=== PATIENT | male | born 1950 | race Caucasian/White ===

== ENCOUNTER → 2017-04-26 | Outpatient (CLI) | payer MEDICARE, BC ==
--- NOTE | 2017-04-26 22:40 | MR ---
EXAMINATION TYPE: MR foot RT wo/w con DATE OF EXAM: 04/26/2017 COMPARISON: NONE HISTORY: osteomyelitis, rt great toe. History of puncture wound injury August 2016. CONTRAST: Standard multiplanar, multisequence MRI departmental protocol utilizing 20 mL intravenous MultiHance gadolinium contrast. FINDINGS: There is hallux valgus deformity first metatarsophalangeal joint. There is joint space loss and spurring with round T2 hyperintense areas favoring subchondral cysts at this level. Along planta r surface there is small area of pulmonary first metatarsal head of T1 hypointensity and T2 hyperinte nsity with vague enhancement seen best sagittal image 6 in which acute osteomyelitis cannot be exclud ed. Coronal images are suboptimal as all T1 sequences are postcontrast in presentation with enhanceme nt at this level. Adjacent subcutaneous tissue is unremarkable. There is flexion in the toes present. There is slight varus positioning of distal fourth and fifth to es. Remainder of bone marrow signal intensity is preserved. No worrisome focal fluid collection or ab scess is seen. IMPRESSION: Degenerative change first metatarsophalangeal joint with area of abnormal signal and enhancement in w hich small focus of acute osteomyelitis cannot be excluded centered plantar surface first metatarsal head.
== END | disposition home or self-care (01) ==
LOC: RADMRIMAIN 11:05
PROVIDERS: ATTEND Surgery Vascular Surgery
DX: M86.8X8 Other osteomyelitis, other site (principal); E13.621 Other specified diabetes mellitus with foot ulcer
CPT/HCPCS: 73720; A9577

== ENCOUNTER → 2018-04-07 | Outpatient (CLI) | payer MEDICARE, BC ==
--- NOTE | 2018-04-07 09:16 | MR ---
EXAMINATION TYPE: MR foot LT wo/w con DATE OF EXAM: 04/07/2018 COMPARISON: NONE HISTORY: Osteomyelitis left great toe per order, history of partial amputation left foot CONTRAST: Standard multiplanar, multisequence MRI departmental protocol utilizing 11.5 mL intravenous Gadavist gadolinium contrast. FINDINGS: Amputation defect involving distal one half of first toe is present. Remnant first toe show s no suspicious diminished T1 signal or thus abnormal enhancement. There is enhancing low T1 and T2 s ignal in the distal plantar soft tissue consistent with scar tissue at this level. Slight hallex valgus positioning first metatarsophalangeal joint with mild joint space loss and spurr ing is present. Moderate soft tissue swelling around first proximal phalanx is seen with some enhanci ng soft tissue could reflect residual soft tissue infection and/or cellulitis most prominent along pl nydia surface. There is varus positioning and flexion in distal fourth and fifth toes. Bone marrow signal intensity is maintained. No worrisome focal fluid collection is seen. No suspicious enhancement is noted. IMPRESSION: Amputation defect distal first toe. No MRI evidence for residual active osteomyelitis in the remnant first toe or remainder visualized midfoot and forefoot.
== END ==
LOC: RADMRIMAIN 07:57
PROVIDERS: ATTEND Surgery Vascular Surgery
DX: M86.8X7 Other osteomyelitis, ankle and foot (principal)
CPT/HCPCS: 73720; A9581

== ENCOUNTER 2018-11-06 12:39 | Inpatient (IN) | payer MEDICARE, BC ==
[2018-11-06] MEDS ORDERED: SODIUM CHLORIDE 0.9% 500 ML 500 ML IV STA (13:31)
[2018-11-06] MEDS ORDERED: IPRATROPIUM 0.5 MG/2.5 ML NEBU INHALATION STA (13:31)
[2018-11-06] MEDS ORDERED: ALBUTEROL NEBULIZED 2.5 MG/3 ML INHALATION STA (13:31)
[2018-11-06] MEDS ORDERED: ACETAMINOPHEN TAB 500 MG TAB PO STA (13:32)
--- NOTE | 2018-11-06 13:39 | ED ---
General Adult HPI - General Chief complaint: Shortness of Breath Stated complaint: low O2, sent from [facility] Time Seen by Provider: 11/06/18 13:00 Source: patient, RN notes reviewed Mode of arrival: ambulatory Limitations: no limitations - History of Present Illness Initial comments: This is a 68-year-old male who presents emergency department after having gone to [facility]. Patient comes in stating that he started having some shortness of breath last evening. Patient states about 3 days ago he was in [place] and started to come down with a little bit of a cold however the shortness of breath did not start until he got back to [place] and states it was very noticeably yesterday. Patient states shortness of breath is worse with exertion. Patient denies any chest pain. Patient denies any palpitations. Patient does state he has a history of atrial fibrillation. Patient states he has no known fever or chills. Patient states she has been coughing but not coughing up any sputum. Patient denies any abdominal pain patient as nausea vomiting diarrhea. Patient denies headache patient denies numbness weakness. Patient denies lightheadedness dizziness or near syncopal episode. Patient denies any swelling to the legs. - Related Data Home Medications Medication Instructions Recorded Confirmed Folic Acid 1 mg PO DAILY 09/06/16 11/06/18 Furosemide [Lasix] 20 mg PO HS 09/06/16 11/06/18 Lisinopril [Zestril] 5 mg PO DAILY 09/06/16 11/06/18 Simvastatin [Zocor] 40 mg PO HS 09/06/16 11/06/18 Warfarin [Coumadin] 3 mg PO Q48H 09/06/16 11/06/18 Warfarin [Coumadin] 4 mg PO Q48H 09/06/16 11/06/18 levETIRAcetam [Keppra] 750 mg PO BID 09/06/16 11/06/18 metFORMIN HCL [Glucophage] 500 mg PO BID 09/06/16 11/06/18 Multivitamin [Multiple Vitamins] 1 tab PO DAILY 04/11/17 11/06/18 Thiamine [Vitamin B-1] 50 mg PO DAILY 04/11/17 11/06/18 Metoprolol Tartrate [Lopressor] 50 mg PO BID 02/09/18 11/06/18 Pregabalin [Lyrica] 200 mg PO TID 02/09/18 11/06/18 Esomeprazole Magnesium [NexIUM] 40 mg PO HS 11/06/18 11/06/18 Allergies Allergy/AdvReac Type Severity Reaction Status Date / Time No Known Allergies Allergy Verified 11/06/18 15:13 Review of Systems ROS Statement: Those systems with pertinent positive or pertinent negative responses have been documented in the HPI. ROS Other: All systems not noted in ROS Statement are negative. Past Medical History Past Medical History: Atrial Fibrillation, Diabetes Mellitus, GERD/Reflux, Hyperlipidemia, Hypertension, Seizure Disorder Additional Past Medical History / Comment(s): Epilepsy. cellulitis , wound left foot, neuropathy History of Any Multi-Drug Resistant Organisms: None Reported Past Surgical History: Cholecystectomy Additional Past Surgical History / Comment(s): Colonoscopy, left foot great toe Past Anesthesia/Blood Transfusion Reactions: No Reported Reaction Past Psychological History: No Psychological Hx Reported Smoking Status: Former smoker Past Alcohol Use History: Daily Past Drug Use History: None Reported - Past Family History Mother Family Medical History: Cancer Additional Family Medical History / Comment(s): fx hip, uterine Father Family Medical History: Dementia General Exam - General Exam Comments Initial Comments: GENERAL: Patient is well-developed and well-nourished. Patient is nontoxic and well- hydrated and is in mild distress. ENT: Neck is soft and supple. No significant lymphadenopathy is noted. Oropharynx is clear. Moist mucous membranes. Neck has full range of motion without eliciting any pain. EYES: The sclera were anicteric and conjunctiva were pink and moist. Extraocular movements were intact and pupils were equal round and reactive to light. Eyelids were unremarkable. PULMONARY: Patient has expiratory wheezing diffusely CARDIOVASCULAR: There is a regular rate and rhythm without any murmurs gallops or rubs. ABDOMEN: Soft and nontender with normal bowel sounds. No palpable organomegaly was noted. There is no palpable pulsatile mass. SKIN: Skin is clear with no lesions or rashes and otherwise unremarkable. NEUROLOGIC: Patient is alert and oriented x3. Cranial nerves II through XII are grossly intact. Motor and sensory are also intact. Normal speech, volume and content. Symmetrical smile. MUSCULOSKELETAL: Normal extremities with adequate strength and full range of motion. No lower extremity swelling or edema. No calf tenderness. LYMPHATICS: No significant lymphadenopathy is noted PSYCHIATRIC: Normal psychiatric evaluation. Limitations: no limitations Course Vital Signs 11/06/18 11/06/18 11/06/18 12:58 13:45 13:53 Temperature 98.5 F Pulse Rate 90 99 Respiratory 20 18 18 Rate Blood Pressure 123/77 129/78 O2 Sat by Pulse 97 96 Oximetry 11/06/18 11/06/18 11/06/18 14:04 14:16 14:52 Temperature Pulse Rate 112 H 91 112 H Respiratory 18 18 18 Rate Blood Pressure 139/78 O2 Sat by Pulse 97 Oximetry Medical Decision Making - Medical Decision Making EKG shows atrial fibrillation with rapid ventricular response at 107 bpm QRS is under QT interval 332 QTC is 443. Patient's EKG shows some ST segment depression in precordial leads V4 through V6 as well as leads 1 and 2. I went back to evaluate the patient and the patient's lung sounds were clear no expiratory wheezing. Patient's chest x-ray shows some interstitial densities and peribronchial cuffing. Patient received albuterol treatments and steroids in the emergency department. I spoke with Dr. Wang he agreed to admit the patient and follow the troponins. - Lab Data Result diagrams: 11/06/18 13:35 11/06/18 13:35 Lab Results 11/06/18 11/06/18 11/06/18 Range/Units 13:35 13:35 13:35 WBC 6.4 (3.8-10.6) k/uL RBC 4.50 (4.30-5.90) m/uL Hgb 13.3 (13.0-17.5) gm/dL Hct 41.7 (39.0-53.0) % MCV 92.7 (80.0-100.0) fL MCH 29.6 (25.0-35.0) pg MCHC 32.0 (31.0-37.0) g/dL RDW 13.8 (11.5-15.5) % Plt Count 155 (150-450) k/uL Neutrophils % 74 % Lymphocytes % 14 % Monocytes % 8 % Eosinophils % 0 % Basophils % 1 % Neutrophils # 4.7 (1.3-7.7) k/uL Lymphocytes # 0.9 L (1.0-4.8) k/uL Monocytes # 0.5 (0-1.0) k/uL Eosinophils # 0.0 (0-0.7) k/uL Basophils # 0.0 (0-0.2) k/uL PT (9.0-12.0) sec INR (<1.2) APTT (22.0-30.0) sec D-Dimer (<0.60) mg/L FEU Sodium 138 (137-145) mmol/L Potassium 4.7 (3.5-5.1) mmol/L Chloride 101 (98-107) mmol/L Carbon Dioxide 25 (22-30) mmol/L Anion Gap 12 mmol/L BUN 16 (9-20) mg/dL Creatinine 1.38 H (0.66-1.25) mg/dL Est GFR (CKD-EPI)AfAm 61 (>60 ml/min/1.73 sqM) Est GFR (CKD-EPI)NonAf 53 (>60 ml/min/1.73 sqM) Glucose 140 H (74-99) mg/dL Calcium 9.1 (8.4-10.2) mg/dL Magnesium 1.7 (1.6-2.3) mg/dL Total Bilirubin 2.1 H (0.2-1.3) mg/dL AST 34 (17-59) U/L ALT 25 (21-72) U/L Alkaline Phosphatase 38 (38-126) U/L Total Creatine Kinase 114 (55-170) U/L CK-MB (CK-2) 1.0 (0.0-2.4) ng/mL CK-MB (CK-2) Rel Index 0.9 Troponin I 0.055 H* (0.000-0.034) ng/mL Total Protein 7.6 (6.3-8.2) g/dL Albumin 4.2 (3.5-5.0) g/dL 11/06/18 Range/Units 13:35 WBC (3.8-10.6) k/uL RBC (4.30-5.90) m/uL Hgb (13.0-17.5) gm/dL Hct (39.0-53.0) % MCV (80.0-100.0) fL MCH (25.0-35.0) pg MCHC (31.0-37.0) g/dL RDW (11.5-15.5) % Plt Count (150-450) k/uL Neutrophils % % Lymphocytes % % Monocytes % % Eosinophils % % Basophils % % Neutrophils # (1.3-7.7) k/uL Lymphocytes # (1.0-4.8) k/uL Monocytes # (0-1.0) k/uL Eosinophils # (0-0.7) k/uL Basophils # (0-0.2) k/uL PT 15.5 H (9.0-12.0) sec INR 1.5 H (<1.2) APTT 28.9 (22.0-30.0) sec D-Dimer 0.34 (<0.60) mg/L FEU Sodium (137-145) mmol/L Potassium (3.5-5.1) mmol/L Chloride (98-107) mmol/L Carbon Dioxide (22-30) mmol/L Anion Gap mmol/L BUN (9-20) mg/dL Creatinine (0.66-1.25) mg/dL Est GFR (CKD-EPI)AfAm (>60 ml/min/1.73 sqM) Est GFR (CKD-EPI)NonAf (>60 ml/min/1.73 sqM) Glucose (74-99) mg/dL Calcium (8.4-10.2) mg/dL Magnesium (1.6-2.3) mg/dL Total Bilirubin (0.2-1.3) mg/dL AST (17-59) U/L ALT (21-72) U/L Alkaline Phosphatase (38-126) U/L Total Creatine Kinase (55-170) U/L CK-MB (CK-2) (0.0-2.4) ng/mL CK-MB (CK-2) Rel Index Troponin I (0.000-0.034) ng/mL Total Protein (6.3-8.2) g/dL Albumin (3.5-5.0) g/dL Disposition Clinical Impression: Bronchospasm, acute, Troponin level elevated Disposition: ADMITTED IP TO THIS HOSP Referrals: Javier Delaney MD [Primary Care Provider] - 1-2 days Time of Disposition: 16:34
[2018-11-06 14:00] LABS: Basophils % (A) 1 %; Eosinophils % (A) 0 %; HCT 41.7 % (39.0-53.0); HGB 13.3 gm/dL (13.0-17.5); Lymphocytes # (A) 0.9 k/uL (1.0-4.8); Lymphocytes % (A) 14 %; MCH 29.6 pg (25.0-35.0); MCV 92.7 fL (80.0-100.0); Mean Platelet Volume 8.2; Monocytes # (A) 0.5 k/uL (0-1.0); Monocytes % (A) 8 %; Neutrophils # (A) 4.7 k/uL (1.3-7.7); Neutrophils % (A) 74 %; Platelet Count 155 k/uL (150-450); RDW 13.8 % (11.5-15.5); WBC 6.4 k/uL (3.8-10.6)
[2018-11-06 14:08] LABS: Albumin 4.2 g/dL (3.5-5.0); Calcium 9.1 mg/dL (8.4-10.2); Magnesium 1.7 mg/dL (1.6-2.3); Total Bilirubin 2.1 mg/dL (0.2-1.3); Total Protein 7.6 g/dL (6.3-8.2)
--- NOTE | 2018-11-06 14:12 | XR ---
EXAMINATION TYPE: XR chest 2V DATE OF EXAM: 11/06/2018 COMPARISON: None HISTORY: 68-year-old male difficulty breathing TECHNIQUE: PA and lateral views FINDINGS: Heart normal size. Aorta within normal limits. Peribronchial cuffing is present throughout with mild increased interstitial densities. No consolidation or pleural effusion. IMPRESSION: Interstitial densities and peribronchial cuffing. Correlate for uncontrolled asthma, bronchitis, and atypical pneumonias.
[2018-11-06 14:16] LABS: D-Dimer 0.34 mg/L FEU (<0.60); INR 1.5 (<1.2); Partial Thromboplastin Time 28.9 sec (22.0-30.0); Prothrombin Time 15.5 sec (9.0-12.0)
[2018-11-06 14:18] LABS: Potassium 4.7 mmol/L (3.5-5.1)
[2018-11-06 14:37] LABS: Troponin I 0.055 ng/mL (0.000-0.034)
[2018-11-06] MEDS ORDERED: methylPREDNISolone SOD SUCCI 125 MG/2 ML VIAL IV STA (15:24)
[2018-11-06] MEDS ORDERED: SODIUM CHLORIDE 0.9% 1,000 ML IV ONE (16:35)
[2018-11-06] MEDS ORDERED: predniSONE 20 MG TAB PO STA (16:37)
[2018-11-06] MEDS: METOPROLOL TARTRATE 50 MG TAB PO SCH (22:31)
[2018-11-06] MEDS: PREGABALIN 100 MG CAP PO SCH (22:31)
[2018-11-06] MEDS: PANTOPRAZOLE 40 MG TABLET PO SCH (22:31)
[2018-11-07 02:35] LABS: Potassium 4.5 mmol/L (3.5-5.1)
[2018-11-07 02:40] LABS: INR 1.4 (<1.2); Prothrombin Time 14.3 sec (9.0-12.0)
[2018-11-07 02:42] LABS: Basophils % (A) 1 %; Eosinophils % (A) 1 %; HCT 42.7 % (39.0-53.0); HGB 13.7 gm/dL (13.0-17.5); Lymphocytes # (A) 0.6 k/uL (1.0-4.8); Lymphocytes % (A) 17 %; MCH 30.4 pg (25.0-35.0); MCV 95.1 fL (80.0-100.0); Mean Platelet Volume 8.5; Monocytes # (A) 0.1 k/uL (0-1.0); Monocytes % (A) 4 %; Neutrophils # (A) 2.4 k/uL (1.3-7.7); Neutrophils % (A) 74 %; Platelet Count 118 k/uL (150-450); RBC 4.49 m/uL (4.30-5.90); RDW 13.7 % (11.5-15.5); WBC 3.3 k/uL (3.8-10.6)
[2018-11-07 06:20] LABS: Glucose,Whole Blood 214 mg/dL (75-99)
[2018-11-07] MEDS: THIAMINE 100 MG TAB PO SCH (08:54)
[2018-11-07] MEDS: metFORMIN 500 MG TAB PO SCH ×2 (08:54→22:50)
[2018-11-07] MEDS: METOPROLOL TARTRATE 50 MG TAB PO SCH ×2 (08:54→22:50)
[2018-11-07] MEDS: PREGABALIN 100 MG CAP PO SCH ×3 (08:54→22:49)
[2018-11-07] MEDS: FOLIC ACID 1 MG TAB PO SCH (08:55)
[2018-11-07] MEDS: MULTIVITAMINS, THERA 1 EACH TAB PO SCH (08:55)
[2018-11-07] MEDS: LISINOPRIL 5 MG TAB PO SCH (08:55)
[2018-11-07] MEDS: IPRATROPIUM-ALBUTEROL 3 ML NEB INHALATION PRN ×3 (09:06→16:23)
--- NOTE | 2018-11-07 10:33 | P.HPIM ---
History of Present Illness H&P Date: 11/07/18 Chief Complaint: Lower respiratory congestion. This is history of physical 68-year-old white male who was seen in urgent care and started having some shortness of breath yesterday. He recently came back from [place] because of some rental property issues. He states he's been having a little bit of upper respiratory infection but now history shortness of breath he has history of atrial fibrillation. No significant nausea or vomiting. But the patient states cough but not productive. No headache or shortness of breath until recently. Review of Systems Constitutional: Reports fatigue, Reports weakness, Denies chills, Denies fever Eyes: denies blurred vision, denies pain Cardiovascular: Denies chest pain, Denies shortness of breath Respiratory: Reports cough, Reports pleurisy Gastrointestinal: Denies abdominal pain, Denies diarrhea, Denies nausea, Denies vomiting Musculoskeletal: Reports as per HPI Integumentary: Denies pruritus, Denies rash Psychiatric: Denies anxiety, Denies depression Past Medical History Past Medical History: Atrial Fibrillation, Diabetes Mellitus, GERD/Reflux, Hyperlipidemia, Hypertension, Seizure Disorder Additional Past Medical History / Comment(s): Epilepsy. cellulitis , wound left foot, neuropathy History of Any Multi-Drug Resistant Organisms: None Reported Past Surgical History: Cholecystectomy Additional Past Surgical History / Comment(s): Colonoscopy, left foot great toe Past Anesthesia/Blood Transfusion Reactions: No Reported Reaction Past Psychological History: No Psychological Hx Reported Smoking Status: Former smoker Past Alcohol Use History: Daily Additional Past Alcohol Use History / Comment(s): quit smoking 41 yrs ago Past Drug Use History: None Reported - Past Family History Mother Family Medical History: Cancer Additional Family Medical History / Comment(s): fx hip, uterine Father Family Medical History: Dementia Medications and Allergies Home Medications Medication Instructions Recorded Confirmed Type Folic Acid 1 mg PO DAILY 09/06/16 11/06/18 History Furosemide [Lasix] 20 mg PO HS 09/06/16 11/06/18 History Lisinopril [Zestril] 5 mg PO DAILY 09/06/16 11/06/18 History Simvastatin [Zocor] 40 mg PO HS 09/06/16 11/06/18 History Warfarin [Coumadin] 3 mg PO Q48H 09/06/16 11/06/18 History Warfarin [Coumadin] 4 mg PO Q48H 09/06/16 11/06/18 History levETIRAcetam [Keppra] 750 mg PO BID 09/06/16 11/06/18 History metFORMIN HCL [Glucophage] 500 mg PO BID 09/06/16 11/06/18 History Multivitamin [Multiple Vitamins] 1 tab PO DAILY 04/11/17 11/06/18 History Thiamine [Vitamin B-1] 50 mg PO DAILY 04/11/17 11/06/18 History Metoprolol Tartrate [Lopressor] 50 mg PO BID 02/09/18 11/06/18 History Pregabalin [Lyrica] 200 mg PO TID 02/09/18 11/06/18 History Esomeprazole Magnesium [NexIUM] 40 mg PO HS 11/06/18 11/06/18 History Allergies Allergy/AdvReac Type Severity Reaction Status Date / Time No Known Allergies Allergy Verified 11/06/18 15:13 Physical Exam Vitals: Vital Signs Temp Pulse Pulse Resp BP BP Pulse Ox 11/07/18 09:20 90 11/07/18 09:06 88 11/07/18 08:00 97.6 F 65 18 145/67 97 11/07/18 03:11 96.5 F L 104 H 16 126/72 95 11/06/18 23:25 96.5 F L 91 16 139/89 97 11/06/18 20:12 98.7 F 112 H 18 116/80 96 11/06/18 17:34 98.9 F 112 H 18 103/63 96 11/06/18 17:03 95.9 F L 99 16 116/85 98 11/06/18 14:52 112 H 18 139/78 97 11/06/18 14:16 91 18 11/06/18 14:04 112 H 18 11/06/18 13:53 99 18 129/78 96 11/06/18 13:45 18 11/06/18 12:58 98.5 F 90 20 123/77 97 Intake and Output 11/06/18 11/07/18 11/07/18 22:59 06:59 14:59 Intake Total 600 600 100 Balance 600 600 100 Intake: IV 600 600 Sodium Chloride 0.9% 1, 600 600 000 ml @ 75 mls/hr IV . [id number] ONE Rx#:[id number] Oral 100 Other: Weight 109.6 kg - Constitutional General appearance: no acute distress - EENT Eyes: EOMI - Neck Neck: no lymphadenopathy - Respiratory Respiratory: bilateral: rhonchi - Cardiovascular Rhythm: regular Heart sounds: normal: S1, S2 Abnormal Heart Sounds: no S3 Gallop - Gastrointestinal General gastrointestinal: soft, no tenderness - Neurologic Neurologic: CNII-XII intact - Psychiatric Psychiatric: A&O x's 3, appropriate affect Results CBC & Chem 7: 11/07/18 02:02 11/07/18 02:02 Labs: Abnormal Lab Results - Last 24 Hours (Table) 11/06/18 11/06/18 11/06/18 Range/Units 13:35 13:35 13:35 WBC (3.8-10.6) k/uL Plt Count (150-450) k/uL Lymphocytes # 0.9 L (1.0-4.8) k/uL PT (9.0-12.0) sec INR (<1.2) Carbon Dioxide (22-30) mmol/L Creatinine 1.38 H (0.66-1.25) mg/dL Glucose 140 H (74-99) mg/dL POC Glucose (mg/dL) (75-99) mg/dL Total Bilirubin 2.1 H (0.2-1.3) mg/dL Troponin I 0.055 H* (0.000-0.034) ng/mL 11/06/18 11/06/18 11/07/18 Range/Units 13:35 20:16 02:02 WBC 3.3 L (3.8-10.6) k/uL Plt Count 118 L (150-450) k/uL Lymphocytes # 0.6 L (1.0-4.8) k/uL PT 15.5 H (9.0-12.0) sec INR 1.5 H (<1.2) Carbon Dioxide (22-30) mmol/L Creatinine (0.66-1.25) mg/dL Glucose (74-99) mg/dL POC Glucose (mg/dL) (75-99) mg/dL Total Bilirubin (0.2-1.3) mg/dL Troponin I 0.036 H* (0.000-0.034) ng/mL 11/07/18 11/07/18 11/07/18 Range/Units 02:02 02:02 06:18 WBC (3.8-10.6) k/uL Plt Count (150-450) k/uL Lymphocytes # (1.0-4.8) k/uL PT 14.3 H (9.0-12.0) sec INR 1.4 H (<1.2) Carbon Dioxide 20 L (22-30) mmol/L Creatinine (0.66-1.25) mg/dL Glucose 286 H (74-99) mg/dL POC Glucose (mg/dL) 214 H (75-99) mg/dL Total Bilirubin (0.2-1.3) mg/dL Troponin I (0.000-0.034) ng/mL Thrombosis Risk Factor Assmnt - Choose All That Apply Any of the Below Risk Factors Present?: Yes Each Factor Represents 1 point: Obesity (BMI >25) Each Risk Factor Represents 2 Points: Age 61-74 years Thrombosis Risk Factor Assessment Total Risk Factor Score: 3 Thrombosis Risk Factor Assessment Level: Moderate Risk Assessment and Plan (1) Diabetes Current Visit: Yes Status: Acute Code(s): E11.9 - TYPE 2 DIABETES MELLITUS WITHOUT COMPLICATIONS SNOMED Code(s): 20758420 (2) Bronchospasm, acute Current Visit: Yes Status: Acute Code(s): J98.01 - ACUTE BRONCHOSPASM SNOMED Code(s): 72635762680530 (3) Troponin level elevated Current Visit: Yes Status: Acute Code(s): R74.8 - ABNORMAL LEVELS OF OTHER SERUM ENZYMES SNOMED Code(s): 763315746 Plan: Continue respiratory support. Check CBC and CMP in a.m. per Cardiology has been consulted secondary to elevated troponin. Question need for pulmonology assistance. Reconcile home medications. Place on appropriate sliding scale. DVT prophylaxis as per protocol. Time with Patient: Greater than 30
[2018-11-07 11:58] LABS: Glucose,Whole Blood 173 mg/dL (75-99)
[2018-11-07 12:55] LABS: INR 1.5 (<1.2); Prothrombin Time 15.5 sec (9.0-12.0)
--- NOTE | 2018-11-07 14:43 | P.CRDCN ---
History of Present Illness History of present illness: This is Dr. Hendrickson dictating a consult on this patient The patient was interviewed and examined by me IMPRESSION / ASSESSMENT: COPD exacerbation Borderline troponin , single troponin abnormality in the next troponin was normal Hypertension Atrial fibrillation PLAN: Continue anticoagulation as stroke prevention continue rate control medications continue statins patient is a type II diabetic HPI Increasing shortness of breath cough no expectoration ROS: No fever chills or rigors, no cough, phlegm or expectoration, no nausea, vomiting or diarrhea, no hematuria, dysuria, no musculoskeletal complaints, no strokes or seizures, no skin lesions. EXAMINATION: Reduced breath sounds bilaterally with bilateral rhonchi Precordial auscultation reveals irregular rhythm soft heart sounds rapid Abdomen soft Extremities are warm REVIEW OF LABS, ECG & MEDICAL DATA 1 borderline abnormal troponin in the next troponin is normal Sodium 138 potassium 4.5 BUN 18 creatinine 1.05 Twelve-lead ECG shows atrial fibrillation with RVR [address] depressions heart rate 11/12/2006 beats a minute Past Medical History Past Medical History: Atrial Fibrillation, Diabetes Mellitus, GERD/Reflux, Hyperlipidemia, Hypertension, Seizure Disorder Additional Past Medical History / Comment(s): Epilepsy. cellulitis , wound left foot, neuropathy History of Any Multi-Drug Resistant Organisms: None Reported Past Surgical History: Cholecystectomy Additional Past Surgical History / Comment(s): Colonoscopy, left foot great toe Past Anesthesia/Blood Transfusion Reactions: No Reported Reaction Past Psychological History: No Psychological Hx Reported Smoking Status: Former smoker Past Alcohol Use History: Daily Additional Past Alcohol Use History / Comment(s): quit smoking 41 yrs ago Past Drug Use History: None Reported - Past Family History Mother Family Medical History: Cancer Additional Family Medical History / Comment(s): fx hip, uterine Father Family Medical History: Dementia Medications and Allergies Home Medications Medication Instructions Recorded Confirmed Type Folic Acid 1 mg PO DAILY 09/06/16 11/06/18 History Furosemide [Lasix] 20 mg PO HS 09/06/16 11/06/18 History Lisinopril [Zestril] 5 mg PO DAILY 09/06/16 11/06/18 History Simvastatin [Zocor] 40 mg PO HS 09/06/16 11/06/18 History Warfarin [Coumadin] 3 mg PO Q48H 09/06/16 11/06/18 History Warfarin [Coumadin] 4 mg PO Q48H 09/06/16 11/06/18 History levETIRAcetam [Keppra] 750 mg PO BID 09/06/16 11/06/18 History metFORMIN HCL [Glucophage] 500 mg PO BID 09/06/16 11/06/18 History Multivitamin [Multiple Vitamins] 1 tab PO DAILY 04/11/17 11/06/18 History Thiamine [Vitamin B-1] 50 mg PO DAILY 04/11/17 11/06/18 History Metoprolol Tartrate [Lopressor] 50 mg PO BID 02/09/18 11/06/18 History Pregabalin [Lyrica] 200 mg PO TID 02/09/18 11/06/18 History Esomeprazole Magnesium [NexIUM] 40 mg PO HS 11/06/18 11/06/18 History Allergies Allergy/AdvReac Type Severity Reaction Status Date / Time No Known Allergies Allergy Verified 11/06/18 15:13 Physical Exam Vitals: Vital Signs Temp Pulse Pulse Resp BP BP Pulse Ox 11/07/18 12:38 94 11/07/18 12:23 92 11/07/18 12:00 98.1 F 55 L 16 124/74 98 11/07/18 09:20 90 11/07/18 09:06 88 11/07/18 08:00 97.6 F 65 18 145/67 97 11/07/18 03:11 96.5 F L 104 H 16 126/72 95 11/06/18 23:25 96.5 F L 91 16 139/89 97 11/06/18 20:12 98.7 F 112 H 18 116/80 96 11/06/18 17:34 98.9 F 112 H 18 103/63 96 11/06/18 17:03 95.9 F L 99 16 116/85 98 11/06/18 14:52 112 H 18 139/78 97 Intake and Output 11/06/18 11/07/18 11/07/18 22:59 06:59 14:59 Intake Total 600 600 100 Balance 600 600 100 Intake: IV 600 600 Sodium Chloride 0.9% 1, 600 600 000 ml @ 75 mls/hr IV . [id number] Rx#:[id number] Oral 100 Other: Weight 109.6 kg Results 11/07/18 02:02 11/07/18 02:02 Cardiac Enzymes 11/06/18 11/07/18 Range/Units 20:16 02:02 Troponin I 0.036 H* 0.016 (0.000-0.034) ng/mL Coagulation 11/07/18 11/07/18 Range/Units 02:02 12:27 PT 14.3 H 15.5 H (9.0-12.0) sec CBC 11/07/18 Range/Units 02:02 WBC 3.3 L (3.8-10.6) k/uL RBC 4.49 (4.30-5.90) m/uL Hgb 13.7 (13.0-17.5) gm/dL Hct 42.7 (39.0-53.0) % Plt Count 118 L (150-450) k/uL Comprehensive Metabolic Panel 11/07/18 Range/Units 02:02 Sodium 138 (137-145) mmol/L Potassium 4.5 (3.5-5.1) mmol/L Chloride 105 (98-107) mmol/L Carbon Dioxide 20 L (22-30) mmol/L BUN 18 (9-20) mg/dL Creatinine 1.05 (0.66-1.25) mg/dL Glucose 286 H (74-99) mg/dL Calcium 9.0 (8.4-10.2) mg/dL Current Medications Generic Name Dose Route Start Last Admin Trade Name Freq PRN Reason Stop Dose Admin Albuterol/Ipratropium 3 ml 11/06/18 16:37 11/07/18 12:22 Duoneb 0.5 Mg-3 Mg/3 Ml Soln INHALATION 3 ml RT-QID PRN Administration Shortness Of Breath Or Wheezing Atorvastatin Calcium 20 mg 11/07/18 21:00 Lipitor PO HS [facility] Folic Acid 1 mg 11/07/18 09:00 11/07/18 08:55 Folic Acid PO 1 mg DAILY [facility] Administration Furosemide 20 mg 11/07/18 21:00 Lasix PO HS [facility] Levetiracetam 750 mg 11/07/18 09:00 11/07/18 08:55 Keppra PO 750 mg BID [facility] Administration Lisinopril 5 mg 11/07/18 09:00 11/07/18 08:55 Zestril PO 5 mg DAILY [facility] Administration Metformin HCl 500 mg 11/07/18 09:00 11/07/18 08:54 Glucophage PO 500 mg BID [facility] Administration Metoprolol Tartrate 50 mg 11/06/18 22:15 11/07/18 08:54 Lopressor PO 50 mg BID [facility] Administration Multivitamins 1 each 11/07/18 09:00 11/07/18 08:55 Theragran PO 1 each DAILY [facility] Administration Pantoprazole Sodium 40 mg 11/06/18 22:23 11/06/18 22:31 Protonix PO 40 mg HS [facility] Administration Pregabalin 200 mg 11/06/18 22:00 11/07/18 08:54 Lyrica PO 200 mg TID [facility] Administration Thiamine HCl 50 mg 11/07/18 09:00 11/07/18 08:54 Vitamin B-1 PO 50 mg DAILY [facility] Administration Warfarin Sodium 3 mg 11/07/18 18:00 Coumadin PO Q48H [facility] Warfarin Sodium 4 mg 11/08/18 18:00 Coumadin PO Q48H [facility] Intake and Output 11/06/18 11/07/18 11/07/18 22:59 06:59 14:59 Intake Total 600 600 100 Balance 600 600 100 Intake: IV 600 600 Sodium Chloride 0.9% 1, 600 600 000 ml @ 75 mls/hr IV . [id number] ONE Rx#:[id number] Oral 100 Other: Weight 109.6 kg 11/07/18 02:02 11/07/18 02:02
[2018-11-07 17:54] LABS: Glucose,Whole Blood 181 mg/dL (75-99)
[2018-11-07] MEDS ORDERED: WARFARIN 3 MG TAB PO SCH (18:00)
[2018-11-07] MEDS ORDERED: PANTOPRAZOLE 40 MG TABLET PO SCH (21:00)
[2018-11-07 21:11] LABS: Glucose,Whole Blood 171 mg/dL (75-99)
[2018-11-07] MEDS: FUROSEMIDE 20 MG TAB PO SCH (22:49)
[2018-11-07] MEDS: ATORVASTATIN 20 MG TAB PO SCH (22:49)
[2018-11-07] MEDS: PANTOPRAZOLE 40 MG TABLET PO SCH (22:49)
[2018-11-08 06:16] LABS: Glucose,Whole Blood 140 mg/dL (75-99)
[2018-11-08 06:57] LABS: HGB 12.2 gm/dL (13.0-17.5); MCH 29.7 pg (25.0-35.0); MCHC 32.1 g/dL (31.0-37.0); MCV 92.4 fL (80.0-100.0); Mean Platelet Volume 8.7; Platelet Count 153 k/uL (150-450); RBC 4.11 m/uL (4.30-5.90); RDW 13.8 % (11.5-15.5); WBC 7.7 k/uL (3.8-10.6)
[2018-11-08 07:10] LABS: Albumin 3.5 g/dL (3.5-5.0); Potassium 4.6 mmol/L (3.5-5.1); Total Protein 6.4 g/dL (6.3-8.2)
[2018-11-08 07:48] LABS: INR 1.5 (<1.2); Prothrombin Time 15.4 sec (9.0-12.0)
[2018-11-08] MEDS: IPRATROPIUM-ALBUTEROL 3 ML NEB INHALATION PRN ×3 (08:19→16:09)
[2018-11-08] MEDS: FOLIC ACID 1 MG TAB PO SCH (08:37)
[2018-11-08] MEDS: MULTIVITAMINS, THERA 1 EACH TAB PO SCH (08:37)
[2018-11-08] MEDS: METOPROLOL TARTRATE 50 MG TAB PO SCH ×3 (08:37→22:27)
[2018-11-08] MEDS: LISINOPRIL 5 MG TAB PO SCH (08:37)
[2018-11-08] MEDS: metFORMIN 500 MG TAB PO SCH ×2 (08:37→22:27)
[2018-11-08] MEDS: PREGABALIN 100 MG CAP PO SCH ×3 (08:37→22:27)
--- NOTE | 2018-11-08 08:44 | P.PN ---
Subjective Progress Note Date: 11/08/18 Principal diagnosis: This continue present 68-year-old white male essentially admitted for acute arrest or congestion with bronchitis. The patient has an underlying history of atrial fibrillation which is fairly stable. I do appreciate cardiology input. No voiding difficulties. No sniffing nausea, vomiting or diarrhea stated. They 're still significant cough and congestion per Objective - Vital Signs Vital signs: Vital Signs Temp 97.6 F 11/08/18 08:00 Pulse 68 11/08/18 08:32 Resp 16 11/08/18 08:00 BP 127/76 11/08/18 08:00 Pulse Ox 96 11/08/18 08:00 Intake & Output 11/07/18 11/08/18 11/08/18 18:59 06:59 18:59 Intake Total 330 Balance 330 Weight 106.1 kg Intake: Oral 330 Other: # Voids 1 - Constitutional General appearance: Present: cooperative - EENT Eyes: Absent: abnormal pupil - Neck Neck: Absent: lymphadenopathy - Respiratory Respiratory: left: rhonchi - Cardiovascular Rhythm: regular Heart sounds: normal: S1, S2 Abnormal Heart Sounds: Absent: S3 Gallop - Gastrointestinal General gastrointestinal: Present: soft. Absent: tenderness - Neurologic Neurologic: Present: CNII-XII intact. Absent: focal deficits - Musculoskeletal Musculoskeletal: Present: gait normal - Psychiatric Psychiatric: Present: A&O x's 3 - Labs CBC & Chem 7: 11/08/18 06:42 11/08/18 06:42 Labs: Abnormal Lab Results - Last 24 Hours (Table) 11/07/18 11/07/18 11/07/18 Range/Units 11:54 12:27 17:03 RBC (4.30-5.90) m/uL Hgb (13.0-17.5) gm/dL Hct (39.0-53.0) % PT 15.5 H (9.0-12.0) sec INR 1.5 H (<1.2) BUN (9-20) mg/dL Creatinine (0.66-1.25) mg/dL Glucose (74-99) mg/dL POC Glucose (mg/dL) 173 H 181 H (75-99) mg/dL Alkaline Phosphatase (38-126) U/L 11/07/18 11/08/18 11/08/18 Range/Units 21:09 06:15 06:42 RBC 4.11 L (4.30-5.90) m/uL Hgb 12.2 L (13.0-17.5) gm/dL Hct 38.0 L (39.0-53.0) % PT (9.0-12.0) sec INR (<1.2) BUN (9-20) mg/dL Creatinine (0.66-1.25) mg/dL Glucose (74-99) mg/dL POC Glucose (mg/dL) 171 H 140 H (75-99) mg/dL Alkaline Phosphatase (38-126) U/L 11/08/18 11/08/18 Range/Units 06:42 06:42 RBC (4.30-5.90) m/uL Hgb (13.0-17.5) gm/dL Hct (39.0-53.0) % PT 15.4 H (9.0-12.0) sec INR 1.5 H (<1.2) BUN 24 H (9-20) mg/dL Creatinine 1.34 H (0.66-1.25) mg/dL Glucose 153 H (74-99) mg/dL POC Glucose (mg/dL) (75-99) mg/dL Alkaline Phosphatase 35 L (38-126) U/L Microbiology - Last 24 Hours (Table) 11/06/18 13:35 Blood Culture - Preliminary Blood No Growth after 24 hours Assessment and Plan (1) Diabetes Current Visit: Yes Status: Acute Code(s): E11.9 - TYPE 2 DIABETES MELLITUS WITHOUT COMPLICATIONS SNOMED Code(s): 48446460 (2) Bronchospasm, acute Current Visit: Yes Status: Acute Code(s): J98.01 - ACUTE BRONCHOSPASM SNOMED Code(s): 25083368736131 (3) Troponin level elevated Current Visit: Yes Status: Acute Code(s): R74.8 - ABNORMAL LEVELS OF OTHER SERUM ENZYMES SNOMED Code(s): 310961786 Plan: Continue current regimen or treatment. Anticipate discharge in a.m. if this trajectory of improvement continues. Again, appreciate cardiology input. See orders otherwise.
[2018-11-08 09:00] LABS: Hemoglobin A1C 7.3 % (4.0-6.0)
[2018-11-08] MEDS ORDERED: HEPARIN SODIUM,PORCINE 5,000 UNIT/ML 1 ML VIAL IV PRN (09:14)
[2018-11-08] MEDS ORDERED: HEPARIN SODIUM,PORCINE 5,000 UNIT/ML 1 ML VIAL IV ONE (09:14)
[2018-11-08] MEDS ORDERED: DEXTROSE 5% IN WATER 100 ML with AMIODARONE 150 MG IV ONE (09:15)
[2018-11-08] MEDS ORDERED: HEPARIN SOD,PORK IN 0.45% NACL 25,000 UNIT in 0.45% NACL 1 250ML.BAG IV SCH (09:15)
[2018-11-08] MEDS: AMIODARONE 450 MG in DEXTROSE 5% IN WATER 250 ML IV SCH ×4 (10:39→19:04)
[2018-11-08 11:52] LABS: Glucose,Whole Blood 200 mg/dL (75-99)
--- NOTE | 2018-11-08 13:07 | P.PN ---
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 He presented to the hospital with symptoms of shortness of breath, was found to be in atrial fibrillation but his heart rate was under adequate control. This morning he was scheduled to be discharged home by his primary, shortly thereafter he went into a rapid atrial fibrillation with a heart rate in the 200 range. We did initiate IV amiodarone. He is currently on metoprolol 50 mg by mouth twice a day which we will increase to 3 times a day. The patient also takes Coumadin for anticoagulation and it was noted that his INR was subtherapeutic as it is today. Today's INR is 1.5. Initially I started a heparin drip on him today to cover him until his INR is in the range of 2-2.5. After going into see and examine the patient I did have a discussion with him regarding the new her anticoagulants, if this had ever been presented to him in the past. He is quite willing to stop taking his Coumadin and try one of the newer anticoagulants if he has coverage for this. We will check regarding coverage. His TSH level was obtained today which came back to be 1.8. Echocardiogram with Doppler study was ordered which is yet pending. At the time of my examination, patient feels well, denies any palpitations, and breathing is overall stable. Objective - Vital Signs Vital signs: Vital Signs Temp 97.6 F 11/08/18 08:00 Pulse 72 11/08/18 12:02 Resp 16 11/08/18 08:00 BP 127/76 11/08/18 08:00 Pulse Ox 96 11/08/18 08:00 Intake & Output 11/07/18 11/08/18 11/08/18 18:59 06:59 18:59 Intake Total 330 240 Balance 330 240 Weight 106.1 kg Intake: Oral 330 240 Other: # Voids 1 - Exam PHYSICAL EXAMINATION: GENERAL: 68-year-old gentleman in no acute distress at the time of my examination HEENT: Head is atraumatic, normocephalic. Pupils equal, round. Sclera anicteric. Conjunctiva are clear. Mucous membranes of the mouth are moist. Neck is supple. There is no elevated jugular venous pressure. No carotid bruit is heard. HEART EXAMINATION: Heart S1 and S2 irregularly irregular CHEST EXAMINATION: Lungs reveal scattered coarse wheezing throughout ABDOMEN: Soft, nontender. Bowel sounds are heard. No organomegaly noted. EXTREMITIES: 2+ peripheral pulses with no evidence of peripheral edema and no calf tenderness noted. NEUROLOGIC patient is awake, alert and oriented 3 . . - Labs CBC & Chem 7: 11/08/18 06:42 11/08/18 06:42 Labs: Abnormal Lab Results - Last 24 Hours (Table) 11/07/18 11/07/18 11/07/18 Range/Units 02:02 17:03 21:09 RBC (4.30-5.90) m/uL Hgb (13.0-17.5) gm/dL Hct (39.0-53.0) % PT (9.0-12.0) sec INR (<1.2) BUN (9-20) mg/dL Creatinine (0.66-1.25) mg/dL Glucose (74-99) mg/dL POC Glucose (mg/dL) 181 H 171 H (75-99) mg/dL Hemoglobin A1c 7.3 H (4.0-6.0) % Alkaline Phosphatase (38-126) U/L 11/08/18 11/08/18 11/08/18 Range/Units 06:15 06:42 06:42 RBC 4.11 L (4.30-5.90) m/uL Hgb 12.2 L (13.0-17.5) gm/dL Hct 38.0 L (39.0-53.0) % PT (9.0-12.0) sec INR (<1.2) BUN 24 H (9-20) mg/dL Creatinine 1.34 H (0.66-1.25) mg/dL Glucose 153 H (74-99) mg/dL POC Glucose (mg/dL) 140 H (75-99) mg/dL Hemoglobin A1c (4.0-6.0) % Alkaline Phosphatase 35 L (38-126) U/L 11/08/18 11/08/18 Range/Units 06:42 11:42 RBC (4.30-5.90) m/uL Hgb (13.0-17.5) gm/dL Hct (39.0-53.0) % PT 15.4 H (9.0-12.0) sec INR 1.5 H (<1.2) BUN (9-20) mg/dL Creatinine (0.66-1.25) mg/dL Glucose (74-99) mg/dL POC Glucose (mg/dL) 200 H (75-99) mg/dL Hemoglobin A1c (4.0-6.0) % Alkaline Phosphatase (38-126) U/L Microbiology - Last 24 Hours (Table) 11/06/18 13:35 Blood Culture - Preliminary Blood No Growth after 24 hours Assessment and Plan Plan: Assessment and plan #1 atrial fibrillation with rapid ventricular response, paroxysmal. #2 hypertension #3 asthma exacerbation #4 diabetes #5 hyperlipidemia #6 seizure disorder Plan Patient has been started on IV amiodarone today. We will also increase his dose of beta flaquito to a 3 times a day dose. We will discontinue current anticoagulation and start the patient on Eliquis 5 mg one tablet by mouth twice a day, continue to monitor. DNP note has been reviewed, I agree with a documented findings and plan of care. Patient was seen and examined.
[2018-11-08] MEDS: APIXABAN 5 MG TAB PO SCH ×2 (15:26→22:26)
[2018-11-08 16:30] LABS: Glucose,Whole Blood 151 mg/dL (75-99)
[2018-11-08] MEDS ORDERED: WARFARIN 3 MG TAB PO SCH (18:00)
[2018-11-08] MEDS ORDERED: WARFARIN 7.5 MG TAB PO ONE (18:00)
[2018-11-08 20:49] LABS: Glucose,Whole Blood 181 mg/dL (75-99)
[2018-11-08] MEDS: FUROSEMIDE 20 MG TAB PO SCH (22:26)
[2018-11-08] MEDS: ATORVASTATIN 20 MG TAB PO SCH (22:26)
[2018-11-08] MEDS: PANTOPRAZOLE 40 MG TABLET PO SCH (22:27)
[2018-11-09 06:00] LABS: Glucose,Whole Blood 129 mg/dL (75-99)
[2018-11-09] MEDS: AMIODARONE 450 MG in DEXTROSE 5% IN WATER 250 ML IV SCH ×4 (06:22→15:48)
[2018-11-09] MEDS: IPRATROPIUM-ALBUTEROL 3 ML NEB INHALATION PRN ×3 (06:51→20:28)
[2018-11-09 07:43] LABS: HGB 12.8 gm/dL (13.0-17.5); MCH 29.5 pg (25.0-35.0); MCHC 31.2 g/dL (31.0-37.0); MCV 94.5 fL (80.0-100.0); Mean Platelet Volume 8.1; Platelet Count 169 k/uL (150-450); RBC 4.34 m/uL (4.30-5.90); RDW 13.8 % (11.5-15.5)
--- NOTE | 2018-11-09 08:23 | P.PN ---
Subjective Progress Note Date: 11/09/18 Principal diagnosis: This continue present 68-year-old white male essentially admitted for acute arrest or congestion with bronchitis. The patient has an underlying history of atrial fibrillation which is fairly stable. I do appreciate cardiology input. The patient is essentially admitted for appropriate bronchospasm. However, the patient also went into atrial fibrillation and is now started on amiodarone drip. Eliquis has also been started. No voiding symptoms. Some cough and congestion is stated. Objective - Vital Signs Vital signs: Vital Signs Temp 97.4 F L 11/09/18 04:00 Pulse 72 11/09/18 07:03 Resp 16 11/09/18 04:00 BP 114/83 11/09/18 04:00 Pulse Ox 97 11/09/18 04:00 Intake & Output 11/08/18 11/09/18 11/09/18 18:59 06:59 18:59 Intake Total 806.029 42.287 Balance 806.029 42.287 Weight 107 kg Intake: Intake, IV Titration 206.029 42.287 Amount Amiodarone 450 mg In 206.029 42.287 Dextrose 5% in Water 250 ml @ 1 MG/MIN 34.53 mls/ hr IV .Q7H31M [facility] Rx#: [id number] Oral 600 Other: # Voids 1 2 - Constitutional General appearance: Present: average body habitus - EENT Eyes: Absent: abnormal pupil - Neck Neck: Present: lymphadenopathy - Respiratory Respiratory: bilateral: wheezing - Cardiovascular Rhythm: irregularly irregular Heart sounds: normal: S1, S2 Abnormal Heart Sounds: Absent: S3 Gallop - Gastrointestinal General gastrointestinal: Present: soft. Absent: tenderness - Neurologic Neurologic: Present: CNII-XII intact - Labs CBC & Chem 7: 11/09/18 07:10 11/08/18 06:42 Labs: Abnormal Lab Results - Last 24 Hours (Table) 11/07/18 11/08/18 11/08/18 Range/Units 02:02 11:42 16:25 Hgb (13.0-17.5) gm/dL POC Glucose (mg/dL) 200 H 151 H (75-99) mg/dL Hemoglobin A1c 7.3 H (4.0-6.0) % 11/08/18 11/09/18 11/09/18 Range/Units 20:48 05:58 07:10 Hgb 12.8 L (13.0-17.5) gm/dL POC Glucose (mg/dL) 181 H 129 H (75-99) mg/dL Hemoglobin A1c (4.0-6.0) % Microbiology - Last 24 Hours (Table) 11/06/18 13:35 Blood Culture - Preliminary Blood No Growth after 48 hours Assessment and Plan (1) Diabetes Current Visit: Yes Status: Acute Code(s): E11.9 - TYPE 2 DIABETES MELLITUS WITHOUT COMPLICATIONS SNOMED Code(s): 97963590 (2) Bronchospasm, acute Current Visit: Yes Status: Acute Code(s): J98.01 - ACUTE BRONCHOSPASM SNOMED Code(s): 54463109068512 (3) Troponin level elevated Current Visit: Yes Status: Acute Code(s): R74.8 - ABNORMAL LEVELS OF OTHER SERUM ENZYMES SNOMED Code(s): 249419249 Plan: We will going and start Solu-Medrol and to see if that decreases his spasm. Continue albuterol Atrovent updrafts. Probable wean off amiodarone drip today. Check CBC and CMP in a.m. per Anticipate discharge in next 24-48 hours. Time with Patient: Greater than 30
[2018-11-09 08:37] LABS: Eosinophils # (M) 0.06 k/uL (0-0.7); Monocytes # (M) 0.36 k/uL (0-1.0); Neutrophils # (M) 3.48 k/uL (1.3-7.7); Neutrophils % (M) 58 %; Nucleated Red Blood Cells 0 /100 WBC (0-0); Total Cells Counted 100
[2018-11-09] MEDS: LISINOPRIL 5 MG TAB PO SCH (09:30)
[2018-11-09] MEDS: THIAMINE 100 MG TAB PO SCH (09:30)
[2018-11-09] MEDS: APIXABAN 5 MG TAB PO SCH ×2 (09:30→20:33)
[2018-11-09] MEDS: FOLIC ACID 1 MG TAB PO SCH (09:30)
[2018-11-09] MEDS: MULTIVITAMINS, THERA 1 EACH TAB PO SCH (09:30)
[2018-11-09] MEDS: METOPROLOL TARTRATE 50 MG TAB PO SCH ×3 (09:30→20:33)
[2018-11-09] MEDS: metFORMIN 500 MG TAB PO SCH ×2 (09:30→20:33)
[2018-11-09] MEDS: PREGABALIN 100 MG CAP PO SCH ×3 (09:31→20:33)
[2018-11-09] MEDS: methylPREDNISolone SOD SUCCI 125 MG/2 ML VIAL IV SCH ×4 (09:35→22:59)
[2018-11-09 12:13] LABS: Glucose,Whole Blood 159 mg/dL (75-99)
--- NOTE | 2018-11-09 15:46 | P.PN ---
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 He presented to the hospital with symptoms of shortness of breath, was found to be in atrial fibrillation but his heart rate was under adequate control. This morning he was scheduled to be discharged home by his primary, shortly thereafter he went into a rapid atrial fibrillation with a heart rate in the 200 range. We did initiate IV amiodarone. He is currently on metoprolol 50 mg by mouth twice a day which we will increase to 3 times a day. The patient also takes Coumadin for anticoagulation and it was noted that his INR was subtherapeutic as it is today. Today's INR is 1.5. Initially I started a heparin drip on him today to cover him until his INR is in the range of 2-2.5. After going into see and examine the patient I did have a discussion with him regarding the new her anticoagulants, if this had ever been presented to him in the past. He is quite willing to stop taking his Coumadin and try one of the newer anticoagulants if he has coverage for this. We will check regarding coverage. His TSH level was obtained today which came back to be 1.8. Echocardiogram with Doppler study was ordered which is yet pending. At the time of my examination, patient feels well, denies any palpitations, and breathing is overall stable. 11/09/2017 Patient seen and examined this morning, overall doing much better today. IV amiodarone will be discontinued today. We will continue metoprolol 50 mg by mouth 3 times a day. Patient was also initiated on Eliquis yesterday for anticoagulation. Objective - Vital Signs Vital signs: Vital Signs Temp 97.7 F 11/09/18 15:26 Pulse 83 11/09/18 15:26 Resp 20 11/09/18 15:26 BP 109/74 11/09/18 15:26 Pulse Ox 94 L 11/09/18 15:26 Intake & Output 11/08/18 11/09/18 11/09/18 18:59 06:59 18:59 Intake Total 806.029 42.287 549.6 Balance 806.029 42.287 549.6 Weight 107 kg Intake: IV 133.6 Amiodarone 450 mg In 133.6 Dextrose 5% in Water 250 ml @ 1 MG/MIN 34.53 mls/ hr IV .Q7H31M [facility] Rx#: [id number] Intake, IV Titration 206.029 42.287 Amount Amiodarone 450 mg In 206.029 42.287 Dextrose 5% in Water 250 ml @ 1 MG/MIN 34.53 mls/ hr IV .Q7H31M [facility] Rx#: [id number] Oral 600 416 Other: # Voids 1 2 2 - Exam PHYSICAL EXAMINATION: GENERAL: 68-year-old gentleman in no acute distress at the time of my examination HEENT: Head is atraumatic, normocephalic. Pupils equal, round. Sclera anicteric. Conjunctiva are clear. Mucous membranes of the mouth are moist. Neck is supple. There is no elevated jugular venous pressure. No carotid bruit is heard. HEART EXAMINATION: Heart S1 and S2 irregularly irregular CHEST EXAMINATION: Lungs reveal scattered coarse wheezing throughout ABDOMEN: Soft, nontender. Bowel sounds are heard. No organomegaly noted. EXTREMITIES: 2+ peripheral pulses with no evidence of peripheral edema and no calf tenderness noted. NEUROLOGIC patient is awake, alert and oriented 3 . . - Labs CBC & Chem 7: 11/09/18 07:10 11/08/18 06:42 Labs: Abnormal Lab Results - Last 24 Hours (Table) 11/08/18 11/08/18 11/09/18 Range/Units 16:25 20:48 05:58 Hgb (13.0-17.5) gm/dL POC Glucose (mg/dL) 151 H 181 H 129 H (75-99) mg/dL 11/09/18 11/09/18 Range/Units 07:10 12:06 Hgb 12.8 L (13.0-17.5) gm/dL POC Glucose (mg/dL) 159 H (75-99) mg/dL Microbiology - Last 24 Hours (Table) 11/06/18 13:35 Blood Culture - Preliminary Blood No Growth after 48 hours Assessment and Plan Plan: Assessment and plan #1 atrial fibrillation with rapid ventricular response, paroxysmal. #2 hypertension #3 asthma exacerbation #4 diabetes #5 hyperlipidemia #6 seizure disorder Plan Discontinue amiodarone today, continue current dose of beta flaquito. DNP note has been reviewed, I agree with a documented findings and plan of care. Patient was seen and examined.
[2018-11-09 16:52] LABS: Glucose,Whole Blood 340 mg/dL (75-99)
[2018-11-09] MEDS: INSULIN ASPART 100 UNIT/ML 1 ML 10 ML VIAL SQ SCH ×2 (18:15→21:52)
[2018-11-09] MEDS: PANTOPRAZOLE 40 MG TABLET PO SCH (20:33)
[2018-11-09] MEDS: FUROSEMIDE 20 MG TAB PO SCH (20:33)
[2018-11-09] MEDS: ATORVASTATIN 20 MG TAB PO SCH (20:33)
[2018-11-09 21:15] LABS: Glucose,Whole Blood 232 mg/dL (75-99)
[2018-11-10 05:23] LABS: Glucose,Whole Blood 165 mg/dL (75-99)
[2018-11-10] MEDS: methylPREDNISolone SOD SUCCI 125 MG/2 ML VIAL IV SCH ×2 (06:14→12:27)
[2018-11-10] MEDS: INSULIN ASPART 100 UNIT/ML 1 ML 10 ML VIAL SQ SCH ×2 (06:14→12:27)
[2018-11-10 06:22] LABS: Basophils % (A) 0 %; Eosinophils % (A) 0 %; HCT 37.9 % (39.0-53.0); HGB 11.9 gm/dL (13.0-17.5); Lymphocytes # (A) 0.8 k/uL (1.0-4.8); Lymphocytes % (A) 9 %; MCH 28.8 pg (25.0-35.0); MCHC 31.3 g/dL (31.0-37.0); Mean Platelet Volume 8.2; Monocytes # (A) 0.3 k/uL (0-1.0); Monocytes % (A) 4 %; Neutrophils # (A) 7.2 k/uL (1.3-7.7); Neutrophils % (A) 85 %; Platelet Count 192 k/uL (150-450); RBC 4.12 m/uL (4.30-5.90); RDW 13.6 % (11.5-15.5); WBC 8.5 k/uL (3.8-10.6)
[2018-11-10 06:26] LABS: INR 1.7 (<1.2); Prothrombin Time 16.7 sec (9.0-12.0)
[2018-11-10 06:32] LABS: Albumin 3.6 g/dL (3.5-5.0); Calcium 9.6 mg/dL (8.4-10.2); Total Bilirubin 0.9 mg/dL (0.2-1.3); Total Protein 6.5 g/dL (6.3-8.2)
[2018-11-10] MEDS: MULTIVITAMINS, THERA 1 EACH TAB PO SCH (08:20)
[2018-11-10] MEDS: THIAMINE 100 MG TAB PO SCH (08:20)
[2018-11-10] MEDS: METOPROLOL TARTRATE 50 MG TAB PO SCH (08:20)
[2018-11-10] MEDS: APIXABAN 5 MG TAB PO SCH (08:20)
[2018-11-10] MEDS: FOLIC ACID 1 MG TAB PO SCH (08:20)
[2018-11-10] MEDS: PREGABALIN 100 MG CAP PO SCH (08:20)
[2018-11-10] MEDS: LISINOPRIL 5 MG TAB PO SCH (08:20)
[2018-11-10] MEDS: metFORMIN 500 MG TAB PO SCH (08:20)
[2018-11-10 09:16] VITALS: RESP 20
--- NOTE | 2018-11-10 11:04 | CDI ---
Documentation Clarification Form Date: 11/10/2018 10:47:37 AM From: Elidia ChristiansonАЛЕКСАНДР, CCDS Admit Date: 11/09/2018 8:29:00 AM Patient Name: Tano Lennon Visit Number: [id number] Discharge Date: 11/10/2018 13:44 PM ATTENTION: The Clinical Documentation Specialists (CDI) and [facility] Coding Staff appreciate your assistance in clarifying documentation. Please respond to the clarification below the line at the bottom and electronically sign. The CDI & [facility] Coding staff will review the response and follow-up if needed. Please note: Queries are made part of the Legal Health Record. If you have any questions, please contact the author of this message via ITS. Dr. Javier Delaney: The following has been documented: COPD exacerbation (11/07 cardiology consult) Asthma exacerbation, nos (11/08 & 11/09 cardiology progress notes) Bronchitis, nos (11/08 & 11/09 attending progress notes) History/Risk Factors: Atrial fibrillation, DM II with neuropathy, GERD, Hyperlipidemia, Hypertension, Seizure disorder & former smoker. Clinical Indicators: Presented with SOB & nonproductive cough, recent URI, recent travel from [place]. CXR: Interstitial densities & peribronchial cuffing. Correlate for uncontrolled asthma, bronchitis atypical pneumonia. Admitted as observation with atrial fib , elevated troponins & bronchospasm. Vital Signs: P 90-112^, R 20, PO 97 RA Treatment: Albuterol & Atrovent neb txs, IV fl bolus x1, IV Solumedrol, IV fl 75 , po Prednisone & O2 2Lnc on 11/06, then on standby. On 11/08, started on IV Heparin & IV Amiodarone for Paroxysmal A fib with uncontrolled rate. In your professional opinion, can you please clarify if the above findings and treatment signify any of the following? COPD with or without Acute Exacerbation Acute, chronic or acute on chronic bronchitis Asthma with or without exacerbation or status asthmaticus o Please specify type if known: Mild, Moderate or Severe Intermittent or Persistent Other, please specify Unable to determine (Last Revision: August 2017) clarification is COPD with acute exacerbation. These at this to his diagnosis list MTDD
[2018-11-10 11:26] VITALS: BP 119/80; PULSE 70; TEMP 97.8
[2018-11-10 12:07] LABS: Glucose,Whole Blood 171 mg/dL (75-99)
--- NOTE | 2018-11-10 15:17 | P.PN ---
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 He presented to the hospital with symptoms of shortness of breath, was found to be in atrial fibrillation but his heart rate was under adequate control. This morning he was scheduled to be discharged home by his primary, shortly thereafter he went into a rapid atrial fibrillation with a heart rate in the 200 range. We did initiate IV amiodarone. He is currently on metoprolol 50 mg by mouth twice a day which we will increase to 3 times a day. The patient also takes Coumadin for anticoagulation and it was noted that his INR was subtherapeutic as it is today. Today's INR is 1.5. Initially I started a heparin drip on him today to cover him until his INR is in the range of 2-2.5. After going into see and examine the patient I did have a discussion with him regarding the new her anticoagulants, if this had ever been presented to him in the past. He is quite willing to stop taking his Coumadin and try one of the newer anticoagulants if he has coverage for this. We will check regarding coverage. His TSH level was obtained today which came back to be 1.8. Echocardiogram with Doppler study was ordered which is yet pending. At the time of my examination, patient feels well, denies any palpitations, and breathing is overall stable. 11/09/2018 Patient seen and examined this morning, overall doing much better today. IV amiodarone will be discontinued today. We will continue metoprolol 50 mg by mouth 3 times a day. Patient was also initiated on Eliquis yesterday for anticoagulation. 11/10/2018 Patient seen and examined this morning, feels well, continues to be in atrial fibrillation, heart rate in the 70s to 80s today. He has been approved for Eliquis. Objective - Vital Signs Vital signs: Vital Signs Temp 97.8 F 11/10/18 11:26 Pulse 70 11/10/18 11:26 Resp 20 11/10/18 08:00 BP 119/80 11/10/18 11:26 Pulse Ox 94 L 11/10/18 11:26 Intake & Output 11/09/18 11/10/18 11/10/18 18:59 06:59 18:59 Intake Total 549.6 Balance 549.6 Weight 106.7 kg Intake: IV 133.6 Amiodarone 450 mg In 133.6 Dextrose 5% in Water 250 ml @ 1 MG/MIN 34.53 mls/ hr IV .Q7H31M [facility] Rx#: [id number] Oral 416 Other: # Voids 2 1 - Exam PHYSICAL EXAMINATION: GENERAL: 68-year-old gentleman in no acute distress at the time of my examination HEENT: Head is atraumatic, normocephalic. Pupils equal, round. Sclera anicteric. Conjunctiva are clear. Mucous membranes of the mouth are moist. Neck is supple. There is no elevated jugular venous pressure. No carotid bruit is heard. HEART EXAMINATION: Heart S1 and S2 irregularly irregular CHEST EXAMINATION: Lungs reveal scattered coarse wheezing throughout ABDOMEN: Soft, nontender. Bowel sounds are heard. No organomegaly noted. EXTREMITIES: 2+ peripheral pulses with no evidence of peripheral edema and no calf tenderness noted. NEUROLOGIC patient is awake, alert and oriented 3 . . - Labs CBC & Chem 7: 11/10/18 05:57 11/10/18 05:57 Labs: Abnormal Lab Results - Last 24 Hours (Table) 11/09/18 11/09/18 11/10/18 Range/Units 16:35 21:13 05:21 RBC (4.30-5.90) m/uL Hgb (13.0-17.5) gm/dL Hct (39.0-53.0) % Lymphocytes # (1.0-4.8) k/uL PT (9.0-12.0) sec INR (<1.2) Glucose (74-99) mg/dL POC Glucose (mg/dL) 340 H 232 H 165 H (75-99) mg/dL 11/10/18 11/10/18 11/10/18 Range/Units 05:57 05:57 05:57 RBC 4.12 L (4.30-5.90) m/uL Hgb 11.9 L (13.0-17.5) gm/dL Hct 37.9 L (39.0-53.0) % Lymphocytes # 0.8 L (1.0-4.8) k/uL PT 16.7 H (9.0-12.0) sec INR 1.7 H (<1.2) Glucose 182 H (74-99) mg/dL POC Glucose (mg/dL) (75-99) mg/dL 11/10/18 Range/Units 11:31 RBC (4.30-5.90) m/uL Hgb (13.0-17.5) gm/dL Hct (39.0-53.0) % Lymphocytes # (1.0-4.8) k/uL PT (9.0-12.0) sec INR (<1.2) Glucose (74-99) mg/dL POC Glucose (mg/dL) 171 H (75-99) mg/dL Microbiology - Last 24 Hours (Table) 11/06/18 13:35 Blood Culture - Preliminary Blood No Growth after 72 hours Assessment and Plan Plan: Assessment and plan #1 atrial fibrillation with rapid ventricular response, paroxysmal. #2 hypertension #3 asthma exacerbation #4 diabetes #5 hyperlipidemia #6 seizure disorder Plan From cardiology's perspective, patient may be able to be discharged home today. He will see Dr. ALEXANDER Sanchez in the office once before his return back to [place]. 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 DNP note has been reviewed, I agree with a documented findings and plan of care. Patient was seen and examined.
--- NOTE | 2018-12-01 12:34 | P.DS ---
Providers Date of admission: 11/09/18 08:29 Attending physician: Javier Delaney Consults: 11/06/18 16:35 Consult Physician Urgent Consulting Provider: [facility] Consult Reason/Comments: Elevated troponin Do you want consulting provider notified?: Yes Primary care physician: Javier Dleaney - Discharge Diagnosis(es) (1) Diabetes Status: Acute (2) Bronchospasm, acute Status: Acute (3) Troponin level elevated Status: Acute Hospital Course: This is discharge from a 68-year-old white male essentially with history of atrial fibrillation who came in with clinical pneumonia. The patient was stabilized medically after cardiology attenuated medication and he was placed on appropriate antibody treatment. Patient tolerated the medication appropriately and will be discharged in stable condition to follow-up with me in about 1 week. Patient Condition at Discharge: Good Plan - Discharge Summary Discharge Rx Participant: Yes New Discharge Prescriptions: New Apixaban [Eliquis] 5 mg PO BID #180 tab Levofloxacin [Levaquin] 500 mg PO DAILY 3 Days #5 tab predniSONE 0 mg PO DIRECTED #18 tab Continue Simvastatin [Zocor] 40 mg PO HS metFORMIN HCL [Glucophage] 500 mg PO BID Lisinopril [Zestril] 5 mg PO DAILY Furosemide [Lasix] 20 mg PO HS levETIRAcetam [Keppra] 750 mg PO BID Folic Acid 1 mg PO DAILY Multivitamin [Multiple Vitamins] 1 tab PO DAILY Thiamine [Vitamin B-1] 50 mg PO DAILY Metoprolol Tartrate [Lopressor] 50 mg PO BID Pregabalin [Lyrica] 200 mg PO TID Esomeprazole Magnesium [NexIUM] 40 mg PO HS Discontinued Warfarin [Coumadin] 4 mg PO Q48H Warfarin [Coumadin] 3 mg PO Q48H Discharge Medication List Folic Acid 1 mg PO DAILY 09/06/16 [History] Furosemide [Lasix] 20 mg PO HS 09/06/16 [History] Lisinopril [Zestril] 5 mg PO DAILY 09/06/16 [History] Simvastatin [Zocor] 40 mg PO HS 09/06/16 [History] levETIRAcetam [Keppra] 750 mg PO BID 09/06/16 [History] metFORMIN HCL [Glucophage] 500 mg PO BID 09/06/16 [History] Multivitamin [Multiple Vitamins] 1 tab PO DAILY 04/11/17 [History] Thiamine [Vitamin B-1] 50 mg PO DAILY 04/11/17 [History] Metoprolol Tartrate [Lopressor] 50 mg PO BID 02/09/18 [History] Pregabalin [Lyrica] 200 mg PO TID 02/09/18 [History] Esomeprazole Magnesium [NexIUM] 40 mg PO HS 11/06/18 [History] Apixaban [Eliquis] 5 mg PO BID #180 tab 11/10/18 [Rx] Levofloxacin [Levaquin] 500 mg PO DAILY 3 Days #5 tab 11/10/18 [Rx] predniSONE 0 mg PO DIRECTED #18 tab 11/10/18 [Rx] Follow up Appointment(s)/Referral(s): , PCP [Other] - 1 Week (Please schedule follow up appointment with your PCP in [place]. ) , Cardiology [Other] - 1 Week (Please schedule appointment with a drill operator pneumatic in [place]. Your PCP can help you with this) Javier Delaney MD [Primary Care Provider] - 1 Week Patient Instructions/Handouts: A-fib (Atrial Fibrillation) (DC), Safe Use of Anticoagulants (DC) Activity/Diet/Wound Care/Special Instructions: pts copay for 30 days of eliquis is $30 Discharge Disposition: HOME SELF-CARE
== END 2018-11-10 13:44 | disposition home or self-care (01) | DRG 190 ==
LOC: EC 12:39 → 3SCARD 16:54 → OBSVTOIN 11-09 08:29
PROVIDERS: ADMIT Family Medicine; ATTEND Family Medicine
DX: J44.1 Chronic obstructive pulmonary disease with (acute) exacerbation (principal); J18.9 Pneumonia, unspecified organism; E11.40 Type 2 diabetes mellitus with diabetic neuropathy, unspecified; I48.0 Paroxysmal atrial fibrillation; J98.01 Acute bronchospasm; E78.5 Hyperlipidemia, unspecified; G40.909 Epilepsy, unspecified, not intractable, without status epilepticus; I10 Essential (primary) hypertension; K21.9 Gastro-esophageal reflux disease without esophagitis; R77.9 Abnormality of plasma protein, unspecified; Z79.01 Long term (current) use of anticoagulants; Z79.84 Long term (current) use of oral hypoglycemic drugs; Z79.899 Other long term (current) drug therapy; Z87.891 Personal history of nicotine dependence; Z90.49 Acquired absence of other specified parts of digestive tract; Z80.49 Family history of malignant neoplasm of other genital organs; Z82.0 Family history of epilepsy and other diseases of the nervous system
CPT/HCPCS: 36415; 71046; 80048; 80053; 82550; 82553; 83036; 83735; 84443; 84484; 85025; 85027; 85379; 85610; 85730; 87040; 93005; 94640; 96361; 96374; 99285

== ENCOUNTER 2019-03-28 08:25 | Day surgery (SDC) | payer MEDICARE, BC ==
[2019-03-22 16:13] VITALS: BMI 30.8
[~2019-03-28 08:25] MED LIST: ALPRAZolam 0.25 MG TAB PO PRN; ALPRAZolam 0.5 MG TAB PO PRN; ASPIRIN 325 MG TAB PO STA; ATORVASTATIN 80 MG TAB PO STA; NITROGLYCERIN SL TABS 0.4 MG TAB SUBLINGUAL PRN; SODIUM CHLORIDE 0.9% 1,000 ML in EMPTY BAG 1 BAG IV ONE
[2019-03-28 08:54] LABS: Glucose,Whole Blood 148 mg/dL (75-99)
[2019-03-28 09:06] VITALS: RESP 16; TEMP 97.5
[2019-03-28 09:07] LABS: Basophils # (A) 0.1 k/uL (0-0.2); Basophils % (A) 1 %; Eosinophils # (A) 0.3 k/uL (0-0.7); Eosinophils % (A) 4 %; HCT 42.4 % (39.0-53.0); Lymphocytes # (A) 1.5 k/uL (1.0-4.8); Lymphocytes % (A) 20 %; MCH 29.4 pg (25.0-35.0); MCV 89.3 fL (80.0-100.0); Mean Platelet Volume 8.6; Monocytes # (A) 0.4 k/uL (0-1.0); Monocytes % (A) 6 %; Neutrophils # (A) 5.2 k/uL (1.3-7.7); Neutrophils % (A) 68 %; Platelet Count 174 k/uL (150-450); RBC 4.75 m/uL (4.30-5.90); RDW 14.8 % (11.5-15.5); WBC 7.6 k/uL (3.8-10.6)
[2019-03-28 09:21] LABS: Calcium 9.5 mg/dL (8.4-10.2)
[2019-03-28] MEDS ORDERED: fentaNYL (PF) 50 MCG/ML 2 ML AMP ONE (10:00)
[2019-03-28] MEDS: BENZOCAINE SPRAY 1 CAN MUCOUS MEM ONE ×2 (10:15→10:35)
[2019-03-28] MEDS ORDERED: SODIUM CHLORIDE 0.9% 1,000 ML IV ONE (10:17)
[2019-03-28] MEDS ORDERED: fentaNYL (PF) 50 MCG/ML 2 ML AMP IVP ONE (10:23)
[2019-03-28] MEDS ORDERED: MIDAZOLAM (PF) 2 MG/2 ML VIAL IVP ONE (10:23)
[2019-03-28] MEDS ORDERED: LIDOCAINE 1% INJ 10MG/ML (20 ML MDV) SQ ONE (11:15)
[2019-03-28] MEDS ORDERED: IOPAMIDOL-370 125ML BTL INJ ONE (11:31)
[2019-03-28] MEDS ORDERED: SODIUM CHLORIDE 0.9% 1,000 ML IV SCH (11:45)
--- NOTE | 2019-03-28 11:56 | CC ---
CARDIAC CATHETERIZATION REPORT INDICATION: Aortic stenosis. PROCEDURE NOTE: After obtaining informed consent, left heart catheterization, coronary angiogram are performed via the right femoral artery using standard Ida catheters. Patient tolerated the procedure well without any obvious immediate complications. A femoral angiogram was performed and Angio-Seal will be deployed for hemostasis. Patient received moderate conscious sedation. Total sedation time was 16 minutes. FINDINGS: 1. HEMODYNAMICS: Central aortic pressure is 110/70. 2. LEFT VENTRICULOGRAM: Left ventriculogram is not performed. 3. ANGIOGRAPHIC DATA. LEFT MAIN CORONARY ARTERY: Left main coronary artery is a normal-sized vessel and is free of stenosis. Divides into left anterior descending coronary artery and circumflex coronary artery. Circumflex coronary artery shows mild non-atherosclerotic plaque. LAD shows a 30%-40% stenosis in the proximal portion. Right coronary artery shows mild nonobstructive disease. CONCLUSION: 1. Mild nonobstructive coronary artery disease. 2. Severe aortic stenosis by noninvasive studies. MMODL / IJN: [id number] /
--- NOTE | 2019-03-28 12:01 | ECHOT ---
TRANSESOPHAGEAL ECHOCARDIOGRAM TRANSESOPHAGEAL ECHO: INDICATION: Aortic stenosis. After obtaining informed consent, transesophageal echocardiogram was performed in left lateral position using an Omni plane probe. Local and IV sedation were obtained using Xylocaine spray, intravenous Versed. Patient tolerated the procedure well without any obvious immediate complications. Received moderate conscious sedation. Total sedation time was 10 minutes. FINDINGS: 1. AORTIC VALVE: Aortic valve appears heavily calcified. This is probably a bicuspid valve. There is severe restriction in leaflet mobility with a valve area of 0.7 cm2 by planimetry. There is moderate aortic regurgitation noted. 2. Mitral valve shows mitral calcification with [id number] mitral regurgitation. 3. Tricuspid valve shows mild tricuspid regurgitation. 4. Left ventricle has normal size and systolic function. Left atrium appears enlarged. Right atrium and right ventricle seen within normal limits. 5. INTERATRIAL SEPTUM: There is no evidence of left to right shunt by color-flow Doppler or [id number] shunt by agitated saline contrast study. CONCLUSION: 1. Severe aortic stenosis. 2. Normal left ventricular systolic function. 3. Moderate aortic regurgitation. PLAN: The patient will need aortic valve replacement. Dr. Hendrickson, his primary audio visual equipment rental clerk will refer him to a surgeon. The patient is on anticoagulant. He will resume this. MMODL / IJN: [id number] /
[2019-03-28] MEDS ORDERED: RX INFO: IV CONTRAST WAS GIVEN 1 EACH MISC MISCELLANE PRN (15:19)
[2019-03-28 16:27] LABS: Glucose,Whole Blood 93 mg/dL (75-99)
[2019-03-28 16:46] VITALS: BP 102/72; PULSE 88
== END 2019-03-28 16:45 | disposition home or self-care (01) ==
LOC: CATHCVL 08:25
PROVIDERS: ATTEND Internal Medicine Cardiovascular Disease
DX: I08.3 Combined rheumatic disorders of mitral, aortic and tricuspid valves (principal); I47.2 Ventricular tachycardia; I42.8 Other cardiomyopathies; I48.1 Persistent atrial fibrillation; Z79.01 Long term (current) use of anticoagulants; Z79.84 Long term (current) use of oral hypoglycemic drugs; Z79.899 Other long term (current) drug therapy; E11.9 Type 2 diabetes mellitus without complications
CPT/HCPCS: 93312; 93320; 93325; 93454; 80048; 85025; C1760; C1769 ×2; C1894; J2001; J3010; Q9967; J2250

== ENCOUNTER → 2019-04-26 | Outpatient (CLI) | payer MEDICARE, BC ==
[2019-04-26 10:01] LABS: HCT 41.9 % (39.0-53.0); HGB 13.8 gm/dL (13.0-17.5); MCH 29.5 pg (25.0-35.0); MCHC 32.9 g/dL (31.0-37.0); MCV 89.7 fL (80.0-100.0); Mean Platelet Volume 8.5; Platelet Count 181 k/uL (150-450); RBC 4.67 m/uL (4.30-5.90); RDW 13.8 % (11.5-15.5); WBC 6.5 k/uL (3.8-10.6)
[2019-04-26 10:04] LABS: Appearance,Urine Clear (Clear); Bilirubin,Urine Negative (Negative); Blood,Urine Negative (Negative); Color,Urine Light Yellow; Glucose,Urine (UA) Negative (Negative); Ketones,Urine Negative (Negative); Leukocyte Esterase,Urine Negative (Negative); Nitrite,Urine Negative (Negative); Protein,Urine Negative (Negative); Specific Gravity,Urine 1.007 (1.001-1.035); Urobilinogen,Urine <2.0 mg/dL (<2.0)
[2019-04-26 10:07] LABS: INR 1.2 (<1.2); Partial Thromboplastin Time 29.1 sec (22.0-30.0)
[2019-04-26 10:19] LABS: Albumin 4.1 g/dL (3.5-5.0); Calcium 9.3 mg/dL (8.4-10.2); Magnesium 1.9 mg/dL (1.6-2.3); Potassium 4.6 mmol/L (3.5-5.1)
--- NOTE | 2019-04-26 10:46 | P.PN ---
Progress Note - Text Progress Note Date: 04/26/19 5 meter walk test: #1 4.11 sec #2 3.85 sec #3 4.0 sec
--- NOTE | 2019-04-26 15:03 | XR ---
EXAMINATION TYPE: XR chest 2V DATE OF EXAM: 04/26/2019 COMPARISON: Prior chest x-ray 11/06/2018 HISTORY: Preop open heart surgery TECHNIQUE: Frontal and lateral views of the chest are obtained. FINDINGS: There is no focal air space opacity, pleural effusion, or pneumothorax seen. The cardiac silhouette size is within normal limits. Prominent lung volume could be indicative of underlying COPD . The osseous structures are intact. IMPRESSION: No acute cardiopulmonary process.
--- NOTE | 2019-04-26 15:06 | US ---
EXAMINATION TYPE: US carotid duplex BILAT DATE OF EXAM: 04/26/2019 COMPARISON: NONE CLINICAL HISTORY: OPEN HEART. PreCABG, No HTN, hx of stroke in 2018 EXAM MEASUREMENTS: RIGHT: Peak Systolic Velocity (PSV) cm/sec ----- Right CCA: 44.8 ----- Right ICA: 64.7 ----- Right ECA: 63.6 ICA/CCA ratio: 1.4 RIGHT: End Diastole cm/sec ----- Right CCA: 18.4 ----- Right ICA: 18.6 ----- Right ECA: 0.0 LEFT: Peak Systolic Velocity (PSV) cm/sec ----- Left CCA: 14.5 ----- Left ICA: 63.3 ----- Left ECA: 67.7 ICA/CCA ratio: 1.1 LEFT: End Diastole cm/sec ----- Left CCA: 14.5 ----- Left ICA: 21.5 ----- Left ECA: 10.1 VERTEBRALS (direction of flow): Right Vertebral: Antegrade Left Vertebral: Antegrade Rhythm: Arrhythmia Small amount of plaque seen in in right bulb extending into proximal ICA. Bilateral wall thickening. No elevated velocities or significant stenosis. Grayscale, color Doppler, spectral Doppler imaging performed of the carotid arteries. Waveform analys is does not show significant stenosis of the proximal internal carotid arteries. IMPRESSION: No hemodynamic significant stenosis of the proximal internal carotid arteries bilaterall y by Doppler criteria, an indirect measurement of carotid stenosis
[2019-04-26 16:45] LABS: Hepatitis A Antibody IgM Non-Reactive (Non-Reactive); Hepatitis B Core IgM Non-Reactive (Non-Reactive)
[2019-04-26 18:38] LABS: Hemoglobin A1C 7.4 % (4.0-6.0)
--- NOTE | 2019-05-02 14:03 | P.VSCSTY ---
Greater Saphenous Vein Mapping This is bilateral lower extremity greater saphenous vein mapping. Date of service 04/26/2019 Vein quality and ultrasound appearance no wall changes or intraluminal thrombus are seen. Vein size groin right 7.8 x 5.7 groin left 4.6 x 5.3 High thigh right 3.0 x 2.9 high thigh left 4.1 x 2.8 Mid thigh right 2.6 x 1.8 mid thigh left 2.4 x 1.9 Above-knee right 2.4 x 2.0 above-knee left 3.1 x 2.0 Below knee right 1.8 x 1.7 below-knee left 2.6 x 1.8 Mid calf right 1.2 x 0.8 mid calf left 2.0 x 1.6 Ankle right to small to identify ankle left 1.5 x 1.2 Impression usable greater saphenous vein left thigh to below the knee and upper right thigh. The rest is a bit small for use..
== END | disposition home or self-care (01) ==
LOC: LABPAT 08:47
PROVIDERS: ATTEND Surgery
DX: E11.9 Type 2 diabetes mellitus without complications (principal); I48.91 Unspecified atrial fibrillation; G40.909 Epilepsy, unspecified, not intractable, without status epilepticus; Z79.01 Long term (current) use of anticoagulants; Z79.899 Other long term (current) drug therapy
CPT/HCPCS: 36415; 71046; 80053; 80061; 80074; 81003; 83036; 83735; 84443; 85027; 85610; 85730; 87086; 93005; 93880; 93970

== ENCOUNTER → 2020-08-20 | Outpatient (CLI) | payer MEDICARE ==
--- NOTE | 2020-08-20 07:25 | CT ---
EXAMINATION TYPE: CT brain wo con DATE OF EXAM: 08/20/2020 COMPARISON: None HISTORY: Signs and symptoms cognitive function CT DLP: 1047.[address] of the brain was performed. The ventricles, basal cisterns and sulci overlying the cerebral convexities demonstrate mild enlargem ent. There is no evidence for intracranial hemorrhage or sulcal effacement. There is decreased attenuation about the periventricular white matter and deep white matter of both c erebral hemispheres, compatible with chronic small vessel ischemia. Differential diagnosis does inclu de demyelination. No mass effects are seen.No midline shift. Osseous calvarium is intact. If symptoms persist consider MRI. IMPRESSION: 1. Age related atrophic and chronic small vessel ischemic change without acute intracranial process s een at this time.
--- NOTE | 2020-08-20 10:49 | ECHOF ---
Referral Reason:R41.89 sign and symptoms cognitive function MEASUREMENTS -------- HEIGHT: 182.9 cm WEIGHT: 108.9 kg BP: RVIDd: 3.2 cm (< 3.3) IVSd: 1.3 cm (0.6 - 1.1) LVIDd: 5.9 cm (3.9 - 5.3) LVPWd: 0.7 cm (0.6 - 1.1) IVSs: 1.7 cm LVIDs: 4.4 cm LVPWs: 1.1 cm LA Diam: 5.5 cm (2.7 - 3.8) LAESV Index (A-L): 54.88 ml/m Ao Diam: 3.4 cm (2.0 - 3.7) AV Cusp: 2.1 cm (1.5 - 2.6) MV EXCURSION: 26.941 mm (> 18.000) MV EF SLOPE: 160 mm/s (70 - 150) EPSS: 0.4 cm AV maxP.96 mmHg AV meanP.44 mmHg RAP: 5.00 mmHg RVSP: 45.05 mmHg FINDINGS -------- Atrial fibrillation. This was a technically adequate study. The left ventricular size is normal. There is moderate concentric left ventricular hypertrophy. O verall left ventricular systolic function is low-normal with, an EF between 50 - 55 %. Left ventric ular fillimg pressure cannot be estimated due to Atrial fibrillation. The right ventricle is normal in size. LA is severely dilated >40 ml/m2 The right atrial size is normal. Peak/mean gradient across the Aortic Valve is 14.96mmHg / 7.44mmHg. Normally functioning bioprosthe tic valve. Mild mitral annular calcification present. Mild mitral regurgitation is present. The tricuspid valve appears structurally normal. Mild tricuspid regurgitation present. There is m ild pulmonary hypertension. The right ventricular systolic pressure, as measured by Doppler, is 45. 05mmHg. Trace/mild (physiologic) pulmonic regurgitation. The aortic root size is normal. There is no pericardial effusion. CONCLUSIONS -------- 1. There is moderate concentric left ventricular hypertrophy. 2. Overall left ventricular systolic function is low-normal with, an EF between 50 - 55 %. 3. Left ventricular fillimg pressure cannot be estimated due to Atrial fibrillation. 4. LA is severely dilated >40 ml/m2 5. Peak/mean gradient across the Aortic Valve is 14.96mmHg / 7.44mmHg. 6. Normally functioning bioprosthetic valve. 7. Mild mitral regurgitation is present. 8. Mild tricuspid regurgitation present. 9. There is mild pulmonary hypertension. 10. There is no pericardial effusion. ORAL HYGIENIST: Urszula Dempsey RDCS
== END | disposition home or self-care (01) ==
LOC: RADCTMAIN 06:50
PROVIDERS: ATTEND Family Medicine
DX: I67.82 Cerebral ischemia (principal); G31.1 Senile degeneration of brain, not elsewhere classified; I48.91 Unspecified atrial fibrillation; I08.1 Rheumatic disorders of both mitral and tricuspid valves; I27.20 Pulmonary hypertension, unspecified; R46.89 Other symptoms and signs involving appearance and behavior; R41.89 Other symptoms and signs involving cognitive functions and awareness
CPT/HCPCS: 70450; 93306

== ENCOUNTER → 2020-08-28 | Outpatient (CLI) | payer MEDICARE ==
--- NOTE | 2020-08-28 18:55 | US ---
EXAMINATION TYPE: US carotid duplex BILAT DATE OF EXAM: 08/28/2020 COMPARISON: CT, US CLINICAL HISTORY: Signs and symptoms involving cognitive functions and awareness per order. Hx stroke , hypertension. EXAM MEASUREMENTS: RIGHT: Peak Systolic Velocity (PSV) cm/sec ----- Right CCA: 90.5 ----- Right ICA: 100.4 ----- Right ECA: 108.7 ICA/CCA ratio: 1.1 RIGHT: End Diastole cm/sec ----- Right CCA: 28.9 ----- Right ICA: 39.9 ----- Right ECA: 32.8 LEFT: Peak Systolic Velocity (PSV) cm/sec ----- Left CCA: 89.4 ----- Left ICA: 90.8 ----- Left ECA: 141.6 ICA/CCA ratio: 1.0 LEFT: End Diastole cm/sec ----- Left CCA: 33.3 ----- Left ICA: 38.1 ----- Left ECA: 56.0 VERTEBRALS (direction of flow): Right Vertebral: Antegrade Left Vertebral: Antegrade Rhythm: Arrhythmia Decal Decorator notes: Intimal thickening seen bilaterally. Plaque seen bilateral carotid bifurcations. P laque seen right proximal ICA and left proximal ECA. Elevated velocity left ECA. A borderline size lymph node in the right side of the neck measuring 1.2 x 0.9 x 0.5 cm. IMPRESSION: No hemodynamically significant internal carotid artery stenosis on either side. Note that the sonogra pher indicates a nonspecific arrhythmia during the exam. Criteria for Assigning % of Stenosis / Diameter reduction (Estimation based on the indirect measurements of the internal carotid artery velocities (ICA PSV). 1. Normal (no stenosis)=ICA PSV < 125 cm/s: ratio < 2.0: ICA EDV<40 cm/s. 2. Less than 50% stenosis=ICA PSV < 125 cm/s: ratio < 2.0: ICA EDV<40 cm/s. 3. 50 to 69% stenosis=ICA PSV of 125 to 230 cm/s: ration 2.0 ? 4.0: ICA EDV 40-100 cm/s. 4. Greater than 70% stenosis to near occlusion= ICA PSV > 230 cm/s: ratio > 4.0: ICA EDV > 100 cm/s. 5. Near occlusion= ICA PSV velocities may be low or undetectable: variable ratio and ICA EDV. 6. Total occlusion=unable to detect flow.
== END | disposition home or self-care (01) ==
LOC: RADUSWWP 16:45
PROVIDERS: ATTEND Family Medicine
DX: R41.89 Other symptoms and signs involving cognitive functions and awareness (principal); R46.89 Other symptoms and signs involving appearance and behavior
CPT/HCPCS: 93880

== ENCOUNTER 2021-04-22 10:38 | Emergency (ER) | payer MEDICARE ==
[2021-04-22 10:49] VITALS: TEMP 98
[2021-04-22] MEDS ORDERED: LIDOCAINE 1% INJ 10MG/ML (20 ML MDV) SQ ONE (11:13)
[2021-04-22] MEDS ORDERED: MORPHINE SULFATE 4 MG/ML SYRINGE IM STA (11:13)
[2021-04-22] MEDS ORDERED: DIPH,PERTUS(ACELL)TETVAC-LF 0.5 ML VIAL IM ONE (11:13)
[2021-04-22] MEDS ORDERED: ceFAZolin 1,000 MG VIAL (IM USE) IM STA (11:38)
--- NOTE | 2021-04-22 11:40 | XR ---
EXAMINATION TYPE: XR finger LT DATE OF EXAM: 04/22/2021 COMPARISON: NONE HISTORY: Thumb trauma TECHNIQUE: 3 views left thumb FINDINGS: There is a comminuted fracture of the distal phalanx of the thumb with intra-articular extension into the interphalangeal joint. No significant displacement. There is overlying soft tissue laceration wi th a few bony fragments. Degenerative changes are seen at the first carpometacarpal and first metacarpophalangeal joints. IMPRESSION: There is a comminuted fracture of the distal phalanx of the thumb with intra-articular extension into the interphalangeal joint. No significant displacement. There is overlying soft tissue laceration wi th a few bony fragments.
--- NOTE | 2021-04-22 11:54 | ED ---
Upper Extremity HPI <Ji Xiao - Last Filed: 04/22/21 12:49> - General Source: patient Mode of arrival: ambulatory <Helen Acosta - Last Filed: 04/22/21 12:58> - General Chief Complaint: Extremity Injury, Upper Stated Complaint: thumb lac Time Seen by Provider: 04/22/21 10:51 - History of Present Illness Initial Comments: Patient is a 71-year-old male presenting to the emergency Department with complaints of a laceration to his left thumb. Patient states he was using a table saw when a piece of wood kicked back and his thumb accidentally touched the blade. He is on a Eliquis secondary to A. fib and heart valve replacement. Bleeding is controlled with pressure and a bandage at this time. His tetanus vaccine is not up-to-date. Patient's pain is about an 8/10. He has no further complaints at this time. (Helen Acosta) - Related Data Home Medications Medication Instructions Recorded Confirmed Folic Acid 1 mg PO HS 04/30/19 04/22/21 Aspirin 81 mg PO HS 04/22/21 04/22/21 DULoxetine HCL [Cymbalta] 30 mg PO DAILY 04/22/21 04/22/21 Donepezil [Aricept] 5 mg PO HS 04/22/21 04/22/21 Furosemide [Lasix] 20 mg PO HS 04/22/21 04/22/21 Metoprolol Tartrate [Lopressor] 50 mg PO BID 04/22/21 04/22/21 Pregabalin [Lyrica] 200 mg PO BID 04/22/21 04/22/21 Simvastatin [Zocor] 40 mg PO HS 04/22/21 04/22/21 lisinopriL [Zestril] 5 mg PO DAILY 04/22/21 04/22/21 Previous Rx's Medication Instructions Recorded Apixaban [Eliquis] 5 mg PO BID #60 tab 05/07/19 Losartan [Cozaar] 25 mg PO DAILY@1200 #30 tab 05/07/19 Pantoprazole [Protonix] 40 mg PO AC-BRKFST #30 tablet. 05/07/19 levETIRAcetam [Keppra] 1,000 mg PO BID #60 tablet 05/07/19 metFORMIN HCL [Glucophage] 500 mg PO BID #60 tab 05/07/19 Cephalexin [Keflex] 500 mg PO Q6HR 1 Days #20 cap 04/22/21 HYDROcodone/APAP 5-325MG [[place] 1 tab PO Q6HR PRN 3 Days #12 tab 04/22/21 5-325] Allergies Allergy/AdvReac Type Severity Reaction Status Date / Time No Known Allergies Allergy Verified 04/22/21 11:55 Review of Systems ROS Other: All systems not noted in ROS Statement are negative. <Ji Xiao - Last Filed: 04/22/21 12:49> ROS Other: All systems not noted in ROS Statement are negative. <Helen Acosta - Last Filed: 04/22/21 12:58> ROS Statement: Those systems with pertinent positive or pertinent negative responses have been documented in the HPI. Past Medical History Past Medical History: Atrial Fibrillation, Diabetes Mellitus, GERD/Reflux, Hyperlipidemia, Hypertension, Seizure Disorder, Vascular Disorder Additional Past Medical History / Comment(s): Epilepsy. cellulitis , current wound right foot, neuropathy History of Any Multi-Drug Resistant Organisms: None Reported Past Surgical History: Cholecystectomy, Orthopedic Surgery Additional Past Surgical History / Comment(s): Colonoscopy, partial amputated left foot great toe, wound center procedures, Past Anesthesia/Blood Transfusion Reactions: Previous Problems w/ Anesthesia Additional Past Anesthesia/Blood Transfusion Reaction / Comment(s): states "coded on table" with cholecystectomy Past Psychological History: No Psychological Hx Reported Smoking Status: Never smoker Past Alcohol Use History: Occasional Past Drug Use History: Marijuana - Past Family History Mother Family Medical History: Cancer Additional Family Medical History / Comment(s): fx hip, uterine Father Family Medical History: Dementia <Helen Acosta - Last Filed: 04/22/21 12:58> General Exam <Helen Acosta - Last Filed: 04/22/21 12:58> - General Exam Comments Initial Comments: GENERAL: Patient is well-developed and well-nourished. Patient is nontoxic and in mild distress. HEAD: Atraumatic, normocephalic. EYES: Pupils equal round and reactive to light, extraocular movements intact, sclera anicteric, conjunctiva are normal. Eyelids were unremarkable. ENT: Nares patent, oropharynx clear without exudates. Moist mucous membranes. NECK: Normal range of motion, supple without lymphadenopathy or JVD. LUNGS: Unlabored respirations. Breath sounds clear to auscultation bilaterally and equal. No wheezes rales or rhonchi. HEART: Regular rate and rhythm without murmurs, rubs or gallops. ABDOMEN: Soft, nontender, normoactive bowel sounds. No guarding, no rebound. No masses appreciated. : Deferred MUSCULOSKELETAL: Patient has an avulsion injury to the distal aspect of the left thumb. Normal extremities with adequate strength and normal range of motion, no pitting or edema. No clubbing or cyanosis. NEUROLOGICAL: Patient is alert and oriented x 3. Normal speech, normal gait. PSYCH: Normal mood, normal affect. SKIN: Warm, Dry, normal turgor, no rashes. Patient has an avulsion injury to the medial aspect of the distal end of the left thumb, ~1cm, including nail involvement. Bleeding is controlled with a bandage. (Helen Acosta) Course <Ji Xiao - Last Filed: 04/22/21 12:49> Vital Signs 04/22/21 10:43 Temperature 98.0 F Pulse Rate 69 Respiratory 20 Rate Blood Pressure 174/96 O2 Sat by Pulse 99 Oximetry - Reevaluation(s) Reevaluation #1: 04/22/21 12:50 PA supervision: I personally do a [id number] evaluation the patient did injure his left thumb on a table saw that he was using. He does have a laceration consistent with a table saw blade injury to his left thumb. X-ray did show evidence of extension of the IP joint. He has no other injuries report. I did review the imaging the patient will follow-up with orthopedics. I do agree with the assessment and plan. (Ji Xiao) Medical Decision Making <Helen Acosta - Last Filed: 04/22/21 12:58> - Medical Decision Making Patient is a 71-year-old male presenting with an injury to his left thumb after it touched a saw blade. X-rays reveal a comminuted fracture of the distal phalanx of the thumb with intra-articular extension into the IP joint. His is an open fracture, as he has an avulsion injury including half the nail missing on the distal end of the thumb. Bleeding is controlled at this time. Patient was given pain control, antibiotics and a digital block. I discussed case with Dr. Salinas who is okay with patient going home with a bandage and splint, they will see him in office tomorrow for possible surgical intervention. Patient is in agreement with this plan of care. (Helen Acosta) Disposition <DameonJi - Last Filed: 04/22/21 12:49> Is patient prescribed a controlled substance at d/c from ED?: Yes When asked, does pt state using other controlled substances?: No If prescribed controlled substance>3 days was MAPS reviewed?: Prescribed <3 Days If opioid is for acute pain is fill amount 7 days or less?: Yes If Rx opioid, was Start Talking consent form obtained?: Yes Time of Disposition: 12:58 <Helen Acosta - Last Filed: 04/22/21 12:58> Clinical Impression: Open fracture of distal phalanx of left thumb Disposition: HOME SELF-CARE Condition: Stable Instructions (If sedation given, give patient instructions): Finger Fracture (ED) Additional Instructions: Please return to the Emergency Department if symptoms worsen or any other concerns. Take antibiotics as prescribed. Keep hand elevated, take pain medicine as needed. Follow-up with Dr. Watkins as discussed. Prescriptions: Cephalexin [Keflex] 500 mg PO Q6HR 1 Days #20 cap HYDROcodone/APAP 5-325MG [[place] 5-325] 1 tab PO Q6HR PRN 3 Days #12 tab PRN Reason: Pain Referrals: Javier Delaney MD [Primary Care Provider] - 1-2 days
[2021-04-22] MEDS ORDERED: GELATIN SPONGE,ABSORB (SMALL) 1 EACH SPONGE TOPICAL STA (12:27)
[2021-04-22 13:16] VITALS: BP 151/95; PULSE 95; RESP 18
== END 2021-04-22 13:15 | disposition home or self-care (01) ==
LOC: EC 10:38
DX: S62.522B Displaced fracture of distal phalanx of left thumb, initial encounter for open fracture (principal); E11.9 Type 2 diabetes mellitus without complications; E78.5 Hyperlipidemia, unspecified; G40.909 Epilepsy, unspecified, not intractable, without status epilepticus; I10 Essential (primary) hypertension; I48.91 Unspecified atrial fibrillation; Z23 Encounter for immunization; Z79.01 Long term (current) use of anticoagulants; Z79.899 Other long term (current) drug therapy; W27.0XXA Contact with workbench tool, initial encounter; Y93.89 Activity, other specified
CPT/HCPCS: 99283 ×2; 96372 ×2; 90471 ×2; 73140; 90715; J2270; J0690; J2001

== ENCOUNTER → 2021-06-01 | Day surgery (SDC) | payer MEDICARE ==
[2021-05-28 15:02] VITALS: BMI 26.9
[~2021-06-01] MED LIST changes: -ALPRAZolam 0.25 MG TAB PO PRN; -ALPRAZolam 0.5 MG TAB PO PRN; -ASPIRIN 325 MG TAB PO STA; -ATORVASTATIN 80 MG TAB PO STA; -NITROGLYCERIN SL TABS 0.4 MG TAB SUBLINGUAL PRN; +SODIUM CHLORIDE 0.9% 1,000 ML IV SCH; -SODIUM CHLORIDE 0.9% 1,000 ML in EMPTY BAG 1 BAG IV ONE
[2021-06-01 13:45] LABS: Glucose,Whole Blood 239 mg/dL (75-99)
--- NOTE | 2021-06-01 19:15 | P.EPPROC ---
- EP Procedure Note Electrophysiology Procedure Note: Diagnosis recurrent dizzy spells and presyncope Twelve-lead EKG shows atrial fibrillation with a controlled ventricular response at rest, [address] depression in V4-V6 lead 1 and 2 Tilt table test for protocol Baseline blood pressure 134/84 mmHg, Baseline heart rate 70 beats a minute Patient was tilted upright at an angle of 70 per protocol his blood pressure dropped 213/82 mmHg but thereafter it came back to baseline and remained in the normal range No change in heart rate line he was laid supine at the end of procedure Impression Atrial fibrillation with a controlled ventricular response Mild orthostatic hypotension, brief any symptomatic line no evidence for dysaut onomia or neurocardiogenic syncope
== END ==
LOC: CATHEP 12:20
PROVIDERS: ATTEND Internal Medicine Clinical Cardiac Electrophysiology
DX: R55 Syncope and collapse (principal); R42 Dizziness and giddiness; Z87.74 Personal history of (corrected) congenital malformations of heart and circulatory system; Z95.2 Presence of prosthetic heart valve; I25.10 Atherosclerotic heart disease of native coronary artery without angina pectoris; I48.19 Other persistent atrial fibrillation; E11.9 Type 2 diabetes mellitus without complications; E78.5 Hyperlipidemia, unspecified; I10 Essential (primary) hypertension; I47.1 Supraventricular tachycardia; I44.7 Left bundle-branch block, unspecified; I08.1 Rheumatic disorders of both mitral and tricuspid valves; I37.1 Nonrheumatic pulmonary valve insufficiency
CPT/HCPCS: 93660

== ENCOUNTER → 2021-06-15 | Outpatient (CLI) | payer MEDICARE ==
[2021-06-16 00:11] LABS: INR 1.07 (0.90-1.11); Prothrombin Time 11.6 sec (9.9-11.9)
[2021-06-16 05:07] LABS: African American GFR (CKD) 58.6 (60.0-200.0); Anion Gap 11.6 mmol/L (4.00-12.00); BUN/Creat Ratio 11.43 Ratio (12.00-20.00); Calcium 9.2 mg/dL (8.7-10.3); Carbon Dioxide 24.4 mmol/L (21.6-31.8); Non-African American GFR(CKD) 50.5 (60.0-200.0); Potassium 5.1 mmol/L (3.5-5.5)
== END | disposition home or self-care (01) ==
LOC: LABWHC1 14:54
PROVIDERS: ATTEND Internal Medicine Clinical Cardiac Electrophysiology
DX: N18.9 Chronic kidney disease, unspecified (principal); I48.91 Unspecified atrial fibrillation
CPT/HCPCS: 36415; 80048; 84443; 85610

== ENCOUNTER → 2021-08-17 | Outpatient (CLI) | payer MEDICARE ==
[2021-08-17 13:49] LABS: Potassium 4.4 mmol/L (3.5-5.1)
[2021-08-17 14:59] LABS: HGB 13.9 gm/dL (13.0-17.5); MCH 30.5 pg (25.0-35.0); MCHC 33.9 g/dL (31.0-37.0); Mean Platelet Volume 8.4; Platelet Count 219 k/uL (150-450); RBC 4.56 m/uL (4.30-5.90); RDW 14.1 % (11.5-15.5); WBC 7.8 k/uL (3.8-10.6)
== END | disposition home or self-care (01) ==
LOC: LABPAT 11:21
PROVIDERS: ATTEND Internal Medicine Clinical Cardiac Electrophysiology
DX: Z01.812 Encounter for preprocedural laboratory examination (principal); I48.19 Other persistent atrial fibrillation; E86.0 Dehydration; E87.8 Other disorders of electrolyte and fluid balance, not elsewhere classified
CPT/HCPCS: 36415; 80051; 82565; 84520; 85027

== ENCOUNTER 2021-08-24 09:54 | Day surgery (SDC) | payer MEDICARE ==
[2021-08-21 11:05] VITALS: BMI 26.9
[2021-08-24] MEDS ORDERED: SODIUM CHLORIDE 0.9% 1,000 ML IV ONE (10:09)
[2021-08-24 10:44] LABS: Glucose,Whole Blood 137 mg/dL (75-99)
[2021-08-24] MEDS ORDERED: SODIUM CHLORIDE 0.9% 100 ML BAG ONE (12:30)
[2021-08-24] MEDS ORDERED: PROPOFOL 10 MG/ML 20 ML VIAL IV ONE (12:30)
[2021-08-24] MEDS ORDERED: ceFAZolin 1,000 MG VIAL ONE (12:30)
[2021-08-24] MEDS ORDERED: MIDAZOLAM 2 MG/2 ML VIAL ONE (12:30)
[2021-08-24] MEDS ORDERED: PROTAMINE SULFATE 10 MG/ML 5 ML VIAL IV ONE (12:30)
[2021-08-24] MEDS ORDERED: DEXAMETHASONE SOD PHOSPHATE 4 MG/ML 1 ML VIAL ONE (12:30)
[2021-08-24] MEDS ORDERED: SUCCINYLCHOLINE CHLORIDE 100 MG/5 ML SYR IV ONE (12:30)
[2021-08-24] MEDS ORDERED: ONDANSETRON 4 MG/2 ML VIAL ONE (12:30)
[2021-08-24] MEDS ORDERED: HEPARIN SODIUM,PORCINE 10,000 UNIT/ML 1 ML VIAL ONE (12:30)
[2021-08-24] MEDS ORDERED: fentaNYL (PF) 50 MCG/ML 2 ML AMP ONE (12:30)
[2021-08-24] MEDS ORDERED: LIDOCAINE 1% INJ 10MG/ML (20 ML MDV) ONE (12:30)
[2021-08-24] MEDS ORDERED: HEPARIN SOD,PORK IN 0.45% NACL 25,000 UNIT in 0.45% NACL 1 250ML.BAG IV ONE (12:57)
--- NOTE | 2021-08-24 13:01 | P.HPCAR ---
History of Present Illness This is Dr. Hendrickson dictating an H/P on this patient The patient was interviewed and examined IMPRESSION / ASSESSMENT: Persistent atrial fibrillation with elevated daytime heart rates Mild nighttime bradycardia Symptoms of tiredness and fatigue Type 2 diabetes History of thromboembolism to the to now on anticoagulation Mild CAD Aortic valve replacement bioprosthetic Normal TSH History of orthostatic hypotension PLAN: Proceed with A. fib ablation HPI Patient complains of tiredness and fatigue No chest discomfort dizziness no loss of consciousness lately Taking all his medications including ELIQUIS ROS: No fever chills or rigors, no cough, phlegm or expectoration, no nausea, vomiting or diarrhea, no hematuria, dysuria, no musculoskeletal complaints, no strokes or seizures, no skin lesions. EXAMINATION: 145 and 94, pulse rate 96, afebrile 98.1F No JVD Irregular heart rhythm no murmurs aortic valve crisp Abdomen soft No lower symmetry edema Clear lungs no rhonchi no crackles REVIEW OF LABS, ECG & MEDICAL DATA 2-D echo and Doppler studies shows preserved LV systolic function and severe concentric LVH Bioprosthetic aortic valve in stable position, P gradient 15, mean gradient 6 Medications include ELIQUIS 5 g twice daily, Lasix, losartan, metformin, minute metoprolol, amlodipine Physical Exam Vitals: Vital Signs Temp Pulse Resp BP Pulse Ox 08/24/21 10:16 98.1 F 96 16 145/94 93 L Intake and Output 08/23/21 08/24/21 08/24/21 22:59 06:59 14:59 Other: Weight 96.3 kg Past Medical History Past Medical History: Atrial Fibrillation, Diabetes Mellitus, GERD/Reflux, Hearing Disorder / Deafness, Hyperlipidemia, Hypertension, Memory Impairment, Seizure Disorder, Syncope, Vascular Disorder Additional Past Medical History / Comment(s): Epilepsy; last seizure 2010. Hx cellulitis. Current wounds bilat feet; neuropathy. c/o sycope x2 in past 6 months History of Any Multi-Drug Resistant Organisms: None Reported Past Surgical History: Cardiac Valve Replacement, Cholecystectomy, Orthopedic Surgery Additional Past Surgical History / Comment(s): Colonoscopy, partial amputated left foot great toe, wound center procedures. Aortic valve replacement, Past Anesthesia/Blood Transfusion Reactions: Previous Problems w/ Anesthesia Additional Past Anesthesia/Blood Transfusion Reaction / Comment(s): states "coded on table" with cholecystectomy, was septic Smoking Status: Former smoker - Past Family History Mother Family Medical History: Cancer Additional Family Medical History / Comment(s): fx hip, uterine Father Family Medical History: Dementia Physical Examination Vital Signs Temp Pulse Resp BP Pulse Ox 08/24/21 10:16 98.1 F 96 16 145/94 93 L Intake and Output 08/23/21 08/24/21 08/24/21 22:59 06:59 14:59 Other: Weight 96.3 kg Results Current Medications Generic Name Dose Route Start Last Admin Trade Name Freq PRN Reason Stop Dose Admin Sodium Chloride 1,000 mls @ 50 mls/hr 08/24/21 05:44 Saline 0.9% IV 09/23/21 05:45 .Q20H CURT Intake and Output 08/23/21 08/24/21 08/24/21 22:59 06:59 14:59 Other: Weight 96.3 kg Patient Weight 08/25/21 06:59 Weight 96.3 kg
[2021-08-24] MEDS ORDERED: LIDOCAINE 1% INJ 10MG/ML (20 ML MDV) SQ ONE (13:28)
[2021-08-24] MEDS ORDERED: IOPAMIDOL-370 100ML BTL INJ ONE (15:05)
--- NOTE | 2021-08-24 16:22 | P.EPPROC ---
- EP Procedure Note Electrophysiology Procedure Note: PROCEDURE A. fib ablation DIAGNOSIS Atrial fibrillation, symptomatic, refractory to therapy Persistent and symptom at RESULT No left atrial appendage mass seen on intracardiac echo Successful A. fib ablation/pulmonary vein isolation of all veins using cryo- ablation Complete entrance block in all 4 veins confirmed No evidence for phrenic nerve injury Esophageal deflection YES Electrical cardioversion with a synchronized shock across the chest YES PROCEDURE DETAILS Patient was brought to the EP lab in a fasting state. Written informed consent was obtained prior to the procedure. Procedure performed under general anesthesia After initial muscle relaxant use, muscle relaxants were not given thereafter in order to assess phrenic nerve during procedure. Patient prepped and draped as per protocol Full cryo-set up with standard preparation of the cryoablation tools done. Fem oral Venous access obtained on the right and left groins Venous and arterial Sheaths placed. Diagnostic catheters for the high right atrium, phrenic nerve stimulation and pacing, His bundle, RV and coronary sinus placed Intracardiac echo catheter placed. Long sheath placed in the right atrium Left and right transseptal catheterization performed under intracardiac echo guidance. Intravenous heparin with aCT above 300 Later, catheter positioning and balloon positioning in the left atrium, under intracardiac echo guidance Diagnostic EP study Baseline measurements QRS 95 ms, QT interval 361 ms AH 97 and HV 41 ms Transseptal catheterization performed RA pressure 10/3/6 LA pressure 28/1/13 Transseptal catheterization performed with standard sheath. The cryoablation sheath was then placed with an over the wire exchange without any acute complications. All 4 pulmonary veins were isolated in the following sequence: Left superior followed by left inferior followed by right superior followed by right inferior The cryo-ablation balloon was placed at the os of each vein 1.5 mL of IV dye was injected to confirm an occluded vein Goal during cryoablation was to achieve complete occlusion of the pulmonary vein, achieve -30 degrees C at 30 seconds and achieve -40 degrees C at 60 seconds and a time to effect of less than 60-90 seconds, . If not the balloon was repositioned to obtain this result After completion of Cryoblation with durations from 180-240 seconds, entrance block was confirmed with the Attain circular catheter in a roving fashion around the antrum of the pulmonary veins Phrenic nerve pacing was performed from the SVC, right innominate vein area and diaphragm voltage was monitored. Diaphragmatic contractions were also monitored manually for strength of contraction. Parameter goals for each cryo freeze Complete occlusion of the appropriate vein -30 degrees C by 30 seconds -40 degrees C by 60 seconds Minimum between minus 40-55 degrees C Thaw time greater than 10 seconds Balloon visualized by intracardiac echo The esophagus was intubated. Esophageal Temperature monitoring with a CIRCA catheter formed. Esophageal deflection for hypothermia of the esophagus below 30 degrees C Left superior pulmonary vein Complete isolation, entrance block Left inferior pulmonary vein Complete isolation, entrance block Right superior pulmonary vein, during phrenic nerve pacing Complete isolation, entrance block Right inferior pulmonary vein, during phrenic nerve pacing Complete isolation, entrance block At the end of the procedure the Achieve catheter was once again used to check for entrance block Phrenic nerve stimulation was performed to confirm diaphragmatic stimulation the end of the procedure Cine fluoroscopy was performed at the very end of the procedure to confirm movement of both diaphragms with inspiration and expiration At the end of the procedure the patient was extubated Heparin was reversed Venous sheaths were removed and hemostasis assured PROCEDURES PERFORMED Diagnostic EP study CS pacing and recording Left and right transseptal catheterization Catheter the mapping of the tachycardia (NOT 3D mapping) Intracardiac echocardiography Pulmonary vein isolation with transseptal and comprehensive EPS, [id number] Electrical cardioversion with a synchronized shock across the chest [id number]
[2021-08-24] MEDS ORDERED: ACETAMINOPHEN TAB 325 MG TAB PO PRN (16:27)
[2021-08-24] MEDS ORDERED: ACETAMINOPHEN IV (For NPO) 1,000 MG in EMPTY BAG 1 BAG IVPB ONE (16:27)
[2021-08-24] MEDS: SODIUM CHLORIDE 0.9% 1,000 ML IV SCH (18:26)
[2021-08-24] MEDS ORDERED: FUROSEMIDE 40 MG TAB PO SCH (21:00)
[2021-08-24] MEDS ORDERED: ASPIRIN 81 MG PO SCH (21:00)
[2021-08-24] MEDS ORDERED: metFORMIN 500 MG TAB PO SCH (21:00)
[2021-08-24] MEDS ORDERED: ATORVASTATIN 20 MG TAB PO SCH (21:00)
[2021-08-24] MEDS: METOPROLOL TARTRATE 50 MG TAB PO SCH (21:16)
[2021-08-24] MEDS: APIXABAN 5 MG TAB PO SCH (21:16)
[2021-08-24] MEDS: levETIRAcetam 500 MG TAB PO SCH (21:17)
[2021-08-25] MEDS: SODIUM CHLORIDE 0.9% 1,000 ML IV SCH (01:42)
[2021-08-25 07:56] VITALS: BP 148/74; PULSE 49; RESP 16; TEMP 98
[2021-08-25] MEDS: METOPROLOL TARTRATE 50 MG TAB PO SCH (08:14)
[2021-08-25] MEDS: APIXABAN 5 MG TAB PO SCH (08:14)
[2021-08-25] MEDS ORDERED: lisinopriL 5 MG TAB PO SCH (09:00)
--- NOTE | 2021-08-25 11:54 | P.DS ---
Providers Date of admission: This is a 71-year-old male who underwent A. fib ablation/pulmonary vein isolation with Dr. Hendrickson 08/24/2021. Patient is doing well postprocedure with no immediate publications. He denies chest pain or pressure. He denies shortness of breath. Vital signs are stable. Patient's groins are soft with no hematoma noted. The patient was deemed stable for discharge home today. He is to follow up on an outpatient basis. Please see EMR for further hospital course details Discharge diagnosis #1 atrial fibrillation, symptomatic, refractory to therapy status post A. fib ablation and pulmonary vein isolation Nurse practitioner note has been reviewed by physician. Signing provider agrees with the documented findings, assessment, and plan of care. Attending physician: Jesus Hendrickson Primary care physician: Javier Delaney Plan - Discharge Summary Discharge Rx Participant: No New Discharge Prescriptions: Continue Folic Acid 1 mg PO HS Losartan [Cozaar] 25 mg PO DAILY@1200 #30 tab Apixaban [Eliquis] 5 mg PO BID #60 tab metFORMIN HCL [Glucophage] 500 mg PO BID #60 tab levETIRAcetam [Keppra] 1,000 mg PO BID #60 tablet lisinopriL [Zestril] 5 mg PO DAILY Furosemide [Lasix] 40 mg PO HS Metoprolol Tartrate [Lopressor] 50 mg PO BID Simvastatin [Zocor] 40 mg PO HS Aspirin 81 mg PO HS Discharge Medication List Folic Acid 1 mg PO HS 04/30/19 [History] Apixaban [Eliquis] 5 mg PO BID #60 tab 05/07/19 [Rx] Losartan [Cozaar] 25 mg PO DAILY@1200 #30 tab 05/07/19 [Rx] levETIRAcetam [Keppra] 1,000 mg PO BID #60 tablet 05/07/19 [Rx] metFORMIN HCL [Glucophage] 500 mg PO BID #60 tab 05/07/19 [Rx] Aspirin 81 mg PO HS 04/22/21 [History] Metoprolol Tartrate [Lopressor] 50 mg PO BID 04/22/21 [History] Simvastatin [Zocor] 40 mg PO HS 04/22/21 [History] lisinopriL [Zestril] 5 mg PO DAILY 04/22/21 [History] Furosemide [Lasix] 40 mg PO HS 08/21/21 [History] Follow up Appointment(s)/Referral(s): Jesus Hendrickson MD [STAFF PHYSICIAN] - 1 Week (office will call you) Patient Instructions/Handouts: Cardiac Ablation (DC) Activity/Diet/Wound Care/Special Instructions: Post EP study - Ablation instructions 1. Keep access sites dry for 2 days. 2. No heavy lifting or straining for 2 days. 3. Avoid bending the hips repeatedly for 2 days. 4. You may go up and down stairs slowly Call if the following is noted 1. Bleeding, increasing swelling or pain at the access sites. 2. Increasing chest discomfort, especially upon taking a deep breath. 3. Increasing shortness of breath, at rest or with exertion. 4. Undue cough / phlegm 5. Difficulty or pain while swallowing. 6. Pain or change in color in the extremities. 7. Fever, chills, rigors. 8. Increasing headache or neurologic symptoms. 9. Dizziness, fainting, palpitations Continue ELIQUIS Continue all other cardiac medications Discharge Disposition: HOME SELF-CARE
[2021-08-25] MEDS ORDERED: LOSARTAN 25 MG TAB PO SCH (12:00)
[2021-08-26] MEDS ORDERED: metFORMIN 500 MG TAB PO SCH (21:00)
== END 2021-08-25 12:10 | disposition home or self-care (01) ==
LOC: CATHEP 09:54 → 6NMEDSUR 15:12 → CATHEP 08-25 12:10
PROVIDERS: ATTEND Internal Medicine Clinical Cardiac Electrophysiology
DX: R55 Syncope and collapse (principal); E11.9 Type 2 diabetes mellitus without complications; E78.5 Hyperlipidemia, unspecified; I25.10 Atherosclerotic heart disease of native coronary artery without angina pectoris; G40.909 Epilepsy, unspecified, not intractable, without status epilepticus; K21.9 Gastro-esophageal reflux disease without esophagitis; Z20.822 Contact with and (suspected) exposure to COVID-19; I10 Essential (primary) hypertension; Z86.718 Personal history of other venous thrombosis and embolism; Z87.891 Personal history of nicotine dependence; Z95.2 Presence of prosthetic heart valve; Z90.49 Acquired absence of other specified parts of digestive tract
CPT/HCPCS: 93662; 93609; 93656; 87635; C1894 ×2; C1769 ×4; C1760; C1730 ×2; C1759; C1893; C1733; C1766; J2250; J2720; J1644 ×2; J1100; J2405; J0690; J2001; J3010; J0330; J2704; Q9967

== ENCOUNTER → 2022-04-02 | Outpatient (CLI) | payer MEDICARE ==
[2022-04-02 20:40] LABS: ALT 19 U/L (10-49); AST 16 U/L (14-35); African American GFR (CKD) 70.1 (60.0-200.0); Albumin 4.3 g/dL (3.8-4.9); Albumin/Globulin Ratio 1.59 (1.60-3.17); Alkaline Phosphatase 66 U/L (41-126); BUN/Creat Ratio 8.92 Ratio (12.00-20.00); Blood Urea Nitrogen 10.7 mg/dL (9.0-27.0); Calcium 9.4 mg/dL (8.7-10.3); Carbon Dioxide 24.5 mmol/L (20.0-27.5); Chloride 99 mmol/L (96-109); Chol/HDL Ratio 2.63 Ratio; Globulin 2.7 g/dL (1.6-3.3); Glucose 215 mg/dL (70-110); LDL Cholesterol,Calculated 64.3 mg/dL (0.0-131.0); Magnesium 1.8 mg/dL (1.5-2.4); Non-African American GFR(CKD) 60.5 (60.0-200.0); Sodium 135 mmol/L (135-145); VLDL Calculation 13.72 mg/dL (5.00-40.00)
== END | disposition home or self-care (01) ==
LOC: LABWHC1 10:44
PROVIDERS: ATTEND Nurse Practitioner Adult Health
DX: I10 Essential (primary) hypertension (principal); I48.19 Other persistent atrial fibrillation; E78.5 Hyperlipidemia, unspecified
CPT/HCPCS: 36415; 80053; 80061; 83735; 84443

== ENCOUNTER 2022-04-18 12:24 | Inpatient (IN) | payer MEDICARE ==
[2022-04-18] MEDS ORDERED: SODIUM CHLORIDE 0.9% 500 ML 500 ML IV STA (12:32)
[2022-04-18 12:36] LABS: Glucose,Whole Blood 232 mg/dL (75-99)
--- NOTE | 2022-04-18 12:36 | ED ---
General Adult HPI - General Stated complaint: AMS Time Seen by Provider: 04/18/22 12:27 - History of Present Illness Initial comments: Dictation was produced using [employer] dictation software. please excuse any grammatical, word or spelling errors. Chief Complaint: Patient is 72-year-old male presents with acute onset confusion History of Present Illness: 72-year-old male brought in by EMS. EMS suspects that patient has sepsis. EMS reports that they were called today for altered mental status. According to EMS patient was confused this morning however not as confused as after running the time he was waking up from a nap which is approximately one hour ago. Some clear with patient's last normal was. Patient however is usually and oriented 4 and has been full conversations and is able to care for himself with no difficulties in performing his activities of daily living. EMS reports the patient had a low-grade temperature of 99. He had elevated blood pressure. Rest of his vital signs were stable. He had a blood glucose around 230. Patient is unreliable historian. The ROS documented in this emergency department record has been reviewed and confirmed by me. Those systems with pertinent positive or negative responses have been documented in the HPI. All other systems are other negative and/or noncontributory. PHYSICAL EXAM: General Impression: Alert and oriented x1/4, not in acute distress HEENT: Normocephalic atraumatic, extra-ocular movements intact, pupils equal and reactive to light bilaterally, mucous membranes moist. Cardiovascular: Heart regular rate and rhythm Chest: Able to complete full sentences, no retractions, no tachypnea Abdomen: abdomen soft, non-tender, non-distended, no organomegaly Musculoskeletal: Pulses present and equal in all extremities, no peripheral edema Motor: no focal deficits noted Neurological: CN II-XII grossly intact, no focal motor or sensory deficits noted , NIH score of 5 Skin: Intact with no visualized rashes Psych: Normal affect and mood ED course: Patient is a 72-year-old male presents to the emergency department with acute onset confusion. It's unclear when patient's last known normal was. Patient given an NIH score of 5. Code stroke paged. Upon arrival are within acceptable limits. Patient is not a candidate for alteplase due to unclear last known normal. More history was obtained from patient's and daughter. They report that he has past medical history of seizures. They state that sometimes he has seizures and usually is pre-fatigued for a whole day after stays in bed. His last seen normal on Tuesday afternoon. They he was confused when noted that he was making a lot of noise upstairs and seemed to be restless. She went to check on him earlier today and he was significantly confused. Hence why EMS was called. Patient reevaluated bedside at 2:30 PM. Negative Kernig's, negative Lhermitte's, negative Brudzinski sign. Laboratory evaluation obtained. CBC, coag panel within acceptable limits. Metabolic panel shows mild acidosis with a bicarb of 16. Rest of labs are within acceptable limits. Computed tomography scan of the brain and CT angios shows no large vessel occlusion or acute intracranial process. Case discussed with Dr. Le who states that patient not a candidate for out place or thrombectomy. He recommends patient be admitted for neurology consultation. Patient given rectal aspirin 1 g of Keppra.. No clear source of patient's symptoms. Patient be admitted to a [facility] hospitalist group with consultation to neurology. EKG interpretation: Ventricular rate 90, A. fib, QS 113, QTc 43. No GA prolongation, no QTC prolongation, no ST or T-wave changes noted. Patient has ST depressions in V3 to V6. Do not appear to be as date from EKG from 08/25/2021. - Related Data Home Medications Medication Instructions Recorded Confirmed Metoprolol Tartrate [Lopressor] 50 mg PO BID 04/22/21 04/18/22 Simvastatin [Zocor] 40 mg PO HS 04/22/21 04/18/22 DULoxetine HCL [Cymbalta] 60 mg PO DAILY 04/18/22 04/18/22 Donepezil [Aricept] 10 mg PO DAILY 04/18/22 04/18/22 Dronedarone [Multaq] 400 mg PO BID 04/18/22 04/18/22 Furosemide [Lasix] 20 mg PO DAILY 04/18/22 04/18/22 Pantoprazole Sodium [Protonix] 40 mg PO DAILY 04/18/22 04/18/22 levETIRAcetam [Keppra] 1,500 mg PO BID 04/18/22 04/18/22 Previous Rx's Medication Instructions Recorded metFORMIN HCL [Glucophage] 500 mg PO BID #60 tab 05/07/19 Allergies Allergy/AdvReac Type Severity Reaction Status Date / Time No Known Allergies Allergy Verified 04/18/22 13:24 Review of Systems ROS Statement: Those systems with pertinent positive or pertinent negative responses have been documented in the HPI. ROS Other: All systems not noted in ROS Statement are negative. Past Medical History Past Medical History: Atrial Fibrillation, Diabetes Mellitus, GERD/Reflux, Hearing Disorder / Deafness, Hyperlipidemia, Hypertension, Memory Impairment, Seizure Disorder, Syncope, Vascular Disorder Additional Past Medical History / Comment(s): Epilepsy; last seizure 2010. Hx cellulitis. Current wounds bilat feet; Lt thumb wound healing from injury; neuropathy. c/o sycope x2 in past 6 months History of Any Multi-Drug Resistant Organisms: None Reported Past Surgical History: Cardiac Valve Replacement, Cholecystectomy, Orthopedic Surgery Additional Past Surgical History / Comment(s): Colonoscopy, partial amputated left foot great toe, wound center procedures. Aortic valve replacement Past Anesthesia/Blood Transfusion Reactions: Previous Problems w/ Anesthesia Additional Past Anesthesia/Blood Transfusion Reaction / Comment(s): states "coded on table" with cholecystectomy, was septic Past Psychological History: Depression Additional Psychological History / Comment(s): feels he's depressed now - Past Family History Mother Family Medical History: Cancer Additional Family Medical History / Comment(s): fx hip, uterine Father Family Medical History: Dementia Course Vital Signs 04/18/22 04/18/22 04/18/22 13:25 13:46 13:50 Temperature 99.5 F Pulse Rate 101 H 97 95 Respiratory 18 19 7 L Rate Blood Pressure 127/89 132/79 131/117 O2 Sat by Pulse 100 Oximetry 04/18/22 14:00 Temperature Pulse Rate 79 Respiratory 51 H Rate Blood Pressure 131/117 O2 Sat by Pulse 98 Oximetry Medical Decision Making - Lab Data Result diagrams: 04/18/22 12:43 04/18/22 12:43 Lab Results 04/18/22 04/18/22 04/18/22 Range/Units 12:35 12:43 12:43 WBC 9.6 (3.8-10.6) k/uL RBC 3.95 L (4.30-5.90) m/uL Hgb 12.2 L (13.0-17.5) gm/dL Hct 37.4 L (39.0-53.0) % MCV 94.7 (80.0-100.0) fL MCH 30.8 (25.0-35.0) pg MCHC 32.5 (31.0-37.0) g/dL RDW 13.1 (11.5-15.5) % Plt Count 136 L (150-450) k/uL MPV 8.6 Neutrophils % 94 % Lymphocytes % 2 % Monocytes % 3 % Eosinophils % 0 % Basophils % 0 % Neutrophils # 8.9 H (1.3-7.7) k/uL Lymphocytes # 0.2 L (1.0-4.8) k/uL Monocytes # 0.3 (0-1.0) k/uL Eosinophils # 0.0 (0-0.7) k/uL Basophils # 0.0 (0-0.2) k/uL PT 12.1 H (9.0-12.0) sec INR 1.1 (<1.2) APTT 21.9 L (22.0-30.0) sec Sodium (137-145) mmol/L Potassium (3.5-5.1) mmol/L Chloride (98-107) mmol/L Carbon Dioxide (22-30) mmol/L Anion Gap mmol/L BUN (9-20) mg/dL Creatinine (0.66-1.25) mg/dL Est GFR (CKD-EPI)AfAm (>60 ml/min/1.73 sqM) Est GFR (CKD-EPI)NonAf (>60 ml/min/1.73 sqM) Glucose (74-99) mg/dL POC Glucose (mg/dL) 232 H (75-99) mg/dL POC Glu Dermatology Physician ID Catalina Cool Calcium (8.4-10.2) mg/dL Total Bilirubin (0.2-1.3) mg/dL AST (17-59) U/L ALT (4-49) U/L Alkaline Phosphatase (38-126) U/L Troponin I (0.000-0.034) ng/mL Total Protein (6.3-8.2) g/dL Albumin (3.5-5.0) g/dL 04/18/22 04/18/22 Range/Units 12:43 12:43 WBC (3.8-10.6) k/uL RBC (4.30-5.90) m/uL Hgb (13.0-17.5) gm/dL Hct (39.0-53.0) % MCV (80.0-100.0) fL MCH (25.0-35.0) pg MCHC (31.0-37.0) g/dL RDW (11.5-15.5) % Plt Count (150-450) k/uL MPV Neutrophils % % Lymphocytes % % Monocytes % % Eosinophils % % Basophils % % Neutrophils # (1.3-7.7) k/uL Lymphocytes # (1.0-4.8) k/uL Monocytes # (0-1.0) k/uL Eosinophils # (0-0.7) k/uL Basophils # (0-0.2) k/uL PT (9.0-12.0) sec INR (<1.2) APTT (22.0-30.0) sec Sodium 132 L (137-145) mmol/L Potassium 4.1 (3.5-5.1) mmol/L Chloride 101 (98-107) mmol/L Carbon Dioxide 16 L (22-30) mmol/L Anion Gap 15 mmol/L BUN 17 (9-20) mg/dL Creatinine 1.25 (0.66-1.25) mg/dL Est GFR (CKD-EPI)AfAm 67 (>60 ml/min/1.73 sqM) Est GFR (CKD-EPI)NonAf 58 (>60 ml/min/1.73 sqM) Glucose 234 H (74-99) mg/dL POC Glucose (mg/dL) (75-99) mg/dL POC Glu Dermatology Physician ID Calcium 9.0 (8.4-10.2) mg/dL Total Bilirubin 1.9 H (0.2-1.3) mg/dL AST 33 (17-59) U/L ALT 23 (4-49) U/L Alkaline Phosphatase 72 (38-126) U/L Troponin I 0.024 (0.000-0.034) ng/mL Total Protein 7.1 (6.3-8.2) g/dL Albumin 4.2 (3.5-5.0) g/dL Critical Care Time Critical Care Time: Yes Total Critical Care Time: 33 Disposition Clinical Impression: Acute delirium Disposition: ADMITTED IP TO THIS [facility] Condition: Fair Referrals: None,Stated [REFERRING] - 1-2 days Decision Time: 14:31
[2022-04-18] MEDS ORDERED: LORazepam 2 MG/ML INJ IV STA ×2 (12:39→12:51)
[2022-04-18 12:49] LABS: Basophils % (A) 0 %; Eosinophils % (A) 0 %; HCT 37.4 % (39.0-53.0); HGB 12.2 gm/dL (13.0-17.5); Lymphocytes # (A) 0.2 k/uL (1.0-4.8); Lymphocytes % (A) 2 %; MCH 30.8 pg (25.0-35.0); MCHC 32.5 g/dL (31.0-37.0); MCV 94.7 fL (80.0-100.0); Mean Platelet Volume 8.6; Monocytes # (A) 0.3 k/uL (0-1.0); Monocytes % (A) 3 %; Neutrophils # (A) 8.9 k/uL (1.3-7.7); Neutrophils % (A) 94 %; Platelet Count 136 k/uL (150-450); RBC 3.95 m/uL (4.30-5.90); RDW 13.1 % (11.5-15.5); WBC 9.6 k/uL (3.8-10.6)
[2022-04-18 13:07] LABS: Albumin 4.2 g/dL (3.5-5.0); INR 1.1 (<1.2); Potassium 4.1 mmol/L (3.5-5.1); Prothrombin Time 12.1 sec (9.0-12.0); Total Bilirubin 1.9 mg/dL (0.2-1.3); Total Protein 7.1 g/dL (6.3-8.2)
[2022-04-18 13:15] LABS: Partial Thromboplastin Time 21.9 sec (22.0-30.0)
--- NOTE | 2022-04-18 13:15 | CT ---
EXAMINATION TYPE: CT brain wo con for TPA DATE OF EXAM: 04/18/2022 COMPARISON: 08/20/2020 HISTORY: CODE STROKE CT DLP: 1261.2 mGycm Automated exposure control for dose reduction was used. FINDINGS: The ventricles, basal cisterns and sulci over the convexities are within normal limits for the patien t's age and there is no mass effect or shift of midline structures. There is no acute intra or extra-axial hemorrhage. The posterior fossa including the brainstem, fourth ventricle and cerebellar pontine angles appear gr ossly normal. The intraorbital contents appear normal and symmetric. Visualized paranasal sinuses and mastoid air c ells are well aerated. IMPRESSION: 1. NO ACUTE BLEED OR MASS EFFECT. 2. NO INTERVAL CHANGE SINCE THE PRIOR STUDY DATED 08/20/2020
[2022-04-18] MEDS ORDERED: levETIRAcetam IV 1,000 MG in SALINE 1 100ML.BAG IVPB STA (13:42)
[2022-04-18] MEDS ORDERED: MIDAZOLAM 1 MG/ML 5 ML VIAL IV STA (13:47)
--- NOTE | 2022-04-18 13:55 | CT ---
EXAMINATION TYPE: CT angio head neck DATE OF EXAM: 04/18/2022 HISTORY: Neuro deficit, acute, stroke suspected COMPARISON: None CT DLP: 716.3 mGycm. Automated Exposure Control for Dose Reduction was Utilized. TECHNIQUE: CTA scan of the head and neck is performed without and with IV Contrast, patient injected with 65 ml mL of Isovue 370, axial images are obtained, coronal and sagittal reformatted images are reviewed. 3D reconstructed images are created on an independent workstation and reviewed. FINDINGS: CTA neck: The brachiocephalic origins are widely patent. There is scattered calcified plaque. There is moderate eccentric plaque in the carotid bifurcations bilaterally but only mild proximal in ternal carotid stenosis . CTA head: There is no stenosis or segmental occlusion of the intracerebral arterial vasculature. There is no si zable aneurysm sac vascular malformation. IMPRESSION: 1. Mild bilateral proximal internal carotid artery stenosis within the neck secondary to eccentric pl aque formation. 2. No significant occlusive disease intracranially. NASCET criteria was used in interpretation of this exam?
[2022-04-18] MEDS ORDERED: NALOXONE 0.4 MG/ML 1 ML VIAL IV PRN (14:25)
[2022-04-18] MEDS ORDERED: ASPIRIN 300 MG SUPP RECTAL STA ×2 (14:28)
--- NOTE | 2022-04-18 14:57 | XR ---
EXAMINATION TYPE: XR chest 1V portable DATE OF EXAM: 04/18/2022 COMPARISON: 05/07/2019 HISTORY: Altered mental status TECHNIQUE: Single view FINDINGS: There is some pulmonary interstitial edema. There are sternal wires. There are chest leads. Bony thorax is intact. IMPRESSION: There is some pulmonary interstitial edema that could be heart failure and is worse than last exam. There is improvement in the pleural effusions compared to old exam.
[2022-04-18] MEDS ORDERED: VANCOMYCIN IV PER PHARMACY 1 EACH MISC MISCELLANE PRN (15:07)
[2022-04-18] MEDS ORDERED: ACETAMINOPHEN SUPPOSITORY 650 MG SUPP RECTAL STA (15:09)
[2022-04-18] MEDS: SODIUM CHLORIDE 0.9% 1,000 ML IV SCH (15:20)
[2022-04-18] MEDS: VANCOMYCIN 1,500 MG in SODIUM CHLORIDE 0.9% 250 ML IVPB SCH (16:33)
[2022-04-18] MEDS ORDERED: haloperidoL 5 MG TAB PO ONE (17:45)
--- NOTE | 2022-04-18 19:53 | P.HPIM ---
History of Present Illness H&P Date: 04/18/22 Chief Complaint: Agitation Patient is a 72-year-old male with a known history of seizure disorder, atrial fibrillation not on any anticoagulation, hypertension, hyperlipidemia, hearing disorder/deafness, peripheral vascular disease and bilateral feet wound, peripheral neuropathy and history of aortic valve replacement, depression was brought to ER by EMS due to altered mental status and agitation at home. Patient cannot provide any history at this time. Most of history was taken from his at bedside and also from medical records. Patient's noticed him that he has been confused and wandering in the house and talking incoherently around 11:30 AM today. Patient's symptoms started after waking up from a nap. Patient has not had any fever at home. No nausea vomiting or diarrhea. Patient did have seizure episode on Tuesday and was sleeping most of the day. When the EMS arrived patient was having low-grade temperature of 99 F. No recent illnesses. No cough or sputum production as per his . On admission chest x-ray showed there is some pulmonary interstitial edema that could be heart failure and is worse than last exam. There is improvement in the pleural effusions compared to old exam. CT head showed no acute bleed or mass-effect. No interval change since prior study CT angiogram of the head and neck showed mild bilateral proximal internal carotid artery stenosis within the neck secondary to a eccentric plaque formation. No significant occlusive disease intracranially. EKG showed atrial fibrillation with ventricular rate around 90. Patient does have history of ablation August 2021. Patient was previously on anticoagulation with Eliquis 5 mg twice daily. Laboratory pressure WBC 9.6 hemoglobin 12.2 and platelets 136 INR 1.1 sodium 132 potassium 4.1 chloride 101 bicarb is 16 BUN 5010 and creatinine 1.25 blood sugar is 234 Lactic acid 3.5 total bilirubin level 1.9 AST 33 ALT 23 alk phos 72 and troponin 0.024. Review of Systems Complete review of systems could not be obtained from the patient. Past Medical History Past Medical History: Atrial Fibrillation, Diabetes Mellitus, GERD/Reflux, Hearing Disorder / Deafness, Hyperlipidemia, Hypertension, Memory Impairment, Seizure Disorder, Syncope, Vascular Disorder Additional Past Medical History / Comment(s): Epilepsy; last seizure 2010. Hx cellulitis. Current wounds bilat feet; Lt thumb wound healing from injury; neuropathy. c/o sycope x2 in past 6 months History of Any Multi-Drug Resistant Organisms: None Reported Past Surgical History: Cardiac Valve Replacement, Cholecystectomy, Orthopedic Surgery Additional Past Surgical History / Comment(s): Colonoscopy, partial amputated left foot great toe, wound center procedures. Aortic valve replacement Past Anesthesia/Blood Transfusion Reactions: Previous Problems w/ Anesthesia Additional Past Anesthesia/Blood Transfusion Reaction / Comment(s): states "coded on table" with cholecystectomy, was septic Past Psychological History: Depression Additional Psychological History / Comment(s): feels he's depressed now - Past Family History Mother Family Medical History: Cancer Additional Family Medical History / Comment(s): fx hip, uterine Father Family Medical History: Dementia Medications and Allergies Home Medications Medication Instructions Recorded Confirmed Type metFORMIN HCL [Glucophage] 500 mg PO BID #60 tab 05/07/19 04/18/22 Rx Metoprolol Tartrate [Lopressor] 50 mg PO BID 04/22/21 04/18/22 History Simvastatin [Zocor] 40 mg PO HS 04/22/21 04/18/22 History DULoxetine HCL [Cymbalta] 60 mg PO DAILY 04/18/22 04/18/22 History Donepezil [Aricept] 10 mg PO DAILY 04/18/22 04/18/22 History Dronedarone [Multaq] 400 mg PO BID 04/18/22 04/18/22 History Furosemide [Lasix] 20 mg PO DAILY 04/18/22 04/18/22 History Pantoprazole Sodium [Protonix] 40 mg PO DAILY 04/18/22 04/18/22 History levETIRAcetam [Keppra] 1,500 mg PO BID 04/18/22 04/18/22 History Allergies Allergy/AdvReac Type Severity Reaction Status Date / Time No Known Allergies Allergy Verified 04/18/22 13:24 Physical Exam Vitals: Vital Signs Temp Pulse Resp BP Pulse Ox 04/18/22 16:27 103.4 F H 04/18/22 15:00 104.2 F H 04/18/22 14:00 79 131/117 98 04/18/22 13:50 95 131/117 04/18/22 13:46 97 19 132/79 04/18/22 13:25 99.5 F 101 H 18 127/89 100 Intake and Output 04/18/22 04/18/22 04/18/22 06:59 14:59 22:59 Other: Weight 90.718 kg PHYSICAL EXAMINATION: Patient is lying in the bed awake opens his eyes with verbal commands. Unable to speak. Agitated and getting out of bed. HEENT: Normocephalic. Neck is supple. Pupils reactive. Nostrils clear. Oral cavity is moist. Neck reveals no JVD, carotid bruits, or thyromegaly. CHEST EXAMINATION: Trachea is central. Symmetrical expansion. Lung johnson clear to auscultation and percussion. CARDIAC: Normal S1, S2 with no gallops. No murmurs ABDOMEN: Soft. Bowel sounds present. Nontender. No organomegaly. No abdominal bruits. Extremities: Trace bilateral pedal edema. Bilateral feet warm. Left great toe distal amputation. No clubbing or cyanosis Neurologically patient is agitated and disoriented. No gross focal deficits noted Skin: No rash or skin lesions. Psychiatric: Could not be assessed at this time.. Musculoskeletal: No joint swelling or deformity. Results CBC & Chem 7: 04/18/22 12:43 04/18/22 12:43 Labs: Abnormal Lab Results - Last 24 Hours (Table) 04/18/22 04/18/22 04/18/22 Range/Units 12:35 12:43 12:43 RBC 3.95 L (4.30-5.90) m/uL Hgb 12.2 L (13.0-17.5) gm/dL Hct 37.4 L (39.0-53.0) % Plt Count 136 L (150-450) k/uL Neutrophils # 8.9 H (1.3-7.7) k/uL Lymphocytes # 0.2 L (1.0-4.8) k/uL PT 12.1 H (9.0-12.0) sec APTT 21.9 L (22.0-30.0) sec Sodium (137-145) mmol/L Carbon Dioxide (22-30) mmol/L Glucose (74-99) mg/dL POC Glucose (mg/dL) 232 H (75-99) mg/dL Plasma Lactic Acid William (0.7-2.0) mmol/L Total Bilirubin (0.2-1.3) mg/dL 04/18/22 04/18/22 04/18/22 Range/Units 12:43 15:32 18:42 RBC (4.30-5.90) m/uL Hgb (13.0-17.5) gm/dL Hct (39.0-53.0) % Plt Count (150-450) k/uL Neutrophils # (1.3-7.7) k/uL Lymphocytes # (1.0-4.8) k/uL PT (9.0-12.0) sec APTT (22.0-30.0) sec Sodium 132 L (137-145) mmol/L Carbon Dioxide 16 L (22-30) mmol/L Glucose 234 H (74-99) mg/dL POC Glucose (mg/dL) (75-99) mg/dL Plasma Lactic Acid William 3.5 H* 2.7 H* (0.7-2.0) mmol/L Total Bilirubin 1.9 H (0.2-1.3) mg/dL Thrombosis Risk Factor Assmnt - DVT/VTE Prophylaxis DVT/VTE Prophylaxis: Pharmacologic Prophylaxis ordered Assessment and Plan Assessment: Altered mental status with agitation and unable to follow safety measures due to acute delirium. Lactic acidosis Acute febrile illness. Rule out bacterial, viral infection and possible [employer] infection in the differential. Seizure disorder Chronic atrial fibrillation status post ablation August 2021. Currently not on anticoagulation. Was on apixaban before. Diabetes type 2 uncontrolled with hyperglycemia [id number] Hearing disorder/deafness GERD Hyperlipidemia Hypertension Peripheral vascular disease and bilateral wounds on the feet. History of aortic valve replacement Depression DVT prophylaxis Heparin subcu Plan: Patient is a 72-year-old male was brought to the hospital by EMS due to altered mental status and agitation at home. Patient was given IV fluids and Keppra loading dose was given. Patient became febrile while in the ER. T-max was 104.2. Chest x-ray showed pulm vascular congestion and improvement in pleural effusion. Urinalysis was ordered and blood cultures were sent. Rule out viral illness. Patient was started on antibiotics in the form of vancomycin and ceftriaxone empirically. Neurology was consulted. CT head and CT angiogram of the head and neck was done in the ER. Evaluated by stroke network and not a candidate for tPA. Continue to monitor closely and follow-up infectious work-up. Prognosis is guarded at this time. Discussed with the family at bedside in detail. Time with Patient: Greater than 30
[2022-04-18 20:17] LABS: Appearance,Urine Clear (Clear); Bilirubin,Urine Negative (Negative); Blood,Urine Trace (Negative); Color,Urine Yellow; Glucose,Urine (UA) 4+ (Negative); Ketones,Urine Trace (Negative); Leukocyte Esterase,Urine Negative (Negative); Mucus,Urine Rare /hpf; Nitrite,Urine Negative (Negative); PH, Urine 5.5 (5.0-8.0); Protein,Urine 1+ (Negative); RBC,Urine 9 /hpf (0-5); Specific Gravity,Urine 1.043 (1.001-1.035); Squamous Epithelial Cell,Urine 8 /hpf (0-4); WBC,Urine 1 /hpf (0-5)
[2022-04-18 22:02] LABS: Glucose,Whole Blood 247 mg/dL (75-99)
[2022-04-18] MEDS: INSULIN ASPART (NovoLOG) 100 UNIT/ML VIAL SQ SCH (22:09)
[2022-04-18] MEDS: METOPROLOL TARTRATE 50 MG TAB PO SCH (22:09)
[2022-04-18] MEDS: ACETAMINOPHEN TAB 325 MG TAB PO PRN (23:18)
[2022-04-18] MEDS: HEPARIN SODIUM,PORCINE/PF 5,000 UNIT/0.5 ML SYRINGE SQ SCH (23:23)
[2022-04-19] MEDS ORDERED: HALOPERIDOL LACTATE 5 MG/ML 1 ML VIAL IVP ONE (01:20)
[2022-04-19] MEDS ORDERED: HYDROmorphone 0.5 MG/0.5 ML SYRINGE IVP PRN (01:21)
[2022-04-19 02:23] LABS: ABG Base Excess -13.1 mmol/L; ABG HCO3 14 mmol/L (21-25); ABG PCO2 28 mmHg (35-45); ABG PH 7.29 (7.35-7.45); ABG PO2 188 mmHg (83-108); ABG TCO2 14 mmol/L (19-24); Allen Test Performed? Yes
[2022-04-19 02:23] LABS: Glucose,Whole Blood 186 mg/dL (75-99)
[2022-04-19] MEDS ORDERED: propofoL 100 ML IV ONE (02:31)
[2022-04-19 02:36] LABS: ABG Oxygen Saturation 99.7 % (94-97)
[2022-04-19 02:38] LABS: Glucose,Whole Blood 148 mg/dL (75-99)
--- NOTE | 2022-04-19 02:51 | XR ---
EXAMINATION TYPE: XR chest 1V DATE OF EXAM: 04/19/2022 COMPARISON: 04/18/2022 HISTORY: Short of breath TECHNIQUE: FINDINGS: There is no heart failure nor confluent pneumonic infiltrate. Costophrenic angles are clear . There are no hilar masses. Bony thorax is intact. There are sternal wires. There are chest leads. IMPRESSION: No active cardiopulmonary disease. No adverse change. There is improved aeration of the l ungs compared to yesterday.
[2022-04-19] MEDS: SODIUM CHLORIDE 0.9% 1,000 ML IV SCH ×4 (03:00→22:56)
[2022-04-19] MEDS ORDERED: SODIUM CHLORIDE 0.9% 1,000 ML IV ONE ×3 (03:00→05:00)
[2022-04-19 03:54] LABS: Basophils % (A) 0 %; Eosinophils % (A) 0 %; HCT 34.6 % (39.0-53.0); HGB 11.4 gm/dL (13.0-17.5); Lymphocytes # (A) 0.2 k/uL (1.0-4.8); Lymphocytes % (A) 3 %; MCH 32.1 pg (25.0-35.0); MCHC 33.1 g/dL (31.0-37.0); MCV 97.1 fL (80.0-100.0); Mean Platelet Volume 8.3; Monocytes # (A) 0.2 k/uL (0-1.0); Monocytes % (A) 3 %; Neutrophils # (A) 5.5 k/uL (1.3-7.7); Neutrophils % (A) 92 %; Platelet Count 104 k/uL (150-450); RBC 3.57 m/uL (4.30-5.90); RDW 13.9 % (11.5-15.5); WBC 5.9 k/uL (3.8-10.6)
[2022-04-19] MEDS ORDERED: PIPERACILLIN-TAZOBACTAM 3.375 GM in SODIUM CHLORIDE 0.9% 100 ML IVPB SCH (04:00)
[2022-04-19 04:51] LABS: Albumin 3.3 g/dL (3.5-5.0); Calcium 7.9 mg/dL (8.4-10.2); Total Bilirubin 1.7 mg/dL (0.2-1.3); Total Protein 6.1 g/dL (6.3-8.2)
[2022-04-19 05:20] LABS: Magnesium 1.3 mg/dL (1.6-2.3)
[2022-04-19 06:15] LABS: Glucose,Whole Blood 181 mg/dL (75-99)
[2022-04-19] MEDS: INSULIN ASPART (NovoLOG) 100 UNIT/ML VIAL SQ SCH ×4 (06:56→20:32)
--- NOTE | 2022-04-19 08:06 | P.PN ---
Subjective Progress Note Date: 04/19/22 Principal diagnosis: Altered mental status The patient was admitted for altered mental status. Gram-positive cocci in chains is now noted. He still spiking temperature. Continue empiric antibiotic treatment. Multiple consultants are noted. Appreciate input. Objective - Vital Signs Vital signs: Vital Signs Temp 100.0 F H 04/19/22 07:00 Pulse 87 04/19/22 07:00 Resp 28 H 04/19/22 07:00 BP 101/69 04/19/22 07:00 Pulse Ox 98 04/19/22 07:00 FiO2 Intake & Output 04/18/22 04/19/22 04/19/22 18:59 06:59 18:59 Intake Total 3150 25 Output Total 465 75 Balance 2685 -50 Weight 90.718 kg 90.718 kg Intake: IV 3150 25 0.9 NaCl- 100 0.9 NaCl- Fluid Bolus 3000 Zosyn 50 25 Output: Urine 465 75 Uretheral ([place]) 300 Other: Voiding Method Diaper # Voids 1 # Bowel Movements 1 - Constitutional General appearance: Present: no acute distress - EENT Eyes: Absent: abnormal pupil - Neck Neck: Absent: lymphadenopathy - Respiratory Respiratory: bilateral: CTA - Cardiovascular Rhythm: irregularly irregular Heart sounds: normal: S1, S2 Abnormal Heart Sounds: Absent: S3 Gallop - Gastrointestinal General gastrointestinal: Present: soft. Absent: tenderness - Integumentary Integumentary Comment(s): Diaphoresis is noted. - Psychiatric Psychiatric: Absent: A&O x's 3 - Labs CBC & Chem 7: 04/19/22 03:33 04/19/22 03:33 Labs: Abnormal Lab Results - Last 24 Hours (Table) 04/18/22 04/18/22 04/18/22 Range/Units 12:35 12:43 12:43 RBC 3.95 L (4.30-5.90) m/uL Hgb 12.2 L (13.0-17.5) gm/dL Hct 37.4 L (39.0-53.0) % Plt Count 136 L (150-450) k/uL Neutrophils # 8.9 H (1.3-7.7) k/uL Lymphocytes # 0.2 L (1.0-4.8) k/uL ESR (0-15) mm/hr PT 12.1 H (9.0-12.0) sec APTT 21.9 L (22.0-30.0) sec D-Dimer (<0.60) mg/L FEU ABG pH (7.35-7.45) ABG pCO2 (35-45) mmHg ABG pO2 (83-108) mmHg ABG HCO3 (21-25) mmol/L ABG Total CO2 (19-24) mmol/L ABG O2 Saturation (94-97) % Sodium (137-145) mmol/L Chloride (98-107) mmol/L Carbon Dioxide (22-30) mmol/L Creatinine (0.66-1.25) mg/dL Glucose (74-99) mg/dL POC Glucose (mg/dL) 232 H (75-99) mg/dL Plasma Lactic Acid William (0.7-2.0) mmol/L Calcium (8.4-10.2) mg/dL Magnesium (1.6-2.3) mg/dL Total Bilirubin (0.2-1.3) mg/dL AST (17-59) U/L C-Reactive Protein (<1.0) mg/dL Total Protein (6.3-8.2) g/dL Albumin (3.5-5.0) g/dL Ur Specific [place] (1.001-1.035) Urine Protein (Negative) Urine Glucose (UA) (Negative) Urine Ketones (Negative) Urine Blood (Negative) Urine RBC (0-5) /hpf Ur Squamous Epith Cells (0-4) /hpf Urine Mucus (None) /hpf 04/18/22 04/18/22 04/18/22 Range/Units 12:43 15:32 18:42 RBC (4.30-5.90) m/uL Hgb (13.0-17.5) gm/dL Hct (39.0-53.0) % Plt Count (150-450) k/uL Neutrophils # (1.3-7.7) k/uL Lymphocytes # (1.0-4.8) k/uL ESR (0-15) mm/hr PT (9.0-12.0) sec APTT (22.0-30.0) sec D-Dimer (<0.60) mg/L FEU ABG pH (7.35-7.45) ABG pCO2 (35-45) mmHg ABG pO2 (83-108) mmHg ABG HCO3 (21-25) mmol/L ABG Total CO2 (19-24) mmol/L ABG O2 Saturation (94-97) % Sodium 132 L (137-145) mmol/L Chloride (98-107) mmol/L Carbon Dioxide 16 L (22-30) mmol/L Creatinine (0.66-1.25) mg/dL Glucose 234 H (74-99) mg/dL POC Glucose (mg/dL) (75-99) mg/dL Plasma Lactic Acid William 3.5 H* 2.7 H* (0.7-2.0) mmol/L Calcium (8.4-10.2) mg/dL Magnesium (1.6-2.3) mg/dL Total Bilirubin 1.9 H (0.2-1.3) mg/dL AST (17-59) U/L C-Reactive Protein (<1.0) mg/dL Total Protein (6.3-8.2) g/dL Albumin (3.5-5.0) g/dL Ur Specific [place] (1.001-1.035) Urine Protein (Negative) Urine Glucose (UA) (Negative) Urine Ketones (Negative) Urine Blood (Negative) Urine RBC (0-5) /hpf Ur Squamous Epith Cells (0-4) /hpf Urine Mucus (None) /hpf 04/18/22 04/18/22 04/18/22 Range/Units 19:57 19:57 20:03 RBC (4.30-5.90) m/uL Hgb (13.0-17.5) gm/dL Hct (39.0-53.0) % Plt Count (150-450) k/uL Neutrophils # (1.3-7.7) k/uL Lymphocytes # (1.0-4.8) k/uL ESR 25 H (0-15) mm/hr PT (9.0-12.0) sec APTT (22.0-30.0) sec D-Dimer (<0.60) mg/L FEU ABG pH (7.35-7.45) ABG pCO2 (35-45) mmHg ABG pO2 (83-108) mmHg ABG HCO3 (21-25) mmol/L ABG Total CO2 (19-24) mmol/L ABG O2 Saturation (94-97) % Sodium (137-145) mmol/L Chloride (98-107) mmol/L Carbon Dioxide (22-30) mmol/L Creatinine (0.66-1.25) mg/dL Glucose (74-99) mg/dL POC Glucose (mg/dL) (75-99) mg/dL Plasma Lactic Acid William (0.7-2.0) mmol/L Calcium (8.4-10.2) mg/dL Magnesium (1.6-2.3) mg/dL Total Bilirubin (0.2-1.3) mg/dL AST (17-59) U/L C-Reactive Protein 13.2 H (<1.0) mg/dL Total Protein (6.3-8.2) g/dL Albumin (3.5-5.0) g/dL Ur Specific [place] 1.043 H (1.001-1.035) Urine Protein 1+ H (Negative) Urine Glucose (UA) 4+ H (Negative) Urine Ketones Trace H (Negative) Urine Blood Trace H (Negative) Urine RBC 9 H (0-5) /hpf Ur Squamous Epith Cells 8 H (0-4) /hpf Urine Mucus Rare H (None) /hpf 04/18/22 04/18/22 04/19/22 Range/Units 21:22 21:50 01:20 RBC (4.30-5.90) m/uL Hgb (13.0-17.5) gm/dL Hct (39.0-53.0) % Plt Count (150-450) k/uL Neutrophils # (1.3-7.7) k/uL Lymphocytes # (1.0-4.8) k/uL ESR (0-15) mm/hr PT (9.0-12.0) sec APTT (22.0-30.0) sec D-Dimer (<0.60) mg/L FEU ABG pH (7.35-7.45) ABG pCO2 (35-45) mmHg ABG pO2 (83-108) mmHg ABG HCO3 (21-25) mmol/L ABG Total CO2 (19-24) mmol/L ABG O2 Saturation (94-97) % Sodium (137-145) mmol/L Chloride (98-107) mmol/L Carbon Dioxide (22-30) mmol/L Creatinine (0.66-1.25) mg/dL Glucose (74-99) mg/dL POC Glucose (mg/dL) 247 H (75-99) mg/dL Plasma Lactic Acid William 3.3 H* 5.8 H* (0.7-2.0) mmol/L Calcium (8.4-10.2) mg/dL Magnesium (1.6-2.3) mg/dL Total Bilirubin (0.2-1.3) mg/dL AST (17-59) U/L C-Reactive Protein (<1.0) mg/dL Total Protein (6.3-8.2) g/dL Albumin (3.5-5.0) g/dL Ur Specific [place] (1.001-1.035) Urine Protein (Negative) Urine Glucose (UA) (Negative) Urine Ketones (Negative) Urine Blood (Negative) Urine RBC (0-5) /hpf Ur Squamous Epith Cells (0-4) /hpf Urine Mucus (None) /hpf 04/19/22 04/19/22 04/19/22 Range/Units 02:12 02:21 02:36 RBC (4.30-5.90) m/uL Hgb (13.0-17.5) gm/dL Hct (39.0-53.0) % Plt Count (150-450) k/uL Neutrophils # (1.3-7.7) k/uL Lymphocytes # (1.0-4.8) k/uL ESR (0-15) mm/hr PT (9.0-12.0) sec APTT (22.0-30.0) sec D-Dimer (<0.60) mg/L FEU ABG pH 7.29 L (7.35-7.45) ABG pCO2 28 L (35-45) mmHg ABG pO2 188 H (83-108) mmHg ABG HCO3 14 L (21-25) mmol/L ABG Total CO2 14 L (19-24) mmol/L ABG O2 Saturation 99.7 H (94-97) % Sodium (137-145) mmol/L Chloride (98-107) mmol/L Carbon Dioxide (22-30) mmol/L Creatinine (0.66-1.25) mg/dL Glucose (74-99) mg/dL POC Glucose (mg/dL) 186 H 148 H (75-99) mg/dL Plasma Lactic Acid William (0.7-2.0) mmol/L Calcium (8.4-10.2) mg/dL Magnesium (1.6-2.3) mg/dL Total Bilirubin (0.2-1.3) mg/dL AST (17-59) U/L C-Reactive Protein (<1.0) mg/dL Total Protein (6.3-8.2) g/dL Albumin (3.5-5.0) g/dL Ur Specific [place] (1.001-1.035) Urine Protein (Negative) Urine Glucose (UA) (Negative) Urine Ketones (Negative) Urine Blood (Negative) Urine RBC (0-5) /hpf Ur Squamous Epith Cells (0-4) /hpf Urine Mucus (None) /hpf 04/19/22 04/19/22 04/19/22 Range/Units 03:33 03:33 03:33 RBC 3.57 L (4.30-5.90) m/uL Hgb 11.4 L (13.0-17.5) gm/dL Hct 34.6 L (39.0-53.0) % Plt Count 104 L (150-450) k/uL Neutrophils # (1.3-7.7) k/uL Lymphocytes # 0.2 L (1.0-4.8) k/uL ESR (0-15) mm/hr PT (9.0-12.0) sec APTT (22.0-30.0) sec D-Dimer 8.56 H (<0.60) mg/L FEU ABG pH (7.35-7.45) ABG pCO2 (35-45) mmHg ABG pO2 (83-108) mmHg ABG HCO3 (21-25) mmol/L ABG Total CO2 (19-24) mmol/L ABG O2 Saturation (94-97) % Sodium (137-145) mmol/L Chloride (98-107) mmol/L Carbon Dioxide (22-30) mmol/L Creatinine (0.66-1.25) mg/dL Glucose (74-99) mg/dL POC Glucose (mg/dL) (75-99) mg/dL Plasma Lactic Acid William 4.7 H* (0.7-2.0) mmol/L Calcium (8.4-10.2) mg/dL Magnesium (1.6-2.3) mg/dL Total Bilirubin (0.2-1.3) mg/dL AST (17-59) U/L C-Reactive Protein (<1.0) mg/dL Total Protein (6.3-8.2) g/dL Albumin (3.5-5.0) g/dL Ur Specific [place] (1.001-1.035) Urine Protein (Negative) Urine Glucose (UA) (Negative) Urine Ketones (Negative) Urine Blood (Negative) Urine RBC (0-5) /hpf Ur Squamous Epith Cells (0-4) /hpf Urine Mucus (None) /hpf 04/19/22 04/19/22 Range/Units 03:33 06:13 RBC (4.30-5.90) m/uL Hgb (13.0-17.5) gm/dL Hct (39.0-53.0) % Plt Count (150-450) k/uL Neutrophils # (1.3-7.7) k/uL Lymphocytes # (1.0-4.8) k/uL ESR (0-15) mm/hr PT (9.0-12.0) sec APTT (22.0-30.0) sec D-Dimer (<0.60) mg/L FEU ABG pH (7.35-7.45) ABG pCO2 (35-45) mmHg ABG pO2 (83-108) mmHg ABG HCO3 (21-25) mmol/L ABG Total CO2 (19-24) mmol/L ABG O2 Saturation (94-97) % Sodium (137-145) mmol/L Chloride 109 H (98-107) mmol/L Carbon Dioxide 17 L (22-30) mmol/L Creatinine 1.36 H (0.66-1.25) mg/dL Glucose 168 H (74-99) mg/dL POC Glucose (mg/dL) 181 H (75-99) mg/dL Plasma Lactic Acid William (0.7-2.0) mmol/L Calcium 7.9 L (8.4-10.2) mg/dL Magnesium 1.3 L (1.6-2.3) mg/dL Total Bilirubin 1.7 H (0.2-1.3) mg/dL AST 68 H (17-59) U/L C-Reactive Protein (<1.0) mg/dL Total Protein 6.1 L (6.3-8.2) g/dL Albumin 3.3 L (3.5-5.0) g/dL Ur Specific [place] (1.001-1.035) Urine Protein (Negative) Urine Glucose (UA) (Negative) Urine Ketones (Negative) Urine Blood (Negative) Urine RBC (0-5) /hpf Ur Squamous Epith Cells (0-4) /hpf Urine Mucus (None) /hpf Microbiology - Last 24 Hours (Table) 04/18/22 15:27 Blood Culture Gram Stain - Preliminary Blood 04/18/22 15:27 Blood Culture - Final Blood 04/18/22 15:32 Blood Culture Gram Stain - Preliminary Blood 04/18/22 15:32 Blood Culture - Final Blood Assessment and Plan (1) Gram positive septicemia Current Visit: Yes Status: Acute Code(s): A41.89 - OTHER SPECIFIED SEPSIS SNOMED Code(s): 303488617251 (2) Acute delirium Current Visit: Yes Status: Acute Code(s): R41.0 - DISORIENTATION, UNSPECIFIED SNOMED Code(s): 1822258 (3) Atrial fibrillation Current Visit: No Status: Acute Code(s): I48.91 - UNSPECIFIED ATRIAL FIBRIL LATION SNOMED Code(s): 81511662 (4) Diabetes Current Visit: No Status: Acute Code(s): E11.9 - TYPE 2 DIABETES MELLITUS WITHOUT COMPLICATIONS SNOMED Code(s): 48443107 Plan: Continue current regimen of treatment. Check CBC and CMP in a.m. Sensitivity is pending. Appreciate multiple consultants input.
[2022-04-19] MEDS: HEPARIN SODIUM,PORCINE/PF 5,000 UNIT/0.5 ML SYRINGE SQ SCH ×2 (08:31→15:38)
[2022-04-19] MEDS: MAGNESIUM SULFATE-D5W PMX 1 GM in DEXTROSE/WATER 1 100ML.BAG IVPB SCH ×3 (08:31→12:48)
[2022-04-19] MEDS: PANTOPRAZOLE 40 MG TABLET PO SCH (08:32)
[2022-04-19] MEDS: VANCOMYCIN 1,500 MG in SODIUM CHLORIDE 0.9% 250 ML IVPB SCH (08:32)
[2022-04-19] MEDS: METOPROLOL TARTRATE 50 MG TAB PO SCH (09:51)
--- NOTE | 2022-04-19 10:09 | P.CRDCN ---
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 He is admitted to hospital with these symptoms and this patient was found to be in atrial fibrillation with controlled ventricular rate for which cardiology had been consulted. I will obtain information from the chart and talking to the nurse patient is not able to give any meaningful information and there is no family member at this time. Patient's blood cultures have come back positive for gram-positive cocci. Patient has had computed tomography scan of the head that was negative for bleed or mass effect CT angiogram of head and neck showed mild bilateral carotid stenosis. He is in atrial fibrillation with controlled ventricular rate. Patient has known history of atrial fibrillation underwent ablation for the same in August 2021. Currently not on any anticoagulation. His EKG does not reveal acute ischemic changes. Patient has history of peripheral neuropathy. Patient's altered mental status is probably related to sepsis. We certainly have to rule out infective endocarditis in a patient with known prosthetic aortic valve and bacteremia. Is currently in IV antibiotics. I will control the heart rate with beta blockers. Once patient is more alert and cooperative I will consider doing a transesophageal echo. In the meantime he will undergo an echocardiogram. Past medical history is significant for Paroxysmal atrial fibrillation status post ablation iritic stenosis and regurgitation status post aortic valve replacement cholecystectomy and partial amputation of the left great toe. History of chronic nonhealing wound. Hypertension dyslipidemia Patient prior to admission was on Glucophage Lopressor Zocor Cymbalta Aricept mild tach Lasix protonic sent Her Review of systems: I'm unable to obtain review of systems in this patient who is confused and somewhat combative General: Patient appears confused without any meaningful response Skin: Skin is warm and dry and no rashes or lesions are noted. Eye: Pupils are equal, round and reactive to light, extra-ocular movements are intact; there is normal conjunctiva bilaterally. Ears, nose, mouth and throat: There are moist mucous membranes and no oral lesions. Neck: The neck is supple, there is no tenderness or JVD. Cardiovascular: There is a irregular No murmur, rub or gallop is appreciated. Respiratory: Lungs are clear to auscultation, respirations are non-labored, breath sounds are equal. Gastrointestinal: Soft, non-distended, non-tender abdomen without masses or organomegaly noted. There is no rebound or guarding present. Bowel sounds are unremarkable. Back: There is no tenderness to palpation in the midline. There is no obvious deformity. Musculoskeletal: Normal ROM, no tenderness, There is no pedal edema. There is no calf tenderness or swelling. Extremities: No edema. Vascular: Femoral pulse is normal. Posterior tibial pulses are normal .Dorsalis pedis is palpable. Neurological: Confused Psychiatric: Altered mental status Labs show that the white cell count is 5.9 hemoglobin is 11.4 platelet count is 104 potassium is 4 creatinine is 1.3 blood cultures are positive for gram- positive cocci Assessment and plan Persistent atrial fibrillation with controlled ventricular rate Altered mental status was positive blood cultures Rule out infective endocarditis in a patient with known prosthetic aortic valve Status post aortic valve replacement Continue IV antibiotics continue beta blockers to control the heart rate Check a 2-D echo Consider transesophageal echo when patient is more stable Patient had a modified Maze procedure with occlusion of the left atrium and age using 45 mm atri clip Past Medical History Past Medical History: Atrial Fibrillation, Diabetes Mellitus, GERD/Reflux, Hearing Disorder / Deafness, Hyperlipidemia, Hypertension, Memory Impairment, Seizure Disorder, Syncope, Vascular Disorder Additional Past Medical History / Comment(s): Epilepsy; last seizure 2010. Hx cellulitis. Current wounds bilat feet; Lt thumb wound healing from injury; neuropathy. c/o sycope x2 in past 6 months History of Any Multi-Drug Resistant Organisms: None Reported Past Surgical History: Cardiac Valve Replacement, Cholecystectomy, Orthopedic Surgery Additional Past Surgical History / Comment(s): Colonoscopy, partial amputated left foot great toe, wound center procedures. Aortic valve replacement Past Anesthesia/Blood Transfusion Reactions: Previous Problems w/ Anesthesia Additional Past Anesthesia/Blood Transfusion Reaction / Comment(s): states "coded on table" with cholecystectomy, was septic Past Psychological History: Depression Additional Psychological History / Comment(s): feels he's depressed now Smoking Status: Former smoker Past Alcohol Use History: Occasional Additional Past Alcohol Use History / Comment(s): quit smoking 1976 Past Drug Use History: Marijuana Additional Drug Use History / Comment(s): use daily for neuropathy, instructed to hold 24 hrs prior - Past Family History Mother Family Medical History: Cancer Additional Family Medical History / Comment(s): fx hip, uterine Father Family Medical History: Dementia Medications and Allergies Home Medications Medication Instructions Recorded Confirmed Type metFORMIN HCL [Glucophage] 500 mg PO BID #60 tab 05/07/19 04/18/22 Rx Metoprolol Tartrate [Lopressor] 50 mg PO BID 04/22/21 04/18/22 History Simvastatin [Zocor] 40 mg PO HS 04/22/21 04/18/22 History DULoxetine HCL [Cymbalta] 60 mg PO DAILY 04/18/22 04/18/22 History Donepezil [Aricept] 10 mg PO DAILY 04/18/22 04/18/22 History Dronedarone [Multaq] 400 mg PO BID 04/18/22 04/18/22 History Furosemide [Lasix] 20 mg PO DAILY 04/18/22 04/18/22 History Pantoprazole Sodium [Protonix] 40 mg PO DAILY 04/18/22 04/18/22 History levETIRAcetam [Keppra] 1,500 mg PO BID 04/18/22 04/18/22 History Allergies Allergy/AdvReac Type Severity Reaction Status Date / Time No Known Allergies Allergy Verified 04/18/22 13:24 Physical Exam Vitals: Vital Signs Temp Pulse Pulse Resp BP BP Pulse Ox 04/19/22 08:45 97 20 105/70 96 04/19/22 08:30 84 23 105/65 97 04/19/22 08:15 86 25 H 108/74 97 04/19/22 08:00 98.2 F 96 23 103/66 97 04/19/22 07:45 86 25 H 111/62 97 04/19/22 07:30 89 24 110/63 97 04/19/22 07:15 98 26 H 111/74 97 04/19/22 07:00 100.0 F H 87 28 H 101/69 98 04/19/22 06:45 89 26 H 107/75 97 04/19/22 06:30 92 27 H 104/64 97 04/19/22 06:15 86 29 H 112/69 97 04/19/22 06:00 92 21 111/63 97 04/19/22 05:45 92 29 H 113/63 97 04/19/22 05:30 91 32 H 116/64 97 04/19/22 05:15 95 31 H 121/66 97 04/19/22 05:00 100.7 F H 92 32 H 123/61 97 04/19/22 04:45 83 33 H 121/66 98 04/19/22 04:30 82 34 H 127/63 99 04/19/22 04:15 82 32 H 130/69 100 04/19/22 04:00 80 36 H 143/74 100 04/19/22 03:45 81 36 H 134/67 100 04/19/22 03:30 91 35 H 129/69 99 04/19/22 03:15 110 H 28 H 128/96 97 04/19/22 03:00 112 H 27 H 120/90 99 04/19/22 02:45 102.4 F H 121 H 37 H 154/107 96 04/18/22 23:05 97.6 F 97 18 112/72 96 04/18/22 21:50 98.1 F 78 19 112/72 100 04/18/22 21:00 101.5 F H 89 04/18/22 20:00 77 131/62 04/18/22 19:25 101.7 F H 04/18/22 19:00 83 109/70 04/18/22 18:00 88 114/76 04/18/22 17:00 84 123/71 04/18/22 16:27 103.4 F H 04/18/22 16:00 87 126/87 04/18/22 15:00 104.2 F H 04/18/22 14:00 79 131/117 98 04/18/22 13:50 95 131/117 04/18/22 13:46 97 19 132/79 04/18/22 13:25 99.5 F 101 H 18 127/89 100 Intake and Output 04/18/22 04/19/22 04/19/22 22:59 06:59 14:59 Intake Total 3150 500 Output Total 300 165 135 Balance -300 2985 365 Intake: IV 3150 150 0.9 NaCl- 100 100 0.9 NaCl- Fluid Bolus 3000 Zosyn 50 50 Intake, IV Titration 350 Amount Magnesium Sulfate-D5w Pmx 100 1 gm In Dextrose/Water 1 100ml.bag @ 100 mls/hr IVPB Q1H [facility] Rx#: [id number] Vancomycin 1,500 mg In 250 Sodium Chloride 0.9% 250 ml @ 125 mls/hr IVPB Q16H [facility] Rx#:[id number] Output: Urine 300 165 135 Uretheral ([place]) 300 Other: Voiding Method Diaper Diaper # Voids 1 # Bowel Movements 1 Weight 90.718 kg Results 04/19/22 03:33 04/19/22 03:33 Cardiac Enzymes 04/18/22 04/18/22 04/19/22 Range/Units 12:43 12:43 03:33 AST 33 68 H (17-59) U/L Troponin I 0.024 (0.000-0.034) ng/mL Coagulation 04/18/22 Range/Units 12:43 PT 12.1 H (9.0-12.0) sec APTT 21.9 L (22.0-30.0) sec CBC 04/18/22 04/19/22 Range/Units 12:43 03:33 WBC 9.6 5.9 (3.8-10.6) k/uL RBC 3.95 L 3.57 L (4.30-5.90) m/uL Hgb 12.2 L 11.4 L (13.0-17.5) gm/dL Hct 37.4 L 34.6 L (39.0-53.0) % Plt Count 136 L 104 L (150-450) k/uL Comprehensive Metabolic Panel 04/18/22 04/19/22 Range/Units 12:43 03:33 Sodium 132 L 137 (137-145) mmol/L Potassium 4.1 4.0 (3.5-5.1) mmol/L Chloride 101 109 H (98-107) mmol/L Carbon Dioxide 16 L 17 L (22-30) mmol/L BUN 17 18 (9-20) mg/dL Creatinine 1.25 1.36 H (0.66-1.25) mg/dL Glucose 234 H 168 H (74-99) mg/dL Calcium 9.0 7.9 L (8.4-10.2) mg/dL AST 33 68 H (17-59) U/L ALT 23 35 (4-49) U/L Alkaline Phosphatase 72 56 (38-126) U/L Total Protein 7.1 6.1 L (6.3-8.2) g/dL Albumin 4.2 3.3 L (3.5-5.0) g/dL Current Medications Generic Name Dose Route Start Last Admin Trade Name Freq PRN Reason Stop Dose Admin Acetaminophen 650 mg 04/18/22 14:25 04/18/22 23:18 Acetaminophen Tab 325 Mg Tab PO 650 mg Q6HR PRN Administration Mild Pain or Fever > 100.5 Haloperidol 2 mg 04/18/22 20:44 04/18/22 23:18 Haloperidol 2 Mg Tab PO 2 mg QID PRN Administration Agitation Heparin Sodium (Porcine) 5,000 unit 04/19/22 00:00 04/19/22 08:31 Heparin Sodium,Porcine/Pf 5,000 Unit/0.5 Ml Syringe SQ 5,000 unit Q8HR [facility] Administration Hydromorphone HCl 0.5 mg 04/19/22 01:21 04/19/22 03:00 Hydromorphone 0.5 Mg/0.5 Ml Syringe IVP 0.5 mg Q4HR PRN Administration Pain Sodium Chloride 1,000 mls @ 20 mls/hr 04/18/22 14:30 04/18/22 15:20 Saline 0.9% IV 20 mls/hr .Q24H [facility] Administration Vancomycin HCl 1,500 mg/ 250 mls @ 125 mls/hr 04/18/22 16:00 04/19/22 08:32 Sodium Chloride IVPB 125 mls/hr Q16H [facility] Administration Piperacillin Sod/Tazobactam 100 mls @ 25 mls/hr 04/19/22 04:00 04/19/22 04:03 Sod 3.375 gm/ Sodium Chloride IVPB 25 mls/hr Q8H [facility] Administration Protocol Sodium Chloride 1,000 mls @ 100 mls/hr 04/19/22 03:00 04/19/22 03:00 Saline 0.9% IV 100 mls/hr .Q10H [facility] Administration Magnesium Sulfate/Dextrose 1 100 mls @ 100 mls/hr 04/19/22 07:15 04/19/22 09:54 gm/ IV Solution IVPB 04/19/22 10:14 100 mls/hr Q1H [facility] Administration Insulin Aspart 0 unit 04/18/22 21:00 04/19/22 06:56 Insulin Aspart (Novolog) 100 Unit/Ml Vial SQ 2 unit ACHS [facility] Administration Protocol Levetiracetam 1,500 mg 04/18/22 21:00 04/18/22 22:09 Levetiracetam 750 Mg Tab PO 1,500 mg BID [facility] Administration Metoprolol Tartrate 12.5 mg 04/19/22 16:00 Metoprolol Tartrate 12.5 Mg Tab PO TID [facility] Naloxone HCl 0.2 mg 04/18/22 14:25 Naloxone 0.4 Mg/Ml 1 Ml Vial IV Q2M PRN Opioid Reversal Pantoprazole Sodium 40 mg 04/19/22 07:30 04/19/22 08:32 Pantoprazole 40 Mg Tablet PO 40 mg DAILY@0730 [facility] Administration Intake and Output 04/18/22 04/19/22 04/19/22 22:59 06:59 14:59 Intake Total 3150 500 Output Total 300 165 135 Balance -300 2985 365 Intake: IV 3150 150 0.9 NaCl- 100 100 0.9 NaCl- Fluid Bolus 3000 Zosyn 50 50 Intake, IV Titration 350 Amount Magnesium Sulfate-D5w Pmx 100 1 gm In Dextrose/Water 1 100ml.bag @ 100 mls/hr IVPB Q1H [facility] Rx#: [id number] Vancomycin 1,500 mg In 250 Sodium Chloride 0.9% 250 ml @ 125 mls/hr IVPB Q16H [facility] Rx#:[id number] Output: Urine 300 165 135 Uretheral ([place]) 300 Other: Voiding Method Diaper Diaper # Voids 1 # Bowel Movements 1 Weight 90.718 kg 04/19/22 03:33 04/19/22 03:33
--- NOTE | 2022-04-19 12:15 | P.CNPUL ---
History of Present Illness Consult date: 04/19/22 Requesting physician: Javier Delaney Reason for consult: other (Sepsis and gram-positive bacteremia) Chief complaint: Altered mental status History of present illness: This is a 72-year-old white male with history of multiple medical problems including paroxysmal atrial fibrillation, history of aortic valve replacement, patient had a bioprosthetic valve, history of hypertension, seizure disorder, depression, patient presented to the ER with mostly altered mental status and extreme agitation at home. Upon his initial evaluation in the ER, patient was found to be in atrial fibrillation, but controlled ventricular rate. Patient was also noted to have fever, his temp initially was as high as 104.2. Patient was started empirically on antibiotics and the patient received so far Rocephin, Zosyn, and vancomycin. His blood cultures were positive for gram-positive infection, patient was admitted to the ICU and this consult was initiated. His initial workup included blood cultures as noted above, CT of the head, and EKG showed no evidence of acute ischemic changes. At any rate patient is now being followed by cardiology, there is potential concern of possible infective endocarditis, patient does have a history of a prosthetic aortic valve. Patient is still on antibiotics empirically, infectious disease consultation is also pending. Hemodynamically the patient is not requiring any pressors. He is hemodynamically stable in spite of his gram-positive bacteremia and sepsis. CBC is relatively normal. His d-dimer is 8.56, electrodes are normal, renal profile showed a BUN of 18 and creatinine of 1.36. His initial chest x-ray on admission showed possible interstitial edema, however follow-up chest x-ray this morning showed no significant active pulmonary disease. No evidence of heart failure, no evidence of infiltrates Review of Systems ROS unobtainable: due to mental status (Patient is a poor historian, he has no idea how he ended up in the hospital. Patient does have underlying dementia.) Past Medical History Past Medical History: Atrial Fibrillation, Diabetes Mellitus, GERD/Reflux, He aring Disorder / Deafness, Hyperlipidemia, Hypertension, Memory Impairment, Seizure Disorder, Syncope, Vascular Disorder Additional Past Medical History / Comment(s): Epilepsy; last seizure 2010. Hx cellulitis. Current wounds bilat feet; Lt thumb wound healing from injury; neuropathy. c/o sycope x2 in past 6 months History of Any Multi-Drug Resistant Organisms: None Reported Past Surgical History: Cardiac Valve Replacement, Cholecystectomy, Orthopedic Surgery Additional Past Surgical History / Comment(s): Colonoscopy, partial amputated left foot great toe, wound center procedures. Aortic valve replacement Past Anesthesia/Blood Transfusion Reactions: Previous Problems w/ Anesthesia Additional Past Anesthesia/Blood Transfusion Reaction / Comment(s): states "coded on table" with cholecystectomy, was septic Past Psychological History: Depression Additional Psychological History / Comment(s): feels he's depressed now Smoking Status: Former smoker Past Alcohol Use History: Occasional Additional Past Alcohol Use History / Comment(s): quit smoking 1976 Past Drug Use History: Marijuana Additional Drug Use History / Comment(s): use daily for neuropathy, instructed to hold 24 hrs prior - Past Family History Mother Family Medical History: Cancer Additional Family Medical History / Comment(s): fx hip, uterine Father Family Medical History: Dementia Medications and Allergies Home Medications Medication Instructions Recorded Confirmed Type metFORMIN HCL [Glucophage] 500 mg PO BID #60 tab 05/07/19 04/18/22 Rx Metoprolol Tartrate [Lopressor] 50 mg PO BID 04/22/21 04/18/22 History Simvastatin [Zocor] 40 mg PO HS 04/22/21 04/18/22 History DULoxetine HCL [Cymbalta] 60 mg PO DAILY 04/18/22 04/18/22 History Donepezil [Aricept] 10 mg PO DAILY 04/18/22 04/18/22 History Dronedarone [Multaq] 400 mg PO BID 04/18/22 04/18/22 History Furosemide [Lasix] 20 mg PO DAILY 04/18/22 04/18/22 History Pantoprazole Sodium [Protonix] 40 mg PO DAILY 04/18/22 04/18/22 History levETIRAcetam [Keppra] 1,500 mg PO BID 04/18/22 04/18/22 History Allergies Allergy/AdvReac Type Severity Reaction Status Date / Time No Known Allergies Allergy Verified 04/18/22 13:24 Physical Exam Vitals: Vital Signs Temp Pulse Pulse Resp BP BP Pulse Ox 04/19/22 11:26 100 04/19/22 10:00 84 21 112/75 98 04/19/22 09:00 87 22 107/71 96 04/19/22 08:45 97 20 105/70 96 04/19/22 08:30 84 23 105/65 97 04/19/22 08:15 86 25 H 108/74 97 04/19/22 08:00 98.2 F 96 23 103/66 97 04/19/22 07:45 86 25 H 111/62 97 04/19/22 07:30 89 24 110/63 97 04/19/22 07:15 98 26 H 111/74 97 04/19/22 07:00 100.0 F H 87 28 H 101/69 98 04/19/22 06:45 89 26 H 107/75 97 04/19/22 06:30 92 27 H 104/64 97 04/19/22 06:15 86 29 H 112/69 97 04/19/22 06:00 92 21 111/63 97 04/19/22 05:45 92 29 H 113/63 97 04/19/22 05:30 91 32 H 116/64 97 04/19/22 05:15 95 31 H 121/66 97 04/19/22 05:00 100.7 F H 92 32 H 123/61 97 04/19/22 04:45 83 33 H 121/66 98 04/19/22 04:30 82 34 H 127/63 99 04/19/22 04:15 82 32 H 130/69 100 04/19/22 04:00 80 36 H 143/74 100 04/19/22 03:45 81 36 H 134/67 100 04/19/22 03:30 91 35 H 129/69 99 04/19/22 03:15 110 H 28 H 128/96 97 04/19/22 03:00 112 H 27 H 120/90 99 04/19/22 02:45 102.4 F H 121 H 37 H 154/107 96 04/18/22 23:05 97.6 F 97 18 112/72 96 04/18/22 21:50 98.1 F 78 19 112/72 100 04/18/22 21:00 101.5 F H 89 04/18/22 20:00 77 131/62 04/18/22 19:25 101.7 F H 04/18/22 19:00 83 109/70 04/18/22 18:00 88 114/76 04/18/22 17:00 84 123/71 04/18/22 16:27 103.4 F H 06/12/22 16:00 87 126/87 06/12/22 15:00 104.2 F H 04/18/22 14:00 79 131/117 98 04/18/22 13:50 95 131/117 04/18/22 13:46 97 19 132/79 04/18/22 13:25 99.5 F 101 H 18 127/89 100 Intake and Output 04/18/22 04/19/22 04/19/22 22:59 06:59 14:59 Intake Total 3150 800 Output Total 300 165 260 Balance -300 2985 540 Intake: IV 3150 450 0.9 NaCl- 100 400 0.9 NaCl- Fluid Bolus 3000 Zosyn 50 50 Intake, IV Titration 350 Amount Magnesium Sulfate-D5w Pmx 100 1 gm In Dextrose/Water 1 100ml.bag @ 100 mls/hr IVPB Q1H [facility] Rx#: [id number] Vancomycin 1,500 mg In 250 Sodium Chloride 0.9% 250 ml @ 125 mls/hr IVPB Q16H [facility] Rx#:[id number] Output: Urine 300 165 260 Uretheral ([place]) 300 Other: Voiding Method Diaper Diaper # Voids 1 # Bowel Movements 1 Weight 90.718 kg Physical Exam: Revealed 72-year-old white male in no distress. Patient is on room air. Head: Atraumatic, normocephalic. HEENT:[Neck is supple.] [No neck masses.] [No thyromegaly.] [No JVD.] Chest: [Clear throughout, no crackles, no rhonchi, no wheezes.] Cardiac Exam: Irregular irregular rhythm, 2/6 systolic murmur thought the precordium. Abdomen: [Soft, nontender, no megaly, no rebound, no guarding, normal bowel sounds.] Extremities: [No clubbing, no edema, no cyanosis.] Good pulses bilaterally. Neurological Exam: Patient is slightly confused, has no clue how he ended up in the hospital. But seems to be very calm, and follows simple instructions. Psychiatric: Normal mood, normal affect, confused mental status. Results - Laboratory Findings CBC and BMP: 04/19/22 03:33 04/19/22 03:33 ABG ABG pH 7.29 (7.35-7.45) L 04/19/22 02:21 ABG pCO2 28 mmHg (35-45) L 04/19/22 02:21 ABG pO2 188 mmHg (83-108) H 04/19/22 02:21 ABG O2 Saturation 99.7 % (94-97) H 04/19/22 02:21 PT/INR, D-dimer PT 12.1 sec (9.0-12.0) H 04/18/22 12:43 INR 1.1 (<1.2) 04/18/22 12:43 D-Dimer 8.56 mg/L FEU (<0.60) H 04/19/22 03:33 Abnormal lab findings: Abnormal Labs 04/18/22 04/18/22 04/18/22 12:35 12:43 12:43 RBC 3.95 L Hgb 12.2 L Hct 37.4 L Plt Count 136 L Neutrophils # 8.9 H Lymphocytes # 0.2 L ESR PT 12.1 H APTT 21.9 L D-Dimer ABG pH ABG pCO2 ABG pO2 ABG HCO3 ABG Total CO2 ABG O2 Saturation Sodium Chloride Carbon Dioxide Creatinine Glucose POC Glucose (mg/dL) 232 H Plasma Lactic Acid William Calcium Magnesium Total Bilirubin AST C-Reactive Protein Total Protein Albumin Procalcitonin Ur Specific [place] Urine Protein Urine Glucose (UA) Urine Ketones Urine Blood Urine RBC Ur Squamous Epith Cells Urine Mucus 04/18/22 04/18/22 04/18/22 12:43 15:32 18:42 RBC Hgb Hct Plt Count Neutrophils # Lymphocytes # ESR PT APTT D-Dimer ABG pH ABG pCO2 ABG pO2 ABG HCO3 ABG Total CO2 ABG O2 Saturation Sodium 132 L Chloride Carbon Dioxide 16 L Creatinine Glucose 234 H POC Glucose (mg/dL) Plasma Lactic Acid William 3.5 H* 2.7 H* Calcium Magnesium Total Bilirubin 1.9 H AST C-Reactive Protein Total Protein Albumin Procalcitonin Ur Specific [place] Urine Protein Urine Glucose (UA) Urine Ketones Urine Blood Urine RBC Ur Squamous Epith Cells Urine Mucus 04/18/22 04/18/22 04/18/22 19:57 19:57 19:57 RBC Hgb Hct Plt Count Neutrophils # Lymphocytes # ESR 25 H PT APTT D-Dimer ABG pH ABG pCO2 ABG pO2 ABG HCO3 ABG Total CO2 ABG O2 Saturation Sodium Chloride Carbon Dioxide Creatinine Glucose POC Glucose (mg/dL) Plasma Lactic Acid William Calcium Magnesium Total Bilirubin AST C-Reactive Protein 13.2 H Total Protein Albumin Procalcitonin 27.40 H Ur Specific [place] Urine Protein Urine Glucose (UA) Urine Ketones Urine Blood Urine RBC Ur Squamous Epith Cells Urine Mucus 04/18/22 04/18/22 04/18/22 20:03 21:22 21:50 RBC Hgb Hct Plt Count Neutrophils # Lymphocytes # ESR PT APTT D-Dimer ABG pH ABG pCO2 ABG pO2 ABG HCO3 ABG Total CO2 ABG O2 Saturation Sodium Chloride Carbon Dioxide Creatinine Glucose POC Glucose (mg/dL) 247 H Plasma Lactic Acid William 3.3 H* Calcium Magnesium Total Bilirubin AST C-Reactive Protein Total Protein Albumin Procalcitonin Ur Specific [place] 1.043 H Urine Protein 1+ H Urine Glucose (UA) 4+ H Urine Ketones Trace H Urine Blood Trace H Urine RBC 9 H Ur Squamous Epith Cells 8 H Urine Mucus Rare H 04/19/22 04/19/22 04/19/22 01:20 02:12 02:21 RBC Hgb Hct Plt Count Neutrophils # Lymphocytes # ESR PT APTT D-Dimer ABG pH 7.29 L ABG pCO2 28 L ABG pO2 188 H ABG HCO3 14 L ABG Total CO2 14 L ABG O2 Saturation 99.7 H Sodium Chloride Carbon Dioxide Creatinine Glucose POC Glucose (mg/dL) 186 H Plasma Lactic Acid William 5.8 H* Calcium Magnesium Total Bilirubin AST C-Reactive Protein Total Protein Albumin Procalcitonin Ur Specific [place] Urine Protein Urine Glucose (UA) Urine Ketones Urine Blood Urine RBC Ur Squamous Epith Cells Urine Mucus 04/19/22 04/19/22 04/19/22 02:36 03:33 03:33 RBC 3.57 L Hgb 11.4 L Hct 34.6 L Plt Count 104 L Neutrophils # Lymphocytes # 0.2 L ESR PT APTT D-Dimer 8.56 H ABG pH ABG pCO2 ABG pO2 ABG HCO3 ABG Total CO2 ABG O2 Saturation Sodium Chloride Carbon Dioxide Creatinine Glucose POC Glucose (mg/dL) 148 H Plasma Lactic Acid William Calcium Magnesium Total Bilirubin AST C-Reactive Protein Total Protein Albumin Procalcitonin Ur Specific [place] Urine Protein Urine Glucose (UA) Urine Ketones Urine Blood Urine RBC Ur Squamous Epith Cells Urine Mucus 04/19/22 04/19/22 04/19/22 03:33 03:33 06:13 RBC Hgb Hct Plt Count Neutrophils # Lymphocytes # ESR PT APTT D-Dimer ABG pH ABG pCO2 ABG pO2 ABG HCO3 ABG Total CO2 ABG O2 Saturation Sodium Chloride 109 H Carbon Dioxide 17 L Creatinine 1.36 H Glucose 168 H POC Glucose (mg/dL) 181 H Plasma Lactic Acid William 4.7 H* Calcium 7.9 L Magnesium 1.3 L Total Bilirubin 1.7 H AST 68 H C-Reactive Protein Total Protein 6.1 L Albumin 3.3 L Procalcitonin Ur Specific [place] Urine Protein Urine Glucose (UA) Urine Ketones Urine Blood Urine RBC Ur Squamous Epith Cells Urine Mucus - Diagnostic Findings Chest x-ray: image reviewed (As noted in HPI.) Assessment and Plan Assessment: Impression: Altered mental status secondary to sepsis and bacteremia/gram-positive bacteremia. Possible endocarditis, patient has known bioprosthetic aortic valve. History of aortic valve replacement. Paroxysmal atrial fibrillation. Type 2 diabetes. Benign essential hypertension. Seizure disorder. Underlying dementia. Acute kidney injury, cardiorenal unless for otherwise. Recommendation: Continue antibiotics/vancomycin. And Zosyn. Patient may require SHANE. His 2-D echo is pending. Resume home meds. Including his seizures medications. Infectious disease consultation. Closely monitor blood cultures. GI and DVT prophylaxis. Will continue to follow. Time with Patient: Greater than 30
[2022-04-19 12:55] LABS: Glucose,Whole Blood 165 mg/dL (75-99)
--- NOTE | 2022-04-19 15:12 | P.CNNES ---
History of Present Illness Consult date: 04/19/22 Requesting physician: Isaac Batista Reason for Consult: Acute delirium History of Present Illness: Patient is a 72-year-old male with history of hypertension, diabetes, mild/early stage of dementia, came to the hospital by ambulance yesterday at 12:24 PM. As per EMS flow sheet, when they arrived, found patient with altered mental status. mentioned that he was unsteady on his feet in the morning. Then after he took a nap, he woke up with altered mental status. denied any recent trauma. Patient denied any pain. Patient does have a 5 year old wound on his right greater toe and he kept pulling at his penis. Patient's mentation did not change during transport. Patient's vitals at the scene was blood pressure 155/125 pulse rate 127 respirations 18 saturation 99% EKG showed atrial fibrillation blood sugar was 233 temperature 99.7. Patient's family members including his and daughter were present today. They mentioned that patient has history of epilepsy diagnosed at age 61 when he presented with grand mal seizure. He had total of 3 seizures before he was diagnosed with epilepsy by Dr.Marianna Rudd at [facility]. Patient was started on Keppra. His seizures were well controlled with Keppra. He has not had any seizures for years, however this year he had 2 seizures in the last 6 months. His seizures always occurs when he is asleep. He does not get loss of control of urine or tongue bite with the seizure. No His neurologist Dr. Lema increased the dose of Keppra to 1500 mg twice a day about a month ago. Patient's family believes that he probably had another seizure which was unwitnessed on Tuesday night, as he was behaving like he does typically after a seizure the next day on Tuesday. He slept most of the day on Tuesday, couldn't converse well, was "out of it", unable to put words in sentences, like he behaves after a seizure. The next day on Tuesday, which is yesterday, he woke up and was doing well, but then he took a nap and when he woke up from the nap, he was agitated, disoriented, couldn't find the bathroom. He was shaking, agitated, did not know where he was at. Family has never seen him agitated like that. Therefore they brought him to the hospital. Vital signs on arrival blood pressure 127/89 pulse rate 101, temperature 104.2. Blood test shows normal WBC hemoglobin 11.4, platelet 104. D-dimer elevated at 8.56. Electrolytes with sodium 132 potassium 4.1 normal renal functions. Hepatic panel normal. Troponin negative. Influenza screen negative, coronal virus PCR negative. UA negative. C-reactive protein 13.2 with ESR 25. Plasma lactate was 3.3, which went up to 5.8 early this morning. Patient's ABG with pH 7.29, pCO2 28, pO2 188 and saturation 99%. Blood cultures so far are negative. CT head showed no acute bleed or mass effect. No interval change since the prior study from 08/20/2020. I personally reviewed CT head agree with the findings. Chest x-ray showed no active cardiopulmonary disease. EKG shows atrial fibrillation. Patient currently started on vancomycin, Zosyn, Keppra 1000 mg once and then 1500 mg twice a day, heparin subcu every 8 hours ceftriaxone 2 g given once. Patient has not received aspirin, although it has been ordered at a dose of 600 mg and a 300 mg rectally once Patient at home takes simvastatin 40 mg, donepezil 10 mg, Keppra 1500 mg twice a day Cymbalta 60 mg, Protonix, metoprolol and metformin. Patient drinks 4 beers per day since he was retired aged 61. He usually drinks 5 days per week. No tobacco use. He smokes pot every day. He has diabetes for last 8 years for which he takes metformin. Review of Systems Patient denies any headache, any problem with the vision, any hoarseness, sore throat, dysphagia. Denies any bowel pain nausea vomiting diarrhea. Patient has fever. Denies any numbness tingling. He does have history of partial amputated left foot great toe. Patient has peripheral neuropathy, decreased sensations in the feet from diabetes. Past Medical History Past Medical History: Atrial Fibrillation, Diabetes Mellitus, GERD/Reflux, Hearing Disorder / Deafness, Hyperlipidemia, Hypertension, Memory Impairment, Seizure Disorder, Syncope, Vascular Disorder Additional Past Medical History / Comment(s): Epilepsy; last seizure 2010. Hx cellulitis. Current wounds bilat feet; Lt thumb wound healing from injury; neuropathy. c/o sycope x2 in past 6 months History of Any Multi-Drug Resistant Organisms: None Reported Past Surgical History: Cardiac Valve Replacement, Cholecystectomy, Orthopedic Surgery Additional Past Surgical History / Comment(s): Colonoscopy, partial amputated left foot great toe, wound center procedures. Aortic valve replacement Past Anesthesia/Blood Transfusion Reactions: Previous Problems w/ Anesthesia Additional Past Anesthesia/Blood Transfusion Reaction / Comment(s): states "coded on table" with cholecystectomy, was septic Past Psychological History: Depression Additional Psychological History / Comment(s): feels he's depressed now Smoking Status: Former smoker Past Alcohol Use History: Occasional Additional Past Alcohol Use History / Comment(s): quit smoking 1975 Past Drug Use History: Marijuana Additional Drug Use History / Comment(s): use daily for neuropathy, instructed to hold 24 hrs prior - Past Family History Mother Family Medical History: Cancer Additional Family Medical History / Comment(s): fx hip, uterine Father Family Medical History: Dementia Medications and Allergies Home Medications Medication Instructions Recorded Confirmed Type metFORMIN HCL [Glucophage] 500 mg PO BID #60 tab 05/07/19 04/18/22 Rx Metoprolol Tartrate [Lopressor] 50 mg PO BID 04/22/21 04/18/22 History Simvastatin [Zocor] 40 mg PO HS 04/22/21 04/18/22 History DULoxetine HCL [Cymbalta] 60 mg PO DAILY 04/18/22 04/18/22 History Donepezil [Aricept] 10 mg PO DAILY 04/18/22 04/18/22 History Dronedarone [Multaq] 400 mg PO BID 04/18/22 04/18/22 History Furosemide [Lasix] 20 mg PO DAILY 04/18/22 04/18/22 History Pantoprazole Sodium [Protonix] 40 mg PO DAILY 04/18/22 04/18/22 History levETIRAcetam [Keppra] 1,500 mg PO BID 04/18/22 04/18/22 History Allergies Allergy/AdvReac Type Severity Reaction Status Date / Time No Known Allergies Allergy Verified 04/18/22 13:24 Physical Examination - Vital Signs Vital Signs: Vital Signs Temp Pulse Pulse Resp BP BP Pulse Ox 04/19/22 08:45 97 20 105/70 96 04/19/22 08:30 84 23 105/65 97 04/19/22 08:15 86 25 H 108/74 97 06/13/22 08:00 98.2 F 96 23 103/66 97 04/19/22 07:45 86 25 H 111/62 97 04/19/22 07:30 89 24 110/63 97 04/19/22 07:15 98 26 H 111/74 97 04/19/22 07:00 100.0 F H 87 28 H 101/69 98 04/19/22 06:45 89 26 H 107/75 97 04/19/22 06:30 92 27 H 104/64 97 04/19/22 06:15 86 29 H 112/69 97 04/19/22 06:00 92 21 111/63 97 04/19/22 05:45 92 29 H 113/63 97 04/19/22 05:30 91 32 H 116/64 97 04/19/22 05:15 95 31 H 121/66 97 04/19/22 05:00 100.7 F H 92 32 H 123/61 97 04/19/22 04:45 83 33 H 121/66 98 04/19/22 04:30 82 34 H 127/63 99 04/19/22 04:15 82 32 H 130/69 100 04/19/22 04:00 80 36 H 143/74 100 04/19/22 03:45 81 36 H 134/67 100 04/19/22 03:30 91 35 H 129/69 99 04/19/22 03:15 110 H 28 H 128/96 97 04/19/22 03:00 112 H 27 H 120/90 99 04/19/22 02:45 102.4 F H 121 H 37 H 154/107 96 04/18/22 23:05 97.6 F 97 18 112/72 96 04/18/22 21:50 98.1 F 78 19 112/72 100 04/18/22 21:00 101.5 F H 89 04/18/22 20:00 77 131/62 04/18/22 19:25 101.7 F H 04/18/22 19:00 83 109/70 04/18/22 18:00 88 114/76 04/18/22 17:00 84 123/71 04/18/22 16:27 103.4 F H 04/18/22 16:00 87 126/87 04/18/22 15:00 104.2 F H 04/18/22 14:00 79 131/117 98 04/18/22 13:50 95 131/117 04/18/22 13:46 97 19 132/79 04/18/22 13:25 99.5 F 101 H 18 127/89 100 Intake and Output 04/18/22 04/19/22 04/19/22 22:59 06:59 14:59 Intake Total 3150 500 Output Total 300 165 135 Balance -300 2985 365 Intake: IV 3150 150 0.9 NaCl- 100 100 0.9 NaCl- Fluid Bolus 3000 Zosyn 50 50 Intake, IV Titration 350 Amount Magnesium Sulfate-D5w Pmx 100 1 gm In Dextrose/Water 1 100ml.bag @ 100 mls/hr IVPB Q1H [facility] Rx#: [id number] Vancomycin 1,500 mg In 250 Sodium Chloride 0.9% 250 ml @ 125 mls/hr IVPB Q16H [facility] Rx#:[id number] Output: Urine 300 165 135 Uretheral (Burgos) 300 Other: Voiding Method Diaper Diaper # Voids 1 # Bowel Movements 1 Weight 90.718 kg Patient is an elderly male, who appears slightly encephalopathic, mild slow mentation. Patient is mildly encephalopathic, knows his date of and states it is January and the year is . He states that he is in [place], but then later states that he is in [place] in [place]. He could not tell name of the current president although she knows name of the previous Pres. Mr. Phillips. Speech and language functions are normal. Patient can name and repeat. Attention, concentration and fund of knowledge is slightly limited. On cranial examination, pupils are equal, round and reacting to light, visual johnson are full on confrontation, with no neglect on double simultaneous stimulation. His extraocular muscles are intact with no nystagmus. Face is symmetric, tongue protrudes to the midline. Palatal elevation and sensation normal, hearing and shoulder shrug normal, facial sensation normal. Shoulder shrug normal. On muscle strength testing, there is no pronator drift and the strength is normal in arms and legs distally and proximally. Deep tendon reflexes are diminished and plantars are flat. Sensory to touch is equal with no neglect on double simultaneous stimulation. Cerebellar function showed no ataxia for [id number] testing. No dysdiadochokinesia. Tone and bulk of muscles normal. Gait not checked. On general examination, there is no carotid bruit or murmur, S1-S2 audible. Abdomen is soft nontender. No organomegaly, bowel sounds present. Chest is clear. No edema. Patient has partial amputated left foot great toe Results - Laboratory Findings CBC and BMP: 04/19/22 03:33 04/19/22 03:33 Abnormal Lab Findings: Abnormal Labs 04/18/22 04/18/22 04/18/22 12:35 12:43 12:43 RBC 3.95 L Hgb 12.2 L Hct 37.4 L Plt Count 136 L Neutrophils # 8.9 H Lymphocytes # 0.2 L ESR PT 12.1 H APTT 21.9 L D-Dimer ABG pH ABG pCO2 ABG pO2 ABG HCO3 ABG Total CO2 ABG O2 Saturation Sodium Chloride Carbon Dioxide Creatinine Glucose POC Glucose (mg/dL) 232 H Plasma Lactic Acid William Calcium Magnesium Total Bilirubin AST C-Reactive Protein Total Protein Albumin Procalcitonin Ur Specific [place] Urine Protein Urine Glucose (UA) Urine Ketones Urine Blood Urine RBC Ur Squamous Epith Cells Urine Mucus 04/18/22 04/18/22 04/18/22 12:43 15:32 18:42 RBC Hgb Hct Plt Count Neutrophils # Lymphocytes # ESR PT APTT D-Dimer ABG pH ABG pCO2 ABG pO2 ABG HCO3 ABG Total CO2 ABG O2 Saturation Sodium 132 L Chloride Carbon Dioxide 16 L Creatinine Glucose 234 H POC Glucose (mg/dL) Plasma Lactic Acid William 3.5 H* 2.7 H* Calcium Magnesium Total Bilirubin 1.9 H AST C-Reactive Protein Total Protein Albumin Procalcitonin Ur Specific [place] Urine Protein Urine Glucose (UA) Urine Ketones Urine Blood Urine RBC Ur Squamous Epith Cells Urine Mucus 04/18/22 04/18/22 04/18/22 19:57 19:57 19:57 RBC Hgb Hct Plt Count Neutrophils # Lymphocytes # ESR 25 H PT APTT D-Dimer ABG pH ABG pCO2 ABG pO2 ABG HCO3 ABG Total CO2 ABG O2 Saturation Sodium Chloride Carbon Dioxide Creatinine Glucose POC Glucose (mg/dL) Plasma Lactic Acid William Calcium Magnesium Total Bilirubin AST C-Reactive Protein 13.2 H Total Protein Albumin Procalcitonin 27.40 H Ur Specific [place] Urine Protein Urine Glucose (UA) Urine Ketones Urine Blood Urine RBC Ur Squamous Epith Cells Urine Mucus 04/18/22 04/18/22 04/18/22 20:03 21:22 21:50 RBC Hgb Hct Plt Count Neutrophils # Lymphocytes # ESR PT APTT D-Dimer ABG pH ABG pCO2 ABG pO2 ABG HCO3 ABG Total CO2 ABG O2 Saturation Sodium Chloride Carbon Dioxide Creatinine Glucose POC Glucose (mg/dL) 247 H Plasma Lactic Acid William 3.3 H* Calcium Magnesium Total Bilirubin AST C-Reactive Protein Total Protein Albumin Procalcitonin Ur Specific [place] 1.043 H Urine Protein 1+ H Urine Glucose (UA) 4+ H Urine Ketones Trace H Urine Blood Trace H Urine RBC 9 H Ur Squamous Epith Cells 8 H Urine Mucus Rare H 04/19/22 04/19/22 04/19/22 01:20 02:12 02:21 RBC Hgb Hct Plt Count Neutrophils # Lymphocytes # ESR PT APTT D-Dimer ABG pH 7.29 L ABG pCO2 28 L ABG pO2 188 H ABG HCO3 14 L ABG Total CO2 14 L ABG O2 Saturation 99.7 H Sodium Chloride Carbon Dioxide Creatinine Glucose POC Glucose (mg/dL) 186 H Plasma Lactic Acid William 5.8 H* Calcium Magnesium Total Bilirubin AST C-Reactive Protein Total Protein Albumin Procalcitonin Ur Specific [place] Urine Protein Urine Glucose (UA) Urine Ketones Urine Blood Urine RBC Ur Squamous Epith Cells Urine Mucus 04/19/22 04/19/22 04/19/22 02:36 03:33 03:33 RBC 3.57 L Hgb 11.4 L Hct 34.6 L Plt Count 104 L Neutrophils # Lymphocytes # 0.2 L ESR PT APTT D-Dimer 8.56 H ABG pH ABG pCO2 ABG pO2 ABG HCO3 ABG Total CO2 ABG O2 Saturation Sodium Chloride Carbon Dioxide Creatinine Glucose POC Glucose (mg/dL) 148 H Plasma Lactic Acid William Calcium Magnesium Total Bilirubin AST C-Reactive Protein Total Protein Albumin Procalcitonin Ur Specific [place] Urine Protein Urine Glucose (UA) Urine Ketones Urine Blood Urine RBC Ur Squamous Epith Cells Urine Mucus 04/19/22 04/19/22 04/19/22 03:33 03:33 06:13 RBC Hgb Hct Plt Count Neutrophils # Lymphocytes # ESR PT APTT D-Dimer ABG pH ABG pCO2 ABG pO2 ABG HCO3 ABG Total CO2 ABG O2 Saturation Sodium Chloride 109 H Carbon Dioxide 17 L Creatinine 1.36 H Glucose 168 H POC Glucose (mg/dL) 181 H Plasma Lactic Acid William 4.7 H* Calcium 7.9 L Magnesium 1.3 L Total Bilirubin 1.7 H AST 68 H C-Reactive Protein Total Protein 6.1 L Albumin 3.3 L Procalcitonin Ur Specific [place] Urine Protein Urine Glucose (UA) Urine Ketones Urine Blood Urine RBC Ur Squamous Epith Cells Urine Mucus Assessment and Plan Assessment: * Altered mental status, likely due to toxic metabolic encephalopathy. * Paroxysmal Atrial fibrillation * Seizure disorder/epilepsy * History of aortic valve replacement. * Hypertension * Diabetes * Peripheral neuropathy * Peripheral arterial disease * Mild to moderate chronic alcoholism * Marijuana use. * Mild cognitive impairment/early dementia Plan: * Patient has presented with possible toxic metabolic encephalopathy. Patient has sepsis, with high fever. Patient is on multiple antibiotics. ID on board. * Patient probably had a breakthrough seizure (2 days prior to arrival in the ER), likely due to sepsis. Patient denies any headache, his neck is supple, no signs of intracranial infection. Patient's dose of Keppra was recently increased to 1500 mg twice a day by his neurologist Dr. Lema about a month ago. His breakthrough seizure 1 day prior to arrival was likely because of sepsis. If he has any breakthrough seizure, would recommend adding a second antiepileptic agent. At this time, we will keep him on Keppra 1500 mg twice a day. * Patient has atrial fibrillation, currently not on anticoagulation. Cardiology has seen the patient, recommending 2-D echo/SHANE rule out infective endocarditis. Patient has history of aortic valve replacement. Neurologically clear for starting anticoagulant, if recommended by cardiology. Discussed with patient's nurse in detail. * CTA of head and neck showed mild bilateral proximal internal carotid artery stenosis within the neck secondary to eccentric plaque formation. No significant occlusive disease intracranially. * Patient and his family were informed of [place] state law of no driving unless seizure free for 6 months, climbing ladders, operate dangerous machinery or unsupervised swimming. * Patient has history of mild alcoholism, therefore watch for alcohol withdrawal. * Check B12, folate, hemoglobin A1c. * Lipid panel with cholesterol 126, LDL 64, HDL 48 and triglycerides 68. Patient on simvastatin 40 mg daily. Continue simvastatin/atorvastatin. * DVT prophylaxis, patient on heparin subcu. * Neurology will follow. Thank you for the consult. Time with Patient: Greater than 30
[2022-04-19] MEDS: ACETAMINOPHEN TAB 325 MG TAB PO PRN (15:38)
[2022-04-19] MEDS: METOPROLOL TARTRATE 12.5 MG TAB PO SCH ×2 (15:38→21:08)
[2022-04-19] MEDS ORDERED: HEPARIN SODIUM 1,000 UN/ML (10ML VL) IV ONE (16:22)
[2022-04-19] MEDS: HEPARIN SOD,PORK IN 0.45% NACL 25,000 UNIT in 0.45% NACL 1 250ML.BAG IV SCH (16:45)
[2022-04-19 18:25] LABS: Glucose,Whole Blood 105 mg/dL (75-99)
[2022-04-19 20:32] LABS: Glucose,Whole Blood 118 mg/dL (75-99)
--- NOTE | 2022-04-19 22:13 | P.CONS ---
History of Present Illness - Reason for Consult Consult date: 04/19/22 Fever Requesting physician: Leila Wang - Chief Complaint Mental status changes x one day - History of Present Illness Patient is a 72-year-old male with a past medical history significant for epilepsy diabetes mellitus hypertension who was brought into the ER for evaluation of mental status changes, patient symptoms started on Tuesday with the patient slept all day and the thought he may have a slight seizure the night before and that he usually do her the next day he sleeps all day long however yesterday morning on the day of presentation to hospital with the patient wake up he was confused and weak and disoriented no clear history of any fever headache respiratory symptoms or any diarrhea the patient was brought into the ER on arrival to the ER the patient did have a fever of 104.2 F he did have mild tachycardia no significant hypoxemia, patient did have a normal white count with a left shift lactic acid was elevated creatinine was normal liver enzymes are normal procalcitonin is elevated, the patient UA was negative, influenza RSV and SARS-CoV-2 was negative patient did have a CT of the brain no acute bleed or mass-effect chest x-ray pulmonary stational edema repeat x-ray this morning no active cardiopulmonary disease patient has been treated with vancomycin and Zosyn with blood cultures coming back positive with gram-positive cocci infectious disease was consulted for further management, most information has been obtained from review the chart and talking to the patient was sleepy but arousable and when asked specifically denies any headache no URI symptoms no nausea no vomiting no abdominal pain or diarrhea patient did have a dentures and had no dental work-up and did not have any procedure recently Review of Systems Positive point has been mentioned in the HPI rest of the systems are negative Past Medical History Past Medical History: Atrial Fibrillation, Diabetes Mellitus, GERD/Reflux, Hearing Disorder / Deafness, Hyperlipidemia, Hypertension, Memory Impairment, Seizure Disorder, Syncope, Vascular Disorder Additional Past Medical History / Comment(s): Epilepsy; last seizure 2010. Hx cellulitis. Current wounds bilat feet; Lt thumb wound healing from injury; neuropathy. c/o sycope x2 in past 6 months History of Any Multi-Drug Resistant Organisms: None Reported Past Surgical History: Cardiac Valve Replacement, Cholecystectomy, Orthopedic Surgery Additional Past Surgical History / Comment(s): Colonoscopy, partial amputated left foot great toe, wound center procedures. Aortic valve replacement Past Anesthesia/Blood Transfusion Reactions: Previous Problems w/ Anesthesia Additional Past Anesthesia/Blood Transfusion Reaction / Comm: states "coded on table" with cholecystectomy, was septic Past Psychological History: Depression Additional Psychological History / Comment(s): feels he's depressed now Smoking Status: Former smoker Past Alcohol Use History: Occasional Additional Past Alcohol Use History / Comment(s): quit smoking 1976 Past Drug Use History: Marijuana Additional Drug Use History / Comment(s): use daily for neuropathy, instructed to hold 24 hrs prior - Past Family History Mother Family Medical History: Cancer Additional Family Medical History / Comment(s): fx hip, uterine Father Family Medical History: Dementia Medications and Allergies Home Medications Medication Instructions Recorded Confirmed Type metFORMIN HCL [Glucophage] 500 mg PO BID #60 tab 05/07/19 04/18/22 Rx Metoprolol Tartrate [Lopressor] 50 mg PO BID 04/22/21 04/18/22 History Simvastatin [Zocor] 40 mg PO HS 04/22/21 04/18/22 History DULoxetine HCL [Cymbalta] 60 mg PO DAILY 04/18/22 04/18/22 History Donepezil [Aricept] 10 mg PO DAILY 04/18/22 04/18/22 History Dronedarone [Multaq] 400 mg PO BID 04/18/22 04/18/22 History Furosemide [Lasix] 20 mg PO DAILY 04/18/22 04/18/22 History Pantoprazole Sodium [Protonix] 40 mg PO DAILY 04/18/22 04/18/22 History levETIRAcetam [Keppra] 1,500 mg PO BID 04/18/22 04/18/22 History Apixaban [Eliquis] 5 mg PO BID 30 Days #60 tab 04/23/22 Rx Allergies Allergy/AdvReac Type Severity Reaction Status Date / Time No Known Allergies Allergy Verified 04/18/22 13:24 Physical Exam Vitals: Vital Signs Temp Pulse Pulse Resp BP BP Pulse Ox 04/19/22 10:00 84 21 112/75 98 04/19/22 09:00 87 22 107/71 96 04/19/22 08:45 97 20 105/70 96 04/19/22 08:30 84 23 105/65 97 04/19/22 08:15 86 25 H 108/74 97 04/19/22 08:00 98.2 F 96 23 103/66 97 04/19/22 07:45 86 25 H 111/62 97 04/19/22 07:30 89 24 110/63 97 04/19/22 07:15 98 26 H 111/74 97 04/19/22 07:00 100.0 F H 87 28 H 101/69 98 04/19/22 06:45 89 26 H 107/75 97 04/19/22 06:30 92 27 H 104/64 97 04/19/22 06:15 86 29 H 112/69 97 04/19/22 06:00 92 21 111/63 97 04/19/22 05:45 92 29 H 113/63 97 04/19/22 05:30 91 32 H 116/64 97 04/19/22 05:15 95 31 H 121/66 97 04/19/22 05:00 100.7 F H 92 32 H 123/61 97 04/19/22 04:45 83 33 H 121/66 98 04/19/22 04:30 82 34 H 127/63 99 04/19/22 04:15 82 32 H 130/69 100 04/19/22 04:00 80 36 H 143/74 100 04/19/22 03:45 81 36 H 134/67 100 04/19/22 03:30 91 35 H 129/69 99 04/19/22 03:15 110 H 28 H 128/96 97 04/19/22 03:00 112 H 27 H 120/90 99 04/19/22 02:45 102.4 F H 121 H 37 H 154/107 96 04/18/22 23:05 97.6 F 97 18 112/72 96 04/18/22 21:50 98.1 F 78 19 112/72 100 04/18/22 21:00 101.5 F H 89 04/18/22 20:00 77 131/62 04/18/22 19:25 101.7 F H 04/18/22 19:00 83 109/70 04/18/22 18:00 88 114/76 04/18/22 17:00 84 123/71 04/18/22 16:27 103.4 F H 04/18/22 16:00 87 126/87 04/18/22 15:00 104.2 F H 04/18/22 14:00 79 131/117 98 04/18/22 13:50 95 131/117 04/18/22 13:46 97 19 132/79 04/18/22 13:25 99.5 F 101 H 18 127/89 100 Intake and Output 04/18/22 04/19/22 04/19/22 22:59 06:59 14:59 Intake Total 3150 800 Output Total 300 165 260 Balance -300 2985 540 Intake: IV 3150 450 0.9 NaCl- 100 400 0.9 NaCl- Fluid Bolus 3000 Zosyn 50 50 Intake, IV Titration 350 Amount Magnesium Sulfate-D5w Pmx 100 1 gm In Dextrose/Water 1 100ml.bag @ 100 mls/hr IVPB Q1H [facility] Rx#: [id number] Vancomycin 1,500 mg In 250 Sodium Chloride 0.9% 250 ml @ 125 mls/hr IVPB Q16H [facility] Rx#:[id number] Output: Urine 300 165 260 Uretheral ([place]) 300 Other: Voiding Method Diaper Diaper # Voids 1 # Bowel Movements 1 Weight 90.718 kg GENERAL DESCRIPTION: An elderly male lying in bed, no distress. No tachypnea or accessory muscle of respiration use. HEENT: Shows Pallor , no scleral icterus. Oral mucous membrane is dry. No pharyngeal erythema or thrush NECK: Trachea central, no thyromegaly. LUNGS: Unlabored breathing. Clear to auscultation anteriorly. No wheeze or crackle. HEART: S1, S2, regular rate and rhythm. No loud murmur ABDOMEN: Soft, no tenderness , guarding or rigidity, no organomegaly EXTREMITIES: No edema of feet. SKIN: No rash, no masses palpable. NEUROLOGICAL: The patient is lethargic but arousable mood and affect normal, no neck rigidity Results CBC & Chem 7: 04/23/22 09:06 04/23/22 09:06 Labs: Abnormal Lab Results - Last 24 Hours (Table) 04/18/22 04/18/22 04/18/22 Range/Units 12:35 12:43 12:43 RBC 3.95 L (4.30-5.90) m/uL Hgb 12.2 L (13.0-17.5) gm/dL Hct 37.4 L (39.0-53.0) % Plt Count 136 L (150-450) k/uL Neutrophils # 8.9 H (1.3-7.7) k/uL Lymphocytes # 0.2 L (1.0-4.8) k/uL ESR (0-15) mm/hr PT 12.1 H (9.0-12.0) sec APTT 21.9 L (22.0-30.0) sec D-Dimer (<0.60) mg/L FEU ABG pH (7.35-7.45) ABG pCO2 (35-45) mmHg ABG pO2 (83-108) mmHg ABG HCO3 (21-25) mmol/L ABG Total CO2 (19-24) mmol/L ABG O2 Saturation (94-97) % Sodium (137-145) mmol/L Chloride (98-107) mmol/L Carbon Dioxide (22-30) mmol/L Creatinine (0.66-1.25) mg/dL Glucose (74-99) mg/dL POC Glucose (mg/dL) 232 H (75-99) mg/dL Plasma Lactic Acid William (0.7-2.0) mmol/L Calcium (8.4-10.2) mg/dL Magnesium (1.6-2.3) mg/dL Total Bilirubin (0.2-1.3) mg/dL AST (17-59) U/L C-Reactive Protein (<1.0) mg/dL Total Protein (6.3-8.2) g/dL Albumin (3.5-5.0) g/dL Procalcitonin (0.02-0.09) ng/mL Ur Specific Pella (1.001-1.035) Urine Protein (Negative) Urine Glucose (UA) (Negative) Urine Ketones (Negative) Urine Blood (Negative) Urine RBC (0-5) /hpf Ur Squamous Epith Cells (0-4) /hpf Urine Mucus (None) /hpf 04/18/22 04/18/22 04/18/22 Range/Units 12:43 15:32 18:42 RBC (4.30-5.90) m/uL Hgb (13.0-17.5) gm/dL Hct (39.0-53.0) % Plt Count (150-450) k/uL Neutrophils # (1.3-7.7) k/uL Lymphocytes # (1.0-4.8) k/uL ESR (0-15) mm/hr PT (9.0-12.0) sec APTT (22.0-30.0) sec D-Dimer (<0.60) mg/L FEU ABG pH (7.35-7.45) ABG pCO2 (35-45) mmHg ABG pO2 (83-108) mmHg ABG HCO3 (21-25) mmol/L ABG Total CO2 (19-24) mmol/L ABG O2 Saturation (94-97) % Sodium 132 L (137-145) mmol/L Chloride (98-107) mmol/L Carbon Dioxide 16 L (22-30) mmol/L Creatinine (0.66-1.25) mg/dL Glucose 234 H (74-99) mg/dL POC Glucose (mg/dL) (75-99) mg/dL Plasma Lactic Acid William 3.5 H* 2.7 H* (0.7-2.0) mmol/L Calcium (8.4-10.2) mg/dL Magnesium (1.6-2.3) mg/dL Total Bilirubin 1.9 H (0.2-1.3) mg/dL AST (17-59) U/L C-Reactive Protein (<1.0) mg/dL Total Protein (6.3-8.2) g/dL Albumin (3.5-5.0) g/dL Procalcitonin (0.02-0.09) ng/mL Ur Specific Pella (1.001-1.035) Urine Protein (Negative) Urine Glucose (UA) (Negative) Urine Ketones (Negative) Urine Blood (Negative) Urine RBC (0-5) /hpf Ur Squamous Epith Cells (0-4) /hpf Urine Mucus (None) /hpf 04/18/22 04/18/22 04/18/22 Range/Units 19:57 19:57 19:57 RBC (4.30-5.90) m/uL Hgb (13.0-17.5) gm/dL Hct (39.0-53.0) % Plt Count (150-450) k/uL Neutrophils # (1.3-7.7) k/uL Lymphocytes # (1.0-4.8) k/uL ESR 25 H (0-15) mm/hr PT (9.0-12.0) sec APTT (22.0-30.0) sec D-Dimer (<0.60) mg/L FEU ABG pH (7.35-7.45) ABG pCO2 (35-45) mmHg ABG pO2 (83-108) mmHg ABG HCO3 (21-25) mmol/L ABG Total CO2 (19-24) mmol/L ABG O2 Saturation (94-97) % Sodium (137-145) mmol/L Chloride (98-107) mmol/L Carbon Dioxide (22-30) mmol/L Creatinine (0.66-1.25) mg/dL Glucose (74-99) mg/dL POC Glucose (mg/dL) (75-99) mg/dL Plasma Lactic Acid William (0.7-2.0) mmol/L Calcium (8.4-10.2) mg/dL Magnesium (1.6-2.3) mg/dL Total Bilirubin (0.2-1.3) mg/dL AST (17-59) U/L C-Reactive Protein 13.2 H (<1.0) mg/dL Total Protein (6.3-8.2) g/dL Albumin (3.5-5.0) g/dL Procalcitonin 27.40 H (0.02-0.09) ng/mL Ur Specific Pella (1.001-1.035) Urine Protein (Negative) Urine Glucose (UA) (Negative) Urine Ketones (Negative) Urine Blood (Negative) Urine RBC (0-5) /hpf Ur Squamous Epith Cells (0-4) /hpf Urine Mucus (None) /hpf 04/18/22 04/18/22 04/18/22 Range/Units 20:03 21:22 21:50 RBC (4.30-5.90) m/uL Hgb (13.0-17.5) gm/dL Hct (39.0-53.0) % Plt Count (150-450) k/uL Neutrophils # (1.3-7.7) k/uL Lymphocytes # (1.0-4.8) k/uL ESR (0-15) mm/hr PT (9.0-12.0) sec APTT (22.0-30.0) sec D-Dimer (<0.60) mg/L FEU ABG pH (7.35-7.45) ABG pCO2 (35-45) mmHg ABG pO2 (83-108) mmHg ABG HCO3 (21-25) mmol/L ABG Total CO2 (19-24) mmol/L ABG O2 Saturation (94-97) % Sodium (137-145) mmol/L Chloride (98-107) mmol/L Carbon Dioxide (22-30) mmol/L Creatinine (0.66-1.25) mg/dL Glucose (74-99) mg/dL POC Glucose (mg/dL) 247 H (75-99) mg/dL Plasma Lactic Acid William 3.3 H* (0.7-2.0) mmol/L Calcium (8.4-10.2) mg/dL Magnesium (1.6-2.3) mg/dL Total Bilirubin (0.2-1.3) mg/dL AST (17-59) U/L C-Reactive Protein (<1.0) mg/dL Total Protein (6.3-8.2) g/dL Albumin (3.5-5.0) g/dL Procalcitonin (0.02-0.09) ng/mL Ur Specific Pella 1.043 H (1.001-1.035) Urine Protein 1+ H (Negative) Urine Glucose (UA) 4+ H (Negative) Urine Ketones Trace H (Negative) Urine Blood Trace H (Negative) Urine RBC 9 H (0-5) /hpf Ur Squamous Epith Cells 8 H (0-4) /hpf Urine Mucus Rare H (None) /hpf 04/19/22 04/19/22 04/19/22 Range/Units 01:20 02:12 02:21 RBC (4.30-5.90) m/uL Hgb (13.0-17.5) gm/dL Hct (39.0-53.0) % Plt Count (150-450) k/uL Neutrophils # (1.3-7.7) k/uL Lymphocytes # (1.0-4.8) k/uL ESR (0-15) mm/hr PT (9.0-12.0) sec APTT (22.0-30.0) sec D-Dimer (<0.60) mg/L FEU ABG pH 7.29 L (7.35-7.45) ABG pCO2 28 L (35-45) mmHg ABG pO2 188 H (83-108) mmHg ABG HCO3 14 L (21-25) mmol/L ABG Total CO2 14 L (19-24) mmol/L ABG O2 Saturation 99.7 H (94-97) % Sodium (137-145) mmol/L Chloride (98-107) mmol/L Carbon Dioxide (22-30) mmol/L Creatinine (0.66-1.25) mg/dL Glucose (74-99) mg/dL POC Glucose (mg/dL) 186 H (75-99) mg/dL Plasma Lactic Acid William 5.8 H* (0.7-2.0) mmol/L Calcium (8.4-10.2) mg/dL Magnesium (1.6-2.3) mg/dL Total Bilirubin (0.2-1.3) mg/dL AST (17-59) U/L C-Reactive Protein (<1.0) mg/dL Total Protein (6.3-8.2) g/dL Albumin (3.5-5.0) g/dL Procalcitonin (0.02-0.09) ng/mL Ur Specific Pella (1.001-1.035) Urine Protein (Negative) Urine Glucose (UA) (Negative) Urine Ketones (Negative) Urine Blood (Negative) Urine RBC (0-5) /hpf Ur Squamous Epith Cells (0-4) /hpf Urine Mucus (None) /hpf 04/19/22 04/19/22 04/19/22 Range/Units 02:36 03:33 03:33 RBC 3.57 L (4.30-5.90) m/uL Hgb 11.4 L (13.0-17.5) gm/dL Hct 34.6 L (39.0-53.0) % Plt Count 104 L (150-450) k/uL Neutrophils # (1.3-7.7) k/uL Lymphocytes # 0.2 L (1.0-4.8) k/uL ESR (0-15) mm/hr PT (9.0-12.0) sec APTT (22.0-30.0) sec D-Dimer 8.56 H (<0.60) mg/L FEU ABG pH (7.35-7.45) ABG pCO2 (35-45) mmHg ABG pO2 (83-108) mmHg ABG HCO3 (21-25) mmol/L ABG Total CO2 (19-24) mmol/L ABG O2 Saturation (94-97) % Sodium (137-145) mmol/L Chloride (98-107) mmol/L Carbon Dioxide (22-30) mmol/L Creatinine (0.66-1.25) mg/dL Glucose (74-99) mg/dL POC Glucose (mg/dL) 148 H (75-99) mg/dL Plasma Lactic Acid William (0.7-2.0) mmol/L Calcium (8.4-10.2) mg/dL Magnesium (1.6-2.3) mg/dL Total Bilirubin (0.2-1.3) mg/dL AST (17-59) U/L C-Reactive Protein (<1.0) mg/dL Total Protein (6.3-8.2) g/dL Albumin (3.5-5.0) g/dL Procalcitonin (0.02-0.09) ng/mL Ur Specific Pella (1.001-1.035) Urine Protein (Negative) Urine Glucose (UA) (Negative) Urine Ketones (Negative) Urine Blood (Negative) Urine RBC (0-5) /hpf Ur Squamous Epith Cells (0-4) /hpf Urine Mucus (None) /hpf 04/19/22 04/19/22 04/19/22 Range/Units 03:33 03:33 06:13 RBC (4.30-5.90) m/uL Hgb (13.0-17.5) gm/dL Hct (39.0-53.0) % Plt Count (150-450) k/uL Neutrophils # (1.3-7.7) k/uL Lymphocytes # (1.0-4.8) k/uL ESR (0-15) mm/hr PT (9.0-12.0) sec APTT (22.0-30.0) sec D-Dimer (<0.60) mg/L FEU ABG pH (7.35-7.45) ABG pCO2 (35-45) mmHg ABG pO2 (83-108) mmHg ABG HCO3 (21-25) mmol/L ABG Total CO2 (19-24) mmol/L ABG O2 Saturation (94-97) % Sodium (137-145) mmol/L Chloride 109 H (98-107) mmol/L Carbon Dioxide 17 L (22-30) mmol/L Creatinine 1.36 H (0.66-1.25) mg/dL Glucose 168 H (74-99) mg/dL POC Glucose (mg/dL) 181 H (75-99) mg/dL Plasma Lactic Acid William 4.7 H* (0.7-2.0) mmol/L Calcium 7.9 L (8.4-10.2) mg/dL Magnesium 1.3 L (1.6-2.3) mg/dL Total Bilirubin 1.7 H (0.2-1.3) mg/dL AST 68 H (17-59) U/L C-Reactive Protein (<1.0) mg/dL Total Protein 6.1 L (6.3-8.2) g/dL Albumin 3.3 L (3.5-5.0) g/dL Procalcitonin (0.02-0.09) ng/mL Ur Specific Pella (1.001-1.035) Urine Protein (Negative) Urine Glucose (UA) (Negative) Urine Ketones (Negative) Urine Blood (Negative) Urine RBC (0-5) /hpf Ur Squamous Epith Cells (0-4) /hpf Urine Mucus (None) /hpf Microbiology - Last 24 Hours (Table) 04/18/22 15:32 Blood Culture Gram Stain - Preliminary Blood 04/18/22 15:27 Blood Culture Gram Stain - Preliminary Blood 04/18/22 15:27 Blood Culture - Final Blood 04/18/22 15:32 Blood Culture - Final Blood Assessment and Plan (1) Gram positive septicemia Status: Acute Code(s): A41.89 - OTHER SPECIFIED SEPSIS SNOMED Code(s): 658608182298 Plan: 1patient presented to hospital with sepsis and respiratory have fever elevated white count elevated lactic acid and now with evidence of gram-positive bacteremia source questioningly pneumonia as the patient did have significant elevated procalcitonin and currently do not have any other obvious focus of infection, urine has been negative her abdomen was soft and examination and no evidence of any cellulitis or joint swelling. 2blood cultures will be repeated document clearance of bacteremia. 3discontinue Zosyn. 4continue with the vancomycin while waiting for the ID sensitivity of this pathogen while watching his kidney function closely. Family the bedside questions concerns answered We will follow on clinical condition and cultures to further adjust medication if needed Thank you for this consultation will follow this patient along with you Time with Patient: Greater than 30
[2022-04-20 04:30] LABS: Basophils % (A) 0 %; Eosinophils % (A) 0 %; HCT 35.1 % (39.0-53.0); HGB 11.4 gm/dL (13.0-17.5); Lymphocytes # (A) 0.5 k/uL (1.0-4.8); Lymphocytes % (A) 8 %; MCH 31.9 pg (25.0-35.0); MCHC 32.5 g/dL (31.0-37.0); MCV 98.1 fL (80.0-100.0); Mean Platelet Volume 9.1; Monocytes # (A) 0.3 k/uL (0-1.0); Monocytes % (A) 5 %; Neutrophils # (A) 5.1 k/uL (1.3-7.7); Neutrophils % (A) 85 %; Platelet Count 105 k/uL (150-450); RBC 3.58 m/uL (4.30-5.90); WBC 5.9 k/uL (3.8-10.6)
[2022-04-20 04:39] LABS: INR 1.1 (<1.2); Partial Thromboplastin Time 38.8 sec (22.0-30.0); Prothrombin Time 11.8 sec (9.0-12.0)
[2022-04-20] MEDS: HEPARIN SODIUM 1,000 UN/ML (10ML VL) IV PRN ×2 (04:47→12:10)
[2022-04-20 05:05] LABS: Calcium 7.8 mg/dL (8.4-10.2); Magnesium 2.2 mg/dL (1.6-2.3); Potassium 3.9 mmol/L (3.5-5.1); Total Bilirubin 1.7 mg/dL (0.2-1.3); Total Protein 5.7 g/dL (6.3-8.2)
[2022-04-20 05:36] LABS: C Reactive Protein 20.4 mg/dL (<1.0)
[2022-04-20 06:55] LABS: Glucose,Whole Blood 128 mg/dL (75-99)
[2022-04-20] MEDS: PANTOPRAZOLE 40 MG TABLET PO SCH (06:55)
[2022-04-20] MEDS: INSULIN ASPART (NovoLOG) 100 UNIT/ML VIAL SQ SCH ×4 (06:58→20:01)
[2022-04-20] MEDS: ACETAMINOPHEN TAB 325 MG TAB PO PRN (08:25)
[2022-04-20] MEDS: DRONEDARONE 400 MG TAB PO SCH ×2 (08:25→16:53)
[2022-04-20] MEDS: SODIUM CHLORIDE 0.9% 1,000 ML IV SCH ×4 (08:25→22:39)
[2022-04-20] MEDS: METOPROLOL TARTRATE 50 MG TAB PO SCH ×2 (08:25→20:01)
--- NOTE | 2022-04-20 08:34 | P.PN ---
Subjective Patient is less confused today. Denies chest pain difficulty in breathing or sustained palpitations. Remains in atrial fibrillation with somewhat of a poorly controlled ventricular rate. His blood pressure has improved. I will increase the dose of metoprolol to 50 twice a day as he was on prior to coming in. I don't have the echo report. I will order an echocardiogram on him. Once he is more stable I will consider transesophageal echo. I will repeat blood cultures on him. On exam comfortable at rest heart rate is 105 bpm irregular blood pressure is 140/80 O2 sat is 100% on room a there is a jugular venous distention chest exam reveals good air entry bilaterally heart exam was first and second heart sounds and ejection systolic murmur in aortic area abdomen is soft exam extremities did not will any edema per for pulses are felt Labs show a hemoglobin of 11.4 platelet count is 105 potassium is 3.9 creatinine is 1 Assessment and plan: Streptococcal septicemia Status post aortic valve replacement Persistent atrial fibrillation with poorly controlled ventricular rate I will increase the dose of metoprolol start the patient back on [id number] Check an echo Repeat blood cultures Consider SHANE Objective - Vital Signs Vital signs: Vital Signs Temp 97.4 F L 04/20/22 04:00 Pulse 105 H 04/20/22 07:00 Resp 32 H 04/20/22 07:00 BP 144/84 04/20/22 07:00 Pulse Ox 94 L 04/20/22 08:11 FiO2 40 04/19/22 12:00 Intake & Output 04/19/22 04/20/22 04/20/22 18:59 06:59 18:59 Intake Total 1500 1458.735 Output Total 655 595 Balance 845 863.735 Weight 97.8 kg Intake: IV 1150 1350 0.9 NaCl- 1100 1300 Zosyn 50 cefTRIAXone 2 gm In 50 Sodium Chloride 0.9% 50 ml @ 100 mls/hr IVPB Q24H [facility] Rx#:[id number] Intake, IV Titration 350 108.735 Amount Heparin Sod,Pork in 0.45% 108.735 NaCl 25,000 unit In 0.45 % NaCl 1 250ml.bag @ 11. 0231 UNITS/KG/HR 10 mls/ hr IV .Q24H [facility] Rx#: [id number] Magnesium Sulfate-D5w Pmx 100 1 gm In Dextrose/Water 1 100ml.bag @ 100 mls/hr IVPB Q1H [facility] Rx#: [id number] Vancomycin 1,500 mg In 250 Sodium Chloride 0.9% 250 ml @ 125 mls/hr IVPB Q16H [facility] Rx#:[id number] Output: Urine 655 595 Other: Voiding Method Diaper Indwelling Catheter Indwelling Catheter # Bowel Movements 1 - Labs CBC & Chem 7: 04/20/22 04:12 04/20/22 04:12 Labs: Abnormal Lab Results - Last 24 Hours (Table) 04/18/22 04/19/22 04/19/22 Range/Units 19:57 03:33 12:52 RBC (4.30-5.90) m/uL Hgb (13.0-17.5) gm/dL Hct (39.0-53.0) % Plt Count (150-450) k/uL Lymphocytes # (1.0-4.8) k/uL APTT (22.0-30.0) sec Sodium (137-145) mmol/L Chloride (98-107) mmol/L Glucose (74-99) mg/dL POC Glucose (mg/dL) 165 H (75-99) mg/dL Hemoglobin A1c 7.6 H (0.0-6.0) % Calcium (8.4-10.2) mg/dL Total Bilirubin (0.2-1.3) mg/dL C-Reactive Protein (<1.0) mg/dL Total Protein (6.3-8.2) g/dL Albumin (3.5-5.0) g/dL Procalcitonin 27.40 H (0.02-0.09) ng/mL 04/19/22 04/19/22 04/19/22 Range/Units 18:23 20:31 22:05 RBC (4.30-5.90) m/uL Hgb (13.0-17.5) gm/dL Hct (39.0-53.0) % Plt Count (150-450) k/uL Lymphocytes # (1.0-4.8) k/uL APTT 76.1 H (22.0-30.0) sec Sodium (137-145) mmol/L Chloride (98-107) mmol/L Glucose (74-99) mg/dL POC Glucose (mg/dL) 105 H 118 H (75-99) mg/dL Hemoglobin A1c (0.0-6.0) % Calcium (8.4-10.2) mg/dL Total Bilirubin (0.2-1.3) mg/dL C-Reactive Protein (<1.0) mg/dL Total Protein (6.3-8.2) g/dL Albumin (3.5-5.0) g/dL Procalcitonin (0.02-0.09) ng/mL 04/20/22 04/20/22 04/20/22 Range/Units 04:12 04:12 04:12 RBC 3.58 L (4.30-5.90) m/uL Hgb 11.4 L (13.0-17.5) gm/dL Hct 35.1 L (39.0-53.0) % Plt Count 105 L (150-450) k/uL Lymphocytes # 0.5 L (1.0-4.8) k/uL APTT 38.8 H (22.0-30.0) sec Sodium 136 L (137-145) mmol/L Chloride 108 H (98-107) mmol/L Glucose 120 H (74-99) mg/dL POC Glucose (mg/dL) (75-99) mg/dL Hemoglobin A1c (0.0-6.0) % Calcium 7.8 L (8.4-10.2) mg/dL Total Bilirubin 1.7 H (0.2-1.3) mg/dL C-Reactive Protein 20.4 H (<1.0) mg/dL Total Protein 5.7 L (6.3-8.2) g/dL Albumin 3.0 L (3.5-5.0) g/dL Procalcitonin (0.02-0.09) ng/mL 04/20/22 Range/Units 06:54 RBC (4.30-5.90) m/uL Hgb (13.0-17.5) gm/dL Hct (39.0-53.0) % Plt Count (150-450) k/uL Lymphocytes # (1.0-4.8) k/uL APTT (22.0-30.0) sec Sodium (137-145) mmol/L Chloride (98-107) mmol/L Glucose (74-99) mg/dL POC Glucose (mg/dL) 128 H (75-99) mg/dL Hemoglobin A1c (0.0-6.0) % Calcium (8.4-10.2) mg/dL Total Bilirubin (0.2-1.3) mg/dL C-Reactive Protein (<1.0) mg/dL Total Protein (6.3-8.2) g/dL Albumin (3.5-5.0) g/dL Procalcitonin (0.02-0.09) ng/mL Microbiology - Last 24 Hours (Table) 04/18/22 15:27 Blood Culture Gram Stain - Preliminary Blood Blood Culture - Preliminary Streptococcus species 04/18/22 15:32 Blood Culture Gram Stain - Preliminary Blood 04/18/22 15:27 Blood Culture - Final Blood
--- NOTE | 2022-04-20 08:34 | P.PN ---
Subjective Principal diagnosis: Altered mental status The patient is admitted for altered mental status and has found to have bacteremia related to Streptococcus species. Infectious diseases transition to vancomycin. We are awaiting sensitivity. The patient feels much better. No fever spikes since yesterday. Some chills last night. No diarrhea Objective - Vital Signs Vital signs: Vital Signs Temp 97.4 F L 04/20/22 04:00 Pulse 105 H 04/20/22 07:00 Resp 32 H 04/20/22 07:00 BP 144/84 04/20/22 07:00 Pulse Ox 94 L 04/20/22 08:11 FiO2 40 04/19/22 12:00 Intake & Output 04/19/22 04/20/22 04/20/22 18:59 06:59 18:59 Intake Total 1500 1458.735 Output Total 655 595 Balance 845 863.735 Weight 97.8 kg Intake: IV 1150 1350 0.9 NaCl- 1100 1300 Zosyn 50 cefTRIAXone 2 gm In 50 Sodium Chloride 0.9% 50 ml @ 100 mls/hr IVPB Q24H [facility] Rx#:[id number] Intake, IV Titration 350 108.735 Amount Heparin Sod,Pork in 0.45% 108.735 NaCl 25,000 unit In 0.45 % NaCl 1 250ml.bag @ 11. 0231 UNITS/KG/HR 10 mls/ hr IV .Q24H [facility] Rx#: [id number] Magnesium Sulfate-D5w Pmx 100 1 gm In Dextrose/Water 1 100ml.bag @ 100 mls/hr IVPB Q1H [facility] Rx#: [id number] Vancomycin 1,500 mg In 250 Sodium Chloride 0.9% 250 ml @ 125 mls/hr IVPB Q16H [facility] Rx#:[id number] Output: Urine 655 595 Other: Voiding Method Diaper Indwelling Catheter Indwelling Catheter # Bowel Movements 1 - Constitutional General appearance: Present: average body habitus - EENT Eyes: Absent: abnormal pupil - Neck Neck: Absent: lymphadenopathy - Respiratory Respiratory: bilateral: CTA - Cardiovascular Rhythm: irregularly irregular Heart sounds: normal: S1, S2 Abnormal Heart Sounds: Absent: S3 Gallop - Gastrointestinal General gastrointestinal: Present: soft. Absent: tenderness - Integumentary Integumentary: Absent: cellulitis - Labs CBC & Chem 7: 04/20/22 04:12 04/20/22 04:12 Labs: Abnormal Lab Results - Last 24 Hours (Table) 04/18/22 04/19/22 04/19/22 Range/Units 19:57 03:33 12:52 RBC (4.30-5.90) m/uL Hgb (13.0-17.5) gm/dL Hct (39.0-53.0) % Plt Count (150-450) k/uL Lymphocytes # (1.0-4.8) k/uL APTT (22.0-30.0) sec Sodium (137-145) mmol/L Chloride (98-107) mmol/L Glucose (74-99) mg/dL POC Glucose (mg/dL) 165 H (75-99) mg/dL Hemoglobin A1c 7.6 H (0.0-6.0) % Calcium (8.4-10.2) mg/dL Total Bilirubin (0.2-1.3) mg/dL C-Reactive Protein (<1.0) mg/dL Total Protein (6.3-8.2) g/dL Albumin (3.5-5.0) g/dL Procalcitonin 27.40 H (0.02-0.09) ng/mL 04/19/22 04/19/22 04/19/22 Range/Units 18:23 20:31 22:05 RBC (4.30-5.90) m/uL Hgb (13.0-17.5) gm/dL Hct (39.0-53.0) % Plt Count (150-450) k/uL Lymphocytes # (1.0-4.8) k/uL APTT 76.1 H (22.0-30.0) sec Sodium (137-145) mmol/L Chloride (98-107) mmol/L Glucose (74-99) mg/dL POC Glucose (mg/dL) 105 H 118 H (75-99) mg/dL Hemoglobin A1c (0.0-6.0) % Calcium (8.4-10.2) mg/dL Total Bilirubin (0.2-1.3) mg/dL C-Reactive Protein (<1.0) mg/dL Total Protein (6.3-8.2) g/dL Albumin (3.5-5.0) g/dL Procalcitonin (0.02-0.09) ng/mL 04/20/22 04/20/22 04/20/22 Range/Units 04:12 04:12 04:12 RBC 3.58 L (4.30-5.90) m/uL Hgb 11.4 L (13.0-17.5) gm/dL Hct 35.1 L (39.0-53.0) % Plt Count 105 L (150-450) k/uL Lymphocytes # 0.5 L (1.0-4.8) k/uL APTT 38.8 H (22.0-30.0) sec Sodium 136 L (137-145) mmol/L Chloride 108 H (98-107) mmol/L Glucose 120 H (74-99) mg/dL POC Glucose (mg/dL) (75-99) mg/dL Hemoglobin A1c (0.0-6.0) % Calcium 7.8 L (8.4-10.2) mg/dL Total Bilirubin 1.7 H (0.2-1.3) mg/dL C-Reactive Protein 20.4 H (<1.0) mg/dL Total Protein 5.7 L (6.3-8.2) g/dL Albumin 3.0 L (3.5-5.0) g/dL Procalcitonin (0.02-0.09) ng/mL 04/20/22 Range/Units 06:54 RBC (4.30-5.90) m/uL Hgb (13.0-17.5) gm/dL Hct (39.0-53.0) % Plt Count (150-450) k/uL Lymphocytes # (1.0-4.8) k/uL APTT (22.0-30.0) sec Sodium (137-145) mmol/L Chloride (98-107) mmol/L Glucose (74-99) mg/dL POC Glucose (mg/dL) 128 H (75-99) mg/dL Hemoglobin A1c (0.0-6.0) % Calcium (8.4-10.2) mg/dL Total Bilirubin (0.2-1.3) mg/dL C-Reactive Protein (<1.0) mg/dL Total Protein (6.3-8.2) g/dL Albumin (3.5-5.0) g/dL Procalcitonin (0.02-0.09) ng/mL Microbiology - Last 24 Hours (Table) 04/18/22 15:27 Blood Culture Gram Stain - Preliminary Blood Blood Culture - Preliminary Streptococcus species 04/18/22 15:32 Blood Culture Gram Stain - Preliminary Blood 04/18/22 15:27 Blood Culture - Final Blood Assessment and Plan (1) Gram positive septicemia Current Visit: Yes Status: Acute Code(s): A41.89 - OTHER SPECIFIED SEPSIS SNOMED Code(s): 708454337956 (2) Acute delirium Current Visit: Yes Status: Acute Code(s): R41.0 - DISORIENTATION, U NSPECIFIED SNOMED Code(s): 2522580 (3) Atrial fibrillation Current Visit: No Status: Acute Code(s): I48.91 - UNSPECIFIED ATRIAL FIBRILLATION SNOMED Code(s): 27484215 (4) Diabetes Current Visit: No Status: Acute Code(s): E11.9 - TYPE 2 DIABETES MELLITUS WITHOUT COMPLICATIONS SNOMED Code(s): 70833063 Plan: Continue current regimen of treatment. Check CBC and CMP in a.m. Sensitivity is pending. Appreciate multiple consultants input. Hopefully transition to general medical floor in the next 24 hours.
[2022-04-20 08:57] LABS: Erythrocyte Sedimentation Rate 31 mm/hr (0-15)
[2022-04-20 11:49] LABS: Glucose,Whole Blood 129 mg/dL (75-99)
--- NOTE | 2022-04-20 12:52 | P.PN ---
Subjective Progress Note Date: 04/20/22 Principal diagnosis: Gram-positive sepsis and bacteremia This is a 72-year-old white male with history of multiple medical problems including paroxysmal atrial fibrillation, history of aortic valve replacement, patient had a bioprosthetic valve, history of hypertension, seizure disorder, depression, patient presented to the ER with mostly altered mental status and extreme agitation at home. Upon his initial evaluation in the ER, patient was found to be in atrial fibrillation, but controlled ventricular rate. Patient was also noted to have fever, his temp initially was as high as 104.2. Patient was started empirically on antibiotics and the patient received so far Rocephin, Zosyn, and vancomycin. His blood cultures were positive for gram-positive infection, patient was admitted to the ICU and this consult was initiated. His initial workup included blood cultures as noted above, CT of the head, and EKG showed no evidence of acute ischemic changes. At any rate patient is now being followed by cardiology, there is potential concern of possible infective endocar ditis, patient does have a history of a prosthetic aortic valve. Patient is still on antibiotics empirically, infectious disease consultation is also pending. Hemodynamically the patient is not requiring any pressors. He is hemodynamically stable in spite of his gram-positive bacteremia and sepsis. CBC is relatively normal. His d-dimer is 8.56, electrodes are normal, renal profile showed a BUN of 18 and creatinine of 1.36. His initial chest x-ray on admission showed possible interstitial edema, however follow-up chest x-ray this morning showed no significant active pulmonary disease. No evidence of heart failure, no evidence of infiltrates Reevaluated today on 04/20/22, patient remains in the ICU, he is doing great. He is on room air, O2 saturations 94%, patient is on antibiotic for his bacteremia, it is a streptococcal bacteremia, exact primary source is not clear yet. Patient is being followed by cardiology, echocardiogram is pending, considering SHANE. Repeat blood cultures are pending. Patient is on vancomycin only, and clinically the patient made a significant improvement in mental status over the last 24 hours remains on heparin for his atrial fibrillation. Remains on antibiotics. And again mentation-alarcon the patient is demonstrating a significant improvement. WBC count is 5.9 hemoglobin is 11.4. PTT is therapeutic. Electrolytes are normal renal profile is normal Objective - Vital Signs Vital signs: Vital Signs Temp 97.6 F 04/20/22 12:00 Pulse 97 04/20/22 12:00 Resp 18 04/20/22 12:00 BP 121/88 04/20/22 12:00 Pulse Ox 96 04/20/22 12:00 FiO2 40 04/19/22 12:00 Intake & Output 04/19/22 04/20/22 04/20/22 18:59 06:59 18:59 Intake Total 1500 1458.735 573.978 Output Total 655 595 190 Balance 845 863.735 383.978 Weight 97.8 kg Intake: IV 1150 1350 500 0.9 NaCl- 1100 1300 500 Zosyn 50 cefTRIAXone 2 gm In 50 Sodium Chloride 0.9% 50 ml @ 100 mls/hr IVPB Q24H [facility] Rx#:[id number] Intake, IV Titration 350 108.735 73.978 Amount Heparin Sod,Pork in 0.45% 108.735 73.978 NaCl 25,000 unit In 0.45 % NaCl 1 250ml.bag @ 11. 0231 UNITS/KG/HR 10 mls/ hr IV .Q24H [facility] Rx#: [id number] Magnesium Sulfate-D5w Pmx 100 1 gm In Dextrose/Water 1 100ml.bag @ 100 mls/hr IVPB Q1H [facility] Rx#: [id number] Vancomycin 1,500 mg In 250 Sodium Chloride 0.9% 250 ml @ 125 mls/hr IVPB Q16H [facility] Rx#:[id number] Output: Urine 655 595 190 Other: Voiding Method Diaper Indwelling Catheter Indwelling Catheter # Bowel Movements 1 - Exam Physical Exam: Revealed 72-year-old white male in no distress. Patient is on room air. Head: Atraumatic, normocephalic. HEENT:[Neck is supple.] [No neck masses.] [No thyromegaly.] [No JVD.] Chest: [Clear throughout, no crackles, no rhonchi, no wheezes.] Cardiac Exam: Irregular irregular rhythm, 2/6 systolic murmur thought the precordium. Abdomen: [Soft, nontender, no megaly, no rebound, no guarding, normal bowel sounds.] Extremities: [No clubbing, no edema, no cyanosis.] Good pulses bilaterally. Neurological Exam: Alert and oriented 3, no gross focal deficit. Psychiatric: Normal mood, normal affect, normal mental status examination - Labs CBC & Chem 7: 04/20/22 04:12 04/20/22 04:12 Labs: Abnormal Lab Results - Last 24 Hours (Table) 04/19/22 04/19/22 04/19/22 Range/Units 03:33 12:52 18:23 RBC (4.30-5.90) m/uL Hgb (13.0-17.5) gm/dL Hct (39.0-53.0) % Plt Count (150-450) k/uL Lymphocytes # (1.0-4.8) k/uL ESR (0-15) mm/hr APTT (22.0-30.0) sec Sodium (137-145) mmol/L Chloride (98-107) mmol/L Glucose (74-99) mg/dL POC Glucose (mg/dL) 165 H 105 H (75-99) mg/dL Hemoglobin A1c 7.6 H (0.0-6.0) % Calcium (8.4-10.2) mg/dL Total Bilirubin (0.2-1.3) mg/dL C-Reactive Protein (<1.0) mg/dL Total Protein (6.3-8.2) g/dL Albumin (3.5-5.0) g/dL 04/19/22 04/19/22 04/20/22 Range/Units 20:31 22:05 04:12 RBC 3.58 L (4.30-5.90) m/uL Hgb 11.4 L (13.0-17.5) gm/dL Hct 35.1 L (39.0-53.0) % Plt Count 105 L (150-450) k/uL Lymphocytes # 0.5 L (1.0-4.8) k/uL ESR 31 H (0-15) mm/hr APTT 76.1 H (22.0-30.0) sec Sodium (137-145) mmol/L Chloride (98-107) mmol/L Glucose (74-99) mg/dL POC Glucose (mg/dL) 118 H (75-99) mg/dL Hemoglobin A1c (0.0-6.0) % Calcium (8.4-10.2) mg/dL Total Bilirubin (0.2-1.3) mg/dL C-Reactive Protein (<1.0) mg/dL Total Protein (6.3-8.2) g/dL Albumin (3.5-5.0) g/dL 04/20/22 04/20/22 04/20/22 Range/Units 04:12 04:12 06:54 RBC (4.30-5.90) m/uL Hgb (13.0-17.5) gm/dL Hct (39.0-53.0) % Plt Count (150-450) k/uL Lymphocytes # (1.0-4.8) k/uL ESR (0-15) mm/hr APTT 38.8 H (22.0-30.0) sec Sodium 136 L (137-145) mmol/L Chloride 108 H (98-107) mmol/L Glucose 120 H (74-99) mg/dL POC Glucose (mg/dL) 128 H (75-99) mg/dL Hemoglobin A1c (0.0-6.0) % Calcium 7.8 L (8.4-10.2) mg/dL Total Bilirubin 1.7 H (0.2-1.3) mg/dL C-Reactive Protein 20.4 H (<1.0) mg/dL Total Protein 5.7 L (6.3-8.2) g/dL Albumin 3.0 L (3.5-5.0) g/dL 04/20/22 04/20/22 Range/Units 10:54 11:46 RBC (4.30-5.90) m/uL Hgb (13.0-17.5) gm/dL Hct (39.0-53.0) % Plt Count (150-450) k/uL Lymphocytes # (1.0-4.8) k/uL ESR (0-15) mm/hr APTT 40.1 H (22.0-30.0) sec Sodium (137-145) mmol/L Chloride (98-107) mmol/L Glucose (74-99) mg/dL POC Glucose (mg/dL) 129 H (75-99) mg/dL Hemoglobin A1c (0.0-6.0) % Calcium (8.4-10.2) mg/dL Total Bilirubin (0.2-1.3) mg/dL C-Reactive Protein (<1.0) mg/dL Total Protein (6.3-8.2) g/dL Albumin (3.5-5.0) g/dL Microbiology - Last 24 Hours (Table) 04/18/22 15:27 Blood Culture Gram Stain - Preliminary Blood Blood Culture - Preliminary Streptococcus species 04/18/22 15:32 Blood Culture Gram Stain - Preliminary Blood Assessment and Plan Assessment: Impression: Altered mental status secondary to sepsis and bacteremia/gram-positive bacteremia. Possible endocarditis, patient has known bioprosthetic aortic valve. History of aortic valve replacement. Paroxysmal atrial fibrillation. Type 2 diabetes. Benign essential hypertension. Seizure disorder. Underlying dementia. Acute kidney injury, cardiorenal unless for otherwise. Improving. Recommendation: Continue antibiotics/vancomycin. Patient may require SHANE. His 2-D echo is pending. Transfer patient out of the ICU to a monitor bed on selective. Continue to monitor blood cultures. GI and DVT prophylaxis. Will continue to follow. Time with Patient: Less than 30
--- NOTE | 2022-04-20 12:54 | CA ---
Transthoracic Echo Report Name: Tano Lennon Age: 72 Gender: M : 1950 Exam Date: 04/20/2022 08:41 Exam Location: [facility] Ht (in): 72 Wt (lb): 215 Ordering Physician: Dimitrios Schofield MD ([id number]) Attending/Referring Phys: Chandu BRUCE [employer]venir As[employer]er Urszula Dempsey RDCS Procedure CPT: Indications: a fib Cardiac Hx: Aov Replacement, Cabg x3 Technical Quality: Good Contrast 1: N/A Total Dose (mL): Contrast 2: Total Dose (mL): MEASUREMENTS (Male / Female) Normal Values 2D ECHO LV Diastolic Diameter PLAX 4.1 cm 4.2 - 5.9 / 3.9 - 5.3 cm LV Systolic Diameter PLAX 3.6 cm IVS Diastolic Thickness 1.6 cm 0.6 - 1.0 / 0.6 - 0.9 cm LVPW Diastolic Thickness 1.3 cm 0.6 - 1.0 / 0.6 - 0.9 cm LV Relative Wall Thickness 0.7 RV Internal Dim ED PLAX 4.3 cm LVOT Diameter 1.8 cm LA Systolic Diameter LX 5.4 cm 3.0 - 4.0 / 2.7 - 3.8 cm M-MODE Aortic Root Diameter MM 4.2 cm LA Systolic Diameter MM 5.6 cm LA Ao Ratio MM 1.3 MV E Point Septal Separation 0.4 cm DOPPLER AV Peak Velocity 207.7 cm/s AV Peak Gradient 17.2 mmHg AV Mean Velocity 135.2 cm/s AV Mean Gradient 8.3 mmHg AV Velocity Time Integral 30.1 cm LVOT Peak Velocity 97.8 cm/s LVOT Peak Gradient 3.8 mmHg AV Area Cont Eq pk 1.2 cm??? MV E' Velocity 4.6 cm/s TR Peak Velocity 426.6 cm/s TR Peak Gradient 72.8 mmHg Right Ventricular Systolic Press 74.8 mmHg FINDINGS Left Ventricle Normal Left ventricular size, Mild wall thickness, systolic function with no obvious regional wall motion abnormalities. Left ventricular ejection fraction is estimated at 50-55 %. Right Ventricle Severe right ventricular dilatation. Moderate to severe pulmonary hypertension. Right Atrium Normal right atrial size. There is flow across the interatrial septum suggestive of a PFO or a small ASD Left Atrium Severely increased left atrial diameter. Mildly increased left atrial area. Mitral Valve Structurally normal mitral valve. Mild mitral regurgitation. Aortic Valve bioprosthetic aortic valve without stenosis with a peak gradient 17 mmHg, mean gradient 8mmHg. Tricuspid Valve [id number] tricuspid regurgitation. Pulmonic Valve Structurally normal pulmonic valve. Mild pulmonic regurgitation. Pericardium No pericardial or pleural effusion. Aorta Normal size aortic root and proximal ascending aorta. CONCLUSIONS LV size and systolic function is fairly well-preserved estimated ejection fraction of about 50%. There is significant right ventricular enlargement. There is a small PFO or ASD. Bioprosthetic aortic valve noted with mild gradient. There is significant pulmonary hypertension noted. With PA pressures of about 65 mmHg. No pericardial effusion Previewed by: Dr. Elba Sanchez MD (Electronically Signed) Final Date: 20 April 2022 12:53
[2022-04-20 16:33] LABS: Glucose,Whole Blood 155 mg/dL (75-99)
[2022-04-20] MEDS: HEPARIN SOD,PORK IN 0.45% NACL 25,000 UNIT in 0.45% NACL 1 250ML.BAG IV SCH (18:25)
[2022-04-20 19:59] LABS: Glucose,Whole Blood 181 mg/dL (75-99)
[2022-04-20] MEDS: IPRATROPIUM-ALBUTEROL 3 ML NEB INHALATION PRN (23:12)
[2022-04-21 06:39] LABS: Glucose,Whole Blood 166 mg/dL (75-99)
[2022-04-21] MEDS: DRONEDARONE 400 MG TAB PO SCH ×2 (06:41→07:42)
[2022-04-21] MEDS: PANTOPRAZOLE 40 MG TABLET PO SCH (06:41)
[2022-04-21] MEDS: INSULIN ASPART (NovoLOG) 100 UNIT/ML VIAL SQ SCH ×4 (06:41→21:04)
[2022-04-21 07:37] LABS: Basophils % (A) 1 %; Eosinophils % (A) 1 %; HCT 31.7 % (39.0-53.0); HGB 10.2 gm/dL (13.0-17.5); Lymphocytes # (A) 0.9 k/uL (1.0-4.8); Lymphocytes % (A) 15 %; MCH 31.4 pg (25.0-35.0); MCHC 32.1 g/dL (31.0-37.0); MCV 97.7 fL (80.0-100.0); Mean Platelet Volume 9.4; Monocytes # (A) 0.4 k/uL (0-1.0); Monocytes % (A) 7 %; Neutrophils # (A) 4.3 k/uL (1.3-7.7); Neutrophils % (A) 74 %; Platelet Count 107 k/uL (150-450); RBC 3.25 m/uL (4.30-5.90); RDW 13.4 % (11.5-15.5); WBC 5.8 k/uL (3.8-10.6)
[2022-04-21] MEDS: METOPROLOL TARTRATE 50 MG TAB PO SCH ×2 (07:42→21:06)
--- NOTE | 2022-04-21 07:45 | P.PN ---
Subjective Progress Note Date: 04/20/22 Patient was seen for a follow-up. Patient is much more alert and awake. Patient denies headache. He is reclined up in his bed. Patient's was also present today. Patient has history of atrial fibrillation since he had undergone heart surgery about 5 years ago. He had undergone cardiac ablation last year. Patient has an upcoming appointment with Dr. Hendrickson on 05/04/2022 for what sounds like cardioversion. Patient used to be on Eliquis for a long time, but apparently prior to admission he was not on this medication, as the medication list from home does not mention about any anticoagulants. Patient denies any numbness tingling focal weakness. Objective - Vital Signs Vital signs: Vital Signs Temp 97.7 F 04/21/22 04:00 Pulse 109 H 04/21/22 06:00 Resp 12 04/21/22 06:00 BP 135/81 04/21/22 06:00 Pulse Ox 97 04/21/22 06:00 FiO2 40 04/19/22 12:00 Intake & Output 04/20/22 04/21/22 04/21/22 18:59 06:59 18:59 Intake Total 8220.377 1262 Output Total 440 1260 Balance 601.265 -260 Intake: IV 900 1000 0.9 NaCl- 900 1000 Intake, IV Titration 141.265 Amount Heparin Sod,Pork in 0.45% 141.265 NaCl 25,000 unit In 0.45 % NaCl 1 250ml.bag @ 11. 0231 UNITS/KG/HR 10 mls/ hr IV .Q24H [facility] Rx#: [id number] Output: Urine 440 1260 Other: Voiding Method Indwelling Catheter Indwelling Catheter # Bowel Movements 2 - Exam Patient is alert and awake. He states it is March 28 and the year is . He knows he is in [facility]. Patient name and repeat very well. Speech and language functions are normal. Cranial nerves are all normal. Visual johnson are full, extraocular muscles are intact. Pupils are equal, round and reacting. Face is symmetric and tongue protrudes the midline. Hearing appears normal. On muscle strength testing there is no pronator drift and the strength is normal in arms and legs distally and proximally. Sensations are equal with no neglect on double simultaneous stimulation. No ataxia for merabx-wh-uupy testing. Tone and bulk of muscles normal. Gait not checked. Abdomen is soft nontender, chest is clear. - Labs CBC & Chem 7: 04/20/22 04:12 04/20/22 04:12 Labs: Abnormal Lab Results - Last 24 Hours (Table) 04/20/22 04/20/22 04/20/22 Range/Units 04:12 10:54 11:46 ESR 31 H (0-15) mm/hr APTT 40.1 H (22.0-30.0) sec POC Glucose (mg/dL) 129 H (75-99) mg/dL 04/20/22 04/20/22 04/20/22 Range/Units 16:32 16:59 19:57 ESR (0-15) mm/hr APTT 49.9 H (22.0-30.0) sec POC Glucose (mg/dL) 155 H 181 H (75-99) mg/dL 04/21/22 04/21/22 Range/Units 06:37 06:39 ESR (0-15) mm/hr APTT 44.8 H (22.0-30.0) sec POC Glucose (mg/dL) 166 H (75-99) mg/dL Microbiology - Last 24 Hours (Table) 04/20/22 11:00 Gram Stain - Preliminary Toe - Left First Wound Culture - Preliminary 04/20/22 11:00 Anaerobic Culture - Preliminary Toe - Left First 04/18/22 15:32 Blood Culture Gram Stain - Preliminary Blood Blood Culture - Preliminary Beta Hemolytic Strep Group G 04/18/22 15:27 Blood Culture Gram Stain - Preliminary Blood Blood Culture - Preliminary Beta Hemolytic Strep Group G Assessment and Plan Assessment: * Altered mental status, likely due to toxic metabolic encephalopathy. Patient's mentation remarkably improved today. Patient's examination is nonfocal. * Paroxysmal Atrial fibrillation * Seizure disorder/epilepsy * History of aortic valve replacement. * Hypertension * Diabetes * Peripheral neuropathy * Peripheral arterial disease * Mild to moderate chronic alcoholism * Marijuana use. * Mild cognitive impairment/early dementia Plan: * Patient's mentation and metabolic encephalopathy has remarkably improved t adelina. Denies any headache. No signs of intracranial infection. * Patient probably had a breakthrough seizure (2 days prior to arrival in the ER), likely due to sepsis. Patient denies any headache, his neck is supple, no signs of intracranial infection. Patient's dose of Keppra was recently increased to 1500 mg twice a day by his neurologist Dr. Lema about a month ago. His breakthrough seizure 1 day prior to arrival was likely because of sepsis. If he has any breakthrough seizure, would recommend adding a second antiepileptic agent. At this time, we will keep him on Keppra 1500 mg twice a day. * Patient started on heparin IV by cardiology. Neurologically clear for starting anticoagulation. * CTA of head and neck showed mild bilateral proximal internal carotid artery stenosis within the neck secondary to eccentric plaque formation. No significant occlusive disease intracranially. * B12 364, folate 12.10. We will start B12 1000 g orally daily. * Hemoglobin A1c 7.6. Target A1c <7.0. * Lipid panel with cholesterol 126, LDL 64, HDL 48 and triglycerides 68. Patient on simvastatin 40 mg daily. Continue simvastatin/atorvastatin. * DVT prophylaxis, patient on heparin subcu.
[2022-04-21 07:48] LABS: African American GFR (CKD) >90 (>60 ml/min/1.73 sqM); Anion Gap 8 mmol/L; Blood Urea Nitrogen 15 mg/dL (9-20); Calcium 7.6 mg/dL (8.4-10.2); Carbon Dioxide 20 mmol/L (22-30); Chloride 110 mmol/L (98-107); Glucose 137 mg/dL (74-99); Non-African American GFR(CKD) 81 (>60 ml/min/1.73 sqM); Potassium 3.6 mmol/L (3.5-5.1); Sodium 138 mmol/L (137-145)
--- NOTE | 2022-04-21 08:33 | P.PN ---
Subjective Principal diagnosis: Altered mental status The patient is admitted for altered mental status and has found to have bacteremia related to Streptococcus species. Infectious diseases transition to vancomycin. We are awaiting sensitivity. The patient feels much better. No fever spikes since yesterday. Resting comfortably Objective - Vital Signs Vital signs: Vital Signs Temp 98.1 F 04/21/22 07:00 Pulse 93 04/21/22 07:00 Resp 23 04/21/22 07:00 BP 133/74 04/21/22 07:00 Pulse Ox 95 04/21/22 07:00 FiO2 40 04/19/22 12:00 Intake & Output 04/20/22 04/21/22 04/21/22 18:59 06:59 18:59 Intake Total 6267.148 4606 200 Output Total 440 1260 235 Balance 601.265 -260 -35 Intake: IV 900 1000 200 0.9 NaCl- 900 1000 200 Intake, IV Titration 141.265 Amount Heparin Sod,Pork in 0.45% 141.265 NaCl 25,000 unit In 0.45 % NaCl 1 250ml.bag @ 11. 0231 UNITS/KG/HR 10 mls/ hr IV .Q24H [facility] Rx#: [id number] Output: Urine 440 1260 235 Other: Voiding Method Indwelling Catheter Indwelling Catheter Indwelling Catheter # Bowel Movements 2 - Constitutional General appearance: Present: average body habitus - EENT Eyes: Absent: abnormal pupil - Neck Neck: Absent: lymphadenopathy - Respiratory Respiratory: bilateral: CTA - Cardiovascular Rhythm: irregularly irregular Heart sounds: normal: S1, S2 Abnormal Heart Sounds: Absent: S3 Gallop, S4 Gallop - Gastrointestinal General gastrointestinal: Absent: tenderness - Integumentary Integumentary: Absent: cellulitis - Labs CBC & Chem 7: 04/21/22 06:39 04/21/22 06:39 Labs: Abnormal Lab Results - Last 24 Hours (Table) 04/20/22 04/20/22 04/20/22 Range/Units 04:12 10:54 11:46 RBC (4.30-5.90) m/uL Hgb (13.0-17.5) gm/dL Hct (39.0-53.0) % Plt Count (150-450) k/uL Lymphocytes # (1.0-4.8) k/uL ESR 31 H (0-15) mm/hr APTT 40.1 H (22.0-30.0) sec Chloride (98-107) mmol/L Carbon Dioxide (22-30) mmol/L Glucose (74-99) mg/dL POC Glucose (mg/dL) 129 H (75-99) mg/dL Calcium (8.4-10.2) mg/dL 04/20/22 04/20/22 04/20/22 Range/Units 16:32 16:59 19:57 RBC (4.30-5.90) m/uL Hgb (13.0-17.5) gm/dL Hct (39.0-53.0) % Plt Count (150-450) k/uL Lymphocytes # (1.0-4.8) k/uL ESR (0-15) mm/hr APTT 49.9 H (22.0-30.0) sec Chloride (98-107) mmol/L Carbon Dioxide (22-30) mmol/L Glucose (74-99) mg/dL POC Glucose (mg/dL) 155 H 181 H (75-99) mg/dL Calcium (8.4-10.2) mg/dL 04/21/22 04/21/22 04/21/22 Range/Units 06:37 06:39 06:39 RBC 3.25 L (4.30-5.90) m/uL Hgb 10.2 L (13.0-17.5) gm/dL Hct 31.7 L (39.0-53.0) % Plt Count 107 L (150-450) k/uL Lymphocytes # 0.9 L (1.0-4.8) k/uL ESR (0-15) mm/hr APTT 44.8 H (22.0-30.0) sec Chloride (98-107) mmol/L Carbon Dioxide (22-30) mmol/L Glucose (74-99) mg/dL POC Glucose (mg/dL) 166 H (75-99) mg/dL Calcium (8.4-10.2) mg/dL 04/21/22 Range/Units 06:39 RBC (4.30-5.90) m/uL Hgb (13.0-17.5) gm/dL Hct (39.0-53.0) % Plt Count (150-450) k/uL Lymphocytes # (1.0-4.8) k/uL ESR (0-15) mm/hr APTT (22.0-30.0) sec Chloride 110 H (98-107) mmol/L Carbon Dioxide 20 L (22-30) mmol/L Glucose 137 H (74-99) mg/dL POC Glucose (mg/dL) (75-99) mg/dL Calcium 7.6 L (8.4-10.2) mg/dL Microbiology - Last 24 Hours (Table) 04/20/22 11:00 Gram Stain - Preliminary Toe - Left First Wound Culture - Preliminary 04/20/22 11:00 Anaerobic Culture - Preliminary Toe - Left First 04/18/22 15:32 Blood Culture Gram Stain - Preliminary Blood Blood Culture - Preliminary Beta Hemolytic Strep Group G 04/18/22 15:27 Blood Culture Gram Stain - Preliminary Blood Blood Culture - Preliminary Beta Hemolytic Strep Group G Assessment and Plan (1) Gram positive septicemia Current Visit: Yes Status: Acute Code(s): A41.89 - OTHER SPECIFIED SEPSIS SNOMED Code(s): 769304386765 (2) Acute delirium Current Visit: Yes Status: Acute Code(s): R41.0 - DISORIENTATION, UNSPECIFIED SNOMED Code(s): 6470842 (3) Atrial fibrillation Current Visit: No Status: Acute Code(s): I48.91 - UNSPECIFIED ATRIAL FIBRILLATION SNOMED Code(s): 27051699 (4) Diabetes Current Visit: No Status: Acute Code(s): E11.9 - TYPE 2 DIABETES MELLITUS WITHOUT COMPLICATIONS SNOMED Code(s): 17549582 Plan: Continue current regimen of treatment. Check CBC and CMP in a.m. Sensitivity is pending. Appreciate multiple consultants input. Clinically improving..
[2022-04-21] MEDS ORDERED: POTASSIUM CHLORIDE ER 20 MEQ TAB.ER PO STA (08:55)
[2022-04-21] MEDS: CYANOCOBALAMIN 500 MCG TAB PO SCH (09:08)
--- NOTE | 2022-04-21 11:49 | P.PN ---
Subjective Progress Note Date: 04/21/22 Principal diagnosis: Gram-positive sepsis and bacteremia This is a 72-year-old white male with history of multiple medical problems including paroxysmal atrial fibrillation, history of aortic valve replacement, patient had a bioprosthetic valve, history of hypertension, seizure disorder, depression, patient presented to the ER with mostly altered mental status and extreme agitation at home. Upon his initial evaluation in the ER, patient was found to be in atrial fibrillation, but controlled ventricular rate. Patient was also noted to have fever, his temp initially was as high as 104.2. Patient was started empirically on antibiotics and the patient received so far Rocephin, Zosyn, and vancomycin. His blood cultures were positive for gram-positive infection, patient was admitted to the ICU and this consult was initiated. His initial workup included blood cultures as noted above, CT of the head, and EKG showed no evidence of acute ischemic changes. At any rate patient is now being followed by cardiology, there is potential concern of possible infective endocar ditis, patient does have a history of a prosthetic aortic valve. Patient is still on antibiotics empirically, infectious disease consultation is also pending. Hemodynamically the patient is not requiring any pressors. He is hemodynamically stable in spite of his gram-positive bacteremia and sepsis. CBC is relatively normal. His d-dimer is 8.56, electrodes are normal, renal profile showed a BUN of 18 and creatinine of 1.36. His initial chest x-ray on admission showed possible interstitial edema, however follow-up chest x-ray this morning showed no significant active pulmonary disease. No evidence of heart failure, no evidence of infiltrates Reevaluated today on 04/20/22, patient remains in the ICU, he is doing great. He is on room air, O2 saturations 94%, patient is on antibiotic for his bacteremia, it is a streptococcal bacteremia, exact primary source is not clear yet. Patient is being followed by cardiology, echocardiogram is pending, considering SHANE. Repeat blood cultures are pending. Patient is on vancomycin only, and clinically the patient made a significant improvement in mental status over the last 24 hours remains on heparin for his atrial fibrillation. Remains on antibiotics. And again mentation-alarcon the patient is demonstrating a significant improvement. WBC count is 5.9 hemoglobin is 11.4. PTT is therapeutic. Electrolytes are normal renal profile is normal Reevaluated today on 04/21/22, patient remains in the ICU as an overflow. Patient is doing well, he had intermittent episodes of confusion last night, but the patient may have underlying dementia. At any rate today the patient is doing great, asymptomatic, his transthoracic echo was noted. Blood cultures from 04/20 are still pending. His last positive blood culture was from 04/18. Patient may or may not require SHANE, and this is yet to be decided upon by cardiology. In the meantime the patient remains on antibiotics for his beta hemolytic strep group G bacteremia and sepsis Objective - Vital Signs Vital signs: Vital Signs Temp 98.1 F 04/21/22 07:00 Pulse 90 04/21/22 10:00 Resp 23 04/21/22 10:00 BP 126/86 04/21/22 10:00 Pulse Ox 98 04/21/22 10:00 FiO2 40 04/19/22 12:00 Intake & Output 04/20/22 04/21/22 04/21/22 18:59 06:59 18:59 Intake Total 0236.191 2995 400 Output Total 440 1260 435 Balance 601.265 -260 -35 Intake: IV 900 1000 400 0.9 NaCl- 900 1000 400 Intake, IV Titration 141.265 Amount Heparin Sod,Pork in 0.45% 141.265 NaCl 25,000 unit In 0.45 % NaCl 1 250ml.bag @ 11. 0231 UNITS/KG/HR 10 mls/ hr IV .Q24H [facility] Rx#: [id number] Output: Urine 440 1260 435 Other: Voiding Method Indwelling Catheter Indwelling Catheter Indwelling Catheter # Bowel Movements 2 - Exam Physical Exam: Revealed 72-year-old white male in no distress. Patient is on room air. Head: Atraumatic, normocephalic. HEENT:[Neck is supple.] [No neck masses.] [No thyromegaly.] [No JVD.] Chest: [Clear throughout, no crackles, no rhonchi, no wheezes.] Cardiac Exam: Irregular irregular rhythm, 2/6 systolic murmur thought the precordium. Abdomen: [Soft, nontender, no megaly, no rebound, no guarding, normal bowel sounds.] Extremities: [No clubbing, no edema, no cyanosis.] Good pulses bilaterally. Neurological Exam: Alert and oriented 3, no gross focal deficit. Psychiatric: Normal mood, normal affect, normal mental status examination - Labs CBC & Chem 7: 04/21/22 06:39 04/21/22 06:39 Labs: Abnormal Lab Results - Last 24 Hours (Table) 04/20/22 04/20/22 04/20/22 Range/Units 11:46 16:32 16:59 RBC (4.30-5.90) m/uL Hgb (13.0-17.5) gm/dL Hct (39.0-53.0) % Plt Count (150-450) k/uL Lymphocytes # (1.0-4.8) k/uL APTT 49.9 H (22.0-30.0) sec Chloride (98-107) mmol/L Carbon Dioxide (22-30) mmol/L Glucose (74-99) mg/dL POC Glucose (mg/dL) 129 H 155 H (75-99) mg/dL Calcium (8.4-10.2) mg/dL 04/20/22 04/21/22 04/21/22 Range/Units 19:57 06:37 06:39 RBC (4.30-5.90) m/uL Hgb (13.0-17.5) gm/dL Hct (39.0-53.0) % Plt Count (150-450) k/uL Lymphocytes # (1.0-4.8) k/uL APTT 44.8 H (22.0-30.0) sec Chloride (98-107) mmol/L Carbon Dioxide (22-30) mmol/L Glucose (74-99) mg/dL POC Glucose (mg/dL) 181 H 166 H (75-99) mg/dL Calcium (8.4-10.2) mg/dL 04/21/22 04/21/22 Range/Units 06:39 06:39 RBC 3.25 L (4.30-5.90) m/uL Hgb 10.2 L (13.0-17.5) gm/dL Hct 31.7 L (39.0-53.0) % Plt Count 107 L (150-450) k/uL Lymphocytes # 0.9 L (1.0-4.8) k/uL APTT (22.0-30.0) sec Chloride 110 H (98-107) mmol/L Carbon Dioxide 20 L (22-30) mmol/L Glucose 137 H (74-99) mg/dL POC Glucose (mg/dL) (75-99) mg/dL Calcium 7.6 L (8.4-10.2) mg/dL Microbiology - Last 24 Hours (Table) 04/20/22 11:00 Gram Stain - Preliminary Toe - Left First Wound Culture - Preliminary 04/20/22 11:00 Anaerobic Culture - Preliminary Toe - Left First 04/18/22 15:32 Blood Culture Gram Stain - Preliminary Blood Blood Culture - Preliminary Beta Hemolytic Strep Group G 04/18/22 15:27 Blood Culture Gram Stain - Preliminary Blood Blood Culture - Preliminary Beta Hemolytic Strep Group G Assessment and Plan Assessment: Impression: Altered mental status secondary to sepsis and bacteremia/gram-positive bacteremia. Beta hemolytic strep group G Possible endocarditis, patient has known bioprosthetic aortic valve. History of aortic valve replacement. Paroxysmal atrial fibrillation. Type 2 diabetes. Benign essential hypertension. Seizure disorder. Underlying dementia. Acute kidney injury, cardiorenal unless for otherwise. Improving. Recommendation: Continue antibiotics/vancomycin. Patient may require SHANE. His 2-D echo was reviewed. Transfer patient out of the ICU to a monitor bed on selective. Continue to monitor blood cultures. GI and DVT prophylaxis. Will continue to follow. Time with Patient: Less than 30
--- NOTE | 2022-04-21 12:15 | PN ---
PROGRESS NOTE 72-year-old gentleman with history of aortic valve replacement, who is admitted to hospital with confusion and was found to be in atrial fibrillation. His blood cultures have come back positive and he is currently on antibiotics. His blood cultures have been persistently positive. An echocardiogram did not reveal any vegetation. I am going to perform a transesophageal echo on him to rule out infective endocarditis. His blood cultures have been repeated today. The patient underwent wound cultures. EXAM: Heart rate is 90 beats per minute. Blood pressure is 126/86. Respirations 18. Chest exam reveals good air entry bilaterally. Heart exam reveals first and second heart sounds. No gallop. Abdomen: Soft. Examination of extremities revealed pulses are palpable. LABS: Labs show a hemoglobin of 10.2, platelet count is 107. Potassium is 3.6. Creatinine is 0.95. ASSESSMENT: 1. Gram-positive septicemia status post aortic valve replacement. 2. Persistent atrial fibrillation with controlled ventricular rate. PLAN: I will continue the IV heparin, switch him to Eliquis if he is covered for it at the time prior to discharge. I will perform a transesophageal echo on him to rule out infective endocarditis. MMODL / IJN: [id number] /
[2022-04-21 12:40] LABS: Glucose,Whole Blood 165 mg/dL (75-99)
[2022-04-21] MEDS: SODIUM CHLORIDE 0.9% 1,000 ML IV SCH ×2 (14:34)
[2022-04-21] MEDS: HEPARIN SOD,PORK IN 0.45% NACL 25,000 UNIT in 0.45% NACL 1 250ML.BAG IV SCH (15:30)
[2022-04-21 18:09] LABS: Glucose,Whole Blood 177 mg/dL (70-110)
[2022-04-21 20:34] LABS: Glucose,Whole Blood 105 mg/dL (70-110)
[2022-04-21] MEDS: ACETAMINOPHEN TAB 325 MG TAB PO PRN (21:05)
[2022-04-22] MEDS: SODIUM CHLORIDE 0.9% 1,000 ML IV SCH ×3 (02:36→20:33)
[2022-04-22 05:53] LABS: Glucose,Whole Blood 96 mg/dL (70-110)
[2022-04-22] MEDS: INSULIN ASPART (NovoLOG) 100 UNIT/ML VIAL SQ SCH ×4 (06:01→20:22)
[2022-04-22] MEDS: PANTOPRAZOLE 40 MG TABLET PO SCH (06:42)
[2022-04-22] MEDS: DRONEDARONE 400 MG TAB PO SCH ×2 (06:43→18:03)
[2022-04-22] MEDS: HEPARIN SOD,PORK IN 0.45% NACL 25,000 UNIT in 0.45% NACL 1 250ML.BAG IV SCH (08:11)
[2022-04-22 08:12] LABS: HCT 31.5 % (39.0-53.0); HGB 10.1 gm/dL (13.0-17.5); MCH 31.1 pg (25.0-35.0); MCHC 32.2 g/dL (31.0-37.0); MCV 96.5 fL (80.0-100.0); Platelet Count 125 k/uL (150-450); RBC 3.26 m/uL (4.30-5.90); RDW 13.6 % (11.5-15.5); WBC 5.2 k/uL (3.8-10.6)
[2022-04-22] MEDS: METOPROLOL TARTRATE 50 MG TAB PO SCH ×2 (08:19→20:24)
[2022-04-22] MEDS ORDERED: HEPARIN SODIUM 1,000 UN/ML (10ML VL) IVP ONE (08:27)
[2022-04-22 08:34] LABS: ALT 45 U/L (4-49); AST 58 U/L (17-59); African American GFR (CKD) >90 (>60 ml/min/1.73 sqM); Albumin 2.7 g/dL (3.5-5.0); Alkaline Phosphatase 118 U/L (38-126); Anion Gap 5 mmol/L; Blood Urea Nitrogen 12 mg/dL (9-20); Calcium 7.7 mg/dL (8.4-10.2); Carbon Dioxide 22 mmol/L (22-30); Chloride 113 mmol/L (98-107); Glucose 102 mg/dL (74-99); Non-African American GFR(CKD) 86 (>60 ml/min/1.73 sqM); Potassium 3.9 mmol/L (3.5-5.1); Sodium 140 mmol/L (137-145); Total Bilirubin 2.2 mg/dL (0.2-1.3); Total Protein 5.3 g/dL (6.3-8.2)
--- NOTE | 2022-04-22 08:39 | P.PN ---
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 On today's evaluation that is 04/20/2022, the patient is afebrile the patient is more awake and alert today she is breathing comfortably denies having any chest pain or shortness of breath or cough no abdominal pain or diarrhea and no pain his left big toe Objective - Vital Signs Vital signs: Vital Signs Temp 98.2 F 04/20/22 08:00 Pulse 107 H 04/20/22 09:00 Resp 29 H 04/20/22 09:00 BP 124/90 04/20/22 09:00 Pulse Ox 94 L 04/20/22 09:00 FiO2 40 04/19/22 12:00 Intake & Output 04/19/22 04/20/22 04/20/22 18:59 06:59 18:59 Intake Total 1500 1458.735 100 Output Total 655 595 50 Balance 845 863.735 50 Weight 97.8 kg Intake: IV 1150 1350 100 0.9 NaCl- 1100 1300 100 Zosyn 50 cefTRIAXone 2 gm In 50 Sodium Chloride 0.9% 50 ml @ 100 mls/hr IVPB Q24H [facility] Rx#:[id number] Intake, IV Titration 350 108.735 Amount Heparin Sod,Pork in 0.45% 108.735 NaCl 25,000 unit In 0.45 % NaCl 1 250ml.bag @ 11. 0231 UNITS/KG/HR 10 mls/ hr IV .Q24H [facility] Rx#: [id number] Magnesium Sulfate-D5w Pmx 100 1 gm In Dextrose/Water 1 100ml.bag @ 100 mls/hr IVPB Q1H [facility] Rx#: [id number] Vancomycin 1,500 mg In 250 Sodium Chloride 0.9% 250 ml @ 125 mls/hr IVPB Q16H [facility] Rx#:[id number] Output: Urine 655 595 50 Other: Voiding Method Diaper Indwelling Catheter Indwelling Catheter # Bowel Movements 1 - Exam GENERAL DESCRIPTION: An elderly male lying in bed in no distress RESPIRATORY SYSTEM: Unlabored breathing , decreased breath sounds at bases HEART: S1 S2 regular rate and rhythm , ABDOMEN: Soft , no tenderness EXTREMITIES: No edema feet, left big toe with small wound and purulent drainage which was cultured - Labs CBC & Chem 7: 04/22/22 07:41 04/22/22 07:41 Labs: Abnormal Lab Results - Last 24 Hours (Table) 04/19/22 04/19/22 04/19/22 Range/Units 03:33 12:52 18:23 RBC (4.30-5.90) m/uL Hgb (13.0-17.5) gm/dL Hct (39.0-53.0) % Plt Count (150-450) k/uL Lymphocytes # (1.0-4.8) k/uL ESR (0-15) mm/hr APTT (22.0-30.0) sec Sodium (137-145) mmol/L Chloride (98-107) mmol/L Glucose (74-99) mg/dL POC Glucose (mg/dL) 165 H 105 H (75-99) mg/dL Hemoglobin A1c 7.6 H (0.0-6.0) % Calcium (8.4-10.2) mg/dL Total Bilirubin (0.2-1.3) mg/dL C-Reactive Protein (<1.0) mg/dL Total Protein (6.3-8.2) g/dL Albumin (3.5-5.0) g/dL 04/19/22 04/19/22 04/20/22 Range/Units 20:31 22:05 04:12 RBC 3.58 L (4.30-5.90) m/uL Hgb 11.4 L (13.0-17.5) gm/dL Hct 35.1 L (39.0-53.0) % Plt Count 105 L (150-450) k/uL Lymphocytes # 0.5 L (1.0-4.8) k/uL ESR 31 H (0-15) mm/hr APTT 76.1 H (22.0-30.0) sec Sodium (137-145) mmol/L Chloride (98-107) mmol/L Glucose (74-99) mg/dL POC Glucose (mg/dL) 118 H (75-99) mg/dL Hemoglobin A1c (0.0-6.0) % Calcium (8.4-10.2) mg/dL Total Bilirubin (0.2-1.3) mg/dL C-Reactive Protein (<1.0) mg/dL Total Protein (6.3-8.2) g/dL Albumin (3.5-5.0) g/dL 04/20/22 04/20/22 04/20/22 Range/Units 04:12 04:12 06:54 RBC (4.30-5.90) m/uL Hgb (13.0-17.5) gm/dL Hct (39.0-53.0) % Plt Count (150-450) k/uL Lymphocytes # (1.0-4.8) k/uL ESR (0-15) mm/hr APTT 38.8 H (22.0-30.0) sec Sodium 136 L (137-145) mmol/L Chloride 108 H (98-107) mmol/L Glucose 120 H (74-99) mg/dL POC Glucose (mg/dL) 128 H (75-99) mg/dL Hemoglobin A1c (0.0-6.0) % Calcium 7.8 L (8.4-10.2) mg/dL Total Bilirubin 1.7 H (0.2-1.3) mg/dL C-Reactive Protein 20.4 H (<1.0) mg/dL Total Protein 5.7 L (6.3-8.2) g/dL Albumin 3.0 L (3.5-5.0) g/dL Microbiology - Last 24 Hours (Table) 04/18/22 15:27 Blood Culture Gram Stain - Preliminary Blood Blood Culture - Preliminary Streptococcus species 04/18/22 15:32 Blood Culture Gram Stain - Preliminary Blood 04/18/22 15:27 Blood Culture - Final Blood Assessment and Plan (1) Gram positive septicemia Current Visit: Yes Status: Acute Code(s): A41.89 - OTHER SPECIFIED SEPSIS SNOMED Code(s): 162123098235 Plan: 1patient presented to hospital with sepsis and respiratory have fever elevated white count elevated lactic acid and now with evidence of gram-positive bacteremia source questioningly pneumonia as the patient did have significant elevated procalcitonin and currently do not have any other obvious focus of infection, urine has been negative her abdomen was soft and examination and no evidence of any cellulitis or joint swelling. 2blood cultures will be repeated document clearance of bacteremia. 3 patient did have a small wound to the left big toe with purulent drainage which was cultured and covered with a source of bacteremia 4continue with the Rocephin while waiting for the cultures to finalize Time with Patient: Less than 30
--- NOTE | 2022-04-22 08:41 | P.PN ---
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 On today's evaluation that is 04/21/2022, the patient remains to be afebrile the patient is breathing comfortably denies having any chest pain or shortness of breath or cough no abdominal pain or diarrhea and no pain his left big toe Objective - Vital Signs Vital signs: Vital Signs Temp 98.1 F 04/21/22 07:00 Pulse 90 04/21/22 10:00 Resp 23 04/21/22 10:00 BP 126/86 04/21/22 10:00 Pulse Ox 98 04/21/22 10:00 FiO2 40 04/19/22 12:00 Intake & Output 04/20/22 04/21/22 04/21/22 18:59 06:59 18:59 Intake Total 3748.483 9269 400 Output Total 440 1260 435 Balance 601.265 -260 -35 Intake: IV 900 1000 400 0.9 NaCl- 900 1000 400 Intake, IV Titration 141.265 Amount Heparin Sod,Pork in 0.45% 141.265 NaCl 25,000 unit In 0.45 % NaCl 1 250ml.bag @ 11. 0231 UNITS/KG/HR 10 mls/ hr IV .Q24H [facility] Rx#: [id number] Output: Urine 440 1260 435 Other: Voiding Method Indwelling Catheter Indwelling Catheter Indwelling Catheter # Bowel Movements 2 - Exam GENERAL DESCRIPTION: An elderly male lying in bed in no distress RESPIRATORY SYSTEM: Unlabored breathing , decreased breath sounds at bases HEART: S1 S2 regular rate and rhythm , ABDOMEN: Soft , no tenderness EXTREMITIES: No edema feet, left big toe with small wound and minimal drainage - Labs CBC & Chem 7: 04/22/22 07:41 04/22/22 07:41 Labs: Abnormal Lab Results - Last 24 Hours (Table) 04/20/22 04/20/22 04/20/22 Range/Units 16:32 16:59 19:57 RBC (4.30-5.90) m/uL Hgb (13.0-17.5) gm/dL Hct (39.0-53.0) % Plt Count (150-450) k/uL Lymphocytes # (1.0-4.8) k/uL APTT 49.9 H (22.0-30.0) sec Chloride (98-107) mmol/L Carbon Dioxide (22-30) mmol/L Glucose (74-99) mg/dL POC Glucose (mg/dL) 155 H 181 H (75-99) mg/dL Calcium (8.4-10.2) mg/dL 04/21/22 04/21/22 04/21/22 Range/Units 06:37 06:39 06:39 RBC 3.25 L (4.30-5.90) m/uL Hgb 10.2 L (13.0-17.5) gm/dL Hct 31.7 L (39.0-53.0) % Plt Count 107 L (150-450) k/uL Lymphocytes # 0.9 L (1.0-4.8) k/uL APTT 44.8 H (22.0-30.0) sec Chloride (98-107) mmol/L Carbon Dioxide (22-30) mmol/L Glucose (74-99) mg/dL POC Glucose (mg/dL) 166 H (75-99) mg/dL Calcium (8.4-10.2) mg/dL 04/21/22 Range/Units 06:39 RBC (4.30-5.90) m/uL Hgb (13.0-17.5) gm/dL Hct (39.0-53.0) % Plt Count (150-450) k/uL Lymphocytes # (1.0-4.8) k/uL APTT (22.0-30.0) sec Chloride 110 H (98-107) mmol/L Carbon Dioxide 20 L (22-30) mmol/L Glucose 137 H (74-99) mg/dL POC Glucose (mg/dL) (75-99) mg/dL Calcium 7.6 L (8.4-10.2) mg/dL Microbiology - Last 24 Hours (Table) 04/20/22 11:00 Gram Stain - Preliminary Toe - Left First Wound Culture - Preliminary 04/20/22 11:00 Anaerobic Culture - Preliminary Toe - Left First 04/18/22 15:32 Blood Culture Gram Stain - Preliminary Blood Blood Culture - Preliminary Beta Hemolytic Strep Group G 04/18/22 15:27 Blood Culture Gram Stain - Preliminary Blood Blood Culture - Preliminary Beta Hemolytic Strep Group G Assessment and Plan (1) Gram positive septicemia Current Visit: Yes Status: Acute Code(s): A41.89 - OTHER SPECIFIED SEPSIS SNOMED Code(s): 039538039751 Plan: 1patient presented to hospital with sepsis and respiratory have fever elevated white count elevated lactic acid and now with evidence of gram-positive bacteremia source questioningly pneumonia as the patient did have significant elevated procalcitonin and currently do not have any other obvious focus of infection, urine has been negative her abdomen was soft and examination and no evidence of any cellulitis or joint swelling. 2blood cultures will be repeated document clearance of bacteremia. 3 patient did have a small wound to the left big toe with purulent drainage which was cultured and covered with a source of bacteremia 4patient culture has been finalized group G strep which is usually of the skin and soft tissue origin, x-rays of the left foot has been ordered 5we will discontinue Rocephin and start the patient cefazolin 2 g every 8 hours
[2022-04-22] MEDS ORDERED: fentaNYL (PF) 50 MCG/ML 2 ML AMP ONE (08:48)
[2022-04-22] MEDS ORDERED: IV FLUID CONTINUATION 800 ML IV ONE (08:58)
[2022-04-22] MEDS ORDERED: BENZOCAINE SPRAY 1 CAN TOPICAL ONE (09:00)
[2022-04-22] MEDS ORDERED: MIDAZOLAM 2 MG/2 ML VIAL IV ONE (09:05)
[2022-04-22] MEDS ORDERED: fentaNYL (PF) 50 MCG/ML 2 ML AMP IV ONE (09:05)
--- NOTE | 2022-04-22 09:46 | P.PN ---
Subjective Progress Note Date: 04/21/22 Patient was seen for a follow-up. Patient is fully alert and awake. Patient denies headache. He is sitting in the recliner. Patient's was also present today. Patient denies any focal symptoms. Denies any complaints. Wants to go home. Patient has history of atrial fibrillation since he had undergone heart surgery about 5 years ago. He had undergone cardiac ablation last year. Patient has an upcoming appointment with Dr. Hendrickson on 05/04/2022 for what sounds like cardioversion. Patient used to be on Eliquis for a long time, but apparently prior to admission he was not on this medication, as the medication list from home does not mention about any anticoagulants. Patient denies any numbness tingling focal weakness. Objective - Vital Signs Vital signs: Vital Signs Temp 98 F 04/22/22 03:40 Pulse 87 04/22/22 09:13 Resp 15 04/22/22 09:13 BP 156/90 04/22/22 09:13 Pulse Ox 96 04/22/22 09:13 FiO2 40 04/19/22 12:00 Intake & Output 04/21/22 04/22/22 04/22/22 18:59 06:59 18:59 Intake Total 1450 200 102.362 Output Total 1020 1400 Balance 430 -1200 102.362 Intake: IV 1200 200 100 0.9 NaCl- 1200 200 Intake, IV Titration 250 2.362 Amount Heparin Sod,Pork in 0.45% 250 2.362 NaCl 25,000 unit In 0.45 % NaCl 1 250ml.bag @ 11. 0231 UNITS/KG/HR 10 mls/ hr IV .Q24H [facility] Rx#: [id number] Output: Urine 1020 1400 Other: Voiding Method Indwelling Catheter Urinal # Bowel Movements 0 - Exam Patient is fully alert and awake. Patient is very pleasant. Patient name and repeat very well. Speech and language functions are normal. Cranial nerves are all normal. Visual johnson are full, extraocular muscles are intact. Pupils are equal, round and reacting. Face is symmetric and tongue protrudes the midline. Hearing appears normal. On muscle strength testing there is no pronator drift and the strength is normal in arms and legs distally and proximally. Sensations are equal with no neglect on double simultaneous stimulation. No ataxia for eohwaw-nq-mucp testing. Tone and bulk of muscles normal. Gait not checked. Abdomen is soft nontender, chest is clear. - Labs CBC & Chem 7: 04/22/22 07:41 04/22/22 07:41 Labs: Abnormal Lab Results - Last 24 Hours (Table) 04/21/22 04/21/22 04/22/22 Range/Units 12:38 18:07 07:41 RBC 3.26 L (4.30-5.90) m/uL Hgb 10.1 L (13.0-17.5) gm/dL Hct 31.5 L (39.0-53.0) % Plt Count 125 L (150-450) k/uL APTT (22.0-30.0) sec Chloride (98-107) mmol/L Glucose (74-99) mg/dL POC Glucose (mg/dL) 165 H 177 H (75-99) mg/dL Calcium (8.4-10.2) mg/dL Total Bilirubin (0.2-1.3) mg/dL Total Protein (6.3-8.2) g/dL Albumin (3.5-5.0) g/dL 04/22/22 04/22/22 Range/Units 07:41 07:41 RBC (4.30-5.90) m/uL Hgb (13.0-17.5) gm/dL Hct (39.0-53.0) % Plt Count (150-450) k/uL APTT 34.1 H (22.0-30.0) sec Chloride 113 H (98-107) mmol/L Glucose 102 H (74-99) mg/dL POC Glucose (mg/dL) (75-99) mg/dL Calcium 7.7 L (8.4-10.2) mg/dL Total Bilirubin 2.2 H (0.2-1.3) mg/dL Total Protein 5.3 L (6.3-8.2) g/dL Albumin 2.7 L (3.5-5.0) g/dL Microbiology - Last 24 Hours (Table) 04/18/22 15:32 Blood Culture Gram Stain - Final Blood Blood Culture - Final Beta Hemolytic Strep Group G 04/18/22 15:27 Blood Culture Gram Stain - Final Blood Blood Culture - Final Beta Hemolytic Strep Group G 04/21/22 06:39 Blood Culture - Preliminary Blood No Growth after 24 hours 04/20/22 11:01 Blood Culture - Preliminary Blood No Growth after 24 hours 04/20/22 10:54 Blood Culture - Preliminary Blood No Growth after 24 hours 04/20/22 11:00 Gram Stain - Preliminary Toe - Left First Wound Culture - Preliminary Assessment and Plan Assessment: * Altered mental status, likely due to metabolic encephalopathy. Completely resolved. Patient's examination is nonfocal. * Paroxysmal Atrial fibrillation * Seizure disorder/epilepsy * History of aortic valve replacement. * Hypertension * Diabetes * Peripheral neuropathy * Peripheral arterial disease * Mild to moderate chronic alcoholism * Marijuana use. * Mild cognitive impairment/early dementia Plan: * Patient's mentation and metabolic encephalopathy has resolved. Denies any headache. No signs of intracranial infection. * Patient probably had a breakthrough seizure (2 days prior to arrival in the ER), likely due to sepsis. Patient denies any headache, his neck is supple, no signs of intracranial infection. Patient's dose of Keppra was recently increased to 1500 mg twice a day by his neurologist Dr. Lema about a month ago. His breakthrough seizure 1 day prior to arrival was likely because of sepsis. If he has any breakthrough seizure, would recommend adding a second antiepileptic agent. At this time, we will keep him on Keppra 1500 mg twice a day. * Patient started on heparin IV by cardiology. Neurologically clear for starting anticoagulation. Patient to undergo SHANE in the morning. * CTA of head and neck showed mild bilateral proximal internal carotid artery stenosis within the neck secondary to eccentric plaque formation. No significant occlusive disease intracranially. * B12 364, folate 12.10. We will start B12 1000 g orally daily. * Hemoglobin A1c 7.6. Target A1c <7.0. * Lipid panel with cholesterol 126, LDL 64, HDL 48 and triglycerides 68. Yasmin ent on simvastatin 40 mg daily. Continue simvastatin/atorvastatin. * DVT prophylaxis, patient on heparin subcu.
--- NOTE | 2022-04-22 10:32 | ECHOT ---
TRANSESOPHAGEAL ECHOCARDIOGRAM INDICATION: Septicemia in a patient with history of prosthetic aortic valve to rule out infective endocarditis. PROCEDURE NOTE: After obtaining informed consent, transesophageal echocardiogram is performed in left lateral position using an Omni plane probe. Local and IV sedation were obtained using 2 mg of Versed and 50 mcg of fentanyl. Tolerated the procedure well without any obvious immediate complications. A 2D color Doppler and spectral analysis has been performed. FINDINGS: 1. There is a bioprosthetic valve in aortic position with normal leaflet mobility and without any evidence of aortic regurgitation. There is no periprosthetic leak and there is no abscess at the aortic root. There is a mobile echodense lesion attached to the right coronary cusp of the aortic valve on the ventricular surface. This is consistent with vegetation. 2. Mitral valve is anatomically normal. There is moderate to severe mitral regurgitation noted. Tricuspid valve shows moderate tricuspid regurgitation. There is no vegetation over the mitral or the tricuspid valve. 3. Left atrium appears enlarged. Right atrium and right ventricle appear prominent. 4. Interatrial septum: There is no evidence of [id number] shunt by color-flow Doppler or [id number]-[id number] shunt by agitated saline contrast study. Aorta shows mild atherosclerotic changes. CONCLUSIONS: 1. Vegetation noted over the right coronary cusp of the prosthetic aortic valve. 2. Moderate to severe mitral regurgitation. PLAN: Patient will continue IV antibiotics. MMODL / IJN: [id number] /
[2022-04-22] MEDS: CYANOCOBALAMIN 500 MCG TAB PO SCH (10:34)
[2022-04-22 12:26] LABS: Glucose,Whole Blood 105 mg/dL (70-110)
--- NOTE | 2022-04-22 12:42 | P.PN ---
Subjective Principal diagnosis: Altered mental status The patient is admitted for altered mental status and has found to have bacteremia related to Streptococcus species. Infectious diseases transition to vancomycin. We are awaiting sensitivity. The patient feels much better. No fever spikes since yesterday. Resting comfortably Echocardiogram shows valvular endocarditis Objective - Vital Signs Vital signs: Vital Signs Temp 98 F 04/22/22 03:40 Pulse 87 04/22/22 09:13 Resp 15 04/22/22 09:13 BP 156/90 04/22/22 09:13 Pulse Ox 96 04/22/22 09:13 FiO2 40 04/19/22 12:00 Intake & Output 04/21/22 04/22/22 04/22/22 18:59 06:59 18:59 Intake Total 1450 200 102.362 Output Total 1020 1400 Balance 430 -1200 102.362 Intake: IV 1200 200 100 0.9 NaCl- 1200 200 Intake, IV Titration 250 2.362 Amount Heparin Sod,Pork in 0.45% 250 2.362 NaCl 25,000 unit In 0.45 % NaCl 1 250ml.bag @ 11. 0231 UNITS/KG/HR 10 mls/ hr IV .Q24H [facility] Rx#: [id number] Output: Urine 1020 1400 Other: Voiding Method Indwelling Catheter Urinal Urinal # Voids 1 # Bowel Movements 0 # Emeses 1 - Constitutional General appearance: Present: average body habitus, no acute distress - EENT Eyes: Absent: abnormal pupil - Neck Neck: Absent: lymphadenopathy - Respiratory Respiratory: bilateral: CTA - Cardiovascular Rhythm: irregularly irregular Heart sounds: normal: S1, S2 Abnormal Heart Sounds: Absent: S3 Gallop - Gastrointestinal General gastrointestinal: Present: soft - Integumentary Integumentary: Absent: cellulitis - Labs CBC & Chem 7: 04/22/22 07:41 04/22/22 07:41 Labs: Abnormal Lab Results - Last 24 Hours (Table) 04/21/22 04/22/22 04/22/22 Range/Units 18:07 07:41 07:41 RBC 3.26 L (4.30-5.90) m/uL Hgb 10.1 L (13.0-17.5) gm/dL Hct 31.5 L (39.0-53.0) % Plt Count 125 L (150-450) k/uL APTT (22.0-30.0) sec Chloride 113 H (98-107) mmol/L Glucose 102 H (74-99) mg/dL POC Glucose (mg/dL) 177 H (70-110) mg/dL Calcium 7.7 L (8.4-10.2) mg/dL Total Bilirubin 2.2 H (0.2-1.3) mg/dL Total Protein 5.3 L (6.3-8.2) g/dL Albumin 2.7 L (3.5-5.0) g/dL 04/22/22 Range/Units 07:41 RBC (4.30-5.90) m/uL Hgb (13.0-17.5) gm/dL Hct (39.0-53.0) % Plt Count (150-450) k/uL APTT 34.1 H (22.0-30.0) sec Chloride (98-107) mmol/L Glucose (74-99) mg/dL POC Glucose (mg/dL) (70-110) mg/dL Calcium (8.4-10.2) mg/dL Total Bilirubin (0.2-1.3) mg/dL Total Protein (6.3-8.2) g/dL Albumin (3.5-5.0) g/dL Microbiology - Last 24 Hours (Table) 04/20/22 11:00 Gram Stain - Final Toe - Left First Wound Culture - Final Beta Hemolytic Strep Group G 04/18/22 15:32 Blood Culture Gram Stain - Final Blood Blood Culture - Final Beta Hemolytic Strep Group G 04/18/22 15:27 Blood Culture Gram Stain - Final Blood Blood Culture - Final Beta Hemolytic Strep Group G 04/21/22 06:39 Blood Culture - Preliminary Blood No Growth after 24 hours 04/20/22 11:01 Blood Culture - Preliminary Blood No Growth after 24 hours 04/20/22 10:54 Blood Culture - Preliminary Blood No Growth after 24 hours Assessment and Plan (1) Gram positive septicemia Current Visit: Yes Status: Acute Code(s): A41.89 - OTHER SPECIFIED SEPSIS SNOMED Code(s): 612323481591 (2) Acute delirium Current Visit: Yes Status: Acute Code(s): R41.0 - DISORIENTATION, UNSPECIFIED SNOMED Code(s): 0738053 (3) Atrial fibrillation Current Visit: No Status: Acute Code(s): I48.91 - UNSPECIFIED ATRIAL FIBRILLATION SNOMED Code(s): 76786265 (4) Diabetes Current Visit: No Status: Acute Code(s): E11.9 - TYPE 2 DIABETES MELLITUS WITHOUT COMPLICATIONS SNOMED Code(s): 33723428 Plan: Continue current regimen of treatment. Most likely will need PICC line related to long-term antibiotic IV coverage. Check CBC and CMP in a.m. Sensitivity is pending. Appreciate multiple consultants input. Clinically improving..
--- NOTE | 2022-04-22 14:05 | XR ---
Left foot HISTORY: Osteomyelitis first digit. 3 views of the left foot, no comparisons There is irregular appearance, possible bone destruction at the distal aspect of the distal phalanx o f the first digit of the left foot, there is associated soft tissue swelling. Correlate for any surgi naheed history. Arthropathy present at the metatarsophalangeal joint of the first digit. There is no per iostitis. Alignment is maintained. Plantar calcaneal spur is noted. Vascular calcifications are noted within the soft tissues. There is an enthesophyte at insertion of the Achilles tendon. Tibiotalar calvin int shows arthropathy, there is spurring at the intertarsal joints. IMPRESSION: Correlate for cellulitis, history of osteomyelitis
--- NOTE | 2022-04-22 14:48 | P.PN ---
Subjective Progress Note Date: 04/22/22 Principal diagnosis: Acute endocarditis This is a 72-year-old white male with history of multiple medical problems including paroxysmal atrial fibrillation, history of aortic valve replacement, patient had a bioprosthetic valve, history of hypertension, seizure disorder, depression, patient presented to the ER with mostly altered mental status and extreme agitation at home. Upon his initial evaluation in the ER, patient was found to be in atrial fibrillation, but controlled ventricular rate. Patient was also noted to have fever, his temp initially was as high as 104.2. Patient was started empirically on antibiotics and the patient received so far Rocephin, Zosyn, and vancomycin. His blood cultures were positive for gram-positive infection, patient was admitted to the ICU and this consult was initiated. His initial workup included blood cultures as noted above, CT of the head, and EKG showed no evidence of acute ischemic changes. At any rate patient is now being followed by cardiology, there is potential concern of possible infective endocarditis, patient does have a history of a prosthetic aortic valve. Patient is still on antibiotics empirically, infectious disease consultation is also pending. Hemodynamically the patient is not requiring any pressors. He is hemodynamically stable in spite of his gram-positive bacteremia and sepsis. CBC is relatively normal. His d-dimer is 8.56, electrodes are normal, renal profile showed a BUN of 18 and creatinine of 1.36. His initial chest x-ray on admission showed possible interstitial edema, however follow-up chest x-ray this morning showed no significant active pulmonary disease. No evidence of heart failure, no evidence of infiltrates Reevaluated today on 04/20/22, patient remains in the ICU, he is doing great. He is on room air, O2 saturations 94%, patient is on antibiotic for his bacteremia, it is a streptococcal bacteremia, exact primary source is not clear yet. Patient is being followed by cardiology, echocardiogram is pending, considering SHANE. Repeat blood cultures are pending. Patient is on vancomycin only, and clinically the patient made a significant improvement in mental status over the last 24 hours remains on heparin for his atrial fibrillation. Remains on antibiotics. And again mentation-alarcon the patient is demonstrating a significant improvement. WBC count is 5.9 hemoglobin is 11.4. PTT is therapeutic. Electrolytes are normal renal profile is normal Reevaluated today on 04/21/22, patient remains in the ICU as an overflow. Patient is doing well, he had intermittent episodes of confusion last night, but the patient may have underlying dementia. At any rate today the patient is doing great, asymptomatic, his transthoracic echo was noted. Blood cultures fr om 04/20 are still pending. His last positive blood culture was from 04/18. Patient may or may not require SHANE, and this is yet to be decided upon by cardiology. In the meantime the patient remains on antibiotics for his beta hemolytic strep group G bacteremia and sepsis Reevaluated today on 04/22/22, patient is basically about the same, remains on antibiotics for presumptive endocarditis. And streptococcal bacteremia. His transesophageal echocardiogram showed vegetations noted over the right coronary cusp of the bio BIOprosthetic aortic, patient was also noted to have moderate to severe mitral regurgitation. Surprisingly the patient is doing well clinically, doing well with antibiotics, last blood cultures from the last 2 days have been negative. Patient is being followed by infectious disease. Denies any cough no wheezing no shortness of breath, mentation has improved over the last few days since admission. Objective - Vital Signs Vital signs: Vital Signs Temp 98 F 04/22/22 03:40 Pulse 87 04/22/22 09:13 Resp 15 04/22/22 09:13 BP 156/90 04/22/22 09:13 Pulse Ox 96 04/22/22 09:13 FiO2 40 04/19/22 12:00 Intake & Output 04/21/22 04/22/22 04/22/22 18:59 06:59 18:59 Intake Total 1450 200 220.362 Output Total 1020 1400 Balance 430 -1200 220.362 Intake: IV 1200 200 100 0.9 NaCl- 1200 200 Intake, IV Titration 250 2.362 Amount Heparin Sod,Pork in 0.45% 250 2.362 NaCl 25,000 unit In 0.45 % NaCl 1 250ml.bag @ 11. 0231 UNITS/KG/HR 10 mls/ hr IV .Q24H [facility] Rx#: [id number] Oral 118 Output: Urine 1020 1400 Other: Voiding Method Indwelling Catheter Urinal Urinal # Voids 1 # Bowel Movements 0 # Emeses 1 - Exam Physical Exam: Revealed 72-year-old white male in no distress. Patient is on room air. Head: Atraumatic, normocephalic. HEENT:[Neck is supple.] [No neck masses.] [No thyromegaly.] [No JVD.] Chest: [Clear throughout, no crackles, no rhonchi, no wheezes.] Cardiac Exam: Irregular irregular rhythm, 2/6 systolic murmur thought the precordium. Abdomen: [Soft, nontender, no megaly, no rebound, no guarding, normal bowel sounds.] Extremities: [No clubbing, no edema, no cyanosis.] Good pulses bilaterally. Neurological Exam: Alert and oriented 3, no gross focal deficit. Psychiatric: Normal mood, normal affect, normal mental status examination - Labs CBC & Chem 7: 04/22/22 07:41 04/22/22 07:41 Labs: Abnormal Lab Results - Last 24 Hours (Table) 04/21/22 04/22/22 04/22/22 Range/Units 18:07 07:41 07:41 RBC 3.26 L (4.30-5.90) m/uL Hgb 10.1 L (13.0-17.5) gm/dL Hct 31.5 L (39.0-53.0) % Plt Count 125 L (150-450) k/uL APTT (22.0-30.0) sec Chloride 113 H (98-107) mmol/L Glucose 102 H (74-99) mg/dL POC Glucose (mg/dL) 177 H (70-110) mg/dL Calcium 7.7 L (8.4-10.2) mg/dL Total Bilirubin 2.2 H (0.2-1.3) mg/dL Total Protein 5.3 L (6.3-8.2) g/dL Albumin 2.7 L (3.5-5.0) g/dL 04/22/22 04/22/22 Range/Units 07:41 14:17 RBC (4.30-5.90) m/uL Hgb (13.0-17.5) gm/dL Hct (39.0-53.0) % Plt Count (150-450) k/uL APTT 34.1 H 44.7 H (22.0-30.0) sec Chloride (98-107) mmol/L Glucose (74-99) mg/dL POC Glucose (mg/dL) (70-110) mg/dL Calcium (8.4-10.2) mg/dL Total Bilirubin (0.2-1.3) mg/dL Total Protein (6.3-8.2) g/dL Albumin (3.5-5.0) g/dL Microbiology - Last 24 Hours (Table) 04/20/22 11:01 Blood Culture - Preliminary Blood No Growth after 48 hours 04/20/22 10:54 Blood Culture - Preliminary Blood No Growth after 48 hours 04/20/22 11:00 Anaerobic Culture - Preliminary Toe - Left First 04/20/22 11:00 Gram Stain - Final Toe - Left First Wound Culture - Final Beta Hemolytic Strep Group G 04/18/22 15:32 Blood Culture Gram Stain - Final Blood Blood Culture - Final Beta Hemolytic Strep Group G 04/18/22 15:27 Blood Culture Gram Stain - Final Blood Blood Culture - Final Beta Hemolytic Strep Group G 04/21/22 06:39 Blood Culture - Preliminary Blood No Growth after 24 hours Assessment and Plan Assessment: Impression: Altered mental status secondary to sepsis and bacteremia/gram-positive bacteremia. 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 History of aortic valve replacement. Paroxysmal atrial fibrillation. Type 2 diabetes. Benign essential hypertension. Seizure disorder. Underlying dementia. Acute kidney injury, cardiorenal unless for otherwise. Improving. Recommendation: Continue antibiotics as per infectious disease on the case. Continue to monitor blood cultures. GI and DVT prophylaxis.Will follow the patient on when necessary basis Time with Patient: Less than 30
[2022-04-22 16:57] LABS: Glucose,Whole Blood 218 mg/dL (70-110)
[2022-04-22 20:21] LABS: Glucose,Whole Blood 123 mg/dL (70-110)
[2022-04-22] MEDS: ACETAMINOPHEN TAB 325 MG TAB PO PRN (20:25)
[2022-04-23 00:25] VITALS: TEMP 98.1
[2022-04-23 04:17] VITALS: BP 149/88
[2022-04-23 05:57] LABS: Glucose,Whole Blood 156 mg/dL (70-110)
[2022-04-23] MEDS: PANTOPRAZOLE 40 MG TABLET PO SCH (06:14)
[2022-04-23] MEDS: INSULIN ASPART (NovoLOG) 100 UNIT/ML VIAL SQ SCH ×3 (06:14→17:37)
[2022-04-23] MEDS: ACETAMINOPHEN TAB 325 MG TAB PO PRN (06:15)
[2022-04-23] MEDS: DRONEDARONE 400 MG TAB PO SCH ×2 (06:15→17:37)
[2022-04-23] MEDS: IPRATROPIUM-ALBUTEROL 3 ML NEB INHALATION PRN ×2 (07:47→11:06)
[2022-04-23 09:45] LABS: HCT 29.9 % (39.0-53.0); HGB 9.8 gm/dL (13.0-17.5); MCH 31.6 pg (25.0-35.0); MCHC 32.8 g/dL (31.0-37.0); MCV 96.2 fL (80.0-100.0); RBC 3.11 m/uL (4.30-5.90); RDW 14.3 % (11.5-15.5); WBC 6.4 k/uL (3.8-10.6)
[2022-04-23 09:51] LABS: ALT 35 U/L (4-49); AST 44 U/L (17-59); African American GFR (CKD) >90 (>60 ml/min/1.73 sqM); Albumin 2.7 g/dL (3.5-5.0); Alkaline Phosphatase 140 U/L (38-126); Blood Urea Nitrogen 9 mg/dL (9-20); C Reactive Protein 5.3 mg/dL (<1.0); Carbon Dioxide 24 mmol/L (22-30); Glucose 159 mg/dL (74-99); Non-African American GFR(CKD) 87 (>60 ml/min/1.73 sqM); Total Bilirubin 1.7 mg/dL (0.2-1.3); Total Protein 5.5 g/dL (6.3-8.2)
[2022-04-23] MEDS: CYANOCOBALAMIN 500 MCG TAB PO SCH (09:54)
[2022-04-23 09:55] LABS: Platelet Count 190 k/uL (150-450)
[2022-04-23] MEDS: METOPROLOL TARTRATE 50 MG TAB PO SCH (09:55)
[2022-04-23 10:46] LABS: Anion Gap 4 mmol/L; Chloride 112 mmol/L (98-107); Potassium 3.3 mmol/L (3.5-5.1); Sodium 140 mmol/L (137-145)
[2022-04-23 11:17] VITALS: PULSE 78
[2022-04-23 11:35] VITALS: RESP 14
--- NOTE | 2022-04-23 11:50 | P.PN ---
Subjective Progress Note Date: 04/23/22 Patient has a history of aortic valve replacement 8 years ago who was brought to the hospital with confusion and found to be in atrial fibrillation. Patient underwent a SHANE which revealed vegetation over the right coronary cusp of the prosthetic aortic valve and moderate to severe mitral regurgitation. Patient remains on IV antibiotics. He remains on a heparin drip, will transition to Eliquis upon discharge. Blood culture remains negative after 48 hours. Objective - Vital Signs Vital signs: Vital Signs Temp 98.1 F 04/23/22 04:00 Pulse 78 04/23/22 11:17 Resp 14 04/23/22 09:55 BP 149/88 04/23/22 04:00 Pulse Ox 100 04/23/22 04:00 FiO2 40 04/19/22 12:00 Intake & Output 04/22/22 04/23/22 04/23/22 18:59 06:59 18:59 Intake Total 895.362 240 Output Total 1 1600 Balance 894.362 -1600 240 Intake: IV 100 Intake, IV Titration 2.362 Amount Heparin Sod,Pork in 0.45% 2.362 NaCl 25,000 unit In 0.45 % NaCl 1 250ml.bag @ 11. 0231 UNITS/KG/HR 10 mls/ hr IV .Q24H [facility] Rx#: [id number] Oral 793 240 Output: Urine 1 1600 Other: Voiding Method Urinal Urinal Urinal # Voids 1 0 # Bowel Movements 1 # Emeses 1 - Exam PHYSICAL EXAM: VITAL SIGNS: Reviewed. GENERAL: Well-developed in no acute distress. HEENT: Head is normocephalic. Pupils are equal, round. Sclerae anicteric. Mucous membranes of the mouth are moist. NECK: Supple. No JVD or thyromegaly RESPIRATORY: Respirations even and unlabored. Lungs diminished to auscultation bilaterally. CARDIO: Regular rate and rhythm. S1 and S2 heard. No murmur or gallops. EXTREMITIES: Normal range of motion. No clubbing or cyanosis. Peripheral pulses intact. Negative for bilateral lower extremity edema NEURO: Orientated to person, time, mood is appropriate - Labs CBC & Chem 7: 04/23/22 09:06 04/23/22 09:06 Labs: Abnormal Lab Results - Last 24 Hours (Table) 04/22/22 04/22/22 04/22/22 Range/Units 14:17 16:51 20:20 RBC (4.30-5.90) m/uL Hgb (13.0-17.5) gm/dL Hct (39.0-53.0) % APTT 44.7 H (22.0-30.0) sec Potassium (3.5-5.1) mmol/L Chloride (98-107) mmol/L Glucose (74-99) mg/dL POC Glucose (mg/dL) 218 H 123 H (70-110) mg/dL Calcium (8.4-10.2) mg/dL Total Bilirubin (0.2-1.3) mg/dL Alkaline Phosphatase (38-126) U/L C-Reactive Protein (<1.0) mg/dL Total Protein (6.3-8.2) g/dL Albumin (3.5-5.0) g/dL 04/23/22 04/23/22 04/23/22 Range/Units 05:55 09:06 09:06 RBC 3.11 L (4.30-5.90) m/uL Hgb 9.8 L (13.0-17.5) gm/dL Hct 29.9 L (39.0-53.0) % APTT (22.0-30.0) sec Potassium 3.3 L (3.5-5.1) mmol/L Chloride 112 H (98-107) mmol/L Glucose 159 H (74-99) mg/dL POC Glucose (mg/dL) 156 H (70-110) mg/dL Calcium 8.0 L (8.4-10.2) mg/dL Total Bilirubin 1.7 H (0.2-1.3) mg/dL Alkaline Phosphatase 140 H (38-126) U/L C-Reactive Protein 5.3 H (<1.0) mg/dL Total Protein 5.5 L (6.3-8.2) g/dL Albumin 2.7 L (3.5-5.0) g/dL 04/23/22 Range/Units 09:06 RBC (4.30-5.90) m/uL Hgb (13.0-17.5) gm/dL Hct (39.0-53.0) % APTT 54.3 H (22.0-30.0) sec Potassium (3.5-5.1) mmol/L Chloride (98-107) mmol/L Glucose (74-99) mg/dL POC Glucose (mg/dL) (70-110) mg/dL Calcium (8.4-10.2) mg/dL Total Bilirubin (0.2-1.3) mg/dL Alkaline Phosphatase (38-126) U/L C-Reactive Protein (<1.0) mg/dL Total Protein (6.3-8.2) g/dL Albumin (3.5-5.0) g/dL Microbiology - Last 24 Hours (Table) 04/21/22 06:39 Blood Culture - Preliminary Blood No Growth after 48 hours 04/20/22 11:01 Blood Culture - Preliminary Blood No Growth after 48 hours 04/20/22 10:54 Blood Culture - Preliminary Blood No Growth after 48 hours 04/20/22 11:00 Anaerobic Culture - Preliminary Toe - Left First 04/20/22 11:00 Gram Stain - Final Toe - Left First Wound Culture - Final Beta Hemolytic Strep Group G 04/18/22 15:32 Blood Culture Gram Stain - Final Blood Blood Culture - Final Beta Hemolytic Strep Group G 04/18/22 15:27 Blood Culture Gram Stain - Final Blood Blood Culture - Final Beta Hemolytic Strep Group G Assessment and Plan Assessment: Gram-positive septicemia status post aortic valve replacement Persistent atrial fibrillation with a controlled ventricle rate Plan: Patient is on heparin drip will transition to back to Eliquis upon discharge Continue with all other current cardiac medications Continue with IV antibiotics Continue with telemetry monitoring Further recommendations based on clinical course The above impression and plan of care have been discussed and directed by the signing physician. Pat Dey, nurse practitioner, acting as scribe for signing physician.
[2022-04-23 11:52] LABS: Glucose,Whole Blood 121 mg/dL (70-110)
[2022-04-23] MEDS ORDERED: APIXABAN 5 MG TAB PO SCH (13:00)
[2022-04-23] MEDS ORDERED: LIDOCAINE 1% INJ 10MG/ML (5 ML VIAL-PF) SQ ONE (14:20)
--- NOTE | 2022-04-23 15:13 | IR ---
EXAMINATION TYPE: IR cvc insert >=5 years DATE OF EXAM: 04/23/2022 COMPARISON: NONE CLINICAL HISTORY: Infection Needs long-term intravenous access for antibiotics. PROCEDURE: Hand hygiene obtained with soap and water and alcohol-based hand rub. After informed consent, the skin overlying the left brachial vein was localized with ultrasound and n oted to be compressible and patent. An ultrasound image was obtained and submitted on the patient's chart. The overlying skin was prepped and draped and Lidocaine was used for local anesthesia. A ski n lena was made with a scalpel. Access was gained to the vein under ultrasound guidance with a 21 ga uge needle and a 0.018 inch wire was advanced. Access site was dilated with Peel-Away sheath and cat heter tailored to the appropriate length and advanced such that the distal tip is at the cavoatrial j unction. Spot image was obtained verifying placement. Catheter was fixed to the skin and a sterile dressing was placed following hemostasis. Catheter was aspirated and flushed with saline. Patient w as discharged in stable condition without complication.Maximal barrier technique is utilized. Ultras ound image is documented on the chart. Ultrasound used with sterile technique. Fluoro time and fluoroscopic images submitted to document procedure: 38 intraoperative C-arm images, 0.1 minutes fluoroscopy time IMPRESSION: STATUS POST ULTRASOUND AND FLUOROSCOPIC GUIDED PICC LINE PLACEMENT, READY FOR USE. THIS PROCEDURE WAS PERFORMED BY THE UNDERSIGNED.
--- NOTE | 2022-04-23 15:36 | P.DS ---
Providers Date of admission: 04/18/22 14:25 Attending physician: Javier Delaney Consults: 04/18/22 14:25 Consult Physician Routine Consulting Provider: Jim Quick Consult Reason/Comments: acute delerium Do you want consulting provider notified?: Yes 04/18/22 14:31 Consult Physician Routine Consulting Provider: Paul Del Real Consult Reason/Comments: afib, abnormal ekg Do you want consulting provider notified?: Yes 04/18/22 19:53 Consult Physician Routine Consulting Provider: Lillian Carbajal Consult Reason/Comments: fever Do you want consulting provider notified?: Yes 04/19/22 04:41 Consult Physician Stat Consulting Provider: Reji Dailey Consult Reason/Comments: ICU management Do you want consulting provider notified?: Yes Primary care physician: Javier Delaney - Discharge Diagnosis(es) (1) Gram positive septicemia Current Visit: Yes Status: Acute (2) Acute delirium Current Visit: Yes Status: Acute (3) Atrial fibrillation Current Visit: No Status: Acute (4) Diabetes Current Visit: No Status: Acute Hospital Course: This is discharge summary 72-year-old white male sentiment of her acute delir ium. Workup included positive blood cultures for sepsis. Gram-positive streptococcus was noted. After significant sepsis workup. Transesophageal echocardiogram did show vegetation. Acute endocarditis was diagnosed and the patient was stabilized with appropriate antibiotic treatment. He is not cleared by infectious disease who will clarify antibiotic treatment. The patient will follow up with me in about 5-7 days. The patient is stable to p.m. hemodynamically well. The patient will follow up as stated above. Patient Condition at Discharge: Fair Plan - Discharge Summary Discharge Rx Participant: No New Discharge Prescriptions: New Apixaban [Eliquis] 5 mg PO BID 30 Days #60 tab Continue metFORMIN HCL [Glucophage] 500 mg PO BID #60 tab Donepezil [Aricept] 10 mg PO DAILY Metoprolol Tartrate [Lopressor] 50 mg PO BID Simvastatin [Zocor] 40 mg PO HS levETIRAcetam [Keppra] 1,500 mg PO BID Furosemide [Lasix] 20 mg PO DAILY Dronedarone [Multaq] 400 mg PO BID DULoxetine HCL [Cymbalta] 60 mg PO DAILY Pantoprazole Sodium [Protonix] 40 mg PO DAILY Discharge Medication List metFORMIN HCL [Glucophage] 500 mg PO BID #60 tab 05/07/19 [Rx] Metoprolol Tartrate [Lopressor] 50 mg PO BID 04/22/21 [History] Simvastatin [Zocor] 40 mg PO HS 04/22/21 [History] DULoxetine HCL [Cymbalta] 60 mg PO DAILY 04/18/22 [History] Donepezil [Aricept] 10 mg PO DAILY 04/18/22 [History] Dronedarone [Multaq] 400 mg PO BID 04/18/22 [History] Furosemide [Lasix] 20 mg PO DAILY 04/18/22 [History] Pantoprazole Sodium [Protonix] 40 mg PO DAILY 04/18/22 [History] levETIRAcetam [Keppra] 1,500 mg PO BID 04/18/22 [History] Apixaban [Eliquis] 5 mg PO BID 30 Days #60 tab 04/23/22 [Rx] Follow up Appointment(s)/Referral(s): [facility], [NON-STAFF] - [facility],Infusion [NON-STAFF] - None,Stated [REFERRING] - 1-2 days Lillian Carbajal MD [STAFF PHYSICIAN] - 1 Week
[2022-04-23 16:23] VITALS: BMI 28.4
[2022-04-23 17:03] LABS: Glucose,Whole Blood 176 mg/dL (70-110)
--- NOTE | 2022-04-23 21:45 | P.PN ---
Subjective Progress Note Date: 04/22/22 Principal diagnosis: Gram-positive bacteremia Patient is a 72 year old male presenting to the ER for mental status changes in this patient who did have evidence of gram-positive bacteremia with previous history of left big toe distal phalanx amputation and a nonhealing wound. Patient did have a SHANE completed this morning concerning for prosthetic aortic valve vegetation On today's evaluation that is 04/22/2022, the patient is afebrile the patient is breathing comfortably denies having any chest pain or shortness of breath or cough no abdominal pain or diarrhea and no pain his left big toe Objective - Vital Signs Vital signs: Vital Signs Temp 98 F 04/22/22 03:40 Pulse 87 04/22/22 09:13 Resp 15 04/22/22 09:13 BP 156/90 04/22/22 09:13 Pulse Ox 96 04/22/22 09:13 FiO2 40 04/19/22 12:00 Intake & Output 04/21/22 04/22/22 04/22/22 18:59 06:59 18:59 Intake Total 1450 200 220.362 Output Total 1020 1400 Balance 430 -1200 220.362 Intake: IV 1200 200 100 0.9 NaCl- 1200 200 Intake, IV Titration 250 2.362 Amount Heparin Sod,Pork in 0.45% 250 2.362 NaCl 25,000 unit In 0.45 % NaCl 1 250ml.bag @ 11. 0231 UNITS/KG/HR 10 mls/ hr IV .Q24H [facility] Rx#: [id number] Oral 118 Output: Urine 1020 1400 Other: Voiding Method Indwelling Catheter Urinal Urinal # Voids 1 # Bowel Movements 0 # Emeses 1 - Exam GENERAL DESCRIPTION: An elderly male lying in bed in no distress RESPIRATORY SYSTEM: Unlabored breathing , decreased breath sounds at bases HEART: S1 S2 regular rate and rhythm , ABDOMEN: Soft , no tenderness EXTREMITIES: No edema feet, left big toe with small wound and minimal drainage - Labs CBC & Chem 7: 04/23/22 09:06 04/23/22 09:06 Labs: Abnormal Lab Results - Last 24 Hours (Table) 04/21/22 04/22/22 04/22/22 Range/Units 18:07 07:41 07:41 RBC 3.26 L (4.30-5.90) m/uL Hgb 10.1 L (13.0-17.5) gm/dL Hct 31.5 L (39.0-53.0) % Plt Count 125 L (150-450) k/uL APTT (22.0-30.0) sec Chloride 113 H (98-107) mmol/L Glucose 102 H (74-99) mg/dL POC Glucose (mg/dL) 177 H (70-110) mg/dL Calcium 7.7 L (8.4-10.2) mg/dL Total Bilirubin 2.2 H (0.2-1.3) mg/dL Total Protein 5.3 L (6.3-8.2) g/dL Albumin 2.7 L (3.5-5.0) g/dL 04/22/22 04/22/22 Range/Units 07:41 14:17 RBC (4.30-5.90) m/uL Hgb (13.0-17.5) gm/dL Hct (39.0-53.0) % Plt Count (150-450) k/uL APTT 34.1 H 44.7 H (22.0-30.0) sec Chloride (98-107) mmol/L Glucose (74-99) mg/dL POC Glucose (mg/dL) (70-110) mg/dL Calcium (8.4-10.2) mg/dL Total Bilirubin (0.2-1.3) mg/dL Total Protein (6.3-8.2) g/dL Albumin (3.5-5.0) g/dL Microbiology - Last 24 Hours (Table) 04/20/22 11:01 Blood Culture - Preliminary Blood No Growth after 48 hours 04/20/22 10:54 Blood Culture - Preliminary Blood No Growth after 48 hours 04/20/22 11:00 Anaerobic Culture - Preliminary Toe - Left First 04/20/22 11:00 Gram Stain - Final Toe - Left First Wound Culture - Final Beta Hemolytic Strep Group G 04/18/22 15:32 Blood Culture Gram Stain - Final Blood Blood Culture - Final Beta Hemolytic Strep Group G 04/18/22 15:27 Blood Culture Gram Stain - Final Blood Blood Culture - Final Beta Hemolytic Strep Group G 04/21/22 06:39 Blood Culture - Preliminary Blood No Growth after 24 hours Assessment and Plan (1) Gram positive septicemia Status: Acute Code(s): A41.89 - OTHER SPECIFIED SEPSIS SNOMED Code(s): 885520287751 Plan: 1patient presented to hospital with sepsis and respiratory have fever elevated white count elevated lactic acid and now with evidence of gram-positive bacteremia source questioningly pneumonia as the patient did have significant elevated procalcitonin and currently do not have any other obvious focus of infection, urine has been negative her abdomen was soft and examination and no evidence of any cellulitis or joint swelling. 2blood cultures will be repeated has been negative 3 patient did have a small wound to the left big toe with purulent drainage which was cultured and is growing group G strep 4patient culture has been finalized group G strep which is usually of the skin and soft tissue origin, and possible secondary seeding of the prosthetic aortic valve 5patient to continue with cefazolin 2 g every 8 hours Time with Patient: Less than 30
--- NOTE | 2022-04-23 21:47 | P.PN ---
Subjective Progress Note Date: 04/23/22 Principal diagnosis: Gram-positive bacteremia Patient is a 72 year old male presenting to the ER for mental status changes in this patient who did have evidence of gram-positive bacteremia with previous history of left big toe distal phalanx amputation and a nonhealing wound. Patient did have a SHANE completed this morning concerning for prosthetic aortic valve vegetation On today's evaluation that is 04/23/2022, the patient continues to be afebrile the patient is breathing comfortably on room air, the patient denies having any chest pain or shortness of breath or cough no abdominal pain or diarrhea and no pain his left big toe Objective - Vital Signs Vital signs: Vital Signs Temp 98.1 F 04/23/22 04:00 Pulse 78 04/23/22 11:17 Resp 12 04/23/22 04:00 BP 149/88 04/23/22 04:00 Pulse Ox 100 04/23/22 04:00 FiO2 40 04/19/22 12:00 Intake & Output 04/22/22 04/23/22 04/23/22 18:59 06:59 18:59 Intake Total 895.362 240 Output Total 1 1600 Balance 894.362 -1600 240 Intake: IV 100 Intake, IV Titration 2.362 Amount Heparin Sod,Pork in 0.45% 2.362 NaCl 25,000 unit In 0.45 % NaCl 1 250ml.bag @ 11. 0231 UNITS/KG/HR 10 mls/ hr IV .Q24H [facility] Rx#: [id number] Oral 793 240 Output: Urine 1 1600 Other: Voiding Method Urinal Urinal # Voids 1 0 # Bowel Movements 1 # Emeses 1 - Exam GENERAL DESCRIPTION: An elderly male lying in bed in no distress RESPIRATORY SYSTEM: Unlabored breathing , decreased breath sounds at bases HEART: S1 S2 regular rate and rhythm , ABDOMEN: Soft , no tenderness EXTREMITIES: No edema feet, left big toe with small wound and minimal drainage - Labs CBC & Chem 7: 04/23/22 09:06 04/23/22 09:06 Labs: Abnormal Lab Results - Last 24 Hours (Table) 04/22/22 04/22/22 04/22/22 Range/Units 14:17 16:51 20:20 RBC (4.30-5.90) m/uL Hgb (13.0-17.5) gm/dL Hct (39.0-53.0) % APTT 44.7 H (22.0-30.0) sec Potassium (3.5-5.1) mmol/L Chloride (98-107) mmol/L Glucose (74-99) mg/dL POC Glucose (mg/dL) 218 H 123 H (70-110) mg/dL Calcium (8.4-10.2) mg/dL Total Bilirubin (0.2-1.3) mg/dL Alkaline Phosphatase (38-126) U/L C-Reactive Protein (<1.0) mg/dL Total Protein (6.3-8.2) g/dL Albumin (3.5-5.0) g/dL 04/23/22 04/23/22 04/23/22 Range/Units 05:55 09:06 09:06 RBC 3.11 L (4.30-5.90) m/uL Hgb 9.8 L (13.0-17.5) gm/dL Hct 29.9 L (39.0-53.0) % APTT (22.0-30.0) sec Potassium 3.3 L (3.5-5.1) mmol/L Chloride 112 H (98-107) mmol/L Glucose 159 H (74-99) mg/dL POC Glucose (mg/dL) 156 H (70-110) mg/dL Calcium 8.0 L (8.4-10.2) mg/dL Total Bilirubin 1.7 H (0.2-1.3) mg/dL Alkaline Phosphatase 140 H (38-126) U/L C-Reactive Protein 5.3 H (<1.0) mg/dL Total Protein 5.5 L (6.3-8.2) g/dL Albumin 2.7 L (3.5-5.0) g/dL 04/23/22 Range/Units 09:06 RBC (4.30-5.90) m/uL Hgb (13.0-17.5) gm/dL Hct (39.0-53.0) % APTT 54.3 H (22.0-30.0) sec Potassium (3.5-5.1) mmol/L Chloride (98-107) mmol/L Glucose (74-99) mg/dL POC Glucose (mg/dL) (70-110) mg/dL Calcium (8.4-10.2) mg/dL Total Bilirubin (0.2-1.3) mg/dL Alkaline Phosphatase (38-126) U/L C-Reactive Protein (<1.0) mg/dL Total Protein (6.3-8.2) g/dL Albumin (3.5-5.0) g/dL Microbiology - Last 24 Hours (Table) 04/21/22 06:39 Blood Culture - Preliminary Blood No Growth after 48 hours 04/20/22 11:01 Blood Culture - Preliminary Blood No Growth after 48 hours 04/20/22 10:54 Blood Culture - Preliminary Blood No Growth after 48 hours 04/20/22 11:00 Anaerobic Culture - Preliminary Toe - Left First 04/20/22 11:00 Gram Stain - Final Toe - Left First Wound Culture - Final Beta Hemolytic Strep Group G 04/18/22 15:32 Blood Culture Gram Stain - Final Blood Blood Culture - Final Beta Hemolytic Strep Group G 04/18/22 15:27 Blood Culture Gram Stain - Final Blood Blood Culture - Final Beta Hemolytic Strep Group G Assessment and Plan (1) Gram positive septicemia Status: Acute Code(s): A41.89 - OTHER SPECIFIED SEPSIS SNOMED Code(s): 672304911459 Plan: 1patient with group G strep bacteremia initial source likely left big toe wound and secondary seeding of the prostatic aortic valve with evidence of vegetation on SHANE. 2blood cultures will be repeated has been negative 3 patient antibiotics will be switched over to Rocephin 2 g every 12 hours 6 weeks with weekly monitoring of blood work and close outpatient follow-up Time with Patient: Less than 30
== END 2022-04-23 18:44 | disposition home or self-care (01) | DRG 871 ==
LOC: EC 12:24 → 3SCARD 14:25 → 2SICU 04-19 02:32 → 3SCARD 04-22 00:43
PROVIDERS: ADMIT Internal Medicine; ATTEND Family Medicine
PROC: B246ZZ4 Ultrasonography of Right and Left Heart, Transesophageal (ICD-10-PCS; 2022-04-22)
PROC: 02HV33Z Insertion of Infusion Device into Superior Vena Cava, Percutaneous Approach (ICD-10-PCS; principal; 2022-04-23 15:40)
DX: A40.8 Other streptococcal sepsis (principal); G92.8 Other toxic encephalopathy; I33.9 Acute and subacute endocarditis, unspecified; E87.2 Acidosis; I48.19 Other persistent atrial fibrillation; J90 Pleural effusion, not elsewhere classified; N17.9 Acute kidney failure, unspecified; E11.51 Type 2 diabetes mellitus with diabetic peripheral angiopathy without gangrene; E11.65 Type 2 diabetes mellitus with hyperglycemia; E78.5 Hyperlipidemia, unspecified; F03.90 Unspecified dementia, unspecified severity, without behavioral disturbance, psychotic disturbance, mood disturbance, and anxiety; F10.20 Alcohol dependence, uncomplicated; I10 Essential (primary) hypertension; F32.A Depression, unspecified; R45.1 Restlessness and agitation; G40.409 Other generalized epilepsy and epileptic syndromes, not intractable, without status epilepticus; E11.42 Type 2 diabetes mellitus with diabetic polyneuropathy; Z79.84 Long term (current) use of oral hypoglycemic drugs; H91.90 Unspecified hearing loss, unspecified ear; K21.9 Gastro-esophageal reflux disease without esophagitis; R29.705 NIHSS score 5; R26.81 Unsteadiness on feet; Z89.412 Acquired absence of left great toe; Z90.49 Acquired absence of other specified parts of digestive tract; Z79.01 Long term (current) use of anticoagulants; Z79.899 Other long term (current) drug therapy; Z87.891 Personal history of nicotine dependence; Z95.3 Presence of xenogenic heart valve
CPT/HCPCS: 36415; 36573; 36600; 51702; 70450; 70496; 70498; 71045; 80048; 80053; 81001; 82607; 82746; 82805; 83036; 83605; 83735; 84145; 84484; 85025; 85027; 85379; 85610; 85652; 85730; 86140; 87040; 87070; 87075; 87077; 87186; 87205; 87636; 93005; 93306; 93312; 93320; 93325; 94640; 96361; 96365; 96367; 96375; 99291

== ENCOUNTER → 2022-06-15 | Outpatient (CLI) | payer MEDICARE | END | disposition home or self-care (01) | LOC: LABWHC1 11:56 | PROVIDERS: ATTEND Internal Medicine Infectious Disease | DX: I33.9 Acute and subacute endocarditis, unspecified (principal) | CPT/HCPCS: 36415; 87040 ==

== ENCOUNTER → 2022-09-10 | Outpatient (CLI) | payer MEDICARE ==
[2022-09-10 17:35] LABS: Basophils # (A) 0.07 X 10*3/uL (0.00-0.10); Eosinophils # (A) 0.37 X 10*3/uL (0.04-0.35); Eosinophils % (A) 5.2 %; HCT 40.7 % (39.6-50.0); Immature Grans, Automated 0.1 %; Lymphocytes # (A) 1.69 X 10*3/uL (0.90-5.00); Lymphocytes % (A) 23.9 %; MCHC 31.9 g/dL (32.0-37.0); MCV 90.8 fL (80.0-97.0); Mean Platelet Volume 10.6 fL (9.5-12.2); Monocytes # (A) 0.51 X 10*3/uL (0.20-1.00); Monocytes % (A) 7.2 %; NRBC Per 100 WBC 0 /100 WBCS (0.0-0.0); Neutrophils # (A) 4.43 X 10*3/uL (1.80-7.70); Neutrophils % (A) 62.6 %; Platelet Count 219 X 10*3/uL (140-440); RBC 4.48 X 10*6/uL (4.40-5.60); WBC 7.08 X 10*3/uL (4.50-10.00)
[2022-09-10 18:17] LABS: ALT 15 U/L (10-49); AST 16 U/L (14-35); African American GFR (CKD) 58.2 (60.0-200.0); Albumin 4.4 g/dL (3.8-4.9); Albumin/Globulin Ratio 1.57 (1.60-3.17); Alkaline Phosphatase 69 U/L (41-126); BUN/Creat Ratio 5.15 Ratio (12.00-20.00); Blood Urea Nitrogen 7.2 mg/dL (9.0-27.0); Calcium 9.2 mg/dL (8.7-10.3); Chloride 96 mmol/L (96-109); Globulin 2.8 g/dL (1.6-3.3); Glucose 349 mg/dL (70-110); Non-African American GFR(CKD) 50.2 (60.0-200.0); Potassium 4.6 mmol/L (3.5-5.5); Sodium 134 mmol/L (135-145); Total Protein 7.2 g/dL (6.2-8.2)
== END | disposition home or self-care (01) ==
LOC: LABWHC1 12:06
PROVIDERS: ATTEND Internal Medicine Clinical Cardiac Electrophysiology
DX: I10 Essential (primary) hypertension (principal); I48.19 Other persistent atrial fibrillation; I25.10 Atherosclerotic heart disease of native coronary artery without angina pectoris; E55.9 Vitamin D deficiency, unspecified
CPT/HCPCS: 36415; 80053; 82306; 84443; 85025

== ENCOUNTER → 2022-10-07 | Outpatient (CLI) | payer MEDICARE ==
[2022-10-07 22:37] LABS: HCT 40.2 % (39.6-50.0); HGB 12.9 g/dL (13.0-17.0); MCH 29.8 pg (27.0-32.0); MCHC 32.1 g/dL (32.0-37.0); MCV 92.8 fL (80.0-97.0); Mean Platelet Volume 10.9 fL (9.5-12.2); NRBC Per 100 WBC 0 /100 WBCS (0.0-0.0); Platelet Count 208 X 10*3/uL (140-440); RBC 4.33 X 10*6/uL (4.40-5.60); RDW 14.2 % (11.5-14.5); WBC 5.73 X 10*3/uL (4.50-10.00)
[2022-10-08 02:32] LABS: African American GFR (CKD) 61.9 (60.0-200.0); Anion Gap 11.5 mmol/L (10.00-18.00); Blood Urea Nitrogen 10.2 mg/dL (9.0-27.0); Carbon Dioxide 26.9 mmol/L (20.0-27.5); Non-African American GFR(CKD) 53.4 (60.0-200.0); Potassium 4.4 mmol/L (3.5-5.5)
== END | disposition home or self-care (01) ==
LOC: LABPAT 15:36
PROVIDERS: ATTEND Internal Medicine Clinical Cardiac Electrophysiology
DX: Z01.812 Encounter for preprocedural laboratory examination (principal); I25.10 Atherosclerotic heart disease of native coronary artery without angina pectoris; I48.19 Other persistent atrial fibrillation
CPT/HCPCS: 36415; 80051; 82565; 84520; 85027

== ENCOUNTER 2022-10-14 08:27 | Inpatient (IN) | payer MEDICARE ==
[~2022-10-14 08:27] MED LIST changes: +LACTATED RINGERS 1,000 ML IV SCH; -SODIUM CHLORIDE 0.9% 1,000 ML IV SCH
[2022-10-14] MEDS: SODIUM CHLORIDE 0.9% 1,000 ML IV SCH ×2 (08:47→16:30)
[2022-10-14 08:56] LABS: Glucose,Whole Blood 187 mg/dL (70-110)
[2022-10-14] MEDS ORDERED: GLUCAGON 1 MG/ML VIAL ONE (09:25)
[2022-10-14] MEDS ORDERED: ATROPINE SULFATE 0.1 MG/ML 10ML SYRINGE ONE (09:25)
[2022-10-14] MEDS ORDERED: PROPOFOL 10 MG/ML 20 ML VIAL IV ONE (09:25)
[2022-10-14] MEDS: ATROPINE SULFATE 0.1 MG/ML 10ML SYRINGE IV ONE ×2 (09:48→09:56)
[2022-10-14] MEDS ORDERED: GLUCAGON 1 MG/ML VIAL IVP STA (09:58)
[2022-10-14] MEDS ORDERED: DOPamine DRIP 800 MG in DEXTROSE/WATER 1 250ML.BAG IV ONE (10:08)
[2022-10-14] MEDS ORDERED: SODIUM CHLORIDE 0.9% 1,000 ML IV ONE (10:10)
--- NOTE | 2022-10-14 10:15 | P.EPPROC ---
- EP Procedure Note Electrophysiology Procedure Note: Diagnosis Persistent atrial fibrillation with RVR requiring high doses of beta blockers for rate control Despite adequate rate control patient is very tired sleepy fatigue and has absolutely no energy and cannot function Brought in for electrical cardioversion after initiating flecainide 100 mg twice daily Labs are reviewed Hemoglobin 12.9, platelet count 208,000 Sodium 139, potassium 4.4, BUN 10 and creatinine 1.3 Procedure Electrical cardioversion Details Under conscious sedation patient underwent electrical cardioversion successfully to severe sinus bradycardia He had a very long postconversion pause for greater than 10 seconds Following that he was severely bradycardic and required IV atropine IV glucagon Currently he is on low-dose IV dopamine to reverse beta flaquito effects Impression Tachybradycardia syndrome Very symptomatic atrial fibrillation despite adequate rate control Sick sinus syndrome Intolerance to flecainide However requires maintenance of sinus rhythm for improved quality of life Suggest Permanent pacemaker implantation with biventricular pacing to avoid RV pacing High RV pacing percentage expected with atrial pacing Hold metoprolol completely Hold flecainide Continue ELIQUIS Admitted to the hospital for monitoring of bradycardia and management of bradycardia Check TSH ESR and CRP
[2022-10-14] MEDS ORDERED: SODIUM CHLORIDE 0.9% 1,000 ML IV SCH (10:30)
--- NOTE | 2022-10-14 11:01 | HP ---
HISTORY AND PHYSICAL HISTORY OF PRESENT ILLNESS: Tano Lennon is a 72-year-old male patient of Dr. Javier Delaney and myself who has a longstanding history of aortic stenosis, which is bicuspid in nature, and he underwent bioprosthetic aortic valve replacement. At that time, he had mild CAD. He also has type 2 diabetes, dyslipidemia, and hypertension. Since he has gone into atrial fibrillation, he has been extremely tired and fatigued. This has not improved despite adequate rate control of atrial fibrillation. According to his , he hardly does anything else, but sleep. He is extremely tired and fatigued. He also has shortness of breath with exertion and even while sleeping at night, despite the fact that his last echo showed preserved LV systolic function. He has moderate mitral regurgitation, moderate tricuspid regurgitation, and a severe left atrial enlargement with the LVH. 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 On examination, his blood pressure is in the normal range. Rhythm was irregular. No JVD. Breath sounds are equal bilaterally. Soft, systolic murmur over the apex. No lower extremity edema. REVIEW OF SYSTEMS: No fever, chills, or rigors. No cough or expectoration. No nausea, vomiting, or diarrhea. No hematuria or dysuria. No recent strokes or seizures, but mostly tiredness, fatigue, and shortness of breath. IMPRESSION: 1. Persistent, symptomatic atrial fibrillation with tiredness, fatigue, and being sleepy through the day despite adequate rate control. His sleepiness has become worse after increasing the dose of beta blockers for adequate rate control. 2. Aortic valve disease and bicuspid valve with stenosis, status post bioprosthetic aortic valve. 3. Mild coronary artery disease. 4. Left ventricular hypertrophy with preserved systolic function. 5. Moderate mitral regurgitation and tricuspid regurgitation. 6. Significant left atrial enlargement, on atropine. SUGGEST: Electrical cardioversion for atrial fibrillation. The patient is on Eliquis. Further management thereafter. MMODL / IJN: [id number] /
[2022-10-14 14:49] LABS: Glucose,Whole Blood 303 mg/dL (70-110)
[2022-10-14] MEDS ORDERED: DOPamine DRIP 800 MG in DEXTROSE/WATER 1 250ML.BAG IV SCH (16:00)
[2022-10-14 16:02] LABS: C Reactive Protein <0.5 mg/dL (<1.0)
[2022-10-14] MEDS ORDERED: DEXTROSE 50% SYRINGE 50 ML IVP PRN (16:45)
[2022-10-14] MEDS: INSULIN ASPART (NovoLOG) 100 UNIT/ML VIAL SQ SCH ×2 (16:49→20:50)
[2022-10-14 20:50] LABS: Glucose,Whole Blood 131 mg/dL (70-110)
[2022-10-14] MEDS: APIXABAN 5 MG TAB PO SCH (20:53)
[2022-10-14] MEDS: metFORMIN 500 MG TAB PO SCH (20:53)
[2022-10-14] MEDS: ATORVASTATIN 20 MG TAB PO SCH (20:53)
[2022-10-14] MEDS: DONEPEZIL 10 MG TAB PO SCH (20:54)
[2022-10-14 21:31] LABS: Glucose,Whole Blood 119 mg/dL (70-110)
[2022-10-15] MEDS ORDERED: VANCOMYCIN 1,500 MG in SODIUM CHLORIDE 0.9% 500 ML 500 ML IVPB ONE (05:00)
[2022-10-15] MEDS ORDERED: ceFAZolin 1 GM in SODIUM CHLORIDE 0.9% IRRIG BTL 250 ML IRRIGATION PRN (07:00)
[2022-10-15] MEDS ORDERED: PROPOFOL 10 MG/ML 20 ML VIAL IV ONE (08:46)
[2022-10-15] MEDS ORDERED: KETAMINE 10 MG/ML 20 ML VIAL ONE (08:46)
[2022-10-15] MEDS ORDERED: fentaNYL (PF) 50 MCG/ML 2 ML AMP ONE (08:46)
[2022-10-15] MEDS ORDERED: IV FLUID CONTINUATION 1,000 ML IV ONE (08:46)
[2022-10-15] MEDS ORDERED: MIDAZOLAM 2 MG/2 ML VIAL ONE (08:46)
[2022-10-15] MEDS ORDERED: IOPAMIDOL-250 50ML BTL IV ONE (09:00)
[2022-10-15] MEDS ORDERED: LIDOCAINE 1% INJ 10MG/ML (30 ML VIAL-PF) SQ ONE (09:30)
[2022-10-15] MEDS: INSULIN ASPART (NovoLOG) 100 UNIT/ML VIAL SQ SCH ×4 (10:55→20:48)
--- NOTE | 2022-10-15 11:33 | P.EPPROC ---
- EP Procedure Note Electrophysiology Procedure Note: Diagnosis Symptomatic bradycardia, severe and unresponsive to discontinuation of antibiotic drugs Unresponsive to IV dobutamine and atropine Tachybradycardia syndrome Persistent atrial fibrillation Valvular heart disease, aortic valve replacement Procedure Dual-chamber pacemaker implantation Details Patient was brought to the EP lab in a fasting state. Written informed consent was obtained prior to the procedure. Conscious sedation provided. IV antibiotics administered. Local anesthesia administered. A 4 cm incision made in the pectoral area. Subfascial pocket made. Venous accesses obtained Venous sheaths placed. Leads placed in the right heart Atrial lead position the right atrial appendage. P waves 1.4 mV, pacing impedance 456 ohms and pacing threshold 0.5 V at 0.4 ms Lead stable with mechanical movement 10 V test negative RV lead position in the RV apex. 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[employer] TORSTEN XT DR MRI Dual-chamber pacemaker device connected to the leads and placed in the subfascial pocket Antibiotic pouch placed Patient has received vancomycin this morning Patient tolerated the procedure well without acute complications Pacemaker programming AAIR-DDDR 50-120 beats a minute AV node Wenckebach block greater than 120 bpm during atrial pacing Attempted left bundle lead placement Excellent starting position and the septum with a W-shaped pattern However the lead would not progress in the right direction towards the left bundle despite multiple attempts with several different rotations using the His bundle sheath Long procedure
--- NOTE | 2022-10-15 11:39 | P.PCN ---
Preoperative Diagnosis: Left upper extremity venogram 15 mL IV dye injected in the left arm Patent left axillary and subclavian vein. Plan proceed with pacemaker implantation for symptomatic sick sinus syndrome/ tachybradycardia syndrome
[2022-10-15 12:20] LABS: Glucose,Whole Blood 192 mg/dL (70-110)
[2022-10-15] MEDS: APIXABAN 5 MG TAB PO SCH ×2 (12:59→20:49)
[2022-10-15] MEDS: metFORMIN 500 MG TAB PO SCH ×2 (13:00→20:49)
[2022-10-15] MEDS: PANTOPRAZOLE 40 MG TABLET PO SCH (13:01)
[2022-10-15] MEDS: DULoxetine HCL 20 MG CAPSULE.DR PO SCH (13:01)
[2022-10-15] MEDS: FUROSEMIDE 20 MG TAB PO SCH (13:01)
[2022-10-15] MEDS: FLECAINIDE 50 MG TAB PO SCH ×2 (13:03→20:49)
[2022-10-15] MEDS: SODIUM CHLORIDE 0.9% 1,000 ML IV SCH ×2 (13:43)
[2022-10-15] MEDS: METOPROLOL SUCCINATE (ER) 25 MG TAB.ER.24H PO SCH (14:15)
--- NOTE | 2022-10-15 14:20 | XR ---
EXAMINATION TYPE: XR chest 1V portable DATE OF EXAM: 10/15/2022 COMPARISON: 04/19/2022 HISTORY: Line placement TECHNIQUE: Single frontal view of the chest is obtained. FINDINGS: A cardiac device is seen and there is postsurgical change. Heart size enlarged. Hyperinfla tion with coarsened interstitium suggestive of chronic interstitial lung disease. The proximal cardia c lead overlies the right atrium and the distal overlies the right ventricle. IMPRESSION: 1. Pacemaker placement with no evidence of pneumothorax. 2. Cardiomegaly, COPD correlate for chronic interstitial lung disease.
[2022-10-15 17:07] LABS: Glucose,Whole Blood 185 mg/dL (70-110)
[2022-10-15] MEDS: ACETAMINOPHEN TAB 325 MG TAB PO PRN (18:14)
[2022-10-15 20:02] LABS: Glucose,Whole Blood 199 mg/dL (70-110)
[2022-10-15] MEDS: ATORVASTATIN 20 MG TAB PO SCH (20:49)
[2022-10-15] MEDS: DONEPEZIL 10 MG TAB PO SCH (20:49)
[2022-10-16 02:58] VITALS: RESP 18
[2022-10-16 04:44] VITALS: PULSE 58; TEMP 97.8
[2022-10-16 05:51] LABS: Glucose,Whole Blood 124 mg/dL (70-110)
[2022-10-16] MEDS: INSULIN ASPART (NovoLOG) 100 UNIT/ML VIAL SQ SCH (06:06)
[2022-10-16] MEDS: METOPROLOL SUCCINATE (ER) 25 MG TAB.ER.24H PO SCH (09:03)
[2022-10-16] MEDS: metFORMIN 500 MG TAB PO SCH (09:03)
[2022-10-16] MEDS: APIXABAN 5 MG TAB PO SCH (09:03)
[2022-10-16] MEDS: PANTOPRAZOLE 40 MG TABLET PO SCH (09:03)
[2022-10-16] MEDS: FUROSEMIDE 20 MG TAB PO SCH (09:04)
[2022-10-16] MEDS: DULoxetine HCL 20 MG CAPSULE.DR PO SCH (09:04)
[2022-10-16] MEDS: FLECAINIDE 50 MG TAB PO SCH (09:04)
[2022-10-16] MEDS: ACETAMINOPHEN TAB 325 MG TAB PO PRN (09:11)
--- NOTE | 2022-10-16 11:07 | P.DS ---
Providers Date of admission: 10/14/22 11:16 Attending physician: Jesus Hendrickson Primary care physician: Javier Delaney Hospital Course: (Patient is resting comfortably in bed He's been ambulating around the room and outside He feels well no dizziness lightheadedness no chest discomfort On examination his blood pressure is normal heart sounds are normal, soft ejection systolic murmur breath sounds are clear Pacemaker site is healed well. Minimal soakage no hematoma Labs are reviewed TSH is normal at 0.8 C-reactive protein less than 0.5, patient has had history of bioprosthetic aortic valve vegetation which was treated with IV antibiotics However his hemoglobin A1c is 8.2 Hospital course He was brought in for electrical cardioversion of A. fib that is very symptomatic with tiredness and fatigue despite rate control. We had to use high doses of beta blockers which he found difficult to tolerate I started him on flecainide 100 mg twice daily 3 days prior to the cardioversion Following that cardio version he had very significant pauses bradycardia even 24 hours after IV atropine and continuous infusion of dopamine He underwent dual-chamber pacemaker implantation His pacemaker is functioning normally now it was interrogated today X-ray does not show any pneumothorax Impression Persistent atrial fibrillation with RVR, status post cryoablation the pulmonary veins, failed Multaq, intolerant of Multaq Sick Sinus Syndrome, significant Very long postconversion pause and severe persistent bradycardia with junctional rhythm that is unresponsive to IV dopamine for 24 hours Uncontrolled diabetes hemoglobin A1c is 8.2 Hypertension Aortic valve disease status post aortic valve replacement History of aortic valve regurgitation, CRP is normal at this time Mild CAD Status post Medtronic dual-chamber pacemaker which is functioning normally Patient is in sinus rhythm at this time at the time of discharge Suggest Patient will go home today I discussed his medication changes with his and the patient We will reduce the dose of metoprolol succinate to 37.5 mg by mouth daily once daily only specifically because he has 75 mg tablets and therefore to be easy for him to simply cut this in half Flecainide will continue 100 mg twice daily ELIQUIS will continue Simvastatin will continue at 40 mg daily and is last LDL a few months back was in the 60s which is excellent. He has mild CAD I watched him to increase the dose of metformin to 1000 mg twice daily I would also recommend one of the newer diabetes medications SGLT2 inhibitors I also asked him to taper off Cymbalta over the next 2-3 weeks There is an interaction with flecainide We will see him in the office within a week in the device clinic I want to see him again in about 4-6 weeks in the office Patient Condition at Discharge: Stable Plan - Discharge Summary Discharge Rx Participant: No New Discharge Prescriptions: New Metoprolol Succinate [Metoprolol Succinate ER] 37.5 mg PO DAILY #90 tab Discontinued Metoprolol Tartrate [Lopressor] 75 mg PO BID No Action metFORMIN HCL [Glucophage] 500 mg PO BID #60 tab Donepezil [Aricept] 10 mg PO DAILY Apixaban [Eliquis] 5 mg PO BID 30 Days #60 tab Simvastatin [Zocor] 40 mg PO HS levETIRAcetam [Keppra] 1,500 mg PO BID Furosemide [Lasix] 20 mg PO DAILY DULoxetine HCL [Cymbalta] 20 mg PO DAILY Pantoprazole Sodium [Protonix] 40 mg PO DAILY Flecainide [Tambocor] 100 mg PO Q12HR Discharge Medication List metFORMIN HCL [Glucophage] 500 mg PO BID #60 tab 05/07/19 [Rx] Simvastatin [Zocor] 40 mg PO HS 04/22/21 [History] DULoxetine HCL [Cymbalta] 20 mg PO DAILY 04/18/22 [History] Donepezil [Aricept] 10 mg PO DAILY 04/18/22 [History] Furosemide [Lasix] 20 mg PO DAILY 04/18/22 [History] Pantoprazole Sodium [Protonix] 40 mg PO DAILY 04/18/22 [History] levETIRAcetam [Keppra] 1,500 mg PO BID 04/18/22 [History] Apixaban [Eliquis] 5 mg PO BID 30 Days #60 tab 04/23/22 [Rx] Flecainide [Tambocor] 100 mg PO Q12HR 10/12/22 [History] Metoprolol Succinate [Metoprolol Succinate ER] 37.5 mg PO DAILY #90 tab 10/15/22 [Rx] Follow up Appointment(s)/Referral(s): Jesus Hendrickson MD [STAFF PHYSICIAN] - 1 Week Activity/Diet/Wound Care/Special Instructions: PATIENT EDUCATION MATERIAL Instructions following a heart rhythm device implant. 1. Keep dressing DRY for 5 DAYS. You may cover the area with Saran or Cling Wrap, prior to a shower. 2. The dressing will be removed in the Device Clinic at [facility]. Absorbable sutures were used to close the wound. 3. Avoid raising the left arm above the shoulder level. 4 week restriction 4. Avoid arm movements, like backscratching, rubbing the head, or pulling on a cord. 4 weeks restriction 5. Gentle range of motion movements of the shoulder, closest to the incision should be performed to avoid a frozen shoulder. (Pendulum exercises of the shoulder) 6. The opposite arm may be used freely. 7. Avoid driving for 7 days. 8. Avoid activities such as golfing, swimming, weed whacking, lifting more than 10 pounds weight, bowling, gymnastics and weight training/lifting. (6 weeks restriction) 9. Activities such as wood chopping with an axe, pull-ups in the gymnasium, power lifting, arc-welding, being close to home induction cooktops will always be a problem. 10. Arm sling is only a reminder not to raise the arm above the head. You do not need to keep the arm completely immobilized. Your free to move the arm and use it and for normal activities. In case of any problems, please call [facility], Dajuan Rdz, @ [phone], Attention: Device Clinic Device clinic follow-up in 5 days Follow-up with primary hardness inspector in 2-3 months Continue flecainide 100 mg twice daily Reduce metoprolol succinate to 37.5 mg by mouth daily Currently the patient has 75 mg tablets off metoprolol succinate He will take half a tablet in the morning once daily only Discharge Disposition: HOME SELF-CARE
[2022-10-16 11:46] VITALS: BP 110/65
== END 2022-10-16 12:36 | disposition home or self-care (01) | DRG 243 ==
LOC: CATHEP 08:27 → 2SICU 09:50 → CATHEP 11:16 → 3SCARD 10-15 16:10
PROVIDERS: ADMIT Internal Medicine Clinical Cardiac Electrophysiology; ATTEND Internal Medicine Clinical Cardiac Electrophysiology
PROC: 5A2204Z Restoration of Cardiac Rhythm, Single (ICD-10-PCS; 2022-10-14)
PROC: 02H63JZ Insertion of Pacemaker Lead into Right Atrium, Percutaneous Approach (ICD-10-PCS; principal; 2022-10-15 09:00)
PROC: 02HK3JZ Insertion of Pacemaker Lead into Right Ventricle, Percutaneous Approach (ICD-10-PCS; principal; 2022-10-15 09:00)
PROC: 02JA3ZZ Inspection of Heart, Percutaneous Approach (ICD-10-PCS; principal; 2022-10-15 09:00)
PROC: 0JH606Z Insertion of Pacemaker, Dual Chamber into Chest Subcutaneous Tissue and Fascia, Open Approach (ICD-10-PCS; principal; 2022-10-15 09:00)
PROC: 3E0102A Introduction of Anti-Infective Envelope into Subcutaneous Tissue, Open Approach (ICD-10-PCS; principal; 2022-10-15 09:00)
DX: I49.5 Sick sinus syndrome (principal); I48.19 Other persistent atrial fibrillation; I25.10 Atherosclerotic heart disease of native coronary artery without angina pectoris; E11.65 Type 2 diabetes mellitus with hyperglycemia; E78.5 Hyperlipidemia, unspecified; I11.9 Hypertensive heart disease without heart failure; I08.3 Combined rheumatic disorders of mitral, aortic and tricuspid valves; T46.2X5A Adverse effect of other antidysrhythmic drugs, initial encounter; Z79.01 Long term (current) use of anticoagulants; Z95.3 Presence of xenogenic heart valve; Z86.79 Personal history of other diseases of the circulatory system; Z79.84 Long term (current) use of oral hypoglycemic drugs; Z79.899 Other long term (current) drug therapy
CPT/HCPCS: 33208; 71045; 83036; 84443; 86140; 92960

== ENCOUNTER → 2022-11-15 | Outpatient (CLI) | payer MEDICARE ==
[2022-11-15 18:58] LABS: HCT 40.9 % (39.6-50.0); HGB 13.3 g/dL (13.0-17.0); MCH 29.8 pg (27.0-32.0); MCHC 32.5 g/dL (32.0-37.0); MCV 91.5 fL (80.0-97.0); Mean Platelet Volume 10.7 fL (9.5-12.2); NRBC Per 100 WBC 0 /100 WBCS (0.0-0.0); Platelet Count 207 X 10*3/uL (140-440); RBC 4.47 X 10*6/uL (4.40-5.60); RDW 13.7 % (11.5-14.5); WBC 7.47 X 10*3/uL (4.50-10.00)
[2022-11-15 19:02] LABS: African American GFR (CKD) 55.3 (60.0-200.0); Anion Gap 11.5 mmol/L (10.00-18.00); Blood Urea Nitrogen 7.3 mg/dL (9.0-27.0); Carbon Dioxide 25.4 mmol/L (20.0-27.5); Non-African American GFR(CKD) 47.7 (60.0-200.0); Potassium 4.9 mmol/L (3.5-5.5)
== END | disposition home or self-care (01) ==
LOC: LABPAT 12:38
PROVIDERS: ATTEND Internal Medicine Clinical Cardiac Electrophysiology
DX: Z01.812 Encounter for preprocedural laboratory examination (principal); I48.19 Other persistent atrial fibrillation
CPT/HCPCS: 80051; 82565; 84520; 85027

== ENCOUNTER 2022-11-22 08:13 | Day surgery (SDC) | payer MEDICARE ==
[~2022-11-22 08:13] MED LIST changes: +SODIUM CHLORIDE 0.9% 1,000 ML IV SCH
[2022-11-22] MEDS ORDERED: SODIUM CHLORIDE 0.9% 500 ML 500 ML IV ONE (08:22)
[2022-11-22 08:35] VITALS: RESP 16; TEMP 97.9
[2022-11-22 08:43] LABS: Glucose,Whole Blood 166 mg/dL (70-110)
[2022-11-22] MEDS ORDERED: PROPOFOL 10 MG/ML 20 ML VIAL IV ONE (09:31)
--- NOTE | 2022-11-22 09:35 | P.HPCAR ---
History of Present Illness This is Dr. Hendrickson dictating an H/P on this patient The patient was interviewed and examined IMPRESSION / ASSESSMENT: Persistent atrial fibrillation that has failed treatment of A. 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 He remains in atrial fibrillation He recently had flu at [facility] but has recovered from this ROS: No fever chills or rigors, no cough, phlegm or expectoration, no nausea, vomiting or diarrhea, no hematuria, dysuria, no musculoskeletal complaints, no strokes or seizures, no skin lesions. EXAMINATION: Afebrile blood pressure 150 700 mmHg and 158/92 mmHg Heart sounds S1 and S2 irregular Breath sounds equal air entry bilaterally no crackles Scattered rhonchi No JVD No lower extremity edema REVIEW OF LABS, ECG & MEDICAL DATA Medications include Zocor, metoprolol succinate 37.5 mg by mouth daily, ELIQUIS 5 g twice daily, metformin and Cordarone 200 mg twice daily Physical Exam Vitals: Vital Signs Temp Pulse Resp BP BP Pulse Ox 11/22/22 08:29 97.9 F 76 16 157/102 158/92 99 Intake and Output 11/21/22 11/22/22 11/22/22 22:59 06:59 14:59 Intake Total 0 Balance 0 Intake: IV 0 Past Medical History Past Medical History: Atrial Fibrillation, Diabetes Mellitus, GERD/Reflux, Hearing Disorder / Deafness, Hyperlipidemia, Hypertension, Memory Impairment, Osteoarthritis (OA), Seizure Disorder, Syncope, Vascular Disorder Additional Past Medical History / Comment(s): Epilepsy; last seizure 2010. hx wounds bilat feet healed; neuropathy. c/o sycope x2 in past > [address] Hendrickson's H&P. general arthritis History of Any Multi-Drug Resistant Organisms: None Reported Past Surgical History: Cardiac Valve Replacement, Cholecystectomy, Orthopedic Surgery, Pacemaker Additional Past Surgical History / Comment(s): Colonoscopy, partial amputated left foot great toe, wound center procedures. Aortic valve replacement. dual chamber pacemaker Past Anesthesia/Blood Transfusion Reactions: Previous Problems w/ Anesthesia Additional Past Anesthesia/Blood Transfusion Reaction / Comment(s): states "coded on table" with cholecystectomy, was septic Type of Cardiac Device: Permanent Pacemaker Device Placement Date:: 10/15/22 Smoking Status: Former smoker - Past Family History Mother Family Medical History: Cancer Additional Family Medical History / Comment(s): fx hip, uterine cancer, open heart surgery Father Family Medical History: No Reported History Physical Examination Vital Signs Temp Pulse Resp BP BP Pulse Ox 11/22/22 08:29 97.9 F 76 16 157/102 158/92 99 Intake and Output 11/21/22 11/22/22 11/22/22 22:59 06:59 14:59 Intake Total 0 Balance 0 Intake: IV 0 Results Current Medications Generic Name Dose Route Start Last Admin Trade Name Freq PRN Reason Stop Dose Admin Sodium Chloride 1,000 mls @ 20 mls/hr 11/22/22 06:04 Saline 0.9% IV 12/22/22 06:05 .Q24H CURT Lactated Ringer's 1,000 mls @ 20 mls/hr 11/22/22 06:04 Lactated Ringers IV 12/22/22 06:05 .Q24H CURT Intake and Output 11/21/22 11/22/22 11/22/22 22:59 06:59 14:59 Intake Total 0 Balance 0 Intake: IV 0
--- NOTE | 2022-11-22 09:45 | P.EPPROC ---
- EP Procedure Note Electrophysiology Procedure Note: Diagnosis Refractory atrial fibrillation, symptomatic, despite A. fib ablation flecainide and Multaq Currently on 400 mg a day of amiodarone, oral loading for the last 3 weeks Procedure Successful electrical cardioversion with a 200 J biphasic shock VT configuration to an atrial paced rhythm Pacemaker interrogated and reprogrammed AAIR-DDDR 60-130 bpm R waves 10.6 V Mary Ann, pacing impedance 475 ohms and pacing threshold 0.75 V at 0.4 ms Atrial pacing impedance 399 ohms, pacing threshold 0.75 V at 0.4 ms and P waves 1.5 mV Patient to the procedure well without any acute complications Plan Continue ELIQUIS Continue current medications Reduce amiodarone dose to 200 mg by mouth daily on December 2022 If over the next 3 months he maintains sinus rhythm and reduce it further down to 100 mg daily after 3 months
--- NOTE | 2022-11-22 09:46 | P.PRLE ---
RE: Tano Lennon A Date Javier Tano Kraus has refractory atrial fibrillation and has failed A. fib ablation, flecainide therapy and has been intolerant of Multaq I started him on oral amiodarone 400 mg daily in the month of October and today I successfully cardioverted into sinus rhythm I would recommend reducing the dose down to 200 mg by mouth daily by first december of this year He will continue ELIQUIS and other cardiac medications as before Thank you for entrusting me with the care of the patient Warm regards Sincerely Jesus Hendrickson
[2022-11-22 11:50] VITALS: BP 141/77; PULSE 58
== END 2022-11-22 11:03 | disposition home or self-care (01) ==
LOC: CATHCVL 08:13
PROVIDERS: ATTEND Internal Medicine Clinical Cardiac Electrophysiology
DX: I48.19 Other persistent atrial fibrillation (principal); Z95.0 Presence of cardiac pacemaker; I10 Essential (primary) hypertension; E78.5 Hyperlipidemia, unspecified; K21.9 Gastro-esophageal reflux disease without esophagitis; H91.90 Unspecified hearing loss, unspecified ear; M19.90 Unspecified osteoarthritis, unspecified site; Z79.810 Long term (current) use of selective estrogen receptor modulators (SERMs); E11.40 Type 2 diabetes mellitus with diabetic neuropathy, unspecified; Z79.02 Long term (current) use of antithrombotics/antiplatelets; Z79.899 Other long term (current) drug therapy; K75.9 Inflammatory liver disease, unspecified; G40.909 Epilepsy, unspecified, not intractable, without status epilepticus; R41.3 Other amnesia; I73.9 Peripheral vascular disease, unspecified; Z95.2 Presence of prosthetic heart valve; Z90.49 Acquired absence of other specified parts of digestive tract; Z98.890 Other specified postprocedural states; Z87.891 Personal history of nicotine dependence; Z80.8 Family history of malignant neoplasm of other organs or systems; I49.5 Sick sinus syndrome; Z79.84 Long term (current) use of oral hypoglycemic drugs; Z79.1 Long term (current) use of non-steroidal anti-inflammatories (NSAID); Z79.891 Long term (current) use of opiate analgesic; Z79.01 Long term (current) use of anticoagulants
CPT/HCPCS: 92960; 93280; J2704

== ENCOUNTER 2023-05-05 18:59 | Inpatient (IN) | payer MEDICARE ==
[2023-05-05] MEDS ORDERED: SODIUM CHLORIDE 0.9% 1,000 ML IV STA (19:01)
[2023-05-05] MEDS ORDERED: levETIRAcetam IV 1,500 MG in SODIUM CHLORIDE 0.9% 250 ML IVPB ONE (19:03)
[2023-05-05] MEDS ORDERED: LORazepam 2 MG/ML INJ IV STA (19:07)
[2023-05-05 19:14] LABS: Glucose,Whole Blood 183 mg/dL (70-110)
[2023-05-05] MEDS ORDERED: levETIRAcetam IV 500 MG/5 ML VIAL IVP ONE (19:15)
[2023-05-05 19:22] LABS: Basophils # (A) 0.1 k/uL (0-0.2); Basophils % (A) 1 %; Eosinophils # (A) 0.3 k/uL (0-0.7); Eosinophils % (A) 2 %; HCT 44.8 % (39.0-53.0); HGB 14.1 gm/dL (13.0-17.5); Hypochromasia Moderate; Lymphocytes # (A) 3.9 k/uL (1.0-4.8); Lymphocytes % (A) 36 %; MCH 31.5 pg (25.0-35.0); MCHC 31.4 g/dL (31.0-37.0); MCV 100.1 fL (80.0-100.0); Monocytes # (A) 0.8 k/uL (0-1.0); Monocytes % (A) 8 %; Neutrophils # (A) 5.6 k/uL (1.3-7.7); Neutrophils % (A) 51 %; Platelet Count 232 k/uL (150-450); RBC 4.48 m/uL (4.30-5.90); RDW 13.6 % (11.5-15.5)
--- NOTE | 2023-05-05 19:26 | CT ---
EXAMINATION TYPE: CT brain wo con DATE OF EXAM: 05/05/2023 COMPARISON: 04/18/2022 HISTORY: seizure activity CT DLP: 1261.[address] of the brain was performed. The ventricles, basal cisterns and sulci overlying the cerebral convexities demonstrate mild enlargem ent. There is no evidence for intracranial hemorrhage or sulcal effacement. There is decreased attenuation about the periventricular white matter and deep white matter of both c erebral hemispheres, compatible with chronic small vessel ischemia. Differential diagnosis does inclu de demyelination. No mass effects are seen.No midline shift. Osseous calvarium is intact. If symptoms persist consider MRI. IMPRESSION: 1. Age related atrophic and chronic small vessel ischemic change without acute intracranial process s een at this time.
[2023-05-05 19:33] LABS: AST 38 U/L (17-59); Acetaminophen <10.0 ug/mL; African American GFR (CKD) 44 (>60 ml/min/1.73 sqM); Albumin 4.7 g/dL (3.5-5.0); Alcohol <10 mg/dL; Alkaline Phosphatase 60 U/L (38-126); Anion Gap 26 mmol/L; Blood Urea Nitrogen 7 mg/dL (9-20); Calcium 8.6 mg/dL (8.4-10.2); Carbon Dioxide 11 mmol/L (22-30); Chloride 106 mmol/L (98-107); Glucose 183 mg/dL (74-99); Magnesium 1.8 mg/dL (1.6-2.3); Non-African American GFR(CKD) 38 (>60 ml/min/1.73 sqM); Potassium 3.6 mmol/L (3.5-5.1); Salicylate <1.0 mg/dL; Sodium 143 mmol/L (137-145); Total Bilirubin 0.7 mg/dL (0.2-1.3); Total Protein 7.9 g/dL (6.3-8.2)
[2023-05-05 19:38] LABS: ALT 44 U/L (4-49)
--- NOTE | 2023-05-05 19:54 | ED ---
General Adult HPI - General Chief complaint: Seizure Stated complaint: Altered Mental Status, Seizure Time Seen by Provider: 05/05/23 19:01 Source: family, EMS, RN notes reviewed, old records reviewed Mode of arrival: EMS Limitations: altered mental status - History of Present Illness Initial comments: 73-year-old male presenting for evaluation of seizure. Patient history is obtained initially from paramedics and then further history from the patient's and daughter. He had apparently became minimally responsive and nonverbal with tonic-clonic seizure activity at home which began at approximately 1820. Paramedics arrived and the patient had stopped seizing and was ambulatory. He is able to walk to the stretcher. Paramedics had noted a facial droop. During transport at the time of arrival to the emergency department the patient began to seize. He was seizing at the time my initial evaluation which was tonic- clonic seizure lasting approximate 5 minutes. Patient does have seizure disorder and takes Keppra. - Related Data Home Medications Medication Instructions Recorded Confirmed Simvastatin [Zocor] 40 mg PO HS 04/22/21 11/22/22 Donepezil [Aricept] 10 mg PO DAILY 04/18/22 11/22/22 Furosemide [Lasix] 20 mg PO DAILY 04/18/22 11/22/22 Pantoprazole Sodium [Protonix] 40 mg PO DAILY 04/18/22 11/22/22 levETIRAcetam [Keppra] 1,500 mg PO BID 04/18/22 11/22/22 Amiodarone [Cordarone] 200 mg PO BID 11/17/22 11/17/22 Previous Rx's Medication Instructions Recorded Apixaban [Eliquis] 5 mg PO BID 30 Days #60 tab 04/23/22 Metoprolol Succinate [Metoprolol 37.5 mg PO DAILY #90 tab 10/15/22 Succinate ER] metFORMIN HCL ER [Glucophage XR] 1,000 mg PO DAILY #180 tab 10/16/22 Allergies Allergy/AdvReac Type Severity Reaction Status Date / Time dronedarone [From Multaq] Allergy Swelling Verified 11/17/22 17:27 Review of Systems ROS Statement: Those systems with pertinent positive or pertinent negative responses have been documented in the HPI. ROS Other: All systems not noted in ROS Statement are negative. Past Medical History Past Medical History: Atrial Fibrillation, Diabetes Mellitus, GERD/Reflux, Hearing Disorder / Deafness, Hyperlipidemia, Hypertension, Memory Impairment, Seizure Disorder, Syncope, Vascular Disorder Additional Past Medical History / Comment(s): Epilepsy; last seizure 2010. Hx cellulitis. Current wounds bilat feet; Lt thumb wound healing from injury; neuropathy. c/o sycope x2 in past 6 months History of Any Multi-Drug Resistant Organisms: None Reported Past Surgical History: Cardiac Valve Replacement, Cholecystectomy, Orthopedic Surgery Additional Past Surgical History / Comment(s): Colonoscopy, partial amputated left foot great toe, wound center procedures. Aortic valve replacement Past Anesthesia/Blood Transfusion Reactions: Previous Problems w/ Anesthesia Additional Past Anesthesia/Blood Transfusion Reaction / Comment(s): states "coded on table" with cholecystectomy, was septic Smoking Status: Never smoker - Past Family History Mother Family Medical History: Cancer Additional Family Medical History / Comment(s): fx hip, uterine cancer, open heart surgery Father Family Medical History: No Reported History General Exam Limitations: altered mental status General appearance: other (Tonic-clonic seizure) Head exam: Present: atraumatic, normocephalic Eye exam: Present: PERRL, other (Inferior gaze) Respiratory exam: Present: respiratory distress (Abnormal respirations) Cardiovascular Exam: Present: tachycardia, irregular rhythm GI/Abdominal exam: Present: soft. Absent: distended, tenderness Neurological exam: Present: other (Full tonic-clonic seizure) Skin exam: Present: warm, dry Course Vital Signs 05/05/23 05/05/23 05/05/23 19:02 19:25 19:48 Pulse Rate 141 H 98 81 Respiratory 24 23 22 Rate Blood Pressure 209/135 145/98 152/83 O2 Sat by Pulse 98 100 99 Oximetry - Reevaluation(s) Reevaluation #1: 05/05/23 [address] the patient is more alert but has right-sided neglect and right hemiparesis. At this time: Stroke is activated and the patient is taken immediately for CT angiography. The patient is not a TPA candidate secondary to Eliquis which she takes for atrial fibrillation. 1730 case discussed with the stroke neurologist Dr. Heaton, he will review the angiogram Reevaluation #2: 05/05/23 20:13 Patient more alert, able to move the right lower extremity, has subtle movement of the right upper extremity but will not follow commands on the right. Medical Decision Making - Medical Decision Making Was pt. sent in by a medical professional or institution (, JESSIE, SENIOR ENGINEERING TECH, urgent care, hospital, or half-way...) When possible be specific @ -No Did you speak to anyone other than the patient for history (EMS, parent, family, police, friend...)? What history was obtained from this source @Paramedics, patient's and daughter Did you review nursing and triage notes (agree or disagree)? Why? @ -I reviewed and agree with nursing and triage notes Were old charts reviewed (outside hosp., previous admission, EMS record, old EKG, old radiological studies, urgent care reports/EKG's, half-way records)? Report findings @ -No old charts were reviewed Differential Diagnosis (chest pain, altered mental status, abdominal pain women, abdominal pain men, vaginal bleeding, weakness, fever, dyspnea, syncope, headache, dizziness, GI bleed, back pain, seizure, CVA, palpatations, mental health, musculoskeletal)? @ Differential CVA Ischemic stroke, hemorrhagic stroke, brain tumor, atypical migraine, Wernicke's encephalopathy, seizure, multiple sclerosis, meningitis, encephalitis, hypoglycemia, Guillain-Allison, electrolytes disturbance, myasthenia gravis.... This is not meant to be an all-inclusive list EKG interpreted by me (3pts min.). @ EKG: Atrial fibrillation with intraventricular conduction delay and ST segment depression in the lateral precordial leads similar compared to prior. Ventricular rate of 100, QRS duration 1:30, QTC 4:15 X-rays interpreted by me (1pt min.). @ -None done CT interpreted by me (1pt min.). @ -[CT brain without contrast, negative for intracranial hemorrhage or mass effect, CT angiography of the brain negative for occlusion or stenosis U/S interpreted by me (1pt. min.). @ -None done What testing was considered but not performed or refused? (CT, X-rays, U/S, labs)? Why? @ -None What meds were considered but not given or refused? Why? @ -None Did you discuss the management of the patient with other professionals (darrian nelson i.e. , JESSIE, SENIOR ENGINEERING TECH, lab, RT, psych nurse, social work nurse, patient transporter, teacher, interface control officer, case preparer and liner)? Give summary @ -[Dr. Delaney and Dr. Mata. Case discussed with Dr. Heaton, covering for stroke. Was smoking cessation discussed for >3mins.? @ -No Was critical care preformed (if so, how long)? @ -Yes, 35 minutes Were there social determinants of health that impacted care today? How? (Homelessness, low income, unemployed, alcoholism, drug addiction, transportation, low edu. Level, literacy, decrease access to med. care, intermediate, rehab)? @ -No Was there de-escalation of care discussed even if they declined (Discuss DNR or withdrawal of care, Hospice)? DNR status @ -No What co-morbidities impacted this encounter? (DM, HTN, Smoking, COPD, CAD, Cancer, CVA, ARF, Chemo, Hep., AIDS, mental health diagnosis, sleep apnea, morbid obesity)? @ -[Seizure disorder, atrial fibrillation on our requests Was patient admitted / discharged? Hospital course, mention meds given and route, prescriptions, significant lab abnormalities, going to OR and other pertinent info. @ -[73-year-old male presenting with 2 separate episodes of tonic-clonic seizu re lasting 5 minutes and 6 minutes. After second seizure in the emergency department the patient has right-sided hemiparesis and guillermo-neglect he has both expressive aphasia and dysarthria. NIH after second seizure has subsided is 22. This does improve while in the emergency department. CT CT angiography are unremarkable. Laboratory testing reveals an acidosis consistent with prolonged seizure. Patient has improvement while emergency department but has not returned to baseline. He will be admitted to Dr. Delaney with neurology on consult. Both have been contacted and are aware of the patient's presentation and current status. Undiagnosed new problem with uncertain prognosis? @ -No Drug Therapy requiring intensive monitoring for toxicity (Heparin, Nitro, Insulin, Cardizem)? @ -No Were any procedures done? @ -No Diagnosis/symptom? @ -Seizure with focal neurological findings, Mani's paralysis versus CVA Acute, or Chronic, or Acute on Chronic? @ -[Acute Uncomplicated (without systemic symptoms) or Complicated (systemic symptoms)? @ -default Side effects of treatment? @ -No Exacerbation, Progression, or Severe Exacerbation? @ -No Poses a threat to life or bodily function? How? (Chest pain, [place], [place], pneumonia, PE, COPD, DKA, ARF, appy, cholecystitis, CVA, Diverticulitis, Homicidal, Suicidal, threat to staff... and all critical care pts) @ -[Yes, recurrent seizure - Lab Data Result diagrams: 05/05/23 19:17 05/05/23 19:17 Lab Results 05/05/23 05/05/23 05/05/23 Range/Units 19:09 19:17 19:17 WBC 11.0 H (3.8-10.6) k/uL RBC 4.48 (4.30-5.90) m/uL Hgb 14.1 (13.0-17.5) gm/dL Hct 44.8 (39.0-53.0) % MCV 100.1 H (80.0-100.0) fL MCH 31.5 (25.0-35.0) pg MCHC 31.4 (31.0-37.0) g/dL RDW 13.6 (11.5-15.5) % Plt Count 232 (150-450) k/uL MPV 8.0 Neutrophils % 51 % Lymphocytes % 36 % Monocytes % 8 % Eosinophils % 2 % Basophils % 1 % Neutrophils # 5.6 (1.3-7.7) k/uL Lymphocytes # 3.9 (1.0-4.8) k/uL Monocytes # 0.8 (0-1.0) k/uL Eosinophils # 0.3 (0-0.7) k/uL Basophils # 0.1 (0-0.2) k/uL Hypochromasia Moderate Sodium 143 (137-145) mmol/L Potassium 3.6 (3.5-5.1) mmol/L Chloride 106 (98-107) mmol/L Carbon Dioxide 11 L (22-30) mmol/L Anion Gap 26 mmol/L BUN 7 L (9-20) mg/dL Creatinine 1.75 H (0.66-1.25) mg/dL Est GFR (CKD-EPI)AfAm 44 (>60 ml/min/1.73 sqM) Est GFR (CKD-EPI)NonAf 38 (>60 ml/min/1.73 sqM) Glucose 183 H (74-99) mg/dL POC Glucose (mg/dL) 183 H (70-110) mg/dL POC Glu Extruder Operator Helper ID Anel Cruz Calcium 8.6 (8.4-10.2) mg/dL Magnesium 1.8 (1.6-2.3) mg/dL Total Bilirubin 0.7 (0.2-1.3) mg/dL AST 38 (17-59) U/L ALT 44 (4-49) U/L Alkaline Phosphatase 60 (38-126) U/L Total Protein 7.9 (6.3-8.2) g/dL Albumin 4.7 (3.5-5.0) g/dL Salicylates <1.0 mg/dL Acetaminophen <10.0 ug/mL Serum Alcohol <10 mg/dL Critical Care Time Critical Care Time: Yes Total Critical Care Time: 35 Disposition Clinical Impression: Status epilepticus, Atrial fibrillation, Right sided weakness, Mani's paralysis (postepileptic) Disposition: ADMITTED IP TO THIS [facility] Condition: Serious Instructions (If sedation given, give patient instructions): Seizure/Epilepsy Discharge Instructions & Follow-Up Is patient prescribed a controlled substance at d/c from ED?: No Referrals: Javier Delaney MD [Primary Care Provider] - 1-2 days Time of Disposition: 20:27
--- NOTE | 2023-05-05 20:01 | CT ---
EXAMINATION TYPE: CT angio head neck DATE OF EXAM: 05/05/2023 COMPARISON: none HISTORY: seizure right-sided weakness. code stroke CT DLP: 624.3 mGycm CONTRAST: Performed with IV Contrast, patient injected with 65 mL of Isovue 370. Combination Contrast CTA cervical carotids and [place] CTA cervical carotids with 3-D recons truction Contrast CTA of the cervical carotids was performed 3-D reconstruction imaging obtained at a separate workstation. Right carotid system: Mild plaque is seen of the right common carotid artery. There is mild plaque a lso noted at the carotid bulb and proximal ICA. No significant diameter reduction. ECA is patent. Right vertebral artery appears unremarkable. Left carotid system: Mild plaque is seen of the left common carotid artery. There is mild plaque als o noted at the carotid bulb and proximal ICA. No significant diameter reduction. ECA is patent. Lef t vertebral artery appears unremarkable. IMPRESSION: 1. No significant diameter reduction to account for the patient's symptoms. CTA [place] with 3-D reconstruction Contrast CTA of the [place] was performed 3-D reconstruction imaging obtained at a separate workstation. Vertebrobasilar system as well as intracranial portions of the internal carotid arteries and their ma helene tributaries are patent. I do not see evidence for sizable aneurysm or vascular malformation. Pl ease note MRI provides greater sensitivity and specificity. Visualized brain appears grossly unremar kable. IMPRESSION: 1. No significant abnormality. NASCET criteria was used in interpretation of this exam?
[2023-05-05] MEDS ORDERED: LORazepam 2 MG/ML INJ IV PRN (20:18)
[2023-05-05] MEDS ORDERED: ACETAMINOPHEN TAB 325 MG TAB PO PRN (20:19)
[2023-05-05] MEDS ORDERED: NALOXONE 0.4 MG/ML 1 ML VIAL IV PRN (20:19)
[2023-05-05] MEDS: LORazepam 2 MG/ML INJ IV PRN ×2 (20:56→22:12)
[2023-05-05 23:18] LABS: Glucose,Whole Blood 137 mg/dL (70-110)
[2023-05-06] MEDS: SODIUM CHLORIDE 0.9% 1,000 ML IV SCH ×3 (00:18→20:42)
[2023-05-06 05:58] LABS: Glucose,Whole Blood 127 mg/dL (70-110)
[2023-05-06] MEDS ORDERED: DEXTROSE 50% SYRINGE 50 ML IVP PRN ×4 (08:27→09:47)
--- NOTE | 2023-05-06 08:27 | P.HPIM ---
History of Present Illness H&P Date: 05/06/23 Chief Complaint: Tonic-clonic activity. This is 71-year-old white male with known history of atrial fibrillation who came in after having tonic-clonic activity. The patient was stabilized en route but then came in with significant seizure-like activity. The patient was sta bilized and was starting to become more lucid but had hemiplegia. Question element of Mani's paralysis. Review of Systems ROS unobtainable: due to mental status Past Medical History Past Medical History: Atrial Fibrillation, Diabetes Mellitus, GERD/Reflux, Hearing Disorder / Deafness, Hyperlipidemia, Hypertension, Memory Impairment, Seizure Disorder, Syncope, Vascular Disorder Additional Past Medical History / Comment(s): Epilepsy; last seizure 2010. Hx cellulitis. Current wounds bilat feet; Lt thumb wound healing from injury; neuropathy. c/o sycope x2 in past 6 months History of Any Multi-Drug Resistant Organisms: None Reported Past Surgical History: Cardiac Valve Replacement, Cholecystectomy, Orthopedic Surgery, Pacemaker Additional Past Surgical History / Comment(s): Colonoscopy, partial amputated left foot great toe, wound center procedures. Aortic valve replacement, medtronic pacemaker Past Anesthesia/Blood Transfusion Reactions: Previous Problems w/ Anesthesia Additional Past Anesthesia/Blood Transfusion Reaction / Comment(s): states "coded on table" with cholecystectomy, was septic Type of Cardiac Device: Permanent Pacemaker Device Placement Date:: 10/15/2022 Past Psychological History: Depression Additional Psychological History / Comment(s): feels he's depressed now Smoking Status: Never smoker Past Alcohol Use History: Occasional Additional Past Alcohol Use History / Comment(s): quit smoking 1975 Past Drug Use History: Marijuana Additional Drug Use History / Comment(s): use daily for neuropathy, instructed to hold 24 hrs prior - Past Family History Mother Family Medical History: Cancer Additional Family Medical History / Comment(s): fx hip, uterine cancer, open heart surgery Father Family Medical History: No Reported History Medications and Allergies Home Medications Medication Instructions Recorded Confirmed Type Simvastatin [Zocor] 40 mg PO HS 04/22/21 05/05/23 History Donepezil [Aricept] 10 mg PO DIRECTED 04/18/22 05/05/23 History Furosemide [Lasix] 20 mg PO Q48H 04/18/22 05/05/23 History Pantoprazole Sodium [Protonix] 40 mg PO DIRECTED 04/18/22 05/05/23 History levETIRAcetam [Keppra] 1,500 mg PO BID 04/18/22 05/05/23 History Amiodarone [Cordarone] 100 mg PO DIRECTED 11/17/22 05/05/23 History Apixaban [Eliquis] 5 mg PO BID 05/05/23 05/05/23 History Metoprolol Tartrate [Lopressor] 37.5 mg PO DIRECTED 05/05/23 05/05/23 History metFORMIN HCL ER [Glucophage XR] 1,000 mg PO DIRECTED 05/05/23 05/05/23 History Allergies Allergy/AdvReac Type Severity Reaction Status Date / Time dronedarone [From Baiyaxuan] Allergy Swelling Verified 05/05/23 21:07 Physical Exam Vitals: Vital Signs Temp Pulse Pulse Resp BP BP Pulse Ox 05/06/23 04:00 97.8 F 64 16 130/65 99 05/06/23 02:00 67 16 05/06/23 00:18 97.8 F 67 16 146/81 99 05/05/23 21:07 64 16 127/67 100 05/05/23 19:48 81 22 152/83 99 05/05/23 19:25 98 23 145/98 100 05/05/23 19:02 141 H 24 209/135 98 Intake and Output 05/05/23 05/06/23 05/06/23 22:59 06:59 14:59 Output Total 450 Balance -450 Output: Urine 450 Straight 450 Other: # Voids 1 Weight 101 kg 101 kg - Constitutional General appearance: no acute distress - EENT Eyes: EOMI - Neck Neck: no lymphadenopathy - Respiratory Respiratory: bilateral: CTA - Cardiovascular Rhythm: irregularly irregular Heart sounds: normal: S1, S2 Abnormal Heart Sounds: no S3 Gallop - Gastrointestinal General gastrointestinal: soft, no tenderness - Psychiatric Unable to ascertain Results CBC & Chem 7: 05/05/23 19:17 05/05/23 19:17 Labs: Abnormal Lab Results - Last 24 Hours (Table) 05/05/23 05/05/23 05/05/23 Range/Units 19:09 19:17 19:17 WBC 11.0 H (3.8-10.6) k/uL MCV 100.1 H (80.0-100.0) fL Carbon Dioxide 11 L (22-30) mmol/L BUN 7 L (9-20) mg/dL Creatinine 1.75 H (0.66-1.25) mg/dL Glucose 183 H (74-99) mg/dL POC Glucose (mg/dL) 183 H (70-110) mg/dL 05/05/23 05/06/23 Range/Units 23:16 05:57 WBC (3.8-10.6) k/uL MCV (80.0-100.0) fL Carbon Dioxide (22-30) mmol/L BUN (9-20) mg/dL Creatinine (0.66-1.25) mg/dL Glucose (74-99) mg/dL POC Glucose (mg/dL) 137 H 127 H (70-110) mg/dL Thrombosis Risk Factor Assmnt - Choose All That Apply Any of the Below Risk Factors Present?: Yes Each Factor Represents 1 point: Medical pt on bed rest, Obesity (BMI >25) Other Risk Factors: Yes Each Risk Factor Represents 2 Points: Age 61-74 years, Patient confined to bed Other congenital or acquired thrombophilia - If yes, enter type in comment: No Thrombosis Risk Factor Assessment Total Risk Factor Score: 6 Thrombosis Risk Factor Assessment Level: High Risk Assessment and Plan (1) Atrial fibrillation Current Visit: Yes Status: Acute Code(s): I48.91 - UNSPECIFIED ATRIAL FIBRILLATION SNOMED Code(s): 91254167 (2) Right sided weakness Current Visit: Yes Status: Acute Code(s): R53.1 - WEAKNESS SNOMED Code(s): 606854782 (3) Status epilepticus Current Visit: Yes Status: Acute Code(s): G40.901 - EPILEPSY, UNSP, NOT INTRACTABLE, WITH STATUS EPILEPTICUS SNOMED Code(s): 069948687 (4) Mani's paralysis (postepileptic) Current Visit: Yes Status: Acute Code(s): G83.84 - MANI'S PARALYSIS (POSTEPILEPTIC) SNOMED Code(s): 75723538 (5) Diabetes Current Visit: No Status: Acute Code(s): E11.9 - TYPE 2 DIABETES MELLITUS WITHOUT COMPLICATIONS SNOMED Code(s): 09407757 Plan: Neurology consult. Check CBC and CMP in a.m. Neurochecks. Reconcile medications as necessary. Place on sliding scale. GI and DVT prophylaxis.
[2023-05-06] MEDS: METOPROLOL TARTRATE 12.5 MG TAB PO SCH (10:40)
[2023-05-06] MEDS: AMIODARONE 100 MG TAB PO SCH (10:40)
[2023-05-06] MEDS: DONEPEZIL 10 MG TAB PO SCH (10:41)
[2023-05-06] MEDS: APIXABAN 5 MG TAB PO SCH ×2 (10:41→20:41)
[2023-05-06] MEDS: INSULIN ASPART (NovoLOG) 100 UNIT/ML VIAL SQ SCH ×3 (11:38→20:41)
[2023-05-06 11:49] LABS: Glucose,Whole Blood 123 mg/dL (70-110)
--- NOTE | 2023-05-06 15:17 | P.CNNES ---
History of Present Illness Consult date: 05/06/23 Requesting physician: Ji Herr Reason for Consult: Seizure, right-sided weakness History of Present Illness: Patient is a 73-year-old male with history of seizure disorder as mentioned below in detail, came to the hospital by ambulance yesterday at 6:59 PM for probable breakthrough seizure versus TIA. Patient and his both were present, who provided the history. Patient states that yesterday earlier during the day, he went to grocery store where he felt dizzy but it just lasted for a minute and then past. He came back home, sat on the dock. He suddenly went into "[place]". He was not making sense, garbled speech and then had a convulsion, that lasted for about 4-1/2-5 minutes. Patient's called EMS and he was brought to the hospital. EMS flow sheet not available in the chart. As per ED record, it was reported that patient had recovered after the seizure before EMS arrived and he was ambulatory and walked to the ambulance. He was noted to have facial droop postictally. However when he arrived to the ER, patient started seizing again and had a tonic clonic seizure, that lasted for about 5 minutes. Postictally he was noted to have left hemiparesis, and his NIH stroke scale is reported was 22. Vital signs on arrival blood pressure 209/135, pulse rate 141, temperature 97.8. Blood pressure improved to 145/98. Blood test shows WBC 11.0 hemoglobin 14.1, with elevated MCV 100.1 and platelets 232. Electrolytes are normal, renal functions with normal BUN, creatinine slightly elevated 1.75. Hepatic panel is normal, blood alcohol level negative. CT head revealed age-related atrophic and chronic small vessel ischemic change without acute intracranial process seen at this time. EKG shows atrial fibrillation with rapid ventricular rate. Stroke code was activated, but patient was not a candidate for TPA because he was on Eliquis and also had a witnessed grand mal seizure. CTA of head and neck revealed no large vessel occlusion. Patient's current medications include simvastatin 40 mg, donepezil 10 AM, Keppra 1500 mg twice a day, Lasix 20 mg every 48 hours, Protonix, amiodarone, metoprolol, metformin and Eliquis 5 mg twice a day. Patient's family has mentioned that patient has history of epilepsy diagnosed at age 61 when he presented with grand mal seizure. He had total of 3 seizures before he was diagnosed with epilepsy by Dr. Dixie Rudd at [facility]. Patient was started on Keppra. His seizures were well controlled with Keppra. He has not had any seizures for years, however in 2021 he had 2 seizures in 6 months. His seizures always occurs when he is asleep. He does not get loss of control of urine or tongue bite with the seizure. So his neurologist Dr. Lema increased the dose of Keppra to 1500 mg twice a day in March 2022. Patient had probably unwitnessed seizure in April 2022 for which he was hospitalized, seen by myself. Patient had bacterial endocarditis at that time, treated with antibiotics. His seizure was felt to be related to sepsis at that time. Medication regimen was not changed. Patient's also mentioned that patient has not had any seizure since his previous admission on 04/19/2022. His SEIZURES have occurred while he was sleeping. This is the first time that it occurred during wakefulness. Patient's symptoms have all resolved, and his back to baseline. No focal deficits. Patient follows up with Dr. Lema, in the last time they were seen was in June 2022. Patient does not miss doses of his seizure medications, denies any nausea vomiting that would have led to subtherapeutic level. Patient does admit to couple days of headache. Patient has history of atrial fibrillation since he underwent heart surgery about 5 years ago. He had undergone cardiac ablation in 2020. Patient drinks 4 beers per day since he was retired aged 61. He usually drinks 5 days per week. No tobacco use. He smokes pot every day. He has diabetes for last 8 years for which he takes metformin. Review of Systems Constitutional: Reports weight loss, Denies chills, Denies fever Eyes: denies blurred vision, denies diplopia, denies pain Ears: bilateral: decreased hearing, deny: ear discharge Ears, nose, mouth and throat: Reports headache, Denies sore throat Cardiovascular: Reports shortness of breath, Denies chest pain Respiratory: Denies cough, Denies excessive sputum Gastrointestinal: Reports diarrhea, Denies abdominal pain, Denies nausea, Denies vomiting Genitourinary: Reports urinary retention, Denies incontinence, Denies urinary frequency Musculoskeletal: Denies low back pain, Denies myalgias, Denies neck pain Integumentary: Reports lesions, Reports sores, Denies pruritus, Denies rash Neurological: Reports numbness, Denies weakness Psychiatric: Reports depression, Reports irritability, Denies anxiety Endocrine: Reports fatigue, Reports weight change Hematologic/Lymphatic: Reports easy bleeding, Reports easy bruising Past Medical History Past Medical History: Atrial Fibrillation, Diabetes Mellitus, GERD/Reflux, Hearing Disorder / Deafness, Hyperlipidemia, Hypertension, Memory Impairment, Seizure Disorder, Syncope, Vascular Disorder Additional Past Medical History / Comment(s): Epilepsy; last seizure 2010. Hx cellulitis. Current wounds bilat feet; Lt thumb wound healing from injury; neuropathy. c/o sycope x2 in past 6 months History of Any Multi-Drug Resistant Organisms: None Reported Past Surgical History: Cardiac Valve Replacement, Cholecystectomy, Orthopedic Surgery, Pacemaker Additional Past Surgical History / Comment(s): Colonoscopy, partial amputated left foot great toe, wound center procedures. Aortic valve replacement, medtronic pacemaker Past Anesthesia/Blood Transfusion Reactions: Previous Problems w/ Anesthesia Additional Past Anesthesia/Blood Transfusion Reaction / Comment(s): states "coded on table" with cholecystectomy, was septic Type of Cardiac Device: Permanent Pacemaker Device Placement Date:: 10/15/2022 Past Psychological History: Depression Additional Psychological History / Comment(s): feels he's depressed now Smoking Status: Never smoker Past Alcohol Use History: Occasional Additional Past Alcohol Use History / Comment(s): quit smoking 1975 Past Drug Use History: Marijuana Additional Drug Use History / Comment(s): use daily for neuropathy, instructed to hold 24 hrs prior - Past Family History Mother Family Medical History: Cancer Additional Family Medical History / Comment(s): fx hip, uterine cancer, open heart surgery Father Family Medical History: No Reported History Medications and Allergies Home Medications Medication Instructions Recorded Confirmed Type Simvastatin [Zocor] 40 mg PO HS 04/22/21 05/05/23 History Donepezil [Aricept] 10 mg PO DAILY 04/18/22 05/06/23 History Furosemide [Lasix] 20 mg PO Q48H 04/18/22 05/06/23 History Pantoprazole Sodium [Protonix] 40 mg PO Q3D 04/18/22 05/06/23 History levETIRAcetam [Keppra] 1,500 mg PO BID 04/18/22 05/05/23 History Amiodarone [Cordarone] 100 mg PO DAILY 11/17/22 05/06/23 History Apixaban [Eliquis] 5 mg PO BID 05/05/23 05/05/23 History Metoprolol Tartrate [Lopressor] 37.5 mg PO DAILY 05/05/23 05/06/23 History metFORMIN HCL ER [Glucophage XR] 1,000 mg PO BID 05/05/23 05/06/23 History Allergies Allergy/AdvReac Type Severity Reaction Status Date / Time dronedarone [From Multaq] Allergy Swelling Verified 05/05/23 21:07 Physical Examination - Vital Signs Vital Signs: Vital Signs Temp Pulse Pulse Resp BP BP Pulse Ox 05/06/23 09:57 100 05/06/23 08:00 98.0 F 64 18 129/78 99 05/06/23 04:00 97.8 F 64 16 130/65 99 05/06/23 02:00 67 16 05/06/23 00:18 97.8 F 67 16 146/81 99 05/05/23 21:07 64 16 127/67 100 05/05/23 19:48 81 22 152/83 99 05/05/23 19:25 98 23 145/98 100 05/05/23 19:02 141 H 24 209/135 98 Intake and Output 05/05/23 05/06/23 05/06/23 22:59 06:59 14:59 Output Total 450 Balance -450 Output: Urine 450 Straight 450 Other: # Voids 1 Weight 101 kg 101 kg Patient is an elderly male, in no acute distress. Patient is alert awake oriented to time place and person. Patient knows it is 05/06/2023 and that he is in [facility]. Speech and language functions are normal. Patient can name and repeat very well. No aphasia or dysarthria. Attention, concentration and fund of knowledge is adequate. On cranial nerve examination, pupils are equal, round and reacting to light, visual johnson are full on confrontation, with no neglect on double simultaneous stimulation. Extraocular muscles are intact with no nystagmus. Face is symmetric, tongue protrudes to the midline. Palatal elevation and sensation normal, hearing and shoulder shrug normal, facial sensation normal. On muscle strength testing, there is no pronator drift and the strength is normal in arms and legs distally and proximally. Deep tendon reflexes are diminished, 1+ in the knees and plantars are flat bilaterally. Sensory to touch is equal with no neglect on double simultaneous stimulation. Cerebellar function showed no ataxia for rhldgx-cu-tytx testing. No dysdiadochokinesia. No ataxia for tlay-ed-[id number] testing on either side. Tone and bulk of muscles normal. Gait deferred.. On general examination, there is no carotid bruit or murmur, S1-S2 audible. Chest is clear on consultation. Abdomen is soft nontender. No organomegaly, bowel sounds present. Peripheral pulses are present. No edema. Results - Laboratory Findings CBC and BMP: 05/05/23 19:17 05/05/23 19:17 Abnormal Lab Findings: Abnormal Labs 05/05/23 05/05/23 05/05/23 19:09 19:17 19:17 WBC 11.0 H MCV 100.1 H Carbon Dioxide 11 L BUN 7 L Creatinine 1.75 H Glucose 183 H POC Glucose (mg/dL) 183 H 05/05/23 05/06/23 23:16 05:57 WBC MCV Carbon Dioxide BUN Creatinine Glucose POC Glucose (mg/dL) 137 H 127 H Assessment and Plan Assessment: * Breakthrough seizure, with postictal Mani's paralysis. Patient is fully compliant with medication, does not miss a dose, therefore unclear as to the cause of breakthrough seizure. * Post ictal Mani's paralysis, completely resolved. * Atrial fibrillation with rapid ventricular rate. 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 * Hypertension * Peripheral neuropathy * Peripheral arterial disease * Btac-te-klqdutyd chronic alcoholism * Marijuana use * Mild cognitive impairment/early dementia Plan: * Patient will be continued on Keppra 1500 mg twice a day. * We will check EEG to evaluate for interictal epileptiform activity. * We will consider adding Lamictal as an adjunctive treatment to control his seizures. * CTA of head and neck revealed no significant diameter reduction to account for the patient's symptoms. No significant abnormality of the CTA of head and neck. * Check 2-D echo rule out embolic source. Patient has previous history of endocarditis. * Check hemoglobin A1c. Last A1c was 8.2 on 10/14/2022. Recommend optimize control of diabetes. * Continue Eliquis 5 mg twice a day. * Patient his for informed of [place] state law of no driving unless seizure free for 6 months, climbing ladders, operate dangerous machinery or unsupervised swimming. * Neurology will follow. Thank you for the consult.
[2023-05-06 16:48] LABS: Glucose,Whole Blood 221 mg/dL (70-110)
[2023-05-06 20:04] LABS: Glucose,Whole Blood 187 mg/dL (70-110)
[2023-05-06] MEDS: lamoTRIgine 25 MG TAB PO SCH (21:29)
--- NOTE | 2023-05-06 23:00 | EEG ---
ELECTROENCEPHALOGRAM REPORT PREAMBLE: This is a 73-year-old male with history of seizure disorder, came to the hospital with breakthrough seizure. The patient currently takes Keppra. EEG FINDINGS: This is a 21-channel digital EEG recorded with video component, utilizing 10/20 international system with referential and bipolar montages. Background consists of well-developed, moderately well regulated, predominantly low amplitude 6 to 7 hertz theta activity seen in bihemispheric region. Background seems to be slightly reactive to eye opening and closing. There is superimposed focal dysrhythmic and delta slowing seen in the left frontotemporal region seen almost throughout the study. Left temporal sharp waves were seen frequently during the study. Different stages of sleep were not seen. No electrographic seizures were recorded. Photic stimulation and hyperventilation were not performed. IMPRESSION: This is an abnormal EEG due to, 1. Presence of near constant focal slowing in the left hemispheric region, suggestive of focal cortical neuronal dysfunction. 2. Focal sharp waves seen in the left temporal region, suggestive of focal cortical neuronal dysfunction, with underlying cortical irritability and tendency for seizures. 3. Mild background slowing, suggestive of encephalopathy. No electrographic seizure was recorded. MMODL / IJN: [id number] /
[2023-05-07 06:08] LABS: Glucose,Whole Blood 128 mg/dL (70-110)
[2023-05-07] MEDS: INSULIN ASPART (NovoLOG) 100 UNIT/ML VIAL SQ SCH ×4 (06:11→20:25)
[2023-05-07 06:55] LABS: HCT 39.5 % (39.0-53.0); HGB 13.2 gm/dL (13.0-17.5); MCH 32.2 pg (25.0-35.0); MCHC 33.5 g/dL (31.0-37.0); MCV 96.1 fL (80.0-100.0); Mean Platelet Volume 7.8; Platelet Count 174 k/uL (150-450); RBC 4.11 m/uL (4.30-5.90); RDW 13.6 % (11.5-15.5); WBC 5.5 k/uL (3.8-10.6)
[2023-05-07 07:08] LABS: ALT 23 U/L (4-49); AST 26 U/L (17-59); African American GFR (CKD) 60 (>60 ml/min/1.73 sqM); Albumin 3.5 g/dL (3.5-5.0); Alkaline Phosphatase 52 U/L (38-126); Anion Gap 6 mmol/L; Blood Urea Nitrogen 8 mg/dL (9-20); Calcium 8.5 mg/dL (8.4-10.2); Carbon Dioxide 25 mmol/L (22-30); Chloride 108 mmol/L (98-107); Glucose 129 mg/dL (74-99); Non-African American GFR(CKD) 52 (>60 ml/min/1.73 sqM); Potassium 4.3 mmol/L (3.5-5.1); Sodium 139 mmol/L (137-145); Total Bilirubin 0.7 mg/dL (0.2-1.3); Total Protein 6.3 g/dL (6.3-8.2)
[2023-05-07] MEDS: PANTOPRAZOLE 40 MG TABLET PO SCH (08:10)
[2023-05-07] MEDS: METOPROLOL TARTRATE 12.5 MG TAB PO SCH (08:10)
[2023-05-07] MEDS: DONEPEZIL 10 MG TAB PO SCH (08:10)
[2023-05-07] MEDS: AMIODARONE 100 MG TAB PO SCH (08:10)
[2023-05-07] MEDS: lamoTRIgine 25 MG TAB PO SCH ×2 (08:10→20:25)
[2023-05-07] MEDS: APIXABAN 5 MG TAB PO SCH ×2 (08:11→20:25)
[2023-05-07] MEDS: FUROSEMIDE 20 MG TAB PO SCH (08:11)
--- NOTE | 2023-05-07 10:20 | CA ---
Transthoracic Echo Report Name: Tano Lennon Age: 73 Gender: M : 1950 Exam Date: 05/06/2023 16:12 Exam Location: [facility] Ht (in): 72 Wt (lb): 222 Ordering Physician: Trice Mata MD Attending/Referring Phys: Jesus Hendrickson MD ([id number]) [employer] K[employer] Tender Antonia Stanley RDCS Procedure CPT: Indications: Stroke TIA versus seizure Cardiac Hx: AOV REPLACED, pacemaker Technical Quality: Good Contrast 1: Total Dose (mL): Contrast 2: Total Dose (mL): MEASUREMENTS (Male / Female) Normal Values 2D ECHO LV Diastolic Diameter PLAX 5.2 cm 4.2 - 5.9 / 3.9 - 5.3 cm LV Systolic Diameter PLAX 4.9 cm IVS Diastolic Thickness 1.2 cm 0.6 - 1.0 / 0.6 - 0.9 cm LVPW Diastolic Thickness 1.3 cm 0.6 - 1.0 / 0.6 - 0.9 cm LV Relative Wall Thickness 0.5 RV Internal Dim ED PLAX 3.9 cm LVOT Diameter 2.8 cm LA Systolic Diameter LX 4.9 cm 3.0 - 4.0 / 2.7 - 3.8 cm LV Diastolic Volume MOD BP 100.8 cm??? 67 - 155 / 56 - 104 cm??? LV Systolic Volume MOD BP 45.5 cm??? 22 - 58 / 19 - 49 cm??? LV Ejection Fraction MOD BP 54.8 % >= 55 % LV Cardiac Index MOD BP 1621.1 cm???/min???m??? LV Diastolic Volume MOD 4C 117.3 cm??? LV Systolic Volume MOD 4C 47.0 cm??? LV Ejection Fraction MOD 4C 59.9 % LV Cardiac Index MOD 4C 2060.4 cm???/min???m??? LV Diastolic Length 4C 8.1 cm LV Systolic Length 4C 7.2 cm LV Diastolic Volume MOD 2C 80.1 cm??? LV Systolic Volume MOD 2C 36.1 cm??? LV Ejection Fraction MOD 2C 55.0 % LV Cardiac Index MOD 2C 1290.6 cm???/min???m??? LV Diastolic Length 2C 7.4 cm LV Systolic Length 2C 5.7 cm LA Volume 112.8 cm??? 18 - 58 / 22 - 52 cm??? M-MODE Aortic Root Diameter MM 4.0 cm MV E Point Septal Separation 1.3 cm DOPPLER AV Peak Velocity 197.7 cm/s AV Peak Gradient 15.6 mmHg AV Mean Velocity 128.4 cm/s AV Mean Gradient 7.6 mmHg AV Velocity Time Integral 33.9 cm AI Peak Velocity 305.8 cm/s AI Peak Gradient 37.4 mmHg AI Pressure Half Time 522.8 ms LVOT Peak Velocity 96.3 cm/s LVOT Peak Gradient 3.7 mmHg AV Area Cont Eq pk 2.9 cm??? MV Peak Velocity 95.0 cm/s MV Peak Gradient 3.6 mmHg MV Mean Velocity 42.9 cm/s MV Mean Gradient 1.0 mmHg MV Velocity Time Integral 24.2 cm MV Area PHT 3.7 cm??? MV Deceleration Time 186.7 ms TR Peak Velocity 284.1 cm/s TR Peak Gradient 32.3 mmHg Right Ventricular Systolic Press 36.6 mmHg FINDINGS Left Ventricle Left ventricular ejection fraction is estimated at 55-60 %. Left ventricular cavity size normal. Mildly increased septal wall thickness. Mildly decreased left ventricular ejection fraction. Right Ventricle Moderate right ventricular dilatation. Mild pulmonary hypertension. Right Atrium Normal right atrial size. Left Atrium Moderately increased left atrial diameter. Severely increased left atrial volume. Moderately increased left atrial area. Mitral Valve Structurally normal mitral valve. Mild mitral regurgitation. Aortic Valve Bioprosthetic AOV with max gradient of 16 mmHg and mean gradient of 8 mmHg. Kfbg-uq-dtyayhde aortic regurgitation. Tricuspid Valve Structurally normal tricuspid valve. Mild tricuspid regurgitation. Pulmonic Valve Structurally normal pulmonic valve. Mild pulmonic regurgitation. Pericardium Normal pericardium. No pericardial effusion. Aorta Mild aortic dilatation at the level of the sinuses of valsalva 40 mm CONCLUSIONS Normal LV systolic function Mild pulmonary hypertension Bioprosthetic aortic valve with [id number]-[id number]-ittkzenj aortic regurgitation Dilated aortic root Previewed by: Dr. Dimitrios Schofield MD (Electronically Signed) Final Date: 07 May 2023 10:19
[2023-05-07] MEDS: SODIUM CHLORIDE 0.9% 1,000 ML IV SCH ×2 (11:19→23:30)
[2023-05-07 11:55] LABS: Glucose,Whole Blood 150 mg/dL (70-110)
--- NOTE | 2023-05-07 13:58 | P.PN ---
Subjective Progress Note Date: 05/07/23 Patient is a 73-year-old male with history of seizure disorder as mentioned below in detail, came to the hospital by ambulance yesterday at 6:59 PM for probable breakthrough seizure versus TIA. Patient and his both were present, who provided the history. Patient states that yesterday earlier during the day, he went to grocery store where he felt dizzy but it just lasted for a minute and then past. He came back home, sat on the dock. He suddenly went into "[place]". He was not making sense, garbled speech and then had a convulsion, that lasted for about 4-1/2-5 minutes. Patient's called EMS and he was brought to the hospital. EMS flow sheet not available in the chart. As per ED record, it was reported that patient had recovered after the seizure before EMS arrived and he was ambulatory and walked to the ambulance. He was noted to have facial droop postictally. However when he arrived to the ER, patient started seizing again and had a tonic clonic seizure, that lasted for about 5 minutes. Postictally he was noted to have left hemiparesis, and his NIH stroke scale is reported was 22. 7/1. Patient seen and examined. No further episodes of seizures. Denies any slurred speech. No Weakness of any extremity REVIEW OF SYSTEMS: CONSTITUTIONAL: No fever, no malaise,. CARDIOVASCULAR: No chest pain, no palpitations, no syncope. PULMONARY: No shortness of breath, no cough, GASTROINTESTINAL: No diarrhea, no nausea, no vomiting, no abdominal pain. NEUROLOGICAL: No headaches, no weakness, PHYSICAL EXAMINATION: GENERAL: The patient is alert and oriented x3, not in any acute distress. Well developed, well nourished. HEENT: Pupils are round and equally reacting to light. EOMI. No scleral icterus. No conjunctival pallor. Normocephalic, atraumatic. No pharyngeal erythema. No thyromegaly. CARDIOVASCULAR: S1 and S2 present. No murmurs, rubs, or gallops. PULMONARY: Chest is clear to auscultation, no wheezing or crackles. ABDOMEN: Soft, nontender, nondistended, normoactive bowel sounds. No palpable organomegaly. MUSCULOSKELETAL: No joint swelling or deformity. EXTREMITIES: No cyanosis, clubbing, or pedal edema. NEUROLOGICAL: Gross neurological examination did not reveal any focal deficits. SKIN: No rashes. Assessment and plan Breakthrough seizure, with postictal Mani's paralysis. Post ictal Mani's paralysis, completely resolved. Atrial fibrillation with rapid ventricular rate. Diabetes Seizure disorder/epilepsy History of aortic valve replacement Hypertension Peripheral neuropathy Peripheral arterial disease Ywyn-au-zxxhdaxy chronic alcoholism Marijuana use Mild cognitive impairment/early dementia Monitor vital signs Monitor CBC Monitor CMP Continue telemetry monitoring Fall precautions seizure precautions continue Keppra 1500 mg twice a day. EEG ordered. CTA of head and neck revealed no significant diameter reduction to account for the patient's symptoms. No significant abnormality of the CTA of head and neck. Check 2-D echo rule out embolic source. Patient has previous history of endocarditis. Check hemoglobin A1c. Last A1c was 8.2 on 10/14/2022. Recommend optimize control of diabetes. Continue Eliquis 5 mg twice a day. Follow-up on neurology recommendations Objective - Vital Signs Vital signs: Vital Signs Temp 98.1 F 05/07/23 08:00 Pulse 60 05/07/23 08:00 Resp 16 05/07/23 08:00 BP 136/79 05/07/23 08:00 Pulse Ox 100 05/07/23 08:00 FiO2 Intake & Output 05/06/23 05/07/23 05/07/23 18:59 06:59 18:59 Output Total 600 Balance -600 Output: Urine 600 Other: Voiding Method Indwelling Catheter Urinal Urinal # Voids 2 - Labs CBC & Chem 7: 05/07/23 06:34 05/07/23 06:34 Labs: Abnormal Lab Results - Last 24 Hours (Table) 05/06/23 05/06/23 05/06/23 Range/Units 11:29 16:35 20:03 RBC (4.30-5.90) m/uL Chloride (98-107) mmol/L BUN (9-20) mg/dL Creatinine (0.66-1.25) mg/dL Glucose (74-99) mg/dL POC Glucose (mg/dL) 123 H 221 H 187 H (70-110) mg/dL Hemoglobin A1c (<=6.0) % 05/07/23 05/07/23 05/07/23 Range/Units 06:07 06:34 06:34 RBC 4.11 L (4.30-5.90) m/uL Chloride (98-107) mmol/L BUN (9-20) mg/dL Creatinine (0.66-1.25) mg/dL Glucose (74-99) mg/dL POC Glucose (mg/dL) 128 H (70-110) mg/dL Hemoglobin A1c 7.1 H (<=6.0) % 05/07/23 Range/Units 06:34 RBC (4.30-5.90) m/uL Chloride 108 H (98-107) mmol/L BUN 8 L (9-20) mg/dL Creatinine 1.35 H (0.66-1.25) mg/dL Glucose 129 H (74-99) mg/dL POC Glucose (mg/dL) (70-110) mg/dL Hemoglobin A1c (<=6.0) %
[2023-05-07 16:22] LABS: Glucose,Whole Blood 161 mg/dL (70-110)
[2023-05-07 20:18] LABS: Glucose,Whole Blood 185 mg/dL (70-110)
[2023-05-08 06:16] LABS: Glucose,Whole Blood 129 mg/dL (70-110)
[2023-05-08] MEDS: INSULIN ASPART (NovoLOG) 100 UNIT/ML VIAL SQ SCH ×4 (06:19→20:28)
[2023-05-08 08:11] LABS: Basophils % (A) 0 %; Eosinophils # (A) 0.1 k/uL (0-0.7); Eosinophils % (A) 2 %; HCT 41.9 % (39.0-53.0); HGB 13.8 gm/dL (13.0-17.5); Lymphocytes # (A) 1.3 k/uL (1.0-4.8); Lymphocytes % (A) 22 %; MCH 31.5 pg (25.0-35.0); MCHC 32.9 g/dL (31.0-37.0); MCV 95.8 fL (80.0-100.0); Mean Platelet Volume 7.9; Monocytes # (A) 0.4 k/uL (0-1.0); Monocytes % (A) 7 %; Neutrophils % (A) 67 %; Platelet Count 186 k/uL (150-450); RBC 4.38 m/uL (4.30-5.90); RDW 13.6 % (11.5-15.5); WBC 5.9 k/uL (3.8-10.6)
[2023-05-08 08:32] LABS: ALT 25 U/L (4-49); AST 26 U/L (17-59); African American GFR (CKD) 59 (>60 ml/min/1.73 sqM); Albumin 3.8 g/dL (3.5-5.0); Alkaline Phosphatase 54 U/L (38-126); Anion Gap 9 mmol/L; Blood Urea Nitrogen 9 mg/dL (9-20); Calcium 8.8 mg/dL (8.4-10.2); Carbon Dioxide 23 mmol/L (22-30); Chloride 107 mmol/L (98-107); Glucose 143 mg/dL (74-99); Non-African American GFR(CKD) 51 (>60 ml/min/1.73 sqM); Sodium 139 mmol/L (137-145); Total Bilirubin 0.9 mg/dL (0.2-1.3); Total Protein 6.7 g/dL (6.3-8.2)
[2023-05-08] MEDS: DONEPEZIL 10 MG TAB PO SCH (08:32)
[2023-05-08] MEDS: AMIODARONE 100 MG TAB PO SCH (08:32)
[2023-05-08] MEDS: APIXABAN 5 MG TAB PO SCH ×2 (08:32→20:28)
[2023-05-08] MEDS: METOPROLOL TARTRATE 12.5 MG TAB PO SCH (08:32)
[2023-05-08] MEDS: MECLIZINE 25 MG TAB PO PRN (08:37)
[2023-05-08] MEDS: lamoTRIgine 25 MG TAB PO SCH (09:19)
--- NOTE | 2023-05-08 10:50 | P.PN ---
Subjective Progress Note Date: 05/07/23 Patient was seen for a follow-up. Patient states he is feeling better. However he states that in the last couple hours, he had 2 episodes of vertigo. He was just laying there, when everything started spinning. It lasted for about 2 or 3 minutes. He does admit to having pressure sensation in the right ear since last week. He denies any other focal symptoms. No diplopia. Patient states that this dizziness is a same that happened prior to arrival to the hospital. No further seizures reported. Objective - Vital Signs Vital signs: Vital Signs Temp 98.1 F 05/07/23 11:32 Pulse 60 05/07/23 11:32 Resp 16 05/07/23 11:32 BP 157/83 05/07/23 11:32 Pulse Ox 99 05/07/23 11:32 FiO2 Intake & Output 05/06/23 05/07/23 05/07/23 18:59 06:59 18:59 Output Total 600 Balance -600 Output: Urine 600 Other: Voiding Method Indwelling Catheter Urinal Urinal # Voids 2 - Exam Patient's mental status, speech and language functions are normal. Cranial nerves are normal. Patient was laying on the left side. I had patient lay flat in the bed, and he had a vertigo, that lasted for about 1-2 minutes. I had him turn to the right side, and the vertigo reappeared. He started having nauseous, then he vomited large amount of emesis. All that he ate lunch came out. The nurses help him get cleaned up, and then he was able to walk to the recliner. His examination was normal. No focal deficits. No slurring, no facial droop. No loss of vision or diplopia. Patient never has any history of vertigo in the past. - Labs CBC & Chem 7: 05/08/23 07:43 05/08/23 07:43 Labs: Abnormal Lab Results - Last 24 Hours (Table) 05/06/23 05/06/23 05/07/23 Range/Units 16:35 20:03 06:07 RBC (4.30-5.90) m/uL Chloride (98-107) mmol/L BUN (9-20) mg/dL Creatinine (0.66-1.25) mg/dL Glucose (74-99) mg/dL POC Glucose (mg/dL) 221 H 187 H 128 H (70-110) mg/dL Hemoglobin A1c (<=6.0) % 05/07/23 05/07/23 05/07/23 Range/Units 06:34 06:34 06:34 RBC 4.11 L (4.30-5.90) m/uL Chloride 108 H (98-107) mmol/L BUN 8 L (9-20) mg/dL Creatinine 1.35 H (0.66-1.25) mg/dL Glucose 129 H (74-99) mg/dL POC Glucose (mg/dL) (70-110) mg/dL Hemoglobin A1c 7.1 H (<=6.0) % 05/07/23 Range/Units 11:53 RBC (4.30-5.90) m/uL Chloride (98-107) mmol/L BUN (9-20) mg/dL Creatinine (0.66-1.25) mg/dL Glucose (74-99) mg/dL POC Glucose (mg/dL) 150 H (70-110) mg/dL Hemoglobin A1c (<=6.0) % Assessment and Plan Assessment: * Breakthrough seizure, with postictal Mani's paralysis. Patient is fully compliant with medication, does not miss a dose, therefore unclear as to the cause of breakthrough seizure. * Post ictal Mani's paralysis, completely resolved. * New onset vertigo, probably due to peripheral vestibular dysfunction. Patient had this vertigo prior to starting Lamictal. * Atrial fibrillation with rapid ventricular rate. 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 * History of pacemaker * Hypertension * Peripheral neuropathy * Peripheral arterial disease * Iwew-ir-ypgymspn chronic alcoholism * Marijuana use * Mild cognitive impairment/early dementia Plan: * Patient will be continued on Keppra 1500 mg twice a day. * EEG revealed presence of near constant focal slowing in the left hemispheric region, which suggests focal cortical neuronal dysfunction, can be seen with postictal state. Also evidence of focal sharp waves seen in the left temporal region, suggestive of focal cortical neuronal dysfunction with underlying cortical irritability and tendency for seizures. Mild background slowing, suggestive of encephalopathy. No electrographic seizure was recorded. * Patient started on Lamictal 25 mg twice a day since last night. He is tolerating it well. I spoke to patient and his as well, informed to stop Lamictal if he gets any rash. The dose of Lamictal can be further optimized by his neurologist. * Patient has developed vertigo, which likely is not related to Lamictal, as he had this vertigo prior to starting Lamictal. * Meclizine as needed for vertigo. Probably has labyrinthitis versus BPPV. CT head showed no evidence of sinus congestion, or wax impaction. * CTA of head and neck revealed no significant diameter reduction to account for the patient's symptoms. No significant abnormality of the CTA of head and neck. * 2-D echo revealed normal left-ventricular systolic function. Mild pulmonary hypertension. Bioprosthetic aortic valve with mild to moderate aortic regurgitation. Dilated aortic root. We will defer to IM to address echo fi ndings. * Hemoglobin A1c 7.1. This is improved, as the last A1c was 8.2 on 10/14/2022. Recommend optimize control of diabetes. * Continue Eliquis 5 mg twice a day. * Patient and his were informed of [place] state law of no driving unless seizure free for 6 months, climbing ladders, operate dangerous machinery or unsupervised swimming. * We will observe overnight for vertigo. It stays stable overnight, may discharge in the morning. * Recommend follow-up with neurologist outpatient.
[2023-05-08 11:37] LABS: Glucose,Whole Blood 137 mg/dL (70-110)
[2023-05-08] MEDS: SODIUM CHLORIDE 0.9% 1,000 ML IV SCH ×2 (11:50→15:26)
--- NOTE | 2023-05-08 12:40 | P.PN ---
Subjective Progress Note Date: 05/08/23 Patient is a 73-year-old male with history of seizure disorder as mentioned below in detail, came to the hospital by ambulance yesterday at 6:59 PM for probable breakthrough seizure versus TIA. Patient and his both were present, who provided the history. Patient states that yesterday earlier during the day, he went to grocery store where he felt dizzy but it just lasted for a minute and then past. He came back home, sat on the dock. He suddenly went into "[place]". He was not making sense, garbled speech and then had a convulsion, that lasted for about 4-1/2-5 minutes. Patient's called EMS and he was brought to the hospital. EMS flow sheet not available in the chart. As per ED record, it was reported that patient had recovered after the seizure before EMS arrived and he was ambulatory and walked to the ambulance. He was noted to have facial droop postictally. However when he arrived to the ER, patient started seizing again and had a tonic clonic seizure, that lasted for about 5 minutes. Postictally he was noted to have left hemiparesis, and his NIH stroke scale is reported was 22. 7/1. Patient seen and examined. No further episodes of seizures. Denies any slurred speech. No Weakness of any extremity 05/08. Patient seen and examined. Complaining of dizziness this morning, states the whole room is spinning. Patient also has decreased urine output. REVIEW OF SYSTEMS: CONSTITUTIONAL: No fever, no malaise,. CARDIOVASCULAR: No chest pain, no palpitations, no syncope. PULMONARY: No shortness of breath, no cough, GASTROINTESTINAL: No diarrhea, no nausea, no vomiting, no abdominal pain. NEUROLOGICAL: No headaches, no weakness, PHYSICAL EXAMINATION: GENERAL: The patient is alert and oriented x3, not in any acute distress. Well developed, well nourished. HEENT: Pupils are round and equally reacting to light. EOMI. No scleral icterus. No conjunctival pallor. Normocephalic, atraumatic. No pharyngeal erythema. No thyromegaly. CARDIOVASCULAR: S1 and S2 present. No murmurs, rubs, or gallops. PULMONARY: Chest is clear to auscultation, no wheezing or crackles. ABDOMEN: Soft, nontender, nondistended, normoactive bowel sounds. No palpable organomegaly. MUSCULOSKELETAL: No joint swelling or deformity. EXTREMITIES: No cyanosis, clubbing, or pedal edema. NEUROLOGICAL: Gross neurological examination did not reveal any focal deficits. SKIN: No rashes. Assessment and plan Breakthrough seizure, with postictal Mani's paralysis. Post ictal Mani's paralysis, completely resolved. Atrial fibrillation with rapid ventricular rate. Diabetes Seizure disorder/epilepsy History of aortic valve replacement Hypertension Peripheral neuropathy Peripheral arterial disease Joib-ni-lrehccre chronic alcoholism Marijuana use Mild cognitive impairment/early dementia Monitor vital signs Monitor CBC Monitor CMP Continue telemetry monitoring Fall precautions seizure precautions Ordered orthostatics Start IV fluids Ordered meclizine continue Keppra 1500 mg twice a day. EEG done showed presence of near constant focal slowing in the left hemispheric region suggestive of focal cortical neuronal dysfunction, focal sharp waves seen in the left temporal region suggestive of focal cortical neuronal dysfunction CTA of head and neck revealed no significant diameter reduction to account for the patient's symptoms. No significant abnormality of the CTA of head and neck. Echocardiogram done showed normal LV function, mild pulmonary hypertension, dilated aortic root Continue Eliquis 5 mg twice a day. Follow-up on neurology recommendations Objective - Vital Signs Vital signs: Vital Signs Temp 97.9 F 05/08/23 08:00 Pulse 64 05/08/23 08:00 Resp 16 05/08/23 08:00 BP 135/76 05/08/23 08:00 Pulse Ox 100 05/08/23 08:00 FiO2 Intake & Output 05/07/23 05/08/23 05/08/23 18:59 06:59 18:59 Intake Total 125 Balance 125 Intake: Oral 125 Other: Voiding Method Urinal Toilet Toilet Urinal Urinal # Voids 0 - Labs CBC & Chem 7: 05/08/23 07:43 05/08/23 07:43 Labs: Abnormal Lab Results - Last 24 Hours (Table) 05/07/23 05/07/23 05/08/23 Range/Units 16:20 20:16 06:15 Creatinine (0.66-1.25) mg/dL Glucose (74-99) mg/dL POC Glucose (mg/dL) 161 H 185 H 129 H (70-110) mg/dL 05/08/23 05/08/23 Range/Units 07:43 11:33 Creatinine 1.38 H (0.66-1.25) mg/dL Glucose 143 H (74-99) mg/dL POC Glucose (mg/dL) 137 H (70-110) mg/dL
[2023-05-08 12:52] LABS: ALT 26 U/L (4-49); AST 29 U/L (17-59); African American GFR (CKD) 64 (>60 ml/min/1.73 sqM); Albumin 3.8 g/dL (3.5-5.0); Alkaline Phosphatase 51 U/L (38-126); Anion Gap 9 mmol/L; Blood Urea Nitrogen 10 mg/dL (9-20); Calcium 8.8 mg/dL (8.4-10.2); Carbon Dioxide 23 mmol/L (22-30); Chloride 107 mmol/L (98-107); Glucose 145 mg/dL (74-99); Non-African American GFR(CKD) 55 (>60 ml/min/1.73 sqM); Potassium 4.2 mmol/L (3.5-5.1); Sodium 139 mmol/L (137-145); Total Bilirubin 0.9 mg/dL (0.2-1.3); Total Protein 6.8 g/dL (6.3-8.2)
--- NOTE | 2023-05-08 12:59 | P.PN ---
Subjective Progress Note Date: 05/08/23 Patient was seen for a follow-up. Patient continues to have dizziness, mainly when he turns his head or body position. It lasts for about couple minutes. He denies headache. Denies any new focal symptoms. He has not been drinking or eating because of nausea. He has been started on IV fluids. When he gets up, he feels dizzy, nauseated. No further seizures reported. Objective - Vital Signs Vital signs: Vital Signs Temp 97.9 F 05/08/23 08:00 Pulse 64 05/08/23 08:00 Resp 16 05/08/23 08:00 BP 135/76 05/08/23 08:00 Pulse Ox 100 05/08/23 08:00 FiO2 Intake & Output 05/07/23 05/08/23 05/08/23 18:59 06:59 18:59 Intake Total 125 Balance 125 Intake: Oral 125 Other: Voiding Method Urinal Toilet Toilet Urinal Urinal # Voids 0 - Exam Patient's mental status, speech and language functions are normal. Cranial nerves are normal. Pupils are equal, round and reacting, visual johnson are full, with no neglect. extraocular muscles intact. No nystagmus. Tongue protrudes the midline. On muscle strength testing, there is no pronator drift and the strength is normal in arms and legs distally and proximally. Sensory to touch is equal with no neglect. Cerebellar functions revealed ataxia for dirpwe-kg-fbee and hgyp-ak-mmcr testing on the left side. No ataxia in the right side. Patient never has any history of vertigo in the past. - Labs CBC & Chem 7: 05/08/23 07:43 05/08/23 07:43 Labs: Abnormal Lab Results - Last 24 Hours (Table) 05/07/23 05/07/23 05/08/23 Range/Units 16:20 20:16 06:15 Creatinine (0.66-1.25) mg/dL Glucose (74-99) mg/dL POC Glucose (mg/dL) 161 H 185 H 129 H (70-110) mg/dL 05/08/23 05/08/23 Range/Units 07:43 11:33 Creatinine 1.38 H (0.66-1.25) mg/dL Glucose 143 H (74-99) mg/dL POC Glucose (mg/dL) 137 H (70-110) mg/dL Assessment and Plan Assessment: * Breakthrough seizure, with postictal Mani's paralysis. Patient is fully compliant with medication, does not miss a dose, therefore unclear as to the cause of breakthrough seizure. * Post ictal Mani's paralysis, completely resolved. * New onset vertigo, probably due to peripheral vestibular dysfunction. Patient had this vertigo prior to starting Lamictal. Rule out cerebellar CVA. Patient has ataxia on the left side. * Atrial fibrillation with rapid ventricular rate. 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 * History of pacemaker * Hypertension * Peripheral neuropathy * Peripheral arterial disease * Ipkm-nh-qwntlskw chronic alcoholism * Marijuana use * Mild cognitive impairment/early dementia Plan: * Patient will be continued on Keppra 1500 mg twice a day. * EEG revealed presence of near constant focal slowing in the left hemispheric region, which suggests focal cortical neuronal dysfunction, can be seen with postictal state. Also evidence of focal sharp waves seen in the left temporal region, suggestive of focal cortical neuronal dysfunction with underlying cortical irritability and tendency for seizures. Mild background slowing, suggestive of encephalopathy. No electrographic seizure was recorded. * Patient started on Lamictal 25 mg twice a day since last night. He is tolerating it well. I spoke to patient and his as well, informed to stop Lamictal if he gets any rash. The dose of Lamictal can be further optimized by his neurologist. * Patient has developed vertigo, which likely is not related to Lamictal, as he had this vertigo prior to starting Lamictal. * Meclizine as needed for vertigo. Probably has labyrinthitis versus BPPV. CT head showed no evidence of sinus congestion, or wax impaction. * Repeat CT head, rule out cerebellar CVA. Patient is on Eliquis * CTA of head and neck revealed no significant diameter reduction to account for the patient's symptoms. No significant abnormality of the CTA of head and neck. * 2-D echo revealed normal left-ventricular systolic function. Mild pulmonary hypertension. Bioprosthetic aortic valve with mild to moderate aortic regurgitation. Dilated aortic root. We will defer to IM to address echo findings. * Hemoglobin A1c 7.1. This is improved, as the last A1c was 8.2 on 10/14/2022. Recommend optimize control of diabetes. * Continue Eliquis 5 mg twice a day. * Patient and his were informed of [place] state law of no driving unless seizure free for 6 months, climbing ladders, operate dangerous machinery or unsupervised swimming. * Continue meclizine. * Dr. Jim Quick to resume neurology service in the morning.
--- NOTE | 2023-05-08 15:23 | CT ---
EXAMINATION TYPE: CT brain wo con DATE OF EXAM: 05/08/2023 COMPARISON: 05/05/2023 HISTORY: New onset vertigo CT DLP: 1212.4 mGycm Automated exposure control for dose reduction was used. FINDINGS: The ventricles, basal cisterns and sulci over convexities are mildly enlarged consistent with the pat ient's age. There is no mass effect or shift of midline structures. There is mild diffuse ischemic white matter demyelination. There is no acute intra or extra-axial hem orrhage. The posterior fossa including the brainstem, fourth ventricle and cerebellar pontine angles are grossly normal. The intraorbital contents appear normal and symmetric. Visualized paranasal sinuses and mastoid air cells are well aerated. IMPRESSION: Mild senescent changes appropriate for the patient's age.. No acute bleed or mass effect. No interval change since previous.
[2023-05-08 16:20] LABS: Glucose,Whole Blood 119 mg/dL (70-110)
[2023-05-08 20:14] LABS: Glucose,Whole Blood 168 mg/dL (70-110)
[2023-05-09] MEDS: SODIUM CHLORIDE 0.9% 1,000 ML IV SCH ×3 (00:30→15:44)
[2023-05-09 06:09] LABS: Glucose,Whole Blood 118 mg/dL (70-110)
[2023-05-09] MEDS: INSULIN ASPART (NovoLOG) 100 UNIT/ML VIAL SQ SCH ×4 (06:18→20:52)
[2023-05-09] MEDS: FUROSEMIDE 20 MG TAB PO SCH (08:28)
[2023-05-09] MEDS: AMIODARONE 100 MG TAB PO SCH (08:28)
[2023-05-09] MEDS: PANTOPRAZOLE 40 MG TABLET PO SCH (08:28)
[2023-05-09] MEDS: DONEPEZIL 10 MG TAB PO SCH (08:28)
[2023-05-09] MEDS: APIXABAN 5 MG TAB PO SCH ×2 (08:28→20:52)
[2023-05-09] MEDS: METOPROLOL TARTRATE 12.5 MG TAB PO SCH (08:28)
[2023-05-09 08:31] LABS: Basophils % (A) 1 %; Eosinophils # (A) 0.2 k/uL (0-0.7); Eosinophils % (A) 3 %; HCT 40.1 % (39.0-53.0); HGB 12.9 gm/dL (13.0-17.5); Lymphocytes # (A) 1.3 k/uL (1.0-4.8); Lymphocytes % (A) 25 %; MCH 30.3 pg (25.0-35.0); MCHC 32.2 g/dL (31.0-37.0); MCV 94.1 fL (80.0-100.0); Mean Platelet Volume 7.9; Monocytes # (A) 0.3 k/uL (0-1.0); Monocytes % (A) 6 %; Neutrophils # (A) 3.2 k/uL (1.3-7.7); Neutrophils % (A) 62 %; Platelet Count 170 k/uL (150-450); RBC 4.27 m/uL (4.30-5.90); RDW 13.8 % (11.5-15.5); WBC 5.1 k/uL (3.8-10.6)
[2023-05-09 11:30] LABS: Glucose,Whole Blood 207 mg/dL (70-110)
[2023-05-09] MEDS: MECLIZINE 25 MG TAB PO PRN (11:41)
--- NOTE | 2023-05-09 14:01 | P.PN ---
Subjective Progress Note Date: 05/09/23 Patient is a 73-year-old male with history of seizure disorder as mentioned below in detail, came to the hospital by ambulance yesterday at 6:59 PM for probable breakthrough seizure versus TIA. Patient and his both were present, who provided the history. Patient states that yesterday earlier during the day, he went to grocery store where he felt dizzy but it just lasted for a minute and then past. He came back home, sat on the dock. He suddenly went into "[place]". He was not making sense, garbled speech and then had a convulsion, that lasted for about 4-1/2-5 minutes. Patient's called EMS and he was brought to the hospital. EMS flow sheet not available in the chart. As per ED record, it was reported that patient had recovered after the seizure before EMS arrived and he was ambulatory and walked to the ambulance. He was noted to have facial droop postictally. However when he arrived to the ER, patient started seizing again and had a tonic clonic seizure, that lasted for about 5 minutes. Postictally he was noted to have left hemiparesis, and his NIH stroke scale is reported was 22. 7/1. Patient seen and examined. No further episodes of seizures. Denies any slurred speech. No Weakness of any extremity /2. Patient seen and examined. Complaining of dizziness this morning, states the whole room is spinning. Patient also has decreased urine output. 7/3. Patient seen and examined. States dizziness has improved compared to yesterday. Sitting upright in the bed REVIEW OF SYSTEMS: CONSTITUTIONAL: No fever, no malaise,. CARDIOVASCULAR: No chest pain, no palpitations, no syncope. PULMONARY: No shortness of breath, no cough, GASTROINTESTINAL: No diarrhea, no nausea, no vomiting, no abdominal pain. NEUROLOGICAL: No headaches, no weakness, PHYSICAL EXAMINATION: GENERAL: The patient is alert and oriented x3, not in any acute distress. Well developed, well nourished. HEENT: Pupils are round and equally reacting to light. EOMI. No scleral icterus. No conjunctival pallor. Normocephalic, atraumatic. No pharyngeal erythema. No thyromegaly. CARDIOVASCULAR: S1 and S2 present. No murmurs, rubs, or gallops. PULMONARY: Chest is clear to auscultation, no wheezing or crackles. ABDOMEN: Soft, nontender, nondistended, normoactive bowel sounds. No palpable organomegaly. MUSCULOSKELETAL: No joint swelling or deformity. EXTREMITIES: No cyanosis, clubbing, or pedal edema. NEUROLOGICAL: Gross neurological examination did not reveal any focal deficits. SKIN: No rashes. Assessment and plan Breakthrough seizure, with postictal Mani's paralysis. Post ictal Mani's paralysis, completely resolved. Atrial fibrillation with rapid ventricular rate. Diabetes Seizure disorder/epilepsy History of aortic valve replacement Hypertension Peripheral neuropathy Peripheral arterial disease Cnht-no-sskzvtor chronic alcoholism Marijuana use Mild cognitive impairment/early dementia Monitor vital signs Monitor CBC Monitor CMP Continue telemetry monitoring Fall precautions seizure precautions Monitor orthostatics Continue meclizine meclizine continue Keppra 1500 mg twice a day. EEG done showed presence of near constant focal slowing in the left hemispheric region suggestive of focal cortical neuronal dysfunction, focal sharp waves seen in the left temporal region suggestive of focal cortical neuronal dysfunction CTA of head and neck revealed no significant diameter reduction to account for the patient's symptoms. No significant abnormality of the CTA of head and neck. Echocardiogram done showed normal LV function, mild pulmonary hypertension, dilated aortic root Continue Eliquis 5 mg twice a day. Follow-up on neurology recommendations Objective - Vital Signs Vital signs: Vital Signs Temp 98.1 F 05/09/23 08:26 Pulse 62 05/09/23 11:42 Resp 16 05/09/23 11:42 BP 134/77 05/09/23 11:42 Pulse Ox 97 05/09/23 11:42 FiO2 Intake & Output 05/08/23 05/09/23 05/09/23 18:59 06:59 18:59 Intake Total 120 243 Balance 120 243 Intake: Oral 120 243 Other: Voiding Method Toilet Toilet Toilet Urinal Urinal Urinal # Voids 1 0 1 - Labs CBC & Chem 7: 05/09/23 08:01 05/08/23 12:12 Labs: Abnormal Lab Results - Last 24 Hours (Table) 05/08/23 05/08/23 05/09/23 Range/Units 16:18 20:13 06:07 RBC (4.30-5.90) m/uL Hgb (13.0-17.5) gm/dL POC Glucose (mg/dL) 119 H 168 H 118 H (70-110) mg/dL 05/09/23 05/09/23 Range/Units 08:01 11:28 RBC 4.27 L (4.30-5.90) m/uL Hgb 12.9 L (13.0-17.5) gm/dL POC Glucose (mg/dL) 207 H (70-110) mg/dL
[2023-05-09 16:09] LABS: Glucose,Whole Blood 143 mg/dL (70-110)
--- NOTE | 2023-05-09 17:50 | P.PN ---
Subjective Progress Note Date: 05/09/23 I am seeing the patient for the first time during this admission. Please refer to Dr. Mata's note for further details. He is accompanied with his . It seems he presented because of break-thru seizure and had a seizure in ED. He is on Keppra 1500mg bid. he could not tolerate Lamictal because of dizziness so was stopped. He has not had any further seizures. Objective - Vital Signs Vital signs: Vital Signs Temp 97.8 F 05/09/23 15:41 Pulse 78 05/09/23 15:41 Resp 16 05/09/23 15:41 BP 116/64 05/09/23 15:41 Pulse Ox 97 05/09/23 15:41 FiO2 Intake & Output 05/08/23 05/09/23 05/09/23 18:59 06:59 18:59 Intake Total 120 243 Balance 120 243 Intake: Oral 120 243 Other: Voiding Method Toilet Toilet Toilet Urinal Urinal Urinal # Voids 1 0 1 - Exam GENERAL: The patient is sitting on side of bed and is not in acute distress. NEUROLOGICAL: Higher mental function: The patient is awake, alert, oriented to self, place and time. Patient is following simple commands. No aphasia and no neglect. Cranial nerves: The pupils are round, equal . Visual johnson are full to confrontation throughout. Extraocular movement is intact no nystagmus is noted. Facial sensation is normal to touch throughout. The facial strength is normal throughout. Tongue is midline and moved [id number] without any difficulty. No dysarthria is noted. Motor: The strength is 5 over 5 throughout. Cerebellum: Normal finger to nose bilaterally. - Labs CBC & Chem 7: 05/09/23 08:01 05/08/23 12:12 Labs: Abnormal Lab Results - Last 24 Hours (Table) 05/08/23 05/09/23 05/09/23 Range/Units 20:13 06:07 08:01 RBC 4.27 L (4.30-5.90) m/uL Hgb 12.9 L (13.0-17.5) gm/dL POC Glucose (mg/dL) 168 H 118 H (70-110) mg/dL 05/09/23 05/09/23 Range/Units 11:28 16:07 RBC (4.30-5.90) m/uL Hgb (13.0-17.5) gm/dL POC Glucose (mg/dL) 207 H 143 H (70-110) mg/dL Assessment and Plan Assessment: * Breakthrough seizure, with postictal Mani's paralysis. Patient is fully c ompliant with medication, does not miss a dose, therefore unclear as to the cause of breakthrough seizure. * Post ictal Mani's paralysis, completely resolved. * New onset vertigo, probably due to peripheral vestibular dysfunction. Patient had this vertigo prior to starting Lamictal. Rule out cerebellar CVA. Patient has ataxia on the left side. * Atrial fibrillation with rapid ventricular rate. 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 * History of pacemaker * Hypertension * Peripheral neuropathy * Peripheral arterial disease * Yynh-jp-[id number] chronic alcoholism * Marijuana use * Mild cognitive impairment/early dementia Plan: * Patient will be continued on Keppra 1500 mg twice a day. * EEG was reported as revealed presence of near constant focal slowing in the left hemispheric region, which suggests focal cortical neuronal dysfunction, can be seen with postictal state. Also evidence of focal sharp waves seen in the left temporal region, suggestive of focal cortical neuronal dysfunction with underlying cortical irritability and tendency for seizures. Mild back ground slowing, suggestive of encephalopathy. No electrographic seizure was recorded. * Patient was started on Lamictal 25 mg twice a day by Dr. Mata but it seems he developed vertigo. Per Dr. Mata he did not feel it was medication since developed prior to starting Lamictal but per nurse was discontinued medication (he was discontinued prior to me starting service). I started him on Vimpat 50mg bid. * Meclizine as needed for vertigo. Probably has labyrinthitis versus BPPV. CT head showed no evidence of sinus congestion, or wax impaction. * Repeat CT head: Reported as mild stenosis changes appropriate for patient's age. No acute bleed or mass effect. No interval change since previous. * CTA of head and neck revealed no significant diameter reduction to account for the patient's symptoms. No significant abnormality of the CTA of head and neck. * 2-D echo revealed normal left-ventricular systolic function. Mild pulmonary hypertension. Bioprosthetic aortic valve with mild to moderate aortic regurgitation. Dilated aortic root. We will defer to IM to address echo findings. * Hemoglobin A1c 7.1. This is improved, as the last A1c was 8.2 on 10/14/2022. Recommend optimize control of diabetes. * Continue Eliquis 5 mg twice a day. * Patient and his were informed of [place] state law of no driving unless seizure free for 6 months, climbing ladders, operate dangerous machinery or unsupervised swimming. * Continue meclizine. * Recommend the patient follow up with his neurologist as an outpatient within 1-2 weeks. If the patient continues to be seizure-free and tolerates the Vimpat then he is clear for discharge by tomorrow early in the morning. Plan discussed with the patient and his was at bedside as well as the patient's nurse. Time with Patient: Less than 30
[2023-05-09 20:12] LABS: Glucose,Whole Blood 198 mg/dL (70-110)
[2023-05-09] MEDS: LACOSAMIDE 50 MG TABLET PO SCH (20:52)
[2023-05-10 06:35] LABS: Glucose,Whole Blood 148 mg/dL (70-110)
[2023-05-10] MEDS: INSULIN ASPART (NovoLOG) 100 UNIT/ML VIAL SQ SCH ×2 (06:49→12:51)
[2023-05-10 09:01] VITALS: PULSE 65; TEMP 97.3
[2023-05-10] MEDS: APIXABAN 5 MG TAB PO SCH (09:12)
[2023-05-10] MEDS: DONEPEZIL 10 MG TAB PO SCH (09:12)
[2023-05-10] MEDS: AMIODARONE 100 MG TAB PO SCH (09:12)
[2023-05-10] MEDS: LACOSAMIDE 50 MG TABLET PO SCH (09:12)
[2023-05-10] MEDS: SODIUM CHLORIDE 0.9% 1,000 ML IV SCH ×3 (09:13→09:16)
[2023-05-10] MEDS: METOPROLOL TARTRATE 12.5 MG TAB PO SCH (09:13)
[2023-05-10 11:31] LABS: Glucose,Whole Blood 178 mg/dL (70-110)
--- NOTE | 2023-05-10 11:34 | P.DS ---
Providers Date of admission: 05/05/23 20:20 Expected date of discharge: 05/10/23 Attending physician: Javier Delaney Consults: 05/05/23 20:19 Consult Physician Routine Consulting Provider: Trice Mata Consult Reason/Comments: Seizure, with rt sided weakness Do you want consulting provider notified?: Already Contacted Primary care physician: Javier Delaney Hospital Course: Discharge diagnoses; Breakthrough seizure, with postictal Mani's paralysis. Post ictal Mani's paralysis, completely resolved. Atrial fibrillation with rapid ventricular rate. Diabetes Seizure disorder/epilepsy History of aortic valve replacement Hypertension Peripheral neuropathy Peripheral arterial disease [id number] chronic alcoholism Marijuana use Mild cognitive impairment/early dementia Hospital course; Patient is a 73-year-old male with history of seizure disorder as mentioned below in detail, came to the hospital by ambulance yesterday at 6:59 PM for probable breakthrough seizure versus TIA. Patient and his both were present, who provided the history. Patient states that yesterday earlier during the day, he went to grocery store where he felt dizzy but it just lasted for a minute and then past. He came back home, sat on the dock. He suddenly went into "[place]". He was not making sense, garbled speech and then had a convulsion, that lasted for about 4-1/2-5 minutes. Patient's called EMS and he was brought to the hospital. EMS flow sheet not available in the chart. As per ED record, it was reported that patient had recovered after the seizure before EMS arrived and he was ambulatory and walked to the ambulance. He was noted to have facial droop postictally. However when he arrived to the ER, patient started seizing again and had a tonic clonic seizure, that lasted for about 5 minutes. Postictally he was noted to have left hemiparesis, and his NIH stroke scale is reported was 22. 7/1. Patient seen and examined. No further episodes of seizures. Denies any slurred speech. No Weakness of any extremity 05/08. Patient seen and examined. Complaining of dizziness this morning, states the whole room is spinning. Patient also has decreased urine output. 05/09. Patient seen and examined. States dizziness has improved compared to yesterday. Sitting upright in the bed 05/10. Patient seen and examined. Lamictal was discontinued because of dizzi ness, switch to vimpat. Currently seizure free. Neurology cleared the patient for discharge, outpatient follow-up with neurology PHYSICAL EXAMINATION: GENERAL: The patient is alert and oriented x3, not in any acute distress. Well developed, well nourished. HEENT: Pupils are round and equally reacting to light. EOMI. No scleral icterus. No conjunctival pallor. Normocephalic, atraumatic. No pharyngeal erythema. No thyromegaly. CARDIOVASCULAR: S1 and S2 present. No murmurs, rubs, or gallops. PULMONARY: Chest is clear to auscultation, no wheezing or crackles. ABDOMEN: Soft, nontender, nondistended, normoactive bowel sounds. No palpable organomegaly. MUSCULOSKELETAL: No joint swelling or deformity. EXTREMITIES: No cyanosis, clubbing, or pedal edema. NEUROLOGICAL: Gross neurological examination did not reveal any focal deficits. SKIN: No rashes. Patient Condition at Discharge: Serious Plan - Discharge Summary Discharge Rx Participant: Yes New Discharge Prescriptions: New Meclizine [Antivert] 25 mg PO TID #21 tab Lacosamide [Vimpat] 50 mg PO BID #30 tab Continue Donepezil [Aricept] 10 mg PO DAILY metFORMIN HCL ER [Glucophage XR] 1,000 mg PO BID Metoprolol Tartrate [Lopressor] 37.5 mg PO DAILY Simvastatin [Zocor] 40 mg PO HS levETIRAcetam [Keppra] 1,500 mg PO BID Furosemide [Lasix] 20 mg PO Q48H Pantoprazole Sodium [Protonix] 40 mg PO Q3D Amiodarone [Cordarone] 100 mg PO DAILY Apixaban [Eliquis] 5 mg PO BID Discharge Medication List Simvastatin [Zocor] 40 mg PO HS 04/22/21 [History] Donepezil [Aricept] 10 mg PO DAILY 04/18/22 [History] Furosemide [Lasix] 20 mg PO Q48H 04/18/22 [History] Pantoprazole Sodium [Protonix] 40 mg PO Q3D 04/18/22 [History] levETIRAcetam [Keppra] 1,500 mg PO BID 04/18/22 [History] Amiodarone [Cordarone] 100 mg PO DAILY 11/17/22 [History] Apixaban [Eliquis] 5 mg PO BID 05/05/23 [History] Metoprolol Tartrate [Lopressor] 37.5 mg PO DAILY 05/05/23 [History] metFORMIN HCL ER [Glucophage XR] 1,000 mg PO BID 05/05/23 [History] Lacosamide [Vimpat] 50 mg PO BID #30 tab 05/10/23 [Rx] Meclizine [Antivert] 25 mg PO TID #21 tab 05/10/23 [Rx] Follow up Appointment(s)/Referral(s): Javier Delaney MD [Primary Care Provider] - 1-2 days Patient Instructions/Handouts: Seizure/Epilepsy Discharge Instructions & Follow-Up Discharge Disposition: HOME SELF-CARE
[2023-05-10 12:51] VITALS: BP 132/91; RESP 18
== END 2023-05-10 13:37 | disposition home or self-care (01) | DRG 92 ==
LOC: EC 18:59 → 3SCARD 20:20
PROVIDERS: ADMIT Family Medicine; ATTEND Family Medicine
DX: G83.84 Todd's paralysis (postepileptic) (principal); F03.93 Unspecified dementia, unspecified severity, with mood disturbance; G40.911 Epilepsy, unspecified, intractable, with status epilepticus; R41.4 Neurologic neglect syndrome; R47.01 Aphasia; E11.51 Type 2 diabetes mellitus with diabetic peripheral angiopathy without gangrene; F10.20 Alcohol dependence, uncomplicated; E78.5 Hyperlipidemia, unspecified; H91.90 Unspecified hearing loss, unspecified ear; E11.42 Type 2 diabetes mellitus with diabetic polyneuropathy; Z79.84 Long term (current) use of oral hypoglycemic drugs; R29.722 NIHSS score 22; I27.20 Pulmonary hypertension, unspecified; I48.91 Unspecified atrial fibrillation; I77.810 Thoracic aortic ectasia; R29.810 Facial weakness; R47.1 Dysarthria and anarthria; Z79.01 Long term (current) use of anticoagulants; Z86.74 Personal history of sudden cardiac arrest; Z95.2 Presence of prosthetic heart valve; Z79.899 Other long term (current) drug therapy; Z86.79 Personal history of other diseases of the circulatory system; Z95.0 Presence of cardiac pacemaker; Z89.432 Acquired absence of left foot; Z86.19 Personal history of other infectious and parasitic diseases; Z82.49 Family history of ischemic heart disease and other diseases of the circulatory system
CPT/HCPCS: 36415; 51702; 70450; 70496; 70498; 80053; 80143; 80179; 80320; 83036; 83735; 85025; 85027; 93005; 93306; 94760; 95819; 96361; 96374; 96375; 96376; 99291

== ENCOUNTER 2023-06-27 09:17 | Day surgery (SDC) | payer MEDICARE ==
[2023-06-24 09:19] VITALS: BMI 27.2
[2023-06-27 09:43] VITALS: BP 177/103; PULSE 64; RESP 16; TEMP 97.7
[2023-06-27 09:55] LABS: Glucose,Whole Blood 146 mg/dL (70-110)
[2023-06-27 10:09] LABS: African American GFR (CKD) 55 (>60 ml/min/1.73 sqM); Blood Urea Nitrogen 11 mg/dL (9-20); Carbon Dioxide 20 mmol/L (22-30); Non-African American GFR(CKD) 47 (>60 ml/min/1.73 sqM)
[2023-06-27 10:34] LABS: Anion Gap 14 mmol/L; Chloride 106 mmol/L (98-107); Potassium 5.2 mmol/L (3.5-5.1); Sodium 140 mmol/L (137-145)
[2023-06-27] MEDS ORDERED: LIDOCAINE 1% INJ 10MG/ML (20 ML MDV) ONE (11:21)
[2023-06-27] MEDS ORDERED: LIDOCAINE 1% INJ 10MG/ML (5 ML VIAL-PF) SQ ONE (11:34)
--- NOTE | 2023-06-27 12:38 | IR ---
PICC LINE PLACEMENT: HISTORY: Infection requiring long-term antibiotic therapy PROCEDURE: Ultrasound and fluoroscopic guidance of PICC line placement. COMPLICATIONS: None ANESTHESIA: 1. 1% Lidocaine locally. FINDINGS/TECHNIQUE: The procedure was explained to the patient. The risks, complications, benefits and alternatives were discussed and any questions were answered. Informed consent was obtained. The patient was placed supine on the fluoroscopic table and prepped and draped in the usual sterile fash ion. Utilizing a 21 gauge needle and sonographic and fluoroscopic guidance, access in the right bas ilic vein was achieved and there is placement of a 0.018 guidewire. The vein is patent. A 4-F sheat h was placed over the guidewire. The guidewire and dilator were removed and a 4-F. PICC line was shyanne eva through the sheath with the tip at the level of the SVC. The sheath was removed, the catheter wa s flushed and sutured into position. The patient was stable throughout the procedure and remained st able upon discharge from the Department of Radiology. The vein puncture was patent under ultrasound. A hathaway scale image was obtained to document patency of the vein punctured. All elements of the maximal barrier technique were utilized. FLUOROSCOPY TIME: DAP 0.238Gy cm2 IMPRESSION: Successful PICC line placement under ultrasound and fluoroscopic guidance.
== END 2023-06-27 12:04 | disposition home or self-care (01) ==
LOC: CATHCVL 09:17
PROVIDERS: ATTEND Radiology Diagnostic Radiology
DX: M86.9 Osteomyelitis, unspecified (principal); Z45.2 Encounter for adjustment and management of vascular access device; E11.621 Type 2 diabetes mellitus with foot ulcer; L97.526 Non-pressure chronic ulcer of other part of left foot with bone involvement without evidence of necrosis; L97.516 Non-pressure chronic ulcer of other part of right foot with bone involvement without evidence of necrosis; Z79.84 Long term (current) use of oral hypoglycemic drugs; Z79.811 Long term (current) use of aromatase inhibitors; Z79.899 Other long term (current) drug therapy
CPT/HCPCS: 36573; 80051; 82565; 84520; C1751; C1769; J2001

== ENCOUNTER → 2023-08-16 | Outpatient (CLI) | payer MEDICARE ==
--- NOTE | 2023-08-16 16:01 | US ---
EXAMINATION TYPE: US carotid duplex BILAT DATE OF EXAM: 08/16/2023 COMPARISON: US 08/28/2020. CLINICAL INDICATION: Male, 73 years old with history of G45.9 TRANSIENT CEREBRAL ISCHEMIC ATTACK, UNS PECIF; Pt states dizziness and headaches TECHNIQUE: Carotid duplex ultrasound examination. Indirect Doppler criteria was utilized. FINDINGS: EXAM MEASUREMENTS: RIGHT: Peak Systolic Velocity (PSV) cm/sec ----- Right CCA: 57.2 ----- Right ICA: 74.3 ----- Right ECA: 77.6 ICA/CCA ratio: 1.3 RIGHT: End Diastole cm/sec ----- Right CCA: 17.1 ----- Right ICA: 24.8 ----- Right ECA: 16.0 LEFT: Peak Systolic Velocity (PSV) cm/sec ----- Left CCA: 82.1 ----- Left ICA: 80.1 ----- Left ECA: 63.6 ICA/CCA ratio: 1.0 LEFT: End Diastole cm/sec ----- Left CCA: 25.8 ----- Left ICA: 23.9 ----- Left ECA: 14.2 VERTEBRALS (direction of flow): Right Vertebral: Antegrade Left Vertebral: Antegrade Rhythm: Normal DOG SHOW JUDGE NOTES: Mild atherosclerotic plaque. No significant stenosis seen IMPRESSION: Mild atherosclerotic plaque with no significant hemodynamic stenosis. Criteria for Assigning % of Stenosis / Diameter reduction (Estimation based on the indirect measurements of the internal carotid artery velocities (ICA PSV). 1. Normal (no stenosis)=ICA PSV < 125 cm/s: ratio < 2.0: ICA EDV<40 cm/s. 2. Less than 50% stenosis=ICA PSV < 125 cm/s: ratio < 2.0: ICA EDV<40 cm/s. 3. 50 to 69% stenosis=ICA PSV of 125 to 230 cm/s: ration 2.0 ? 4.0: ICA EDV 40-100 cm/s. 4. Greater than 70% stenosis to near occlusion= ICA PSV > 230 cm/s: ratio > 4.0: ICA EDV > 100 cm/s. 5. Near occlusion= ICA PSV velocities may be low or undetectable: variable ratio and ICA EDV. 6. Total occlusion=unable to detect flow.
--- NOTE | 2023-08-17 11:29 | CA ---
Transthoracic Echo Report Name: Tano Lennon Age: 73 Gender: M : 1950 Exam Date: 08/16/2023 15:05 Exam Location: [facility] Ht (in): 75 Wt (lb): 207 Ordering Physician: Javier Delaney MD Attending/Referring Phys: Jesus Hendrickson MD ([id number]) Butt Trimmer Teresa Kimball RDCS Procedure CPT: Indications: G45.9 TRANSIENT CEREBRAL ISCHEMIC ATTACK, UNSPECIF Cardiac Hx: Technical Quality: Fair Contrast 1: Total Dose (mL): Contrast 2: Total Dose (mL): MEASUREMENTS (Male / Female) Normal Values 2D ECHO LV Diastolic Diameter PLAX 4.1 cm 4.2 - 5.9 / 3.9 - 5.3 cm LV Systolic Diameter PLAX 2.8 cm IVS Diastolic Thickness 2.0 cm 0.6 - 1.0 / 0.6 - 0.9 cm LVPW Diastolic Thickness 1.9 cm 0.6 - 1.0 / 0.6 - 0.9 cm LV Relative Wall Thickness 0.9 DOPPLER TR Peak Velocity 236.4 cm/s TR Peak Gradient 22.4 mmHg FINDINGS Left Ventricle Moderately increased left ventricular wall thickness. Normal left ventricular systolic function with no obvious regional wall motion abnormalities. Left ventricular ejection fraction is estimated at 50-55 %. Right Ventricle Normal right ventricular size and function. Right Atrium Mild right atrial dilatation. Catheter/pacemaker wire in the right atrial cavity. Left Atrium Moderate left atrial dilatation. Mitral Valve Mitral valve thickened. Moderate mitral annular calcification. Aortic Valve Normally functioning bioprosthetic aortic valve without stenosis. Mild aortic regurgitation. Tricuspid Valve Mild tricuspid regurgitation. Pulmonic Valve Pericardium No pericardial effusion. Aorta CONCLUSIONS LVH with ejection fraction of 50% Bioprosthetic valve with acceptable gradients Lead in right atrium and ventricle No obvious masses Consider SHANE for recurrent neurologic symptoms Previewed by: Dr. Jesus Hendrickson MD (Electronically Signed) Final Date: 17 August 2023 11:29
== END | disposition home or self-care (01) ==
LOC: RADECHMAIN 14:41
PROVIDERS: ATTEND Family Medicine
DX: I65.23 Occlusion and stenosis of bilateral carotid arteries (principal)
CPT/HCPCS: 93308; 93880

== ENCOUNTER 2023-10-19 11:45 | Inpatient (IN) | payer MEDICARE ==
--- NOTE | 2023-10-19 13:25 | ED ---
Extremity Problem HPI - General Chief complaint: Extremity Injury, Lower Stated complaint: left foot infection Time Seen by Provider: 10/19/23 12:41 Source: patient, RN notes reviewed Mode of arrival: ambulatory Limitations: no limitations - History of Present Illness Initial comments: This is a 73-year-old male who presents to the emergency department for a left foot infection. States that he's been dealing with an infection to the left great toe for many years, and was doing well, however a couple of days ago this broke back open and he states that it is worse than it has ever been. He saw Dr. Raza with wound care today, who was concerned about ascending cellulitis and osteomyelitis, and instructed him to come to the emergency department for admission and IV antibiotics. Patient denies any pain with this due to peripheral neuropathy. States that he is not currently on any antibiotics. - Related Data Home Medications Medication Instructions Recorded Confirmed Simvastatin [Zocor] 40 mg PO HS 04/22/21 10/19/23 Donepezil [Aricept] 10 mg PO DAILY 04/18/22 10/19/23 Furosemide [Lasix] 20 mg PO Q48H 04/18/22 10/19/23 levETIRAcetam [Keppra] 1,500 mg PO BID 04/18/22 10/19/23 Apixaban [Eliquis] 5 mg PO BID 05/05/23 10/19/23 metFORMIN HCL ER [Glucophage XR] 1,000 mg PO DAILY 05/05/23 10/19/23 Gabapentin 600 mg PO HS 06/24/23 10/19/23 Lacosamide [Vimpat] 150 mg PO BID 06/24/23 10/19/23 Alpha Lipoic Acid 600 mg PO DAILY 10/19/23 10/19/23 Amiodarone [Cordarone] 100 mg PO DAILY 10/19/23 10/19/23 Cholecalciferol [Vitamin D3 (25 50 mcg PO HS 10/19/23 10/19/23 Mcg = 1000 Iu)] Propranolol HCl [Propranolol HCl 80 mg PO DAILY 10/19/23 10/19/23 ER] Allergies Allergy/AdvReac Type Severity Reaction Status Date / Time dronedarone [From Multaq] Allergy Swelling Verified 10/19/23 15:59 Review of Systems ROS Statement: Those systems with pertinent positive or pertinent negative responses have been documented in the HPI. ROS Other: All systems not noted in ROS Statement are negative. Past Medical History Past Medical History: Atrial Fibrillation, Diabetes Mellitus, GERD/Reflux, Hearing Disorder / Deafness, Hyperlipidemia, Hypertension, Memory Impairment, Seizure Disorder, Syncope, Vascular Disorder Additional Past Medical History / Comment(s): Epilepsy, last seizure 05/05/23. Hx cellulitis. Current wounds bilateral feet, wearing orthopedic shoes to protect wounds. Left thumb wound healing from injury, neuropathy, syncope X2 in past 6 months. Hard of hearing. History of Any Multi-Drug Resistant Organisms: None Reported Past Surgical History: Cardiac Valve Replacement, Cholecystectomy, Orthopedic Surgery, Pacemaker Additional Past Surgical History / Comment(s): Colonoscopy, partial amputated left foot great toe, wound center procedures, aortic valve replacement, [employer] pacemaker. Past Anesthesia/Blood Transfusion Reactions: Previous Problems w/ Anesthesia Additional Past Anesthesia/Blood Transfusion Reaction / Comment(s): States "coded on table" with cholecystectomy, was septic. Type of Cardiac Device: Permanent Pacemaker Device Placement Date:: 10/15/2022 Past Psychological History: Depression Smoking Status: Former smoker Past Alcohol Use History: Occasional Past Drug Use History: Marijuana - Past Family History Mother Family Medical History: Cancer Additional Family Medical History / Comment(s): Fractured hip, uterine cancer, open heart surgery. Father Family Medical History: No Reported History General Exam Limitations: no limitations General appearance: alert, in no apparent distress Head exam: Present: atraumatic, normocephalic, normal inspection Respiratory exam: Present: normal lung sounds bilaterally. Absent: respiratory distress, wheezes, rales, rhonchi, stridor Cardiovascular Exam: Present: regular rate, normal rhythm, normal heart sounds. Absent: systolic murmur, diastolic murmur, rubs, gallop, clicks Extremities exam: Present: other (Open wound to the top of the left great toe, no active drainage, no tenderness) Neurological exam: Present: alert, oriented X3, CN II-XII intact Psychiatric exam: Present: normal affect, normal mood Skin exam: Present: warm, dry, intact, normal color. Absent: rash Course Vital Signs 10/19/23 10/20/23 10/20/23 12:06 00:00 06:00 Temperature 98.2 F 98.1 F 98.3 F Pulse Rate 72 63 88 Respiratory 18 16 18 Rate Blood Pressure 128/78 159/94 167/97 O2 Sat by Pulse 99 99 98 Oximetry Medical Decision Making - Medical Decision Making This is a 73-year-old male who presents to the emergency department for a left great toe infection. Was pt. sent in by a medical professional or institution? @ -Dr. Raza Did you speak to anyone other than the patient for history? @ -No Did you review nursing and triage notes? @ -Yes, and I agree, it is accurate with regards to the patient's symptoms. Were old charts reviewed? @ -No Differential Diagnosis? @ -Differential Musculoskeletal: Muscular strain, contusion, ligament sprain, fracture, arthritis, septic arthritis, bursitis, cellulitis, muscle spasm, nerve compression, DVT, arterial occlusion, herpes zoster, electrolyte abnormality, tumor.... This is not meant to be in all inclusive list EKG interpreted by me (3pts min.)? @ -Not obtained X-rays interpreted by me (1pt min.)? @ -X-ray of the left great toe obtained. My interpretation identifies soft tissue swelling. CT interpreted by me (1pt min.)? @ -Not obtained U/S interpreted by me (1pt. min.)? @ -Not obtained What testing was considered but not performed? (CT, X-rays, U/S, labs)? Why? @ -None What meds were considered but not given? Why? @ -None Did you discuss the management of the patient with other professionals? @ -Yes, Dr. Delaney, who accepts the patient for admission. Did you reconcile home meds? @ -Yes Was smoking cessation discussed for >3mins.? @ -No Was critical care preformed (if so, how long)? @ -No Were there social determinants of health that impacted care today? How? (Homelessness, low income, unemployed, alcoholism, drug addiction, transportation, low edu. Level, literacy, decrease access to med. care, senior care, rehab)? @ -No Was there de-escalation of care discussed even if they declined? (Discuss DNR or withdrawal of care, Hospice)? @ -No What co-morbidities impacted this encounter? (DM, HTN, Smoking, COPD, CAD, Cancer, CVA, Hep., AIDS, mental health diagnosis, sleep apnea, morbid obesity)? @ -A-fib, DM, vascular disorder Was patient admitted / discharged? @ -Admitted. Lab work obtained and found to be unremarkable, including no evidence of leukocytosis, negative inflammatory markers, and a normal lactic a ju. X-ray of the left great toe obtained demonstrating soft tissue swelling and advised correlation for cellulitis. There is also noted to be progressive reabsorption of the distal phalanx first digit and they advised a triple phase bone scan to evaluate for osteomyelitis. Blood and wound cultures were obtained and the patient was started on broad-spectrum antibiotics with vancomycin and cefepime. Patient admitted to medicine with infectious disease consult. Patient has a pacemaker and instead of an MRI a nuclear bone scan was ordered. Undiagnosed new problem with uncertain prognosis? @ -None Drug Therapy requiring intensive monitoring for toxicity (Heparin, Nitro, Insulin, Cardizem)? @ -None Were any procedures done? @ -None Diagnosis/symptom? @ -Left great toe cellulitis, r/o osteomyelitis Acute, or Chronic, or Acute on Chronic? @ -Acute on chronic Uncomplicated (without systemic symptoms) or Complicated (systemic symptoms)? @ -Uncomplicated Side effects of treatment? @ -None Exacerbation, Progression, or Severe Exacerbation] @ -Progression Poses a threat to life or bodily function? @ -Yes, this poses a threat to the digit This case was discussed in detail with the attending ED physician, Dr. Boyce. Presentation, findings, and treatment plan discussed in detail as well. - Lab Data Result diagrams: 10/19/23 13:02 10/19/23 13:02 Lab Results 10/19/23 10/19/23 10/19/23 Range/Units 13:02 13:02 13:02 WBC 6.7 (3.8-10.6) k/uL RBC 4.35 (4.30-5.90) m/uL Hgb 13.8 (13.0-17.5) gm/dL Hct 41.2 (39.0-53.0) % MCV 94.8 (80.0-100.0) fL MCH 31.8 (25.0-35.0) pg MCHC 33.5 (31.0-37.0) g/dL RDW 13.6 (11.5-15.5) % Plt Count 153 (150-450) k/uL MPV 8.4 Neutrophils % 67 % Lymphocytes % 20 % Monocytes % 7 % Eosinophils % 3 % Basophils % 1 % Neutrophils # 4.5 (1.3-7.7) k/uL Lymphocytes # 1.3 (1.0-4.8) k/uL Monocytes # 0.5 (0-1.0) k/uL Eosinophils # 0.2 (0-0.7) k/uL Basophils # 0.0 (0-0.2) k/uL ESR 15 (0-20) mm/Hr Sodium 139 (137-145) mmol/L Potassium 4.8 (3.5-5.1) mmol/L Chloride 106 (98-107) mmol/L Carbon Dioxide 22 (22-30) mmol/L Anion Gap 11 mmol/L BUN 12 (9-20) mg/dL Creatinine 1.22 (0.66-1.25) mg/dL Est GFR (CKD-EPI)AfAm 68 (>60 ml/min/1.73 sqM) Est GFR (CKD-EPI)NonAf 59 (>60 ml/min/1.73 sqM) Glucose 193 H (74-99) mg/dL Plasma Lactic Acid William 1.9 (0.7-2.0) mmol/L Calcium 9.0 (8.4-10.2) mg/dL Total Bilirubin 0.7 (0.2-1.3) mg/dL AST 40 (17-59) U/L ALT 38 (4-49) U/L Alkaline Phosphatase 56 (38-126) U/L C-Reactive Protein <0.5 (<1.0) mg/dL Total Protein 6.9 (6.3-8.2) g/dL Albumin 4.1 (3.5-5.0) g/dL - Radiology Data Radiology results: report reviewed, image reviewed Disposition Clinical Impression: Cellulitis of great toe, left Disposition: ADMITTED IP TO THIS HOSP
[2023-10-19 13:46] LABS: Basophils % (A) 1 %; Eosinophils # (A) 0.2 k/uL (0-0.7); Eosinophils % (A) 3 %; HCT 41.2 % (39.0-53.0); HGB 13.8 gm/dL (13.0-17.5); Lymphocytes # (A) 1.3 k/uL (1.0-4.8); Lymphocytes % (A) 20 %; MCH 31.8 pg (25.0-35.0); MCHC 33.5 g/dL (31.0-37.0); MCV 94.8 fL (80.0-100.0); Mean Platelet Volume 8.4; Monocytes # (A) 0.5 k/uL (0-1.0); Monocytes % (A) 7 %; Neutrophils # (A) 4.5 k/uL (1.3-7.7); Neutrophils % (A) 67 %; Platelet Count 153 k/uL (150-450); RBC 4.35 m/uL (4.30-5.90); RDW 13.6 % (11.5-15.5); WBC 6.7 k/uL (3.8-10.6)
--- NOTE | 2023-10-19 13:52 | XR ---
EXAMINATION TYPE: XR toes LT DATE OF EXAM: 10/19/2023 COMPARISON: 04/22/2022 HISTORY: First toe infection TECHNIQUE: Three views are submitted. FINDINGS: There is resorption of the tuft of the distal phalanx with soft tissue swelling.. There is no acut e fracture or dislocation. Vascular calcification and MTP joint hypertrophic arthropathy.. IMPRESSION: 1. Soft tissue swelling correlate for cellulitis. There is progressive resorption of the distal phala nx first digit recommend triple phase bone scan to assess for osteomyelitis.
[2023-10-19 14:01] LABS: ALT 38 U/L (4-49); AST 40 U/L (17-59); African American GFR (CKD) 68 (>60 ml/min/1.73 sqM); Albumin 4.1 g/dL (3.5-5.0); Alkaline Phosphatase 56 U/L (38-126); Anion Gap 11 mmol/L; Blood Urea Nitrogen 12 mg/dL (9-20); Carbon Dioxide 22 mmol/L (22-30); Chloride 106 mmol/L (98-107); Glucose 193 mg/dL (74-99); Non-African American GFR(CKD) 59 (>60 ml/min/1.73 sqM); Potassium 4.8 mmol/L (3.5-5.1); Sodium 139 mmol/L (137-145); Total Bilirubin 0.7 mg/dL (0.2-1.3); Total Protein 6.9 g/dL (6.3-8.2)
[2023-10-19] MEDS ORDERED: VANCOMYCIN IV PER PHARMACY 1 EACH MISC MISCELLANE PRN (14:27)
[2023-10-19 15:00] LABS: C Reactive Protein <0.5 mg/dL (<1.0)
[2023-10-19] MEDS: CEFEPIME 2 GM in SODIUM CHLORIDE 0.9% 100 ML IVPB SCH ×2 (15:00→22:58)
[2023-10-19] MEDS ORDERED: VANCOMYCIN 1,500 MG in SODIUM CHLORIDE 0.9% 500 ML 500 ML IVPB ONE (15:00)
[2023-10-19] MEDS ORDERED: MORPHINE SULFATE 4 MG/ML SYRINGE IV PRN (16:25)
[2023-10-19] MEDS ORDERED: ACETAMINOPHEN TAB 325 MG TAB PO PRN (16:25)
[2023-10-19] MEDS ORDERED: ONDANSETRON 4 MG/2 ML VIAL IVP PRN (16:25)
[2023-10-19] MEDS ORDERED: NALOXONE 0.4 MG/ML 1 ML VIAL IV PRN (16:25)
[2023-10-19] MEDS ORDERED: HYDROcodone/APAP 5-325MG 1 EACH TAB PO PRN (16:25)
[2023-10-19 20:36] LABS: Erythrocyte Sedimentation Rate 15 mm/Hr (0-20)
[2023-10-19] MEDS: GABAPENTIN 300 MG CAP PO SCH (21:10)
[2023-10-19] MEDS: CHOLECALCIFEROL 25 MCG (1000 IU) TABLET PO SCH (21:10)
[2023-10-19] MEDS: APIXABAN 5 MG TAB PO SCH (21:10)
[2023-10-19] MEDS: ATORVASTATIN 20 MG TAB PO SCH (21:10)
[2023-10-19] MEDS: LACOSAMIDE 150 MG TABLET PO SCH (22:37)
--- NOTE | 2023-10-19 23:04 | P.CONS ---
History of Present Illness - Reason for Consult Consult date: 10/19/23 - History of Present Illness Patient is a 73-year-old male with a past medical history significant for diabetes mellitus hypertension hyperlipidemia seizure disorder the patient did have a recent history of bilateral big toe diabetic foot ulcer and concern for osteomyelitis. The patient has completed his antibiotic therapy patient right big toe plantar wound is currently healed and the left big toe plantar wou nd was recently almost healed, however the patient mentioning noticed to having increasing swelling redness to the left big toe plantar wound which apparently has opened up and did have some drainage for the patient was evaluated by his wound care physician at [facility], patient did have debridement of his wound subsequently has been sent to the hospital concerning for ascending infection and osteomyelitis patient denies having any fever or any chills he does have diabetic neuropathy denies any worsening pain to the left big toe area did have some bloodstained drainage with associated swelling redness no foul- smelling denies any chest pain shortness of breath or cough no nausea vomiting no abdominal pain or any diarrhea patient on presentation to the hospital was afebrile patient did have white count of 6.7 creatinine is 1.22 down from her normal patient did have a 2 x-ray soft tissue swelling correlate for cellulitis there is progressive resorption of the distal phalanx first digit recommending a triple phase bone scan by radiology patient was started on vancomycin and cefepime infectious disease was consulted for further management of antibiotic therapy Past Medical History Past Medical History: Atrial Fibrillation, Diabetes Mellitus, GERD/Reflux, Hearing Disorder / Deafness, Hyperlipidemia, Hypertension, Memory Impairment, Seizure Disorder, Syncope, Vascular Disorder Additional Past Medical History / Comment(s): Epilepsy, last seizure 05/05/23. Hx cellulitis. Current wounds bilateral feet, wearing orthopedic shoes to protect wounds. Left thumb wound healing from injury, neuropathy, syncope X2 in past 6 months. Hard of hearing. History of Any Multi-Drug Resistant Organisms: None Reported Past Surgical History: Cardiac Valve Replacement, Cholecystectomy, Orthopedic Surgery, Pacemaker Additional Past Surgical History / Comment(s): Colonoscopy, partial amputated left foot great toe, wound center procedures, aortic valve replacement, [employer]tronic pacemaker. Past Anesthesia/Blood Transfusion Reactions: Previous Problems w/ Anesthesia Additional Past Anesthesia/Blood Transfusion Reaction / Comm: States "coded on table" with cholecystectomy, was septic. Type of Cardiac Device: Permanent Pacemaker Device Placement Date:: 10/15/2022 Past Psychological History: Depression Smoking Status: Former smoker Past Alcohol Use History: Occasional Past Drug Use History: Marijuana - Past Family History Mother Family Medical History: Cancer Additional Family Medical History / Comment(s): Fractured hip, uterine cancer, open heart surgery. Father Family Medical History: No Reported History Medications and Allergies Home Medications Medication Instructions Recorded Confirmed Type Simvastatin [Zocor] 40 mg PO HS 04/22/21 10/19/23 History Donepezil [Aricept] 10 mg PO DAILY 04/18/22 10/19/23 History Furosemide [Lasix] 20 mg PO Q48H 04/18/22 10/19/23 History levETIRAcetam [Keppra] 1,500 mg PO BID 04/18/22 10/19/23 History Apixaban [Eliquis] 5 mg PO BID 05/05/23 10/19/23 History metFORMIN HCL ER [Glucophage XR] 1,000 mg PO DAILY 05/05/23 10/19/23 History Gabapentin 600 mg PO HS 06/24/23 10/19/23 History Lacosamide [Vimpat] 150 mg PO BID 06/24/23 10/19/23 History Alpha Lipoic Acid 600 mg PO DAILY 10/19/23 10/19/23 History Amiodarone [Cordarone] 100 mg PO DAILY 10/19/23 10/19/23 History Cholecalciferol [Vitamin D3 (25 50 mcg PO HS 10/19/23 10/19/23 History Mcg = 1000 Iu)] Propranolol HCl [Propranolol HCl 80 mg PO DAILY 10/19/23 10/19/23 History ER] Allergies Allergy/AdvReac Type Severity Reaction Status Date / Time dronedarone [From [facility]] Allergy Swelling Verified 10/19/23 15:59 Physical Exam Vitals: Vital Signs Temp Pulse Resp BP Pulse Ox 10/19/23 12:06 98.2 F 72 18 128/78 99 Intake and Output 10/19/23 10/19/23 10/19/23 06:59 14:59 22:59 Other: Weight 91.626 kg Results CBC & Chem 7: 10/19/23 13:02 10/19/23 13:02 Labs: Abnormal Lab Results - Last 24 Hours (Table) 12/13/23 Range/Units 13:02 Glucose 193 H (74-99) mg/dL Assessment and Plan Plan: 1patient presented to hospital with left big toe nonhealing wound with recent worsening with swelling and redness and some drainage, keeping in mind his recurrent history and chronic infection possible osteomyelitis in this patient with underlying diabetes mellitus 2-local culture has been obtained to guide further antibiotic therapy 3-check inflammatory markers 4-empirically cover with vancomycin and cefepime while watching his kidney function closely We will follow on clinical condition and cultures to further adjust medication if needed Thank you for this consultation we will follow the patient along with you Dictation was produced using [employer] dictation software. please excuse any grammatical, word or spelling errors. Time with Patient: Greater than 30
[2023-10-20] MEDS: CEFEPIME 2 GM in SODIUM CHLORIDE 0.9% 100 ML IVPB SCH ×2 (06:49→16:34)
[2023-10-20] MEDS ORDERED: VANCOMYCIN 1,500 MG in SODIUM CHLORIDE 0.9% 500 ML 500 ML IVPB SCH (07:00)
[2023-10-20 07:20] LABS: African American GFR (CKD) 70 (>60 ml/min/1.73 sqM); Non-African American GFR(CKD) 60 (>60 ml/min/1.73 sqM)
--- NOTE | 2023-10-20 08:45 | P.HPIM ---
History of Present Illness H&P Date: 10/20/23 Chief Complaint: Left Foot infection This is a 73-year-old male with a past medical history for diabetes mellitus, hypertension, hyperlipidemia, and seizure disorder. He presented to the emergency department for a left foot infection. Patient has been dealing with an infection to the left great toe for many years and had been followed with wound care who he saw yesterday and was concerned about cellulitis and osteomyelitis. So they instructed him to go to the emergency room for evaluation. XR of the left great toe showed soft tissue swelling and correlated for cellulitis. Culltures were obtained. Infectious disease has been consulted, recommending vancomycin and cefepime. Bone scan has been ordered and was completed this morning, await results. Review of Systems Constitutional: Denies chills, Denies fever Cardiovascular: Denies chest pain, Denies dyspnea on exertion Respiratory: Denies cough, Denies dyspnea Gastrointestinal: Denies abdominal pain, Denies nausea, Denies vomiting Musculoskeletal: Denies arm numbness/tingling, Denies leg numbness/tingling Integumentary: Reports as per HPI Neurological: Denies headaches, Denies weakness Past Medical History Past Medical History: Atrial Fibrillation, Diabetes Mellitus, GERD/Reflux, Hearing Disorder / Deafness, Hyperlipidemia, Hypertension, Memory Impairment, Seizure Disorder, Syncope, Vascular Disorder Additional Past Medical History / Comment(s): Epilepsy, last seizure 05/05/23. Hx cellulitis. Current wounds bilateral feet, wearing orthopedic shoes to protect wounds. Left thumb wound healing from injury, neuropathy, syncope X2 in past 6 months. Hard of hearing. History of Any Multi-Drug Resistant Organisms: None Reported Past Surgical History: Cardiac Valve Replacement, Cholecystectomy, Orthopedic Surgery, Pacemaker Additional Past Surgical History / Comment(s): Colonoscopy, partial amputated left foot great toe, wound center procedures, aortic valve replacement, [employer]tronic pacemaker. Past Anesthesia/Blood Transfusion Reactions: Previous Problems w/ Anesthesia Additional Past Anesthesia/Blood Transfusion Reaction / Comment(s): States "coded on table" with cholecystectomy, was septic. Type of Cardiac Device: Permanent Pacemaker Device Placement Date:: 10/15/2022 Past Psychological History: Depression Smoking Status: Former smoker Past Alcohol Use History: Occasional Past Drug Use History: Marijuana - Past Family History Mother Family Medical History: Cancer Additional Family Medical History / Comment(s): Fractured hip, uterine cancer, open heart surgery. Father Family Medical History: No Reported History Medications and Allergies Home Medications Medication Instructions Recorded Confirmed Type Simvastatin [Zocor] 40 mg PO HS 04/22/21 10/19/23 History Donepezil [Aricept] 10 mg PO DAILY 04/18/22 10/19/23 History Furosemide [Lasix] 20 mg PO Q48H 04/18/22 10/19/23 History levETIRAcetam [Keppra] 1,500 mg PO BID 04/18/22 10/19/23 History Apixaban [Eliquis] 5 mg PO BID 05/05/23 10/19/23 History metFORMIN HCL ER [Glucophage XR] 1,000 mg PO DAILY 05/05/23 10/19/23 History Gabapentin 600 mg PO HS 06/24/23 10/19/23 History Lacosamide [Vimpat] 150 mg PO BID 06/24/23 10/19/23 History Alpha Lipoic Acid 600 mg PO DAILY 10/19/23 10/19/23 History Amiodarone [Cordarone] 100 mg PO DAILY 10/19/23 10/19/23 History Cholecalciferol [Vitamin D3 (25 50 mcg PO HS 10/19/23 10/19/23 History Mcg = 1000 Iu)] Propranolol HCl [Propranolol HCl 80 mg PO DAILY 10/19/23 10/19/23 History ER] Allergies Allergy/AdvReac Type Severity Reaction Status Date / Time dronedarone [From [facility]] Allergy Swelling Verified 10/19/23 15:59 Physical Exam Vitals: Vital Signs Temp Pulse Resp BP Pulse Ox 10/20/23 06:00 98.3 F 88 18 167/97 98 10/20/23 00:00 98.1 F 63 16 159/94 99 10/19/23 12:06 98.2 F 72 18 128/78 99 - Constitutional General appearance: cooperative, no acute distress - EENT Eyes: PERRLA - Neck Neck: no lymphadenopathy, normal ROM, no rigidity - Respiratory Respiratory: bilateral: CTA - Cardiovascular Rhythm: regular Heart sounds: normal: S1, S2 - Gastrointestinal General gastrointestinal: soft, no tenderness - Integumentary Open wound to the top of the left great toe - Psychiatric Psychiatric: A&O x's 3, appropriate affect, intact judgment & insight Results CBC & Chem 7: 10/19/23 13:02 10/20/23 06:43 Labs: Abnormal Lab Results - Last 24 Hours (Table) 10/19/23 Range/Units 13:02 Glucose 193 H (74-99) mg/dL Microbiology - Last 24 Hours (Table) 10/19/23 13:02 Gram Stain - Preliminary Toe - Left First Assessment and Plan (1) Hypertension Current Visit: Yes Status: Acute Code(s): I10 - ESSENTIAL (PRIMARY) HYPERTENSION SNOMED Code(s): 67617477 (2) Hyperlipemia Current Visit: Yes Status: Acute Code(s): E78.5 - HYPERLIPIDEMIA, UNSPECIFIED SNOMED Code(s): 87588135 (3) Seizure disorder Current Visit: Yes Status: Acute Code(s): G40.909 - EPILEPSY, UNSP, NOT INTRACTABLE, WITHOUT STATUS EPILEPTICUS SNOMED Code(s): 896848753 (4) Cellulitis of great toe, left Current Visit: Yes Status: Acute Code(s): L03.032 - CELLULITIS OF LEFT TOE SNOMED Code(s): 62993113 (5) Diabetes Current Visit: No Status: Acute Code(s): E11.9 - TYPE 2 DIABETES MELLITUS WITHOUT COMPLICATIONS SNOMED Code(s): 46882946 Plan: Home medications reconciled. Await results from bone scan Continue antibiotics per infectious disease CBC and CMP in the morning Order Accu-Cheks and sliding scale insulin Patient seen and evaluated by nurse practitioner, physician in agreement with plan
[2023-10-20] MEDS ORDERED: NON FORMULARY DRUG (Alpha Lipoic Acid [Alpha Lipoic Acid] 600 MG Tablet) PO SCH (09:00)
[2023-10-20] MEDS: DONEPEZIL 10 MG TAB PO SCH (09:45)
[2023-10-20] MEDS: APIXABAN 5 MG TAB PO SCH ×2 (09:46→20:56)
[2023-10-20] MEDS: FUROSEMIDE 20 MG TAB PO SCH (09:46)
[2023-10-20] MEDS: metFORMIN 500 MG TAB PO SCH ×2 (09:46→20:56)
[2023-10-20] MEDS: PROPRANOLOL LA 80 MG CAP.SA.24H PO SCH (09:54)
[2023-10-20] MEDS: AMIODARONE 100 MG TAB PO SCH (09:55)
[2023-10-20] MEDS: LACOSAMIDE 150 MG TABLET PO SCH ×3 (10:18→20:56)
[2023-10-20 10:24] LABS: Glucose,Whole Blood 200 mg/dL (70-110)
[2023-10-20 12:38] LABS: Glucose,Whole Blood 157 mg/dL (70-110)
[2023-10-20] MEDS: INSULIN ASPART (NovoLOG) 100 UNIT/ML VIAL SQ SCH ×2 (14:07→18:03)
--- NOTE | 2023-10-20 15:13 | NM ---
EXAMINATION TYPE: NM bone 3 phase DATE OF EXAM: 10/20/2023 COMPARISON: NONE CLINICAL INDICATION: Male, 73 years old with history of Left great toe infection, r/o osteomyelitis; Triple phase bone scintigraphy was performed following the injection of 25 mCi Tc 99m MDP. Immediate images and 6 hours post injection images acquired. FINDINGS: There is increased flow to the foot bilaterally greater on the left. There is increased soft tissue uptake bilaterally. There is increased delayed uptake involving the bilateral first and TPA and distal phalanx. IMPRESSION: 1. Findings are suggestive of osteomyelitis of the left first digit. 2. There is abnormal flow, uptake involving the right first digit. This should be correlated with cli nically and if necessary with x-ray for possible cellulitis with osteomyelitis.
--- NOTE | 2023-10-20 16:26 | P.PN ---
Subjective Progress Note Date: 10/20/23 Principal diagnosis: Reason for follow-up is left big toe diabetic foot ulcer and concern for osteomyelitis Patient is a 73-year-old male with a past medical history significant for diabetes mellitus hypertension hyperlipidemia seizure disorder the patient did have a recent history of bilateral big toe diabetic foot ulcer and osteomyelitis, the patient did have healing of his right big toe however noticed to have a worsening of his left big toe plantar ulcer sent into the hospital by his wound care physician concerning for osteomyelitis On today's evaluation that is 10/20/2023, the patient denies any fever or any chills, the patient is breathing comfortably on room air, patient denies chest pain shortness of breath, or cough, patient denies Abdominal pain and denies any nausea/vomiting or diarrhea left big toe wound area Local culture growing beta-hemolytic group G strep no lab draw today Objective - Vital Signs Vital signs: Vital Signs Temp 98.3 F 10/20/23 09:56 Pulse 75 10/20/23 09:56 Resp 18 10/20/23 09:56 BP 150/94 10/20/23 09:56 Pulse Ox 98 10/20/23 09:56 FiO2 Intake & Output 10/19/23 10/20/23 10/20/23 18:59 06:59 18:59 Weight 91.626 kg - Exam GENERAL DESCRIPTION: An elderly male lying in bed in no distress RESPIRATORY SYSTEM: Unlabored breathing , clear to auscultation anteriorly HEART: S1 S2 regular rate and rhythm , ABDOMEN: Soft , no tenderness EXTREMITIES: Left big toe is currently dressed minimal drainage on the dressing - Labs CBC & Chem 7: 10/19/23 13:02 10/20/23 06:43 Labs: Abnormal Lab Results - Last 24 Hours (Table) 10/19/23 10/20/23 Range/Units 13:02 10:22 Glucose 193 H (74-99) mg/dL POC Glucose (mg/dL) 200 H (70-110) mg/dL Microbiology - Last 24 Hours (Table) 10/19/23 13:02 Gram Stain - Preliminary Toe - Left First Wound Culture - Preliminary Beta Hemolytic Strep Group G Assessment and Plan (1) Diabetic foot ulcer Current Visit: Yes Status: Acute Code(s): E11.621 - TYPE 2 DIABETES MELLITUS WITH FOOT ULCER; L97.509 - NON-PRESSURE CHRONIC ULCER OTH PRT UNSP FOOT W UNSP SEVERITY SNOMED Code(s): 736362578 (2) Beta hemolytic Streptococcus culture positive Current Visit: Yes Status: Acute Code(s): B95.5 - UNSP STREPTOCOCCUS THE CAUSE OF DISEASES CLASSD ELSWHR SNOMED Code(s): 345566455 (3) Cellulitis of great toe, left Current Visit: Yes Status: Acute Code(s): L03.032 - CELLULITIS OF LEFT TOE SNOMED Code(s): 77001054 Plan: 1patient presented to hospital with left big toe nonhealing wound with recent worsening with swelling and redness and some drainage, keeping in mind his recurrent history and chronic infection possible osteomyelitis in this patient with underlying diabetes mellitus 2-local culture has been obtained and currently growing beta-hemolytic strep group G 3- inflammatory markers were not elevated 4We will discontinue vancomycin and cefepime and start the patient on cefazolin and oral Flagyl 5-we'll obtain a bone scan to make sure no evidence of any osteomyelitis and need for IV antibiotics without discharge Dictation was produced using [employer] dictation software. please excuse any grammatical, word or spelling errors. Time with Patient: Less than 30
[2023-10-20 18:00] LABS: Glucose,Whole Blood 116 mg/dL (70-110)
[2023-10-20 20:22] LABS: Glucose,Whole Blood 209 mg/dL (70-110)
[2023-10-20] MEDS: GABAPENTIN 300 MG CAP PO SCH (20:56)
[2023-10-20] MEDS: ATORVASTATIN 20 MG TAB PO SCH (20:56)
[2023-10-20] MEDS: CHOLECALCIFEROL 25 MCG (1000 IU) TABLET PO SCH (20:56)
[2023-10-20] MEDS: metroNIDAZOLE 500 MG TAB PO SCH (21:25)
[2023-10-21 07:39] LABS: Glucose,Whole Blood 157 mg/dL (70-110)
[2023-10-21] MEDS: APIXABAN 5 MG TAB PO SCH ×2 (08:00→20:06)
[2023-10-21] MEDS: AMIODARONE 100 MG TAB PO SCH (08:00)
[2023-10-21] MEDS: DONEPEZIL 10 MG TAB PO SCH (08:00)
[2023-10-21] MEDS: metFORMIN 500 MG TAB PO SCH ×2 (08:00→20:05)
[2023-10-21] MEDS: LACOSAMIDE 150 MG TABLET PO SCH ×2 (08:00→20:05)
[2023-10-21] MEDS: PROPRANOLOL LA 80 MG CAP.SA.24H PO SCH (08:00)
[2023-10-21] MEDS: metroNIDAZOLE 500 MG TAB PO SCH ×3 (08:00→21:02)
[2023-10-21] MEDS: INSULIN ASPART (NovoLOG) 100 UNIT/ML VIAL SQ SCH ×3 (08:01→18:20)
--- NOTE | 2023-10-21 08:26 | P.PN ---
Subjective Progress Note Date: 10/21/23 Principal diagnosis: This continue progress on a 73-year-old white male essentially admitted for cellulitis of the great toe. He was seen after wound care and developed an ulcer. Unfortunately bone scan does show possible myelitis. The patient has had recurrence of this. Stable otherwise. No voiding difficulties no fever for hours. Significant nausea, vomiting or diarrhea Objective - Vital Signs Vital signs: Vital Signs Temp 97.8 F 10/21/23 07:34 Pulse 66 10/21/23 07:34 Resp 17 10/21/23 07:34 BP 149/88 10/21/23 07:34 Pulse Ox 99 10/21/23 07:34 FiO2 Intake & Output 10/20/23 10/21/23 10/21/23 18:59 06:59 18:59 Intake Total 240 590 Balance 240 590 Weight 91.626 kg Intake: Oral 240 590 Other: Voiding Method Toilet Urinal # Voids 2 2 - Constitutional General appearance: Present: cooperative - EENT Eyes: Absent: abnormal pupil - Neck Neck: Absent: lymphadenopathy - Respiratory Respiratory: bilateral: CTA - Cardiovascular Rhythm: regular Heart sounds: normal: S1, S2 Abnormal Heart Sounds: Absent: S3 Gallop - Gastrointestinal General gastrointestinal: Present: soft. Absent: tenderness - Integumentary Integumentary: Present: cellulitis - Labs CBC & Chem 7: 10/19/23 13:02 10/20/23 06:43 Labs: Abnormal Lab Results - Last 24 Hours (Table) 10/20/23 10/20/23 10/20/23 Range/Units 10:22 12:36 17:49 POC Glucose (mg/dL) 200 H 157 H 116 H (70-110) mg/dL 10/20/23 10/21/23 Range/Units 20:21 07:19 POC Glucose (mg/dL) 209 H 157 H (70-110) mg/dL Microbiology - Last 24 Hours (Table) 10/19/23 13:02 Blood Culture - Preliminary Blood 10/19/23 13:02 Blood Culture - Preliminary Blood 10/19/23 13:02 Gram Stain - Preliminary Toe - Left First Wound Culture - Preliminary Beta Hemolytic Strep Group G Assessment and Plan (1) Osteomyelitis of toe of left foot Current Visit: Yes Status: Acute Code(s): M86.9 - OSTEOMYELITIS, UNSPECIFIED SNOMED Code(s): 289811619 (2) Beta hemolytic Streptococcus culture positive Current Visit: Yes Status: Acute Code(s): B95.5 - UNSP STREPTOCOCCUS THE CA[facility]ES [facility] SNOM[facility] Code(s): 163292921 (3) Cellulitis of great toe, left Current Visit: Yes Status: Acute Code(s): L03.032 - CELLULITIS OF LEFT TOE SNOMED Code(s): 47034806 (4) Atrial fibrillation Current Visit: No Status: Acute Code(s): I48.91 - UNSPECIFIED ATRIAL FIBRILLATION SNOMED Code(s): 26547727 (5) Diabetes Current Visit: No Status: Acute Code(s): E11.9 - TYPE 2 DIABETES MELLITUS WITHOUT COMPLICATIONS SNOMED Code(s): 62322375 Plan: Continue empiric antibiotic treatment. I suspect he will need long-term IV therapy. Appreciate infectious input. PICC line with long-term antibiotic therapy as likely. Check CBC and CMP in a.m.
[2023-10-21 08:45] LABS: HCT 40.6 % (39.6-50.0); HGB 13.3 g/dL (13.0-17.0); MCH 31.4 pg (27.0-32.0); MCHC 32.8 g/dL (32.0-37.0); MCV 95.8 FL (80.0-97.0); Mean Platelet Volume 10.9 FL (9.5-12.2); NRBC Per 100 WBC 0 X 10*3/uL (0.00-0.01); Platelet Count 153 X 10*3/uL (140-440); RBC 4.24 X 10*6/uL (4.40-5.60); RDW 13.2 % (11.5-14.5); WBC 4.66 X 10*3/uL (4.50-10.00)
[2023-10-21 09:14] LABS: ALT 30 U/L (10-49); AST 21 U/L (14-35); Albumin/Globulin Ratio 1.82 Ratio (1.60-3.17); Alkaline Phosphatase 52 U/L (41-126); BUN/Creat Ratio 9.12 Ratio (12.00-20.00); Blood Urea Nitrogen 14.6 mg/dL (9.0-27.0); Calcium 9.6 mg/dL (8.7-10.3); Carbon Dioxide 27.7 mmol/L (21.6-31.8); Chloride 106 mmol/L (96-109); Globulin 2.2 g/dL (1.6-3.3); Glucose 141 mg/dL (70-110); Sodium 142 mmol/L (135-145); Total Bilirubin 0.6 mg/dL (0.3-1.2); Total Protein 6.2 g/dL (6.2-8.2)
[2023-10-21 12:19] VITALS: BMI 25.9
[2023-10-21 12:24] LABS: Glucose,Whole Blood 171 mg/dL (70-110)
[2023-10-21] MEDS ORDERED: VANCOMYCIN TROUGH DUE 1 EACH MISC MISCELLANE ONE (14:00)
[2023-10-21 17:05] LABS: Glucose,Whole Blood 152 mg/dL (70-110)
[2023-10-21] MEDS: ATORVASTATIN 20 MG TAB PO SCH (20:05)
[2023-10-21] MEDS: GABAPENTIN 300 MG CAP PO SCH (20:06)
[2023-10-21] MEDS: CHOLECALCIFEROL 25 MCG (1000 IU) TABLET PO SCH (20:06)
[2023-10-21 20:25] LABS: Glucose,Whole Blood 205 mg/dL (70-110)
[2023-10-22 07:20] LABS: Glucose,Whole Blood 122 mg/dL (70-110)
[2023-10-22] MEDS: INSULIN ASPART (NovoLOG) 100 UNIT/ML VIAL SQ SCH ×3 (07:34→17:34)
[2023-10-22] MEDS: metFORMIN 500 MG TAB PO SCH ×2 (09:13→20:16)
[2023-10-22] MEDS: LACOSAMIDE 150 MG TABLET PO SCH ×2 (09:13→20:16)
[2023-10-22] MEDS: metroNIDAZOLE 500 MG TAB PO SCH ×3 (09:13→21:03)
[2023-10-22] MEDS: AMIODARONE 100 MG TAB PO SCH (09:13)
[2023-10-22] MEDS: DONEPEZIL 10 MG TAB PO SCH (09:13)
[2023-10-22] MEDS: APIXABAN 5 MG TAB PO SCH ×2 (09:13→20:16)
[2023-10-22] MEDS: FUROSEMIDE 20 MG TAB PO SCH (09:13)
[2023-10-22] MEDS: PROPRANOLOL LA 80 MG CAP.SA.24H PO SCH (09:13)
[2023-10-22 09:30] LABS: HGB 13.6 g/dL (13.0-17.0); MCH 31.8 pg (27.0-32.0); MCV 93.5 FL (80.0-97.0); Mean Platelet Volume 10.2 FL (9.5-12.2); NRBC Per 100 WBC 0 X 10*3/uL (0.00-0.01); Platelet Count 152 X 10*3/uL (140-440); RBC 4.28 X 10*6/uL (4.40-5.60); RDW 13.1 % (11.5-14.5); WBC 5.53 X 10*3/uL (4.50-10.00)
[2023-10-22 10:12] LABS: BUN/Creat Ratio 15.62 Ratio (12.00-20.00); Blood Urea Nitrogen 20.3 mg/dL (9.0-27.0); Carbon Dioxide 25.1 mmol/L (21.6-31.8); Chloride 105 mmol/L (96-109); Glucose 137 mg/dL (70-110); Potassium 4.4 mmol/L (3.5-5.5); Sodium 141 mmol/L (135-145)
[2023-10-22 10:13] LABS: ALT 23 U/L (10-49); AST 18 U/L (14-35); Albumin 3.9 g/dL (3.8-4.9); Albumin/Globulin Ratio 1.86 Ratio (1.60-3.17); Alkaline Phosphatase 50 U/L (41-126); Calcium 9.6 mg/dL (8.7-10.3); Globulin 2.1 g/dL (1.6-3.3); Total Bilirubin 0.5 mg/dL (0.3-1.2)
--- NOTE | 2023-10-22 11:46 | P.PN ---
Subjective This is a pleasant 74 years old male with multiple medical problems including diabetes mellitus, dementia, atrial fibrillation on Eliquis history of seizure disorder. He has history of left great toe cellulitis and his been treated before with 6 weeks of IV antibiotics last summer. With another episode of infection of his left great toe cellulitis. And his been treated with IV antibiotics currently on cefazolin and by mouth Flagyl. Bone scan is suspicious for a myelitis of the left great digit. wound culture is growing hemolytic Streptococcus mother is no sensitivity in the system. As per family patient has seen Dr. Martines about 2 weeks ago and he underwent peripheral artery disease workup which results are still not provided for them. Family and at bedside and they have a lot of questions, all her questions were answered to her satisfaction. Review of systems CONSTITUTIONAL: No fever, no malaise, no fatigue. HEENT: No recent visual problems or hearing problems. Denied any sore throat. CARDIOVASCULAR: No orthopnea, PND, no palpitations, no syncope. PULMONARY: No shortness of breath, no cough, no hemoptysis. GASTROINTESTINAL: No diarrhea, no nausea, no vomiting, no abdominal pain. Normoactive bowel sounds. NEUROLOGICAL: No headaches, no weakness, no numbness. Active Medications Generic Name Dose Route Start Last Admin Trade Name Freq PRN Reason Stop Dose Admin Acetaminophen 650 mg 10/19/23 16:25 Acetaminophen Tab 325 Mg Tab PO Q6HR PRN Mild Pain or Fever > 100.5 Hydrocodone Bitart/Acetaminophen 1 each 10/19/23 16:25 Hydrocodone/Apap 5-325mg 1 Each Tab PO Q4HR PRN Moderate Pain (Scale 4 to 6) Amiodarone HCl 100 mg 10/20/23 09:00 10/22/23 09:13 Amiodarone 100 Mg Tab PO 100 mg DAILY CURT Administration Apixaban 5 mg 10/19/23 21:00 10/22/23 09:13 Apixaban 5 Mg Tab PO 5 mg BID CURT Administration Protocol Atorvastatin Calcium 20 mg 10/19/23 21:00 10/21/23 20:05 Atorvastatin 20 Mg Tab PO 20 mg HS CURT Administration Cholecalciferol 50 mcg 10/19/23 21:00 10/21/23 20:06 Cholecalciferol 25 Mcg (1000 Iu) Tablet PO 50 mcg HS CURT Administration Donepezil HCl 10 mg 10/20/23 09:00 10/22/23 09:13 Donepezil 10 Mg Tab PO 10 mg DAILY CURT Administration Furosemide 20 mg 10/20/23 09:00 10/22/23 09:13 Furosemide 20 Mg Tab PO 20 mg Q48H CURT Administration Gabapentin 600 mg 10/19/23 21:00 10/21/23 20:06 Gabapentin 300 Mg Cap PO 600 mg HS CURT Administration Cefazolin Sodium 2 gm/ Sodium 50 mls @ 100 mls/hr 10/21/23 00:00 10/22/23 09:13 Chloride IVPB 100 mls/hr Q8HR CURT Administration Protocol Insulin Aspart 0 unit 10/20/23 12:30 10/22/23 07:34 Insulin Aspart (Novolog) 100 Unit/Ml Vial SQ Not Given AC-TID CURT Protocol Lacosamide 150 mg 10/19/23 21:00 10/22/23 09:13 Lacosamide 150 Mg Tablet PO 150 mg BID CURT Administration Levetiracetam 1,500 mg 10/19/23 21:00 10/22/23 09:13 Levetiracetam 750 Mg Tab PO 1,500 mg BID CURT Administration Metformin HCl 500 mg 10/20/23 09:00 10/22/23 09:13 Metformin 500 Mg Tab PO 500 mg BID CURT Administration Metronidazole 500 mg 10/20/23 22:00 10/22/23 09:13 Metronidazole 500 Mg Tab PO 500 mg TID CURT Administration Protocol Morphine Sulfate 4 mg 10/19/23 16:25 Morphine Sulfate 4 Mg/Ml Syringe IV Q4HR PRN Severe Pain (Scale 7 to 10) Naloxone HCl 0.2 mg 10/19/23 16:25 Naloxone 0.4 Mg/Ml 1 Ml Vial IV Q2M PRN Opioid Reversal Ondansetron HCl 4 mg 10/19/23 16:25 Ondansetron 4 Mg/2 Ml Vial IVP Q8HR PRN Nausea And Vomiting Propranolol HCl 80 mg 10/20/23 09:00 10/22/23 09:13 Propranolol La 80 Mg Cap.Sa.24h PO 80 mg DAILY CURT Administration Objective - Vital Signs Vital signs: Vital Signs Temp 97.6 F 10/22/23 07:19 Pulse 73 10/22/23 08:25 Resp 16 10/22/23 08:25 BP 146/83 10/22/23 07:19 Pulse Ox 97 10/22/23 07:19 FiO2 Intake & Output 10/21/23 10/22/23 10/22/23 18:59 06:59 18:59 Intake Total 1020 640 Balance 1020 640 Weight 91.626 kg Intake: Intake, IV Titration 50 Amount ceFAZolin 2 gm In Sodium 50 Chloride 0.9% 50 ml @ 100 mls/hr IVPB Q8HR [facility] Rx# :[id number] Oral 1020 590 Other: Voiding Method Toilet Toilet Urinal Urinal # Voids 3 3 - Exam GENERAL: The patient is alert and oriented x3, not in any acute distress. Well developed, well nourished. HEENT: Pupils are round and equally reacting to light. EOMI. No scleral icterus. No conjunctival pallor. Normocephalic, atraumatic. No pharyngeal erythema. No thyromegaly. CARDIOVASCULAR: S1 and S2 present. No murmurs, rubs, or gallops. PULMONARY: Chest is clear to auscultation, no wheezing , no crackles. ABDOMEN: Soft, nontender, nondistended, normoactive bowel sounds. No palpable organomegaly. MUSCULOSKELETAL: No joint swelling or deformity. -EXTREMITIES: No cyanosis, clubbing, or pedal edema. Left great toe cellulitis, dressing in place NEUROLOGICAL: Gross neurological examination did not reveal any focal deficits. SKIN: No rashes. no petechiae. - Labs CBC & Chem 7: 10/22/23 05:55 10/22/23 05:55 Labs: Abnormal Lab Results - Last 24 Hours (Table) 10/21/23 10/21/23 10/21/23 Range/Units 12:04 17:03 20:17 RBC (4.40-5.60) X 10*6/uL Est GFR (CKD-EPI) (>=60) Glucose (70-110) mg/dL POC Glucose (mg/dL) 171 H 152 H 205 H (70-110) mg/dL Total Protein (6.2-8.2) g/dL 10/22/23 10/22/23 10/22/23 Range/Units 05:55 05:55 07:18 RBC 4.28 L (4.40-5.60) X 10*6/uL Est GFR (CKD-EPI) 58 L (>=60) Glucose 137 H (70-110) mg/dL POC Glucose (mg/dL) 122 H (70-110) mg/dL Total Protein 6.0 L (6.2-8.2) g/dL Microbiology - Last 24 Hours (Table) 10/19/23 13:02 Blood Culture - Preliminary Blood 10/19/23 13:02 Blood Culture - Preliminary Blood 10/19/23 14:52 Anaerobic Culture - Preliminary Toe - Left First 10/19/23 13:02 Gram Stain - Final Toe - Left First Wound Culture - Final Beta Hemolytic Strep Group G Assessment and Plan Assessment: Left great toe cellulitis with suspicious of osteomyelitis his high based on bone scan, with culture growing beta hemolytic streptococcus. Acute kidney injury on chronic kidney disease stage III, improving Possible peripheral artery disease Chronic kidney disease stage III History of seizure Chronic atrial fibrillation on eliquis Dementia Plan: Continue with cefazolin and oral Flagyl per ID team will follow closely We recommend patient follow up with Dr. Martines upon discharge within one week for the results of peripheral artery disease Continue with all liquids Continue seizure medication Check hemoglobin A1c on follow-up creatinine Labs and medication were reviewed.. Continue same treatment. Continue with symptomatic treatment. Resume home medication. Monitor labs and vitals. DVT and GI prophylaxis. Further recommendations as per clinical course of the patient DVT prophylaxis: eliquis GI Prophylaxis: Pepcid PT: Pending Prognosis is guarded
[2023-10-22 12:17] LABS: Glucose,Whole Blood 207 mg/dL (70-110)
--- NOTE | 2023-10-22 13:34 | P.PN ---
Subjective Progress Note Date: 10/21/23 Principal diagnosis: Reason for follow-up is left big toe diabetic foot ulcer and concern for osteomyelitis Patient is a 73-year-old male with a past medical history significant for diabetes mellitus hypertension hyperlipidemia seizure disorder the patient did have a recent history of bilateral big toe diabetic foot ulcer and osteomyelitis, the patient did have healing of his right big toe however noticed to have a worsening of his left big toe plantar ulcer sent into the hospital by his wound care physician concerning for osteomyelitis On today's evaluation that is 10/21/2023, the patient remains to be febrile, the patient is breathing comfortably on room air without any supplemental oxygen, patient denies chest pain shortness of breath and no significant cough, patient denies Abdominal pain and denies any nausea/vomiting or diarrhea, patient denies pain to the left big toe Local culture growing beta-hemolytic group G strep , patient did have a white count of 4.66 creatinine 1.6 bone scan is suspicious for left big toe osteom yelitis Objective - Vital Signs Vital signs: Vital Signs Temp 97.8 F 10/21/23 07:34 Pulse 66 10/21/23 07:34 Resp 17 10/21/23 07:34 BP 149/88 10/21/23 07:34 Pulse Ox 99 10/21/23 07:34 FiO2 Intake & Output 10/20/23 10/21/23 10/21/23 18:59 06:59 18:59 Intake Total 240 590 Balance 240 590 Weight 91.626 kg 91.626 kg Intake: Oral 240 590 Other: Voiding Method Toilet Urinal # Voids 2 2 - Exam GENERAL DESCRIPTION: An elderly male lying in bed in no distress RESPIRATORY SYSTEM: Unlabored breathing , clear to auscultation anteriorly HEART: S1 S2 regular rate and rhythm , ABDOMEN: Soft , no tenderness EXTREMITIES: Left big toe is currently dressed minimal drainage on the dressing - Labs CBC & Chem 7: 10/22/23 05:55 10/22/23 05:55 Labs: Abnormal Lab Results - Last 24 Hours (Table) 10/20/23 10/20/23 10/21/23 Range/Units 17:49 20:21 05:52 RBC (4.40-5.60) X 10*6/uL Creatinine 1.6 H (0.6-1.5) mg/dL Est GFR (CKD-EPI) 45 L (>=60) BUN/Creatinine Ratio 9.12 L (12.00-20.00) Ratio Glucose 141 H (70-110) mg/dL POC Glucose (mg/dL) 116 H 209 H (70-110) mg/dL 10/21/23 10/21/23 10/21/23 Range/Units 05:56 07:19 12:04 RBC 4.24 L (4.40-5.60) X 10*6/uL Creatinine (0.6-1.5) mg/dL Est GFR (CKD-EPI) (>=60) BUN/Creatinine Ratio (12.00-20.00) Ratio Glucose (70-110) mg/dL POC Glucose (mg/dL) 157 H 171 H (70-110) mg/dL Microbiology - Last 24 Hours (Table) 10/19/23 13:02 Gram Stain - Final Toe - Left First Wound Culture - Final Beta Hemolytic Strep Group G 10/19/23 13:02 Blood Culture - Preliminary Blood 10/19/23 13:02 Blood Culture - Preliminary Blood Assessment and Plan (1) Diabetic foot ulcer Current Visit: Yes Status: Acute Code(s): E11.621 - TYPE 2 DIABETES MELLITUS WITH FOOT ULCER; L97.509 - NON-PRESSURE CHRONIC ULCER OTH PRT UNSP FOOT W UNSP SEVERITY SNOMED Code(s): 494887145 (2) Beta hemolytic Streptococcus culture positive Current Visit: Yes Status: Acute Code(s): B95.5 - UNSP STREPTOCOCCUS THE CAUSE OF DISEASES CLASSD [facility] SNOMED Code(s): 751596068 (3) Cellulitis of great toe, left Current Visit: Yes Status: Acute Code(s): L03.032 - CELLULITIS OF LEFT TOE SNOMED Code(s): 14044032 Plan: 1patient presented to hospital with left big toe nonhealing wound with recent worsening with swelling and redness and some drainage, keeping in mind his recurrent history and chronic infection possible osteomyelitis in this patient with underlying diabetes mellitus 2-local culture has been obtained and currently growing beta-hemolytic strep group G 3- inflammatory markers were not elevated, however bone scan is suspicious for left big toe osteomyelitis 4patient to continue with cefazolin and oral Flagyl, patient is outpatient IV antibiotic arrangement this was discussed with the case management Dictation was produced using dragon dictation software. please excuse any grammatical, word or spelling errors. Re: Time with Patient: Less than 30
--- NOTE | 2023-10-22 13:36 | P.PN ---
Subjective Progress Note Date: 10/22/23 Principal diagnosis: Reason for follow-up is left big toe diabetic foot ulcer and concern for osteomyelitis Patient is a 73-year-old male with a past medical history significant for diabetes mellitus hypertension hyperlipidemia seizure disorder the patient did have a recent history of bilateral big toe diabetic foot ulcer and osteomyelitis, the patient did have healing of his right big toe however noticed to have a worsening of his left big toe plantar ulcer sent into the hospital by his wound care physician concerning for osteomyelitis On today's evaluation that is 10/22/2023, the patient continues to be febrile, the patient is breathing comfortably on room air satting 97%, patient denies chest pain shortness of breath or cough, patient denies Abdominal pain , no nausea no vomiting no diarrhea and the patient denies pain to the left big toe Local culture growing beta-hemolytic group G strep , patient did have a white count of 5.53, creatinine 1.3 bone scan is suspicious for left big toe osteomyelitis Objective - Vital Signs Vital signs: Vital Signs Temp 97.6 F 10/22/23 07:19 Pulse 73 10/22/23 08:25 Resp 16 10/22/23 08:25 BP 146/83 10/22/23 07:19 Pulse Ox 97 10/22/23 07:19 FiO2 Intake & Output 10/21/23 10/22/23 10/22/23 18:59 06:59 18:59 Intake Total 1020 640 Balance 1020 640 Weight 91.626 kg Intake: Intake, IV Titration 50 Amount ceFAZolin 2 gm In Sodium 50 Chloride 0.9% 50 ml @ 100 mls/hr IVPB Q8HR [facility] Rx# :[id number] Oral 1020 590 Other: Voiding Method Toilet Toilet Urinal Urinal # Voids 3 3 - Exam GENERAL DESCRIPTION: An elderly male lying in bed in no distress RESPIRATORY SYSTEM: Unlabored breathing , clear to auscultation anteriorly HEART: S1 S2 regular rate and rhythm , ABDOMEN: Soft , no tenderness EXTREMITIES: Left big toe plantar wound swelling redness has improved no drainag e was noticed on the dressing - Labs CBC & Chem 7: 10/22/23 05:55 10/22/23 05:55 Labs: Abnormal Lab Results - Last 24 Hours (Table) 10/21/23 10/21/23 10/22/23 Range/Units 17:03 20:17 05:55 RBC 4.28 L (4.40-5.60) X 10*6/uL Est GFR (CKD-EPI) (>=60) Glucose (70-110) mg/dL POC Glucose (mg/dL) 152 H 205 H (70-110) mg/dL Total Protein (6.2-8.2) g/dL 10/22/23 10/22/23 10/22/23 Range/Units 05:55 07:18 12:16 RBC (4.40-5.60) X 10*6/uL Est GFR (CKD-EPI) 58 L (>=60) Glucose 137 H (70-110) mg/dL POC Glucose (mg/dL) 122 H 207 H (70-110) mg/dL Total Protein 6.0 L (6.2-8.2) g/dL Microbiology - Last 24 Hours (Table) 10/19/23 13:02 Blood Culture - Preliminary Blood 10/19/23 13:02 Blood Culture - Preliminary Blood 10/19/23 14:52 Anaerobic Culture - Preliminary Toe - Left First 10/19/23 13:02 Gram Stain - Final Toe - Left First Wound Culture - Final Beta Hemolytic Strep Group G Assessment and Plan (1) Diabetic foot ulcer Current Visit: Yes Status: Acute Code(s): E11.621 - TYPE 2 DIABETES MELLITUS WITH FOOT ULCER; L97.509 - NON-PRESSURE CHRONIC ULCER OTH PRT UNSP FOOT W UNSP SEVERITY SNOMED Code(s): 276303879 (2) Beta hemolytic Streptococcus culture positive Current Visit: Yes Status: Acute Code(s): B95.5 - UNSP STREPTOCOCCUS THE CAUSE OF DISEASES CLASSD [facility] [place] SNOMED Code(s): 085108964 (3) Cellulitis of great toe, left Current Visit: Yes Status: Acute Code(s): L03.032 - CELLULITIS OF LEFT TOE SNOMED Code(s): 39751352 Plan: 1patient presented to hospital with left big toe nonhealing wound with recent worsening with swelling and redness and some drainage, keeping in mind his recurrent history and chronic infection possible osteomyelitis in this patient w ith underlying diabetes mellitus 2-local culture has been obtained and currently growing beta-hemolytic strep group G 3- inflammatory markers were not elevated, however bone scan is suspicious for left big toe osteomyelitis 4patient to continue with cefazolin and oral Flagyl, patient currently waiting for outpatient IV antibiotic arrangement before discharge continue local wound care with Aquacel silver dressing family the bedside and multiple questions Answered Dictation was produced using [employer] dictation software. please excuse any grammatical, word or spelling errors. Re:
[2023-10-22 17:23] LABS: Glucose,Whole Blood 141 mg/dL (70-110)
[2023-10-22 20:11] LABS: Glucose,Whole Blood 188 mg/dL (70-110)
[2023-10-22] MEDS: GABAPENTIN 300 MG CAP PO SCH (20:16)
[2023-10-22] MEDS: CHOLECALCIFEROL 25 MCG (1000 IU) TABLET PO SCH (20:16)
[2023-10-22] MEDS: ATORVASTATIN 20 MG TAB PO SCH (20:16)
[2023-10-23 07:29] LABS: Glucose,Whole Blood 144 mg/dL (70-110)
[2023-10-23] MEDS: INSULIN ASPART (NovoLOG) 100 UNIT/ML VIAL SQ SCH ×3 (08:20→17:28)
[2023-10-23] MEDS: APIXABAN 5 MG TAB PO SCH ×2 (09:05→20:30)
[2023-10-23] MEDS: metFORMIN 500 MG TAB PO SCH ×2 (09:05→20:30)
[2023-10-23] MEDS: AMIODARONE 100 MG TAB PO SCH (09:05)
[2023-10-23] MEDS: DONEPEZIL 10 MG TAB PO SCH (09:05)
[2023-10-23] MEDS: PROPRANOLOL LA 80 MG CAP.SA.24H PO SCH (09:05)
[2023-10-23] MEDS: metroNIDAZOLE 500 MG TAB PO SCH ×3 (09:05→20:29)
[2023-10-23] MEDS: LACOSAMIDE 150 MG TABLET PO SCH ×2 (09:05→20:30)
--- NOTE | 2023-10-23 10:04 | P.PN ---
Subjective This is a pleasant 74 years old male with multiple medical problems including diabetes mellitus, dementia, atrial fibrillation on Eliquis history of seizure disorder. He has history of left great toe cellulitis and his been treated before with 6 weeks of IV antibiotics last summer. With another episode of infection of his left great toe cellulitis. And his been treated with IV antibiotics currently on cefazolin and by mouth Flagyl. Bone scan is suspicious for a myelitis of the left great digit. wound culture is growing hemolytic Streptococcus mother is no sensitivity in the system. As per family patient has seen Dr. Martines about 2 weeks ago and he underwent peripheral artery disease workup which results are still not provided for them. Family and at bedside and they have a lot of questions, all her questions were answered to her satisfaction. 10/23/2023 No chest pain, no diarrhea, no other new complaints Remains on cefazolin and oral Flagyl He is on home dose of eliquis Objective - Vital Signs Vital signs: Vital Signs Temp 97.4 F L 10/23/23 07:28 Pulse 78 10/23/23 07:28 Resp 17 10/23/23 07:28 BP 142/91 10/23/23 07:28 Pulse Ox 97 10/23/23 07:28 FiO2 Intake & Output 10/22/23 10/23/23 10/23/23 18:59 06:59 18:59 Intake Total 360 Output Total 800 Balance -440 Intake: Oral 360 Output: Urine 800 Other: Voiding Method Toilet Toilet Urinal Urinal # Voids 1 - Exam GENERAL: The patient is alert and oriented x3, not in any acute distress. Well developed, well nourished. HEENT: Pupils are round and equally reacting to light. EOMI. No scleral icterus. No conjunctival pallor. Normocephalic, atraumatic. No pharyngeal erythema. No thyromegaly. CARDIOVASCULAR: S1 and S2 present. No murmurs, rubs, or gallops. PULMONARY: Chest is clear to auscultation, no wheezing , no crackles. ABDOMEN: Soft, nontender, nondistended, normoactive bowel sounds. No palpable organomegaly. MUSCULOSKELETAL: No joint swelling or deformity. -EXTREMITIES: No cyanosis, clubbing, or pedal edema. Left great toe cellulitis, dressing in place NEUROLOGICAL: Gross neurological examination did not reveal any focal deficits. SKIN: No rashes. no petechiae. - Labs CBC & Chem 7: 10/22/23 05:55 10/22/23 05:55 Labs: Abnormal Lab Results - Last 24 Hours (Table) 10/22/23 10/22/23 10/22/23 Range/Units 05:55 12:16 17:21 Est GFR (CKD-EPI) 58 L (>=60) Glucose 137 H (70-110) mg/dL POC Glucose (mg/dL) 207 H 141 H (70-110) mg/dL Total Protein 6.0 L (6.2-8.2) g/dL 10/22/23 10/23/23 Range/Units 20:06 07:28 Est GFR (CKD-EPI) (>=60) Glucose (70-110) mg/dL POC Glucose (mg/dL) 188 H 144 H (70-110) mg/dL Total Protein (6.2-8.2) g/dL Microbiology - Last 24 Hours (Table) 10/19/23 14:52 Anaerobic Culture - Final Toe - Left First 10/19/23 13:02 Blood Culture - Preliminary Blood 10/19/23 13:02 Blood Culture - Preliminary Blood Assessment and Plan Assessment: Left great toe cellulitis with suspicious of osteomyelitis his high based on bone scan, with culture growing beta hemolytic streptococcus. Acute kidney injury on chronic kidney disease stage III, improving Possible peripheral artery disease Chronic kidney disease stage III History of seizure Chronic atrial fibrillation on eliquis Dementia Plan: Continue with cefazolin and oral Flagyl per ID team will follow closely We recommend patient follow up with Dr. Martines upon discharge within one week for the results of peripheral artery disease Continue with all liquids Continue seizure medication Check hemoglobin A1c on follow-up creatinine Labs and medication were reviewed.. Continue same treatment. Continue with symptomatic treatment. Resume home medication. Monitor labs and vitals. DVT and GI prophylaxis. Further recommendations as per clinical course of the patient DVT prophylaxis: eliquis GI Prophylaxis: Pepcid PT: Pending Prognosis is guarded
[2023-10-23] MEDS: FAMOTIDINE 20 MG/2 ML VIAL IV SCH (10:15)
[2023-10-23 12:27] LABS: Glucose,Whole Blood 146 mg/dL (70-110)
[2023-10-23 17:02] LABS: Glucose,Whole Blood 137 mg/dL (70-110)
[2023-10-23 20:23] LABS: Glucose,Whole Blood 260 mg/dL (70-110)
[2023-10-23] MEDS: GABAPENTIN 300 MG CAP PO SCH (20:29)
[2023-10-23] MEDS: CHOLECALCIFEROL 25 MCG (1000 IU) TABLET PO SCH (20:30)
[2023-10-23] MEDS: ATORVASTATIN 20 MG TAB PO SCH (20:30)
[2023-10-24 07:15] LABS: Glucose,Whole Blood 144 mg/dL (70-110)
[2023-10-24] MEDS: INSULIN ASPART (NovoLOG) 100 UNIT/ML VIAL SQ SCH ×3 (07:44→17:40)
[2023-10-24] MEDS: AMIODARONE 100 MG TAB PO SCH (08:12)
[2023-10-24] MEDS: metroNIDAZOLE 500 MG TAB PO SCH ×3 (08:12→20:39)
[2023-10-24] MEDS: LACOSAMIDE 150 MG TABLET PO SCH ×2 (08:12→20:38)
[2023-10-24] MEDS: metFORMIN 500 MG TAB PO SCH ×2 (08:12→20:39)
[2023-10-24] MEDS: DONEPEZIL 10 MG TAB PO SCH (08:13)
[2023-10-24] MEDS: APIXABAN 5 MG TAB PO SCH ×2 (08:13→20:39)
[2023-10-24] MEDS: PROPRANOLOL LA 80 MG CAP.SA.24H PO SCH (08:13)
[2023-10-24] MEDS: FUROSEMIDE 20 MG TAB PO SCH (08:13)
--- NOTE | 2023-10-24 08:30 | P.PN ---
Subjective Progress Note Date: 10/24/23 Principal diagnosis: Left foot infection This is a 73-year-old male who was sent to the emergency room to be evaluated from wound clinic for left great toe infection. Clinic had been concerned for cellulitis and osteomyelitis. Bone scan completed and was suggestive for osteomyelitis, left great toe. Infectious disease and is on board, patient will require outpatient IV antibiotics. Wound culture showing beta-hemolytic strep. He is seen this morning sitting up in bed. He is tolerating diet. Reports he is feeling well. Objective - Vital Signs Vital signs: Vital Signs Temp 97.6 F 10/24/23 07:10 Pulse 87 10/24/23 07:10 Resp 18 10/24/23 07:10 BP 151/96 10/24/23 07:10 Pulse Ox 98 10/24/23 07:10 FiO2 Intake & Output 10/23/23 10/24/23 10/24/23 18:59 06:59 18:59 Intake Total 590 Balance 590 Intake: Oral 590 Other: # Voids 2 3 - Constitutional General appearance: Present: cooperative, no acute distress - Neck Neck: Present: normal ROM. Absent: lymphadenopathy, rigidity - Respiratory Respiratory: bilateral: CTA - Cardiovascular Rhythm: regular Heart sounds: normal: S1, S2 - Gastrointestinal General gastrointestinal: Present: soft. Absent: tenderness - Integumentary Integumentary Comment(s): Dressing in place to the left great toe, clean, dry and intact Integumentary: Present: normal, normal turgor - Psychiatric Psychiatric: Present: A&O x's 3, appropriate affect, intact judgment & insight - Labs CBC & Chem 7: 10/22/23 05:55 10/22/23 05:55 Labs: Abnormal Lab Results - Last 24 Hours (Table) 10/23/23 10/23/23 10/23/23 Range/Units 12:26 17:01 20:21 POC Glucose (mg/dL) 146 H 137 H 260 H (70-110) mg/dL 10/24/23 Range/Units 07:14 POC Glucose (mg/dL) 144 H (70-110) mg/dL Microbiology - Last 24 Hours (Table) 10/19/23 14:52 Anaerobic Culture - Final Toe - Left First Assessment and Plan (1) Hypertension Current Visit: Yes Status: Acute Code(s): I10 - ESSENTIAL (PRIMARY) HYPERTENSION SNOMED Code(s): 17478078 (2) Hyperlipemia Current Visit: Yes Status: Acute Code(s): E78.5 - HYPERLIPIDEMIA, UNSPECIFIED SNOMED Code(s): 63220170 (3) Seizure disorder Current Visit: Yes Status: Acute Code(s): G40.909 - EPILEPSY, UNSP, NOT INTRACTABLE, WITHOUT STATUS EPILEPTICUS SNOMED Code(s): 985418080 (4) Cellulitis of great toe, left Current Visit: Yes Status: Acute Code(s): L03.032 - CELLULITIS OF LEFT TOE SNOMED Code(s): 61359111 (5) Diabetes Current Visit: No Status: Acute Code(s): E11.9 - TYPE 2 DIABETES MELLITUS WITHOUT COMPLICATIONS SNOMED Code(s): 94809631 Plan: Will order a PICC line Await final antibiotic recommendations for discharge. Discharge planning working on outpatient antibiotic plan Patient seen and evaluated by nurse practitioner, physician in agreement with plan
[2023-10-24] MEDS: FAMOTIDINE 20 MG/2 ML VIAL IV SCH (08:44)
[2023-10-24 11:57] LABS: Glucose,Whole Blood 157 mg/dL (70-110)
[2023-10-24 17:00] LABS: Glucose,Whole Blood 175 mg/dL (70-110)
[2023-10-24 19:53] LABS: Glucose,Whole Blood 186 mg/dL (70-110)
[2023-10-24] MEDS: CHOLECALCIFEROL 25 MCG (1000 IU) TABLET PO SCH (20:38)
[2023-10-24] MEDS: ATORVASTATIN 20 MG TAB PO SCH (20:39)
[2023-10-24] MEDS: GABAPENTIN 300 MG CAP PO SCH (20:39)
--- NOTE | 2023-10-24 23:49 | P.PN ---
Subjective Progress Note Date: 10/23/23 Principal diagnosis: Reason for follow-up is left big toe diabetic foot ulcer and concern for osteomyelitis Patient is a 73-year-old male with a past medical history significant for diabetes mellitus hypertension hyperlipidemia seizure disorder the patient did have a recent history of bilateral big toe diabetic foot ulcer and osteomyelitis, the patient did have healing of his right big toe however noticed to have a worsening of his left big toe plantar ulcer sent into the hospital by his wound care physician concerning for osteomyelitis On today's evaluation that is 10/23/2023 the patient remains to be afebrile the patient is breathing comfortably on room air without need for supplemental oxygen but denies having any chest pain shortness of breath or cough no nausea no vomiting no abdominal pain or diarrhea. Denies pain to the left big toe and no further drainage. Patient did have a white count of 5.53 and creatinine 1.3 as of 10/22/2023 Objective - Vital Signs Vital signs: Vital Signs Temp 97.5 F L 10/23/23 12:29 Pulse 78 10/23/23 12:29 Resp 18 10/23/23 12:29 BP 167/93 10/23/23 12:29 Pulse Ox 100 10/23/23 12:29 FiO2 Intake & Output 10/22/23 10/23/23 10/23/23 18:59 06:59 18:59 Intake Total 360 Output Total 800 Balance -440 Intake: Oral 360 Output: Urine 800 Other: Voiding Method Toilet Toilet Urinal Urinal # Voids 1 - Exam GENERAL DESCRIPTION: An elderly male lying in bed in no distress RESPIRATORY SYSTEM: Unlabored breathing , clear to auscultation anteriorly HEART: S1 S2 regular rate and rhythm , ABDOMEN: Soft , no tenderness EXTREMITIES: Left big toe plantar wound swelling redness has improved no drainage was noticed on the dressing - Labs CBC & Chem 7: 10/22/23 05:55 10/22/23 05:55 Labs: Abnormal Lab Results - Last 24 Hours (Table) 10/22/23 10/22/23 10/23/23 Range/Units 17:21 20:06 07:28 POC Glucose (mg/dL) 141 H 188 H 144 H (70-110) mg/dL 10/23/23 Range/Units 12:26 POC Glucose (mg/dL) 146 H (70-110) mg/dL Microbiology - Last 24 Hours (Table) 10/19/23 14:52 Anaerobic Culture - Final Toe - Left First 10/19/23 13:02 Blood Culture - Preliminary Blood 10/19/23 13:02 Blood Culture - Preliminary Blood Assessment and Plan (1) Diabetic foot ulcer Current Visit: Yes Status: Acute Code(s): E11.621 - TYPE 2 DIABETES MELLITUS WITH FOOT ULCER; L97.509 - NON-PRESSURE CHRONIC ULCER OTH PRT UNSP FOOT W UNSP SEVERITY SNOMED Code(s): 293071010 (2) Beta hemolytic Streptococcus culture positive Current Visit: Yes Status: Acute Code(s): B95.5 - UNSP STREPTOCOCCUS THE CAUSE OF DISEASES [facility] SNOMED Code(s): 922980526 (3) Cellulitis of great toe, left Current Visit: Yes Status: Acute Code(s): L03.032 - CELLULITIS OF LEFT TOE SNOMED Code(s): 04679388 Plan: 1patient presented to hospital with left big toe nonhealing wound with recent worsening with swelling and redness and some drainage, keeping in mind his recurrent history and chronic infection possible osteomyelitis in this patient with underlying diabetes mellitus 2-local culture has been obtained and currently growing beta-hemolytic strep group G 3- inflammatory markers were not elevated, however bone scan is suspicious for left big toe osteomyelitis 4patient to continue cefazolin and Flagyl plan is for PICC line placement outpatient IV antibiotics on discharge Dictation was produced using [employer] dictation software. please excuse any grammatical, word or spelling errors. Re:
--- NOTE | 2023-10-24 23:52 | P.PN ---
Subjective Progress Note Date: 10/24/23 Principal diagnosis: Reason for follow-up is left big toe diabetic foot ulcer and concern for osteomyelitis Patient is a 73-year-old male with a past medical history significant for diabetes mellitus hypertension hyperlipidemia seizure disorder the patient did have a recent history of bilateral big toe diabetic foot ulcer and osteomyelitis, the patient did have healing of his right big toe however noticed to have a worsening of his left big toe plantar ulcer sent into the hospital by his wound care physician concerning for osteomyelitis On today's evaluation that is 10/24/2023 the patient denies any fever or any chills, the patient is breathing comfortably on room air and denies any shortness of breath, the patient denies having any chest pain or cough no nausea no vomiting no abdominal pain or diarrhea. The patient denies s pain to the left big toe and no further drainage. Feeling better Patient did have a white count of 5.53 and creatinine 1.3 as of 10/22/2023 no new labs were drawn today Objective - Vital Signs Vital signs: Vital Signs Temp 97.6 F 10/24/23 07:10 Pulse 87 10/24/23 07:10 Resp 18 10/24/23 07:10 BP 151/96 10/24/23 07:10 Pulse Ox 98 10/24/23 07:10 FiO2 Intake & Output 10/23/23 10/24/23 10/24/23 18:59 06:59 18:59 Intake Total 590 Balance 590 Intake: Oral 590 Other: Voiding Method Toilet Urinal # Voids 2 3 - Exam GENERAL DESCRIPTION: An elderly male lying in bed in no distress RESPIRATORY SYSTEM: Unlabored breathing , clear to auscultation anteriorly HEART: S1 S2 regular rate and rhythm , ABDOMEN: Soft , no tenderness EXTREMITIES: Left big toe plantar wound swelling redness has improved no drainage was noticed on the dressing - Labs CBC & Chem 7: 10/22/23 05:55 10/22/23 05:55 Labs: Abnormal Lab Results - Last 24 Hours (Table) 10/23/23 10/23/23 10/23/23 Range/Units 12:26 17:01 20:21 POC Glucose (mg/dL) 146 H 137 H 260 H (70-110) mg/dL 10/24/23 Range/Units 07:14 POC Glucose (mg/dL) 144 H (70-110) mg/dL Microbiology - Last 24 Hours (Table) 10/19/23 14:52 Anaerobic Culture - Final Toe - Left First Assessment and Plan (1) Diabetic foot ulcer Current Visit: Yes Status: Acute Code(s): E11.621 - TYPE 2 DIABETES MELLITUS WITH FOOT ULCER; L97.509 - NON-PRESSURE CHRONIC ULCER OTH PRT UNSP FOOT W UNSP SEVERITY SNOMED Code(s): 786973765 (2) Beta hemolytic Streptococcus culture positive Current Visit: Yes Status: Acute Code(s): B95.5 - UNSP STREPTOCOCCUS THE [facility] SNOMED Code(s): 545469925 (3) Cellulitis of great toe, left Current Visit: Yes Status: Acute Code(s): L03.032 - CELLULITIS OF LEFT TOE SNOMED Code(s): 33107557 Plan: 1patient presented to hospital with left big toe nonhealing wound with recent worsening with swelling and redness and some drainage, keeping in mind his recurrent history and chronic infection possible osteomyelitis in this patient with underlying diabetes mellitus 2-local culture has been obtained and currently growing beta-hemolytic strep group G 3- inflammatory markers were not elevated, however bone scan is suspicious for left big toe osteomyelitis 4we will discontinue cefazolin start the patient on Rocephin 2 g daily to transition to outpatient Rocephin daily prescription sent to the pharmacy once the patient gets a PICC line he will be able to go home from ID standpoint Dictation was produced using [employer] dictation software. please excuse any grammatical, word or spelling errors. Re: Time with Patient: Less than 30
[2023-10-25 07:26] LABS: Glucose,Whole Blood 150 mg/dL (70-110)
[2023-10-25] MEDS: INSULIN ASPART (NovoLOG) 100 UNIT/ML VIAL SQ SCH ×2 (07:37→12:42)
[2023-10-25 08:19] VITALS: RESP 17
--- NOTE | 2023-10-25 08:47 | P.DS ---
Providers Date of admission: 10/19/23 15:34 Attending physician: Javier Delaney Consults: 10/19/23 16:25 Consult Physician Urgent Consulting Provider: Lillian Carbajal Consult Reason/Comments: Left great toe cellulitis, r/o osteomyelitis Do you want consulting provider notified?: Already Contacted Primary care physician: Javier Delaney - Discharge Diagnosis(es) (1) Hypertension Current Visit: Yes Status: Acute (2) Hyperlipemia Current Visit: Yes Status: Acute (3) Seizure disorder Current Visit: Yes Status: Acute (4) Cellulitis of great toe, left Current Visit: Yes Status: Acute (5) Diabetes Current Visit: No Status: Acute Hospital Course: This is a 73-year-old male who was sent to the emergency room to be evaluated from wound clinic for left great toe infection. Clinic had been concern for cellulitis and osteomyelitis. Bone scan was completed and was suggestive for osteomyelitis in the left great toe. Infectious disease saw and evaluated patient recommending Rocephin and Flagyl for outpatient antibiotics. Patient is waiting for PICC line to be placed. He may be discharged once PICC line is placed an IV antibiotics set up for home. Patient seen and evaluated by nurse practitioner, physician in agreement with plan Plan - Discharge Summary Discharge Rx Participant: Yes New Discharge Prescriptions: New metroNIDAZOLE [Flagyl] 500 mg PO TID #90 tab cefTRIAXone [Rocephin] 2,000 mg IVP Q24HR #42 each Continue Donepezil [Aricept] 10 mg PO DAILY metFORMIN HCL ER [Glucophage XR] 1,000 mg PO DAILY Lacosamide [Vimpat] 150 mg PO BID Gabapentin 600 mg PO HS Propranolol HCl [Propranolol HCl ER] 80 mg PO DAILY Cholecalciferol [Vitamin D3 (25 Mcg = 1000 Iu)] 50 mcg PO HS Amiodarone [Cordarone] 100 mg PO DAILY Alpha Lipoic Acid 600 mg PO DAILY Simvastatin [Zocor] 40 mg PO HS levETIRAcetam [Keppra] 1,500 mg PO BID Furosemide [Lasix] 20 mg PO Q48H Apixaban [Eliquis] 5 mg PO BID Discharge Medication List Simvastatin [Zocor] 40 mg PO HS 04/22/21 [History] Donepezil [Aricept] 10 mg PO DAILY 04/18/22 [History] Furosemide [Lasix] 20 mg PO Q48H 04/18/22 [History] levETIRAcetam [Keppra] 1,500 mg PO BID 04/18/22 [History] Apixaban [Eliquis] 5 mg PO BID 05/05/23 [History] metFORMIN HCL ER [Glucophage XR] 1,000 mg PO DAILY 05/05/23 [History] Gabapentin 600 mg PO HS 06/24/23 [History] Lacosamide [Vimpat] 150 mg PO BID 06/24/23 [History] Alpha Lipoic Acid 600 mg PO DAILY 10/19/23 [History] Amiodarone [Cordarone] 100 mg PO DAILY 10/19/23 [History] Cholecalciferol [Vitamin D3 (25 Mcg = 1000 Iu)] 50 mcg PO HS 10/19/23 [History] Propranolol HCl [Propranolol HCl ER] 80 mg PO DAILY 10/19/23 [History] cefTRIAXone [Rocephin] 2,000 mg IVP Q24HR #42 each 10/24/23 [Rx] metroNIDAZOLE [Flagyl] 500 mg PO TID #90 tab 10/24/23 [Rx] Follow up Appointment(s)/Referral(s): Javier Delaney MD [Primary Care Provider] - 1-2 days Lillian Carbajal MD [STAFF PHYSICIAN] - 1 Week Discharge Disposition: HOME SELF-CARE
[2023-10-25] MEDS: DONEPEZIL 10 MG TAB PO SCH (09:08)
[2023-10-25] MEDS: LACOSAMIDE 150 MG TABLET PO SCH (09:08)
[2023-10-25] MEDS: metroNIDAZOLE 500 MG TAB PO SCH ×2 (09:08→15:14)
[2023-10-25] MEDS: metFORMIN 500 MG TAB PO SCH (09:08)
[2023-10-25] MEDS: APIXABAN 5 MG TAB PO SCH (09:08)
[2023-10-25] MEDS: FAMOTIDINE 20 MG/2 ML VIAL IV SCH (09:08)
[2023-10-25] MEDS: PROPRANOLOL LA 80 MG CAP.SA.24H PO SCH (09:10)
[2023-10-25] MEDS: AMIODARONE 100 MG TAB PO SCH (09:10)
[2023-10-25 11:58] LABS: Glucose,Whole Blood 154 mg/dL (70-110)
[2023-10-25 14:03] VITALS: BP 138/86; PULSE 68; TEMP 97.5
[2023-10-25] MEDS ORDERED: LIDOCAINE 1% INJ 10MG/ML (5 ML VIAL-PF) SQ ONE (14:22)
--- NOTE | 2023-10-25 15:09 | IR ---
EXAMINATION TYPE: IR cvc insert central tunneled DATE OF EXAM: 10/25/2023 COMPARISON: NONE HISTORY: Fluoroscopy time. Fluoroscopy was provided to the referring clinician.
== END 2023-10-25 15:25 | disposition home or self-care (01) | DRG 638 ==
LOC: EC 11:45 → 5NMEDONC 15:34
PROVIDERS: ADMIT Family Medicine; ATTEND Family Medicine
PROC: 02HV33Z Insertion of Infusion Device into Superior Vena Cava, Percutaneous Approach (ICD-10-PCS; 2023-10-25)
PROC: B5181ZA Fluoroscopy of Superior Vena Cava using Low Osmolar Contrast, Guidance (ICD-10-PCS; 2023-10-25)
PROC: B548ZZA Ultrasonography of Superior Vena Cava, Guidance (ICD-10-PCS; 2023-10-25)
PROC: 0JH63XZ Insertion of Tunneled Vascular Access Device into Chest Subcutaneous Tissue and Fascia, Percutaneous Approach (ICD-10-PCS; principal; 2023-10-25 07:30)
DX: E11.621 Type 2 diabetes mellitus with foot ulcer (principal); I48.20 Chronic atrial fibrillation, unspecified; L97.528 Non-pressure chronic ulcer of other part of left foot with other specified severity; M86.8X7 Other osteomyelitis, ankle and foot; E11.41 Type 2 diabetes mellitus with diabetic mononeuropathy; E11.69 Type 2 diabetes mellitus with other specified complication; E78.5 Hyperlipidemia, unspecified; Z71.6 Tobacco abuse counseling; G40.909 Epilepsy, unspecified, not intractable, without status epilepticus; L03.032 Cellulitis of left toe; I12.9 Hypertensive chronic kidney disease with stage 1 through stage 4 chronic kidney disease, or unspecified chronic kidney disease; N18.30 Chronic kidney disease, stage 3 unspecified; N17.9 Acute kidney failure, unspecified; E11.22 Type 2 diabetes mellitus with diabetic chronic kidney disease; B95.4 Other streptococcus as the cause of diseases classified elsewhere; F03.90 Unspecified dementia, unspecified severity, without behavioral disturbance, psychotic disturbance, mood disturbance, and anxiety; F32.A Depression, unspecified; H91.90 Unspecified hearing loss, unspecified ear; M19.90 Unspecified osteoarthritis, unspecified site; Z79.01 Long term (current) use of anticoagulants; Z79.84 Long term (current) use of oral hypoglycemic drugs; Z79.899 Other long term (current) drug therapy; Z95.2 Presence of prosthetic heart valve; Z88.8 Allergy status to other drugs, medicaments and biological substances; E11.42 Type 2 diabetes mellitus with diabetic polyneuropathy; Z90.49 Acquired absence of other specified parts of digestive tract; Z87.891 Personal history of nicotine dependence
CPT/HCPCS: 36415; 36573; 78315; 80053; 82565; 83605; 85025; 85027; 85652; 86140; 87040; 87070; 87075; 87205; 96365; 96366; 96367; 96368; 99285

== ENCOUNTER 2025-05-30 16:13 | Inpatient (IN) | payer MEDICARE ==
--- NOTE | 2025-05-30 16:29 | ED ---
General Adult HPI - General Chief complaint: Fall Stated complaint: Fall Time Seen by Provider: 05/30/25 16:15 Source: patient, RN notes reviewed, old records reviewed Mode of arrival: EMS Limitations: altered mental status - History of Present Illness Initial comments: This is a 75-year-old male who presents to the emergency department because of altered mental status he is alert and oriented x 2 where he normally is alert and oriented x 4. Patient also was complaining of chest pain earlier though he does not complain of any chest pain now. According to EMS he also was vomiting. he does not complain of any nausea and does not member vomiting earlier. Patient denies any abdominal pain. According to EMS he fell patient has no complaints from the fall. Patient denies headache Patient denies neck pain patient has any extremity pain. Patient denies any back pain. Patient had a fever at the scene according to family - Related Data Home Medications Medication Instructions Recorded Confirmed Simvastatin [Zocor] 40 mg PO HS 04/22/21 05/30/25 Donepezil [Aricept] 10 mg PO DAILY 04/18/22 05/30/25 Furosemide [Lasix] 20 mg PO Q48H 04/18/22 05/30/25 Apixaban [Eliquis] 5 mg PO BID 05/05/23 05/30/25 metFORMIN HCL ER [Glucophage XR] 1,000 mg PO DAILY 05/05/23 05/30/25 Gabapentin 600 mg PO HS 06/24/23 05/30/25 Propranolol HCl [Propranolol HCl 80 mg PO DAILY 10/19/23 05/30/25 ER] Alpha Lipoic Acid (Unknown Dose) 3 capsule PO DAILY 05/30/25 05/30/25 Cholecalciferol (Vitamin D3) 50 mcg PO DAILY 05/30/25 05/30/25 [Vitamin D3 (50 Mcg = 2000 Iu)] Lacosamide [Vimpat] 200 mg PO BID 05/30/25 05/30/25 amLODIPine [Norvasc] 5 mg PO DAILY 05/30/25 05/30/25 Allergies Allergy/AdvReac Type Severity Reaction Status Date / Time dronedarone [From Multaq] Allergy Swelling Verified 05/30/25 17:30 Review of Systems ROS Statement: Those systems with pertinent positive or pertinent negative responses have been documented in the HPI. ROS Other: All systems not noted in ROS Statement are negative. Past Medical History Past Medical History: Atrial Fibrillation, Diabetes Mellitus, GERD/Reflux, Hearing Disorder / Deafness, Hyperlipidemia, Hypertension, Memory Impairment, Seizure Disorder, Syncope, Vascular Disorder Additional Past Medical History / Comment(s): Epilepsy, last seizure 05/05/23. Hx cellulitis. Current wounds bilateral feet, wearing orthopedic shoes to protect wounds. Left thumb wound healing from injury, neuropathy, syncope X2 in past 6 months. Hard of hearing. History of Any Multi-Drug Resistant Organisms: None Reported Past Surgical History: Cardiac Valve Replacement, Cholecystectomy, Orthopedic Surgery, Pacemaker Additional Past Surgical History / Comment(s): Colonoscopy, partial amputated left foot great toe, wound center procedures, aortic valve replacement, [employer] pacemaker. Past Anesthesia/Blood Transfusion Reactions: Previous Problems w/ Anesthesia Additional Past Anesthesia/Blood Transfusion Reaction / Comment(s): States "coded on table" with cholecystectomy, was septic. Type of Cardiac Device: Permanent Pacemaker Device Placement Date:: 10/15/2022 Past Psychological History: Depression Smoking Status: Former smoker Past Alcohol Use History: Occasional Past Drug Use History: Marijuana - Past Family History Mother Family Medical History: Cancer Additional Family Medical History / Comment(s): Fractured hip, uterine cancer, open heart surgery. Father Family Medical History: No Reported History General Exam - General Exam Comments Initial Comments: GENERAL: Patient is well-developed and well-nourished. Patient is nontoxic and well- hydrated and is in mild distress. ENT: Neck is soft and supple. No significant lymphadenopathy is noted. Oropharynx is clear. Moist mucous membranes. Neck has full range of motion without eliciting any pain. EYES: The sclera were anicteric and conjunctiva were pink and moist. Extraocular movements were intact and pupils were equal round and reactive to light. Eyelids were unremarkable. PULMONARY: Unlabored respirations. Good breath sounds bilaterally. No audible rales rh onchi or wheezing was noted. CARDIOVASCULAR: There is a regular rate and rhythm without any murmurs gallops or rubs. ABDOMEN: Soft and nontender with normal bowel sounds. SKIN: Skin is clear with no lesions or rashes and otherwise unremarkable. NEUROLOGIC: Patient is alert and oriented x 2. Cranial nerves II through XII are grossly intact. Motor and sensory are also intact. Normal speech, volume and content. Symmetrical smile. MUSCULOSKELETAL: Normal extremities with adequate strength and full range of motion. LYMPHATICS: No significant lymphadenopathy is noted PSYCHIATRIC: Normal psychiatric evaluation. Limitations: altered mental status Course Vital Signs 05/30/25 05/30/25 05/30/25 16:15 17:33 18:57 Temperature 99.6 F 102.9 F H 102.4 F H Pulse Rate 71 72 Respiratory 16 18 Rate Blood Pressure 124/75 108/62 O2 Sat by Pulse 97 97 Oximetry 05/30/25 19:46 Temperature 99.0 F Pulse Rate 78 Respiratory 18 Rate Blood Pressure 111/74 O2 Sat by Pulse 98 Oximetry Procedures - Sepsis Sepsis Focused Exam #1 Time Sepsis Criteria Met: 21:00 (No source of infection has been found at this time) Sepsis Focused Exam Date: 05/30/25 Sepsis Focused Exam Time: 21:03 Sepsis Focused Exam Complete: Yes Vital Signs & RN Notes Reviewed: Yes Capillary Refill: < 2 Seconds: Fingers Peripheral Pulses: Normal: Radial (R) Skin Color: Normal for Patient Respiratory Exam: normal lung sounds Cardiovascular Exam: regular rate Medical Decision Making - Medical Decision Making EKG is interpreted by myself and EKG shows she is A-fib J-point with a heart rate of 71 bpm QRS is 119 QT interval is 396 QTc is 418. Patient EKG does show inferior lateral PVCs. EKG does not show any ST segment ovation there is some mild ST segment depression in V4 through V6.. Patient's ideal body weight is 86 kg Was pt. sent in by a medical professional or institution (Dr. PA, DIVING SUPERVISOR, urgent care, hospital, or detention...) When possible be specific @ -No Did you speak to anyone other than the patient for history (EMS, parent, family, police, friend...)? What history was obtained from this source @ -No Did you review nursing and triage notes (agree or disagree)? Why? @ -I reviewed and agree with nursing and triage notes Were old charts reviewed (outside hosp., previous admission, EMS record, old EKG, old radiological studies, urgent care reports/EKG's, detention records)? Report findings @ -No old charts were reviewed Differential Diagnosis? @ -Differential Fever: Pneumonia, viral URI, endocarditis, myocarditis, pericarditis, otitis, sinusitis, peritonsillar Abscess, retropharyngeal Abscess, epiglottitis, peritonitis, appendicitis, Peg cystitis, diverticulitis, hepatitis, colitis, UTI, PID, TOA, pyelonephritis, prostatitis, epididymitis, meningitis, encephalitis, pulmonary embolism, CVA, thyroid storm, pancreatitis, adrenal crisis, cavernous sinus thrombosis, this is not meant to be an all-inclusive list. EKG interpreted by me (3pts min.). @ -As above X-rays interpreted by me (1pt min.). @ -Chest x-ray shows no acute abnormality CT interpreted by me (1pt min.). @ -None done U/S interpreted by me (1pt. min.). @ -None done What testing was considered but not performed or refused? (CT, X-rays, U/S, labs)? Why? @ -None What meds were considered but not given or refused? Why? @ -None Did you discuss the management of the patient with other professionals (professionals i.e. , PA, DIVING SUPERVISOR, lab, RT, psych nurse, social work coordinator, party plan salesperson, teacher, housing officer, outpatient case manager)? Give summary @ -I spoke with Dr. Delaney and he agreed to admit the patient I wrote a bitting orders and I consulted infectious disease Was smoking cessation discussed for >3mins.? @ -No Was critical care preformed (if so, how long)? @ -No Were there social determinants of health that impacted care today? How? (Kamlesh elessness, low income, unemployed, alcoholism, drug addiction, transportation, low edu. Level, literacy, decrease access to med. care, fdc, rehab)? @ -No Was there de-escalation of care discussed even if they declined (Discuss DNR or withdrawal of care, Hospice)? DNR status @ -No What co-morbidities impacted this encounter? (DM, HTN, Smoking, COPD, CAD, Cancer, CVA, ARF, Chemo, Hep., AIDS, mental health diagnosis, sleep apnea, morbid obesity)? @ -None Was patient admitted / discharged? Hospital course, mention meds given and route, prescriptions, significant lab abnormalities, going to OR and other pertinent info. @ -Patient came with a high fever. She was given Motrin and Tylenol. Patient was started on Rocephin and vancomycin. Patient's lactic acid came back at 4.2. Patient was given 2-1/2 L of fluid with an ideal body weight of 86. Patient remained oriented x 2 only which is not his baseline. I spoke with Dr. Delaney who agreed to admit the patient admit the patient under bitting orders Undiagnosed new problem with uncertain prognosis? @ -No Drug Therapy requiring intensive monitoring for toxicity (Heparin, Nitro, Insulin, Cardizem)? @ -No Were any procedures done? @ -No Diagnosis/symptom? @ -Sepsis Acute, or Chronic, or Acute on Chronic? @ -Acute Uncomplicated (without systemic symptoms) or Complicated (systemic symptoms)? @ -Complicated Side effects of treatment? @ -No Exacerbation, Progression, or Severe Exacerbation? @ -No Poses a threat to life or bodily function? How? (Chest pain, [place], CA, pneumonia, PE, COPD, DKA, ARF, appy, cholecystitis, CVA, Diverticulitis, Homicidal, Suicidal, threat to staff... and all critical care pts) @ -Yes this can lead to endorgan dysfunction - Lab Data Result diagrams: 05/30/25 16:32 05/30/25 16:32 Lab Results 05/30/25 05/30/25 05/30/25 Range/Units 16:32 16:32 16:32 WBC 10.97 H (4.50-10.00) 10*3/uL RBC 3.75 L (4.40-5.60) 10*6/uL Hgb 11.9 L (13.0-17.0) g/dL Hct 35.1 L (39.6-50.0) % MCV 93.6 (80.0-97.0) fL MCH 31.7 (27.0-32.0) pg MCHC 33.9 (32.0-37.0) g/dL Plt Count 123 L (140-440) 10*3/uL MPV 9.9 (9.5-12.2) fL Immature Gran % (Auto) 0.6 % Neutrophils % 95.7 % Lymphocytes % 1.6 % Monocytes % 1.9 % Eosinophils % 0.0 % Basophils % 0.2 % Immature Gran # 0.07 H (0.00-0.04) 10*3/uL Neutrophils # 10.49 H (1.80-7.70) 10*3/uL Lymphocytes # 0.18 L (0.90-5.00) 10*3/uL Monocytes # 0.21 (0.20-1.00) 10*3/uL Eosinophils # 0.00 L (0.04-0.35) 10*3/uL Basophils # 0.02 (0.00-0.10) 10*3/uL PT 15.2 H (10.0-12.5) sec INR 1.5 H (<1.2) APTT 27.1 (22.0-30.0) sec Sodium 138 (137-145) mmol/L Potassium 4.1 (3.5-5.1) mmol/L Chloride 103 (98-107) mmol/L Carbon Dioxide 22 (22-30) mmol/L Anion Gap 13 mmol/L BUN 24 H (9-20) mg/dL Creatinine 1.39 H (0.66-1.25) mg/dL Est GFR (CKD-EPI)AfAm 58 (>60 ml/min/1.73 sqM) Est GFR (CKD-EPI)NonAf 50 (>60 ml/min/1.73 sqM) Glucose 310 H (74-99) mg/dL Lactic Ac Sepsis Rflx Plasma Lactic Acid William (0.7-2.0) mmol/L Calcium 9.1 (8.4-10.2) mg/dL Total Bilirubin 1.6 H (0.2-1.3) mg/dL AST 37 (17-59) U/L ALT 26 (4-49) U/L Alkaline Phosphatase 65 (38-126) U/L Troponin I (0.000-0.034) ng/mL Total Protein 6.5 (6.3-8.2) g/dL Albumin 4.0 (3.5-5.0) g/dL Urine Color Urine Appearance (Clear) Urine pH (5.0-8.0) Ur Specific [place] (1.001-1.035) Urine Protein (Negative) Urine Glucose (UA) (Negative) Urine Ketones (Negative) Urine Blood (Negative) Urine Nitrite (Negative) Urine Bilirubin (Negative) Urine Urobilinogen (<2.0) mg/dL Ur Leukocyte Esterase (Negative) Urine RBC (0-5) /hpf Urine WBC (0-5) /hpf Urine Mucus (None) /hpf 07/24/25 07/24/25 07/24/25 Range/Units 16:32 16:32 17:08 WBC (4.50-10.00) 10*3/uL RBC (4.40-5.60) 10*6/uL Hgb (13.0-17.0) g/dL Hct (39.6-50.0) % MCV (80.0-97.0) fL MCH (27.0-32.0) pg MCHC (32.0-37.0) g/dL Plt Count (140-440) 10*3/uL MPV (9.5-12.2) fL Immature Gran % (Auto) % Neutrophils % % Lymphocytes % % Monocytes % % Eosinophils % % Basophils % % Immature Gran # (0.00-0.04) 10*3/uL Neutrophils # (1.80-7.70) 10*3/uL Lymphocytes # (0.90-5.00) 10*3/uL Monocytes # (0.20-1.00) 10*3/uL Eosinophils # (0.04-0.35) 10*3/uL Basophils # (0.00-0.10) 10*3/uL PT (10.0-12.5) sec INR (<1.2) APTT (22.0-30.0) sec Sodium (137-145) mmol/L Potassium (3.5-5.1) mmol/L Chloride (98-107) mmol/L Carbon Dioxide (22-30) mmol/L Anion Gap mmol/L BUN (9-20) mg/dL Creatinine (0.66-1.25) mg/dL Est GFR (CKD-EPI)AfAm (>60 ml/min/1.73 sqM) Est GFR (CKD-EPI)NonAf (>60 ml/min/1.73 sqM) Glucose (74-99) mg/dL Lactic Ac Sepsis Rflx Y Plasma Lactic Acid William 4.1 H* (0.7-2.0) mmol/L Calcium (8.4-10.2) mg/dL Total Bilirubin (0.2-1.3) mg/dL AST (17-59) U/L ALT (4-49) U/L Alkaline Phosphatase (38-126) U/L Troponin I 0.040 H* (0.000-0.034) ng/mL Total Protein (6.3-8.2) g/dL Albumin (3.5-5.0) g/dL Urine Color Urine Appearance (Clear) Urine pH (5.0-8.0) Ur Specific [place] (1.001-1.035) Urine Protein (Negative) Urine Glucose (UA) (Negative) Urine Ketones (Negative) Urine Blood (Negative) Urine Nitrite (Negative) Urine Bilirubin (Negative) Urine Urobilinogen (<2.0) mg/dL Ur Leukocyte Esterase (Negative) Urine RBC (0-5) /hpf Urine WBC (0-5) /hpf Urine Mucus (None) /hpf 05/30/25 05/30/25 Range/Units 17:33 19:45 WBC (4.50-10.00) 10*3/uL RBC (4.40-5.60) 10*6/uL Hgb (13.0-17.0) g/dL Hct (39.6-50.0) % MCV (80.0-97.0) fL MCH (27.0-32.0) pg MCHC (32.0-37.0) g/dL Plt Count (140-440) 10*3/uL MPV (9.5-12.2) fL Immature Gran % (Auto) % Neutrophils % % Lymphocytes % % Monocytes % % Eosinophils % % Basophils % % Immature Gran # (0.00-0.04) 10*3/uL Neutrophils # (1.80-7.70) 10*3/uL Lymphocytes # (0.90-5.00) 10*3/uL Monocytes # (0.20-1.00) 10*3/uL Eosinophils # (0.04-0.35) 10*3/uL Basophils # (0.00-0.10) 10*3/uL PT (10.0-12.5) sec INR (<1.2) APTT (22.0-30.0) sec Sodium (137-145) mmol/L Potassium (3.5-5.1) mmol/L Chloride (98-107) mmol/L Carbon Dioxide (22-30) mmol/L Anion Gap mmol/L BUN (9-20) mg/dL Creatinine (0.66-1.25) mg/dL Est GFR (CKD-EPI)AfAm (>60 ml/min/1.73 sqM) Est GFR (CKD-EPI)NonAf (>60 ml/min/1.73 sqM) Glucose (74-99) mg/dL Lactic Ac Sepsis Rflx Plasma Lactic Acid William 2.4 H* (0.7-2.0) mmol/L Calcium (8.4-10.2) mg/dL Total Bilirubin (0.2-1.3) mg/dL AST (17-59) U/L ALT (4-49) U/L Alkaline Phosphatase (38-126) U/L Troponin I (0.000-0.034) ng/mL Total Protein (6.3-8.2) g/dL Albumin (3.5-5.0) g/dL Urine Color Yellow Urine Appearance Clear (Clear) Urine pH 5.5 (5.0-8.0) Ur Specific [place] 1.031 (1.001-1.035) Urine Protein 1+ H (Negative) Urine Glucose (UA) 4+ H (Negative) Urine Ketones 1+ H (Negative) Urine Blood Small H (Negative) Urine Nitrite Negative (Negative) Urine Bilirubin Negative (Negative) Urine Urobilinogen <2.0 (<2.0) mg/dL Ur Leukocyte Esterase Negative (Negative) Urine RBC <1 (0-5) /hpf Urine WBC <1 (0-5) /hpf Urine Mucus Rare H (None) /hpf Disposition Clinical Impression: Sepsis Disposition: ADMITTED IP TO THIS [facility] Time of Disposition: 20:22
[2025-05-30 16:42] LABS: Basophils # (A) 0.02 10*3/uL (0.00-0.10); Basophils % (A) 0.2 %; Eosinophils # (A) 0.00 10*3/uL (0.04-0.35); Eosinophils % (A) 0.0 %; HCT 35.1 % (39.6-50.0); HGB 11.9 g/dL (13.0-17.0); Lymphocytes # (A) 0.18 10*3/uL (0.90-5.00); Lymphocytes % (A) 1.6 %; MCH 31.7 pg (27.0-32.0); MCHC 33.9 g/dL (32.0-37.0); MCV 93.6 fL (80.0-97.0); Monocytes # (A) 0.21 10*3/uL (0.20-1.00); Monocytes % (A) 1.9 %; Neutrophils # (A) 10.49 10*3/uL (1.80-7.70); Neutrophils % (A) 95.7 %; Platelet Count 123 10*3/uL (140-440); RBC 3.75 10*6/uL (4.40-5.60); RDW 12.8 % (11.5-14.5); WBC 10.97 10*3/uL (4.50-10.00)
[2025-05-30 16:53] LABS: ALT 26 U/L (4-49); AST 37 U/L (17-59); African American GFR (CKD) 58 (>60 ml/min/1.73 sqM); Albumin 4.0 g/dL (3.5-5.0); Alkaline Phosphatase 65 U/L (38-126); Anion Gap 13 mmol/L; Blood Urea Nitrogen 24 mg/dL (9-20); Calcium 9.1 mg/dL (8.4-10.2); Carbon Dioxide 22 mmol/L (22-30); Chloride 103 mmol/L (98-107); Glucose 310 mg/dL (74-99); Non-African American GFR(CKD) 50 (>60 ml/min/1.73 sqM); Potassium 4.1 mmol/L (3.5-5.1); Sodium 138 mmol/L (137-145); Total Protein 6.5 g/dL (6.3-8.2)
[2025-05-30 16:59] LABS: INR 1.5 (<1.2); Partial Thromboplastin Time 27.1 sec (22.0-30.0); Prothrombin Time 15.2 sec (10.0-12.5)
[2025-05-30] MEDS: LACTATED RINGERS 1,000 ML IV SCH ×2 (17:07→22:22)
[2025-05-30] MEDS: ONDANSETRON 4 MG/2 ML VIAL IVP STA (17:08)
[2025-05-30] MEDS: cefTRIAXone IN SWFI 1,000 MG/10 ML SYRINGE IVP STA (17:10)
[2025-05-30] MEDS: ACETAMINOPHEN TAB 500 MG TAB PO STA (17:11)
[2025-05-30] MEDS: IBUPROFEN 600 MG TAB PO STA (17:13)
[2025-05-30 17:55] LABS: Bilirubin,Urine Negative (Negative); Blood,Urine Small (Negative); Color,Urine Yellow; Glucose,Urine (UA) 4+ (Negative); Ketones,Urine 1+ (Negative); Leukocyte Esterase,Urine Negative (Negative); Mucus,Urine Rare /hpf; Nitrite,Urine Negative (Negative); PH, Urine 5.5 (5.0-8.0); Protein,Urine 1+ (Negative); RBC,Urine <1 /hpf (0-5); Specific Gravity,Urine 1.031 (1.001-1.035); Urobilinogen,Urine <2.0 mg/dL (<2.0); WBC,Urine <1 /hpf (0-5)
--- NOTE | 2025-05-30 19:01 | XR ---
EXAMINATION TYPE: XR chest 2V DATE OF EXAM: 05/30/2025 6:44 PM COMPARISON: Multiple prior chest radiograph, most recently dated 10/15/2022. CLINICAL INDICATION: Male, 75 years old with history of Fever; [facility] TECHNIQUE: XR chest 2V Frontal and lateral views of the chest. FINDINGS: Lungs/Pleura: There is no evidence of pleural effusion, focal consolidation, or pneumothorax. Pulmonary vascularity: Unremarkable. Heart/mediastinum: Cardiomegaly. Atrial appendage occlusion device. Left chest wall cardiac pacemaker device. Median sternotomy wires. Musculoskeletal: No acute osseous pathology. Other findings: None IMPRESSION: No acute cardiopulmonary disease/process. [facility], , 05/30/2025 6:59 PM
[2025-05-30] MEDS ORDERED: VANCOMYCIN IV PER PHARMACY 1 EACH MISC MISCELLANE PRN (20:14)
[2025-05-30] MEDS: LACTATED RINGERS 1,000 ML IV ONE (20:23)
[2025-05-30] MEDS: LACTATED RINGERS 500 ML IV ONE (20:26)
[2025-05-30] MEDS: VANCOMYCIN 1,500 MG in SODIUM CHLORIDE 0.9% 500 ML 500 ML IVPB ONE (20:51)
[2025-05-31 07:22] LABS: African American GFR (CKD) 81 (>60 ml/min/1.73 sqM); Non-African American GFR(CKD) 70 (>60 ml/min/1.73 sqM)
[2025-05-31] MEDS: amLODIPine 5 MG TAB PO SCH (08:17)
[2025-05-31] MEDS: APIXABAN 5 MG TAB PO SCH (08:17)
[2025-05-31] MEDS: CHOLECALCIFEROL 25 MCG (1000 IU) TABLET PO SCH (08:17)
[2025-05-31] MEDS: LACOSAMIDE 50 MG TABLET PO SCH (08:18)
[2025-05-31] MEDS: DONEPEZIL 10 MG TAB PO SCH (08:18)
[2025-05-31] MEDS: FUROSEMIDE 20 MG TAB PO SCH (08:18)
[2025-05-31] MEDS: PROPRANOLOL LA 80 MG CAP.SA.24H PO SCH (08:20)
[2025-05-31 08:36] LABS: Glucose,Whole Blood 216 mg/dL (70-110)
--- NOTE | 2025-05-31 08:40 | P.HPIM ---
History of Present Illness H&P Date: 05/31/25 Chief Complaint: High fever The patient is a 75-year-old white male with known history of CAD atrial fibrillation and diabetes who comes in complaining of high fever for the last several days. Workup so far is negative. But he has not had slightly elevated troponin with runs of PVCs. He has been started on empiric antibiotic treatment pending cultures. He states he was with his grandchildren but they were not ill. The patient is a non-smoker. No constipation stated. Review of Systems Constitutional: Reports chills, Reports fever Eyes: denies blurred vision, denies pain Ears, nose, mouth and throat: Denies headache, Denies sore throat Cardiovascular: Denies chest pain, Denies shortness of breath Respiratory: Denies cough Gastrointestinal: Denies abdominal pain, Denies diarrhea, Denies nausea, Denies vomiting Musculoskeletal: Denies myalgias Integumentary: Denies pruritus, Denies rash Past Medical History Past Medical History: Atrial Fibrillation, Diabetes Mellitus, GERD/Reflux, Hearing Disorder / Deafness, Hyperlipidemia, Hypertension, Memory Impairment, Seizure Disorder, Syncope, Vascular Disorder Additional Past Medical History / Comment(s): Epilepsy, last seizure 05/05/23. Hx cellulitis. Current wounds bilateral feet, wearing orthopedic shoes to protect wounds. Left thumb wound healing from injury, neuropathy, syncope X2 in past 6 months. Hard of hearing. History of Any Multi-Drug Resistant Organisms: None Reported Past Surgical History: Cardiac Valve Replacement, Cholecystectomy, Orthopedic Surgery, Pacemaker Additional Past Surgical History / Comment(s): Colonoscopy, partial amputated left foot great toe, wound center procedures, aortic valve replacement, Medtronic pacemaker. Past Anesthesia/Blood Transfusion Reactions: Previous Problems w/ Anesthesia Additional Past Anesthesia/Blood Transfusion Reaction / Comment(s): States "cod ed on table" with cholecystectomy, was septic. Type of Cardiac Device: Permanent Pacemaker Device Placement Date:: 10/15/2022 Past Psychological History: Depression Smoking Status: Former smoker Past Alcohol Use History: Occasional Past Drug Use History: Marijuana - Past Family History Mother Family Medical History: Cancer Additional Family Medical History / Comment(s): Fractured hip, uterine cancer, open heart surgery. Father Family Medical History: No Reported History Medications and Allergies Home Medications Medication Instructions Recorded Confirmed Type Simvastatin [Zocor] 40 mg PO HS 04/22/21 05/30/25 History Donepezil [Aricept] 10 mg PO DAILY 04/18/22 05/30/25 History Furosemide [Lasix] 20 mg PO Q48H 04/18/22 05/30/25 History Apixaban [Eliquis] 5 mg PO BID 05/05/23 05/30/25 History metFORMIN HCL ER [Glucophage XR] 1,000 mg PO DAILY 05/05/23 05/30/25 History Gabapentin 600 mg PO HS 06/24/23 05/30/25 History Propranolol HCl [Propranolol HCl 80 mg PO DAILY 10/19/23 05/30/25 History ER] Alpha Lipoic Acid (Unknown Dose) 3 capsule PO DAILY 05/30/25 05/30/25 History Cholecalciferol (Vitamin D3) 50 mcg PO DAILY 05/30/25 05/30/25 History [Vitamin D3 (50 Mcg = 2000 Iu)] Lacosamide [Vimpat] 200 mg PO BID 05/30/25 05/30/25 History amLODIPine [Norvasc] 5 mg PO DAILY 05/30/25 05/30/25 History Allergies Allergy/AdvReac Type Severity Reaction Status Date / Time dronedarone [From [facility]] Allergy Swelling Verified 05/30/25 17:30 Physical Exam Vitals: Vital Signs Temp Pulse Resp BP Pulse Ox 05/31/25 07:58 98.2 F 65 18 121/76 99 05/31/25 06:34 97.5 F L 64 18 127/70 100 05/31/25 04:00 67 18 137/96 97 05/31/25 01:28 63 18 102/68 05/31/25 00:00 65 18 118/71 96 05/30/25 23:00 64 18 121/65 97 05/30/25 22:16 99.1 F 65 18 118/74 98 05/30/25 19:46 99.0 F 78 18 111/74 98 05/30/25 18:57 102.4 F H 72 18 108/62 97 05/30/25 17:33 102.9 F H 05/30/25 16:15 99.6 F 71 16 124/75 97 Intake and Output 05/30/25 05/31/25 05/31/25 22:59 06:59 14:59 Other: Weight 99.79 kg - Constitutional General appearance: average body habitus, cooperative, no no acute distress - EENT Eyes: EOMI - Neck Neck: no lymphadenopathy - Respiratory Respiratory: bilateral: diminished - Cardiovascular Rhythm: irregularly irregular Heart sounds: normal: S1, S2 Abnormal Heart Sounds: no S3 Gallop - Gastrointestinal General gastrointestinal: soft, no tenderness - Neurologic Neurologic: CNII-XII intact Results CBC & Chem 7: 05/30/25 16:32 05/31/25 06:36 Labs: Abnormal Lab Results - Last 24 Hours (Table) 05/30/25 05/30/25 05/30/25 Range/Units 16:32 16:32 16:32 WBC 10.97 H (4.50-10.00) 10*3/uL RBC 3.75 L (4.40-5.60) 10*6/uL Hgb 11.9 L (13.0-17.0) g/dL Hct 35.1 L (39.6-50.0) % Plt Count 123 L (140-440) 10*3/uL Immature Gran # 0.07 H (0.00-0.04) 10*3/uL Neutrophils # 10.49 H (1.80-7.70) 10*3/uL Lymphocytes # 0.18 L (0.90-5.00) 10*3/uL Eosinophils # 0.00 L (0.04-0.35) 10*3/uL PT 15.2 H (10.0-12.5) sec INR 1.5 H (<1.2) BUN 24 H (9-20) mg/dL Creatinine 1.39 H (0.66-1.25) mg/dL Glucose 310 H (74-99) mg/dL POC Glucose (mg/dL) (70-110) mg/dL Plasma Lactic Acid William (0.7-2.0) mmol/L Total Bilirubin 1.6 H (0.2-1.3) mg/dL Troponin I (0.000-0.034) ng/mL Urine Protein (Negative) Urine Glucose (UA) (Negative) Urine Ketones (Negative) Urine Blood (Negative) Urine Mucus (None) /hpf 05/30/25 05/30/25 05/30/25 Range/Units 16:32 16:32 17:33 WBC (4.50-10.00) 10*3/uL RBC (4.40-5.60) 10*6/uL Hgb (13.0-17.0) g/dL Hct (39.6-50.0) % Plt Count (140-440) 10*3/uL Immature Gran # (0.00-0.04) 10*3/uL Neutrophils # (1.80-7.70) 10*3/uL Lymphocytes # (0.90-5.00) 10*3/uL Eosinophils # (0.04-0.35) 10*3/uL PT (10.0-12.5) sec INR (<1.2) BUN (9-20) mg/dL Creatinine (0.66-1.25) mg/dL Glucose (74-99) mg/dL POC Glucose (mg/dL) (70-110) mg/dL Plasma Lactic Acid William 4.1 H* (0.7-2.0) mmol/L Total Bilirubin (0.2-1.3) mg/dL Troponin I 0.040 H* (0.000-0.034) ng/mL Urine Protein 1+ H (Negative) Urine Glucose (UA) 4+ H (Negative) Urine Ketones 1+ H (Negative) Urine Blood Small H (Negative) Urine Mucus Rare H (None) /hpf 05/30/25 05/30/25 05/31/25 Range/Units 19:45 20:33 00:16 WBC (4.50-10.00) 10*3/uL RBC (4.40-5.60) 10*6/uL Hgb (13.0-17.0) g/dL Hct (39.6-50.0) % Plt Count (140-440) 10*3/uL Immature Gran # (0.00-0.04) 10*3/uL Neutrophils # (1.80-7.70) 10*3/uL Lymphocytes # (0.90-5.00) 10*3/uL Eosinophils # (0.04-0.35) 10*3/uL PT (10.0-12.5) sec INR (<1.2) BUN (9-20) mg/dL Creatinine (0.66-1.25) mg/dL Glucose (74-99) mg/dL POC Glucose (mg/dL) (70-110) mg/dL Plasma Lactic Acid William 2.4 H* (0.7-2.0) mmol/L Total Bilirubin (0.2-1.3) mg/dL Troponin I 0.078 H* 0.054 H* (0.000-0.034) ng/mL Urine Protein (Negative) Urine Glucose (UA) (Negative) Urine Ketones (Negative) Urine Blood (Negative) Urine Mucus (None) /hpf 05/31/25 Range/Units 08:35 WBC (4.50-10.00) 10*3/uL RBC (4.40-5.60) 10*6/uL Hgb (13.0-17.0) g/dL Hct (39.6-50.0) % Plt Count (140-440) 10*3/uL Immature Gran # (0.00-0.04) 10*3/uL Neutrophils # (1.80-7.70) 10*3/uL Lymphocytes # (0.90-5.00) 10*3/uL Eosinophils # (0.04-0.35) 10*3/uL PT (10.0-12.5) sec INR (<1.2) BUN (9-20) mg/dL Creatinine (0.66-1.25) mg/dL Glucose (74-99) mg/dL POC Glucose (mg/dL) 216 H (70-110) mg/dL Plasma Lactic Acid William (0.7-2.0) mmol/L Total Bilirubin (0.2-1.3) mg/dL Troponin I (0.000-0.034) ng/mL Urine Protein (Negative) Urine Glucose (UA) (Negative) Urine Ketones (Negative) Urine Blood (Negative) Urine Mucus (None) /hpf Assessment and Plan (1) Acute delirium Current Visit: No Status: Acute Code(s): R41.0 - DISORIENTATION, UNSPECIFIED SNOMED Code(s): 5179267 (2) Atrial fibrillation Current Visit: No Status: Acute Code(s): I48.91 - UNSPECIFIED ATRIAL FIBRILLATION SNOMED Code(s): 69582131 (3) Diabetes Current Visit: No Status: Acute Code(s): E11.9 - TYPE 2 DIABETES MELLITUS WITHOUT COMPLICATIONS SNOMED Code(s): 54195346 (4) Hyperlipemia Current Visit: No Status: Acute Code(s): E78.5 - HYPERLIPIDEMIA, UNSPECIFIED SNOMED Code(s): 96541127 (5) Hypertension Current Visit: No Status: Acute Code(s): I10 - ESSENTIAL (PRIMARY) HYPERTENSION SNOMED Code(s): 14631010 (6) Nonrheumatic aortic valve stenosis with insufficiency Current Visit: No Status: Acute Code(s): I35.2 - NONRHEUMATIC AORTIC (VALVE) STENOSIS WITH INSUFFICIENCY SNOMED Code(s): 835965983 (7) Seizure disorder Current Visit: No Status: Acute Code(s): G40.909 - EPILEPSY, UNSP, NOT INTRACTABLE, WITHOUT STATUS EPILEPTICUS SNOMED Code(s): 866465436 (8) Sick sinus syndrome Current Visit: No Status: Acute Code(s): I49.5 - SICK SINUS SYNDROME SNOMED Code(s): 57156134 Plan: Reconcile home medications. Consult cardiology. Consult infectious disease. Pancultures with await. Empiric antibiotic treatment given today. Prognosis is guarded. The patient is otherwise full code. See orders otherwise. Time with Patient: Greater than 30
[2025-05-31] MEDS ORDERED: NON FORMULARY DRUG (Metformin Hcl Er 500 MG Tab.Er.24h) PO SCH (09:00)
[2025-05-31] MEDS ORDERED: ALPHA LIPOIC ACID PO SCH (09:00)
[2025-05-31] MEDS: VANCOMYCIN 1,500 MG in SODIUM CHLORIDE 0.9% 500 ML 500 ML IVPB SCH (11:36)
[2025-05-31 11:58] LABS: RSV Not Detected (Not Detectd)
[2025-05-31] MEDS ORDERED: IOPAMIDOL CONTRAST (ORAL USE) VIAL PO PRN (13:20)
--- NOTE | 2025-05-31 14:20 | P.CRDCN ---
History of Present Illness Consult date: 05/31/25 History of present illness: Patient is a 75-year-old male with history of severe aortic stenosis status post SAVR with bioprosthetic valve, atrial fibrillation status post ablation on eliquis, bradycardia s/p permanent pacemaker, hypertension, hyperlipidemia, type 2 diabetes mellitus presented to the ER yesterday with concerns for generalized weakness and altered mental status. History was obtained collaterally from and patient. Patient went to bed two nights ago feeling cold and woke up yesterday morning with confusion, fever, chills well as nausea and vomiting and generalized weakness. He had multiple episodes of nonbloody emesis. The night before his symptoms started they went out for dinner. His states that he had a fall while trying to get to the washroom and could not get up which made her concerned about his situation and therefore was brought to the hospital by EMS for further evaluation. She states that he has been doing well until these events occurred. He is usually very active and independent in his ADLs. At the time of interview, patient is AAO x 2. He reports no episodes of chest pain, fluttering, palpitation, lightheadedness or dizziness. Patient reports that his primary cook helper vegetable is Dr. Hendrickson. Patient had a permanent pacemaker placement in 2021 and claims that his battery needs to be changed. He is a former smoker, quit 35 years ago and occasionally drinks alcohol. Echocardiogram in 2022 shows LVEF of 50 to 55%. Labs and imaging at this admission: WBC 10.97, hemoglobin 11.9, sodium 138, potassium 4.1, BUN 24, creatinine 1.39, lactic acid 4.1, 2.4, 1.8 Troponin I 0.040, 0.078, 0.054 EKG shows paced rhythm with first-degree AV block and PVCs Chest x-ray shows no acute cardiopulmonary process Vital signs on arrival 102.5 F, pulse rate 72, respiratory 18, blood pressure 108/62, oxygen saturation 97% on 2 L via nasal cannula Review of systems: Pertinent positives and negatives as discussed in HPI, a complete review of systems was performed and all other systems are negative. Social history: As in HPI Physical examination: Vital signs reviewed General: non toxic, no distress Head: atraumatic, normocephalic, symmetric Eyes: EOMI, no lid lag, anicteric sclera, pupils equal round reactive to light ENT: Nose and ears atraumatic Neck: No cervical lymphadenopathy, trachea midline, supple Mouth: no lip lesion, mucus membranes moist Cardiovascular: S1S2 irregularly irregular, no murmur, positive dorsalis pedis pulse bilateral, 1+ pitting edema bilaterally Lungs: Bilateral expiratory wheezing, no rales or crackles, no use of accessory muscles Abdominal: soft, nontender to palpation, no guarding Ext: muscle strength 5 out of 5 in all 4 extremities grossly, no gross muscle atrophy, no contractures, Psych: Alert, oriented x 2, appropriate affect Assessment: #Atrial Fibrillation with PVCs #NSTEMI type II related to sepsis #Acute toxic metabolic encephalopathy #Generalized weakness #Sepsis with bacteremia, rule out infective endocarditis #KUNAL on CKD #History of atrial fibrillation status post PPM #Severe aortic stenosis status post SAVR #History of infective endocarditis Plan: Resume home cardiac medications Interrogate pacemaker Order echocardiogram Discontinue Lasix Continue with IVF Monitor electrolytes and urine output BMP tomorrow a.m. Past Medical History Past Medical History: Atrial Fibrillation, Diabetes Mellitus, GERD/Reflux, Hearing Disorder / Deafness, Hyperlipidemia, Hypertension, Memory Impairment, Seizure Disorder, Syncope, Vascular Disorder Additional Past Medical History / Comment(s): Epilepsy, last seizure 05/05/23. Hx cellulitis. Current wounds bilateral feet, wearing orthopedic shoes to protect wounds. Left thumb wound healing from injury, neuropathy, syncope X2 in past 6 months. Hard of hearing. History of Any Multi-Drug Resistant Organisms: None Reported Past Surgical History: Cardiac Valve Replacement, Cholecystectomy, Orthopedic Surgery, Pacemaker Additional Past Surgical History / Comment(s): Colonoscopy, partial amputated left foot great toe, wound center procedures, aortic valve replacement, Med tronic pacemaker. Past Anesthesia/Blood Transfusion Reactions: Previous Problems w/ Anesthesia Additional Past Anesthesia/Blood Transfusion Reaction / Comment(s): States "coded on table" with cholecystectomy, was septic. Type of Cardiac Device: Permanent Pacemaker Device Placement Date:: 10/15/2022 Past Psychological History: Depression Smoking Status: Former smoker Past Alcohol Use History: Occasional Past Drug Use History: Marijuana - Past Family History Mother Family Medical History: Cancer Additional Family Medical History / Comment(s): Fractured hip, uterine cancer, open heart surgery. Father Family Medical History: No Reported History Medications and Allergies Home Medications Medication Instructions Recorded Confirmed Type Simvastatin [Zocor] 40 mg PO HS 04/22/21 05/30/25 History Donepezil [Aricept] 10 mg PO DAILY 04/18/22 05/30/25 History Furosemide [Lasix] 20 mg PO Q48H 04/18/22 05/30/25 History Apixaban [Eliquis] 5 mg PO BID 05/05/23 05/30/25 History metFORMIN HCL ER [Glucophage XR] 1,000 mg PO DAILY 05/05/23 05/30/25 History Gabapentin 600 mg PO HS 06/24/23 05/30/25 History Propranolol HCl [Propranolol HCl 80 mg PO DAILY 10/19/23 05/30/25 History ER] Alpha Lipoic Acid (Unknown Dose) 3 capsule PO DAILY 05/30/25 05/30/25 History Cholecalciferol (Vitamin D3) 50 mcg PO DAILY 05/30/25 05/30/25 History [Vitamin D3 (50 Mcg = 2000 Iu)] Lacosamide [Vimpat] 200 mg PO BID 05/30/25 05/30/25 History amLODIPine [Norvasc] 5 mg PO DAILY 05/30/25 05/30/25 History Allergies Allergy/AdvReac Type Severity Reaction Status Date / Time dronedarone [From [facility]] Allergy Swelling Verified 05/30/25 17:30 Physical Exam Vitals: Vital Signs Temp Pulse Resp BP Pulse Ox 05/31/25 13:00 98.0 F 65 18 114/60 100 05/31/25 12:41 64 18 114/60 99 05/31/25 11:00 97.9 F 65 18 132/68 99 05/31/25 09:00 98.1 F 64 18 104/66 99 05/31/25 07:58 98.2 F 65 18 121/76 99 05/31/25 06:34 97.5 F L 64 18 127/70 100 05/31/25 04:00 67 18 137/96 97 05/31/25 01:28 63 18 102/68 05/31/25 00:00 65 18 118/71 96 05/30/25 23:00 64 18 121/65 97 05/30/25 22:16 99.1 F 65 18 118/74 98 05/30/25 19:46 99.0 F 78 18 111/74 98 05/30/25 18:57 102.4 F H 72 18 108/62 97 05/30/25 17:33 102.9 F H 05/30/25 16:15 99.6 F 71 16 124/75 97 Intake and Output 05/30/25 05/31/25 05/31/25 22:59 06:59 14:59 Other: Weight 99.79 kg Results 05/30/25 16:32 05/31/25 06:36 Cardiac Enzymes 05/30/25 05/30/25 05/30/25 Range/Units 16:32 16:32 20:33 AST 37 (17-59) U/L Troponin I 0.040 H* 0.078 H* (0.000-0.034) ng/mL 05/31/25 Range/Units 00:16 AST (17-59) U/L Troponin I 0.054 H* (0.000-0.034) ng/mL Coagulation 05/30/25 Range/Units 16:32 PT 15.2 H (10.0-12.5) sec APTT 27.1 (22.0-30.0) sec CBC 05/30/25 Range/Units 16:32 WBC 10.97 H (4.50-10.00) 10*3/uL RBC 3.75 L (4.40-5.60) 10*6/uL Hgb 11.9 L (13.0-17.0) g/dL Hct 35.1 L (39.6-50.0) % Plt Count 123 L (140-440) 10*3/uL Comprehensive Metabolic Panel 05/30/25 05/31/25 Range/Units 16:32 06:36 Sodium 138 (137-145) mmol/L Potassium 4.1 (3.5-5.1) mmol/L Chloride 103 (98-107) mmol/L Carbon Dioxide 22 (22-30) mmol/L BUN 24 H (9-20) mg/dL Creatinine 1.39 H 1.05 (0.66-1.25) mg/dL Glucose 310 H (74-99) mg/dL Calcium 9.1 (8.4-10.2) mg/dL AST 37 (17-59) U/L ALT 26 (4-49) U/L Alkaline Phosphatase 65 (38-126) U/L Total Protein 6.5 (6.3-8.2) g/dL Albumin 4.0 (3.5-5.0) g/dL Current Medications Generic Name Dose Route Start Last Admin Trade Name Arlene PRN Reason Stop Dose Admin Amlodipine Besylate 5 mg 05/31/25 09:00 05/31/25 08:17 Amlodipine 5 Mg Tab PO 5 mg DAILY CURT Administration Apixaban 5 mg 05/31/25 09:00 05/31/25 08:17 Apixaban 5 Mg Tab PO 5 mg BID CURT Administration Protocol Atorvastatin Calcium 20 mg 05/31/25 21:00 Atorvastatin 20 Mg Tab PO HS CURT Cholecalciferol 50 mcg 05/31/25 09:00 05/31/25 08:17 Cholecalciferol 25 Mcg (1000 Iu) Tablet PO 50 mcg DAILY CURT Administration Donepezil HCl 10 mg 05/31/25 09:00 05/31/25 08:18 Donepezil 10 Mg Tab PO 10 mg DAILY CURT Administration Furosemide 20 mg 05/31/25 09:00 05/31/25 08:18 Furosemide 20 Mg Tab PO 20 mg Q48H CURT Administration Gabapentin 600 mg 05/31/25 21:00 Gabapentin 300 Mg Cap PO HS CURT Lactated Ringer's 1,000 mls @ 130 mls/hr 05/30/25 20:30 05/31/25 11:03 Lactated Ringers IV Not Given .Q7H42M CURT Ceftriaxone Sodium 1 gm/ 50 mls @ 100 mls/hr 05/31/25 09:00 05/31/25 08:17 Sodium Chloride IVPB 100 mls/hr Q24HR CURT Administration Vancomycin HCl 1,500 mg/ 500 mls @ 167 mls/hr 05/31/25 10:00 05/31/25 11:36 Sodium Chloride IVPB 167 mls/hr Q12H CURT Administration Iopamidol 30 ml 05/31/25 13:20 Iopamidol Contrast (Oral Use) Vial PO 06/01/25 13:[address] Scan Lacosamide 200 mg 05/31/25 09:00 05/31/25 08:18 Lacosamide 50 Mg Tablet PO 200 mg BID CURT Administration Miscellaneous Information 0 each 06/01/25 09:00 Vancomycin Trough Due 1 Each Misc MISCELLANE 07/26/25 09:01 DIRECTED ONE Propranolol HCl 80 mg 05/31/25 09:00 05/31/25 08:20 Propranolol La 80 Mg Cap.Sa.24h PO 80 mg DAILY CURT Administration Intake and Output 05/30/25 05/31/25 05/31/25 22:59 06:59 14:59 Other: Weight 99.79 kg 05/30/25 16:32 05/31/25 06:36
--- NOTE | 2025-05-31 15:50 | CT ---
EXAMINATION TYPE: CT abdomen pelvis wo con CT DLP: 854.9 mGycm, Automated exposure control for dose reduction was used. DATE OF EXAM: 05/31/2025 3:40 PM COMPARISON: None CLINICAL INDICATION:Male, 75 years old with history of Fever/abdominal distention; fever/abdominal di stention TECHNIQUE: Standard CT of the abdomen and pelvis following the administration of oral contrast. Cor onal and sagittal reformats were performed. Limited evaluation due to lack of intravenous contrast. FINDINGS: LOWER CHEST: Visualized lung bases are clear. Mild cardiomegaly. Partial visualization of cardiac pac emaker leads. No pericardial effusion. ABDOMEN LIVER: Diffusely hypoattenuating parenchyma. GALLBLADDER AND BILE DUCTS: The gallbladder is surgically absent. No biliary ductal dilatation. PANCREAS: Unremarkable noncontrast appearance. SPLEEN: Unremarkable noncontrast appearance. ADRENAL GLANDS: Unremarkable noncontrast appearance. KIDNEYS AND URETERS: No evidence of hydronephrosis or renal calculus. The ureters are unremarkable. PELVIS BLADDER: Unremarkable noncontrast appearance. REPRODUCTIVE: Unremarkable noncontrast appearance. ABDOMEN & PELVIS STOMACH AND BOWEL: Small hiatal hernia. Circumferential wall thickening of proximal duodenum. No surr ounding fat stranding. Tiny proximal duodenal diverticula. Few scattered sigmoid diverticulosis witho ut evidence for acute diverticulitis. Enteric contrast reaches the descending colon. The appendix is within normal limits. No evidence of bowel obstruction. PERITONEUM: No evidence of pneumoperitoneum. Trace free fluid in the pelvis and right paracolic gutte r. VASCULATURE: Moderate atherosclerotic calcifications are present throughout the abdominal aorta and i ts branches. No evidence of aortic aneurysm. MUSCULOSKELETAL: No acute osseous abnormalities. Moderate disc degeneration changes are present throu ghout the thoracolumbar spine. LYMPH NODES: No gross evidence for lymphadenopathy. SOFT TISSUE/ABDOMINAL WALL: Tiny fat filled umbilical hernia. IMPRESSION: 1. Findings suggesting proximal duodenitis. Likely from an infectious or inflammatory etiology. Yasemin elate clinically. 2. Trace fluid within the pelvis and right paracolic gutter likely related to #1. 3. Sigmoid diverticulosis without evidence for acute diverticulitis. [facility], , 05/31/2025 3:48 PM
[2025-05-31 16:36] LABS: Glucose,Whole Blood 158 mg/dL (70-110)
[2025-05-31 20:11] LABS: Glucose,Whole Blood 207 mg/dL (70-110)
[2025-05-31] MEDS: ATORVASTATIN 20 MG TAB PO SCH (21:40)
[2025-05-31] MEDS: GABAPENTIN 300 MG CAP PO SCH (21:40)
[2025-06-01 04:09] LABS: Bilirubin,Urine Negative (Negative); Blood,Urine Negative (Negative); Color,Urine Yellow; Glucose,Urine (UA) 3+ (Negative); Leukocyte Esterase,Urine Negative (Negative); Nitrite,Urine Negative (Negative); PH, Urine 5.5 (5.0-8.0); Protein,Urine Trace (Negative); Specific Gravity,Urine 1.029 (1.001-1.035); Urobilinogen,Urine 2.0 mg/dL (<2.0)
[2025-06-01 04:19] LABS: Ketones,Urine 2+ (Negative)
[2025-06-01 06:18] LABS: Glucose,Whole Blood 169 mg/dL (70-110)
[2025-06-01] MEDS ORDERED: VANCOMYCIN TROUGH DUE 1 EACH MISC MISCELLANE ONE (09:00)
--- NOTE | 2025-06-01 10:42 | P.CONS ---
History of Present Illness - Reason for Consult Consult date: 05/31/25 FUO Requesting physician: Andrew Grissom - Chief Complaint mental status changes and vomiting x 1 day - History of Present Illness Patient is a 75-year-old male with a past medical history significant for Atrial Fibrillation, Diabetes Mellitus, GERD/Reflux, Hearing Disorder / Deafness, Hyperlipidemia, Hypertension, Memory Impairment, Seizure Disorder, Syncope, Vascular Disorder, presenting to the hospital for evaluation of mental status changes did have an episode of nausea and vomiting however the patient denies having any abdominal pain denies having any history of fall no headache or URI symptoms no chest pain shortness of breath or cough no diarrhea or constipation on presentation to the hospital patient did have a temperature of 102.9 F patient was not tachycardic hypotensive or hypoxic did have a white count of 10.97 lactic acid was elevated BUN and creatinine is mildly elevated and bilirubin 1.6 and the rest of the liver enzymes are normal urine has been negative influenza RSV COVID testing was negative patient did have a chest x-ray that was negative for any acute infiltrate/pneumonia infectious disease was consulted concerning for fever of unknown origin Review of Systems Positive point and negatives has been mentioned in the HPI, complete review of systems was performed and all other systems are negative Past Medical History Past Medical History: Atrial Fibrillation, Diabetes Mellitus, GERD/Reflux, Hearing Disorder / Deafness, Hyperlipidemia, Hypertension, Memory Impairment, Seizure Disorder, Syncope, Vascular Disorder Additional Past Medical History / Comment(s): Epilepsy, last seizure 05/05/23. Hx cellulitis. Current wounds bilateral feet, wearing orthopedic shoes to protect wounds. Left thumb wound healing from injury, neuropathy, syncope X2 in past 6 months. Hard of hearing. History of Any Multi-Drug Resistant Organisms: None Reported Past Surgical History: Cardiac Valve Replacement, Cholecystectomy, Orthopedic Surgery, Pacemaker Additional Past Surgical History / Comment(s): Colonoscopy, partial amputated left foot great toe, wound center procedures, aortic valve replacement, Medtronic pacemaker. Past Anesthesia/Blood Transfusion Reactions: Previous Problems w/ Anesthesia Additional Past Anesthesia/Blood Transfusion Reaction / Comm: States "coded on table" with cholecystectomy, was septic. Type of Cardiac Device: Permanent Pacemaker Device Placement Date:: 10/15/2022 Past Psychological History: Depression Smoking Status: Former smoker Past Alcohol Use History: Occasional Past Drug Use History: Marijuana - Past Family History Mother Family Medical History: Cancer Additional Family Medical History / Comment(s): Fractured hip, uterine cancer, open heart surgery. Father Family Medical History: No Reported History Medications and Allergies Home Medications Medication Instructions Recorded Confirmed Type Simvastatin [Zocor] 40 mg PO HS 04/22/21 05/30/25 History Donepezil [Aricept] 10 mg PO DAILY 04/18/22 05/30/25 History Furosemide [Lasix] 20 mg PO Q48H 04/18/22 05/30/25 History Apixaban [Eliquis] 5 mg PO BID 05/05/23 05/30/25 History metFORMIN HCL ER [Glucophage XR] 1,000 mg PO DAILY 05/05/23 05/30/25 History Gabapentin 600 mg PO HS 06/24/23 05/30/25 History Propranolol HCl [Propranolol HCl 80 mg PO DAILY 10/19/23 05/30/25 History ER] Alpha Lipoic Acid (Unknown Dose) 3 capsule PO DAILY 05/30/25 05/30/25 History Cholecalciferol (Vitamin D3) 50 mcg PO DAILY 05/30/25 05/30/25 History [Vitamin D3 (50 Mcg = 2000 Iu)] Lacosamide [Vimpat] 200 mg PO BID 05/30/25 05/30/25 History amLODIPine [Norvasc] 5 mg PO DAILY 05/30/25 05/30/25 History Allergies Allergy/AdvReac Type Severity Reaction Status Date / Time dronedarone [From [facility]] Allergy Swelling Verified 05/30/25 17:30 Physical Exam Vitals: Vital Signs Temp Pulse Resp BP Pulse Ox 05/31/25 07:58 98.2 F 65 18 121/76 99 05/31/25 06:34 97.5 F L 64 18 127/70 100 05/31/25 04:00 67 18 137/96 97 05/31/25 01:28 63 18 102/68 05/31/25 00:00 65 18 118/71 96 05/30/25 23:00 64 18 121/65 97 05/30/25 22:16 99.1 F 65 18 118/74 98 05/30/25 19:46 99.0 F 78 18 111/74 98 05/30/25 18:57 102.4 F H 72 18 108/62 97 05/30/25 17:33 102.9 F H 05/30/25 16:15 99.6 F 71 16 124/75 97 Intake and Output 05/30/25 05/31/25 05/31/25 22:59 06:59 14:59 Other: Weight 99.79 kg GENERAL DESCRIPTION: Elderly male lying in bed, no distress. No tachypnea or accessory muscle of respiration use. HEENT: Shows Pallor , no scleral icterus. Oral mucous membrane is dry. No pharyngeal erythema or thrush NECK: Trachea central, no thyromegaly. LUNGS: Unlabored breathing. Clear to auscultation anteriorly. No wheeze or crackle. HEART: S1, S2, regular rate and rhythm. No loud murmur ABDOMEN: Soft mild distention but no tenderness EXTREMITIES: No edema of feet. SKIN: No rash, no masses palpable. NEUROLOGICAL: The patient is awake, alert, oriented x3, mood and affect normal. Results CBC & Chem 7: 05/30/25 16:32 05/31/25 06:36 Labs: Abnormal Lab Results - Last 24 Hours (Table) 05/30/25 05/30/25 05/30/25 Range/Units 16:32 16:32 16:32 WBC 10.97 H (4.50-10.00) 10*3/uL RBC 3.75 L (4.40-5.60) 10*6/uL Hgb 11.9 L (13.0-17.0) g/dL Hct 35.1 L (39.6-50.0) % Plt Count 123 L (140-440) 10*3/uL Immature Gran # 0.07 H (0.00-0.04) 10*3/uL Neutrophils # 10.49 H (1.80-7.70) 10*3/uL Lymphocytes # 0.18 L (0.90-5.00) 10*3/uL Eosinophils # 0.00 L (0.04-0.35) 10*3/uL PT 15.2 H (10.0-12.5) sec INR 1.5 H (<1.2) BUN 24 H (9-20) mg/dL Creatinine 1.39 H (0.66-1.25) mg/dL Glucose 310 H (74-99) mg/dL POC Glucose (mg/dL) (70-110) mg/dL Plasma Lactic Acid William (0.7-2.0) mmol/L Total Bilirubin 1.6 H (0.2-1.3) mg/dL Troponin I (0.000-0.034) ng/mL Urine Protein (Negative) Urine Glucose (UA) (Negative) Urine Ketones (Negative) Urine Blood (Negative) Urine Mucus (None) /hpf 05/30/25 05/30/25 05/30/25 Range/Units 16:32 16:32 17:33 WBC (4.50-10.00) 10*3/uL RBC (4.40-5.60) 10*6/uL Hgb (13.0-17.0) g/dL Hct (39.6-50.0) % Plt Count (140-440) 10*3/uL Immature Gran # (0.00-0.04) 10*3/uL Neutrophils # (1.80-7.70) 10*3/uL Lymphocytes # (0.90-5.00) 10*3/uL Eosinophils # (0.04-0.35) 10*3/uL PT (10.0-12.5) sec INR (<1.2) BUN (9-20) mg/dL Creatinine (0.66-1.25) mg/dL Glucose (74-99) mg/dL POC Glucose (mg/dL) (70-110) mg/dL Plasma Lactic Acid William 4.1 H* (0.7-2.0) mmol/L Total Bilirubin (0.2-1.3) mg/dL Troponin I 0.040 H* (0.000-0.034) ng/mL Urine Protein 1+ H (Negative) Urine Glucose (UA) 4+ H (Negative) Urine Ketones 1+ H (Negative) Urine Blood Small H (Negative) Urine Mucus Rare H (None) /hpf 05/30/25 05/30/25 05/31/25 Range/Units 19:45 20:33 00:16 WBC (4.50-10.00) 10*3/uL RBC (4.40-5.60) 10*6/uL Hgb (13.0-17.0) g/dL Hct (39.6-50.0) % Plt Count (140-440) 10*3/uL Immature Gran # (0.00-0.04) 10*3/uL Neutrophils # (1.80-7.70) 10*3/uL Lymphocytes # (0.90-5.00) 10*3/uL Eosinophils # (0.04-0.35) 10*3/uL PT (10.0-12.5) sec INR (<1.2) BUN (9-20) mg/dL Creatinine (0.66-1.25) mg/dL Glucose (74-99) mg/dL POC Glucose (mg/dL) (70-110) mg/dL Plasma Lactic Acid William 2.4 H* (0.7-2.0) mmol/L Total Bilirubin (0.2-1.3) mg/dL Troponin I 0.078 H* 0.054 H* (0.000-0.034) ng/mL Urine Protein (Negative) Urine Glucose (UA) (Negative) Urine Ketones (Negative) Urine Blood (Negative) Urine Mucus (None) /hpf 05/31/ Range/Units 08:35 WBC (4.50-10.00) 10*3/uL RBC (4.40-5.60) 10*6/uL Hgb (13.0-17.0) g/dL Hct (39.6-50.0) % Plt Count (140-440) 10*3/uL Immature Gran # (0.00-0.04) 10*3/uL Neutrophils # (1.80-7.70) 10*3/uL Lymphocytes # (0.90-5.00) 10*3/uL Eosinophils # (0.04-0.35) 10*3/uL PT (10.0-12.5) sec INR (<1.2) BUN (9-20) mg/dL Creatinine (0.66-1.25) mg/dL Glucose (74-99) mg/dL POC Glucose (mg/dL) 216 H (70-110) mg/dL Plasma Lactic Acid William (0.7-2.0) mmol/L Total Bilirubin (0.2-1.3) mg/dL Troponin I (0.000-0.034) ng/mL Urine Protein (Negative) Urine Glucose (UA) (Negative) Urine Ketones (Negative) Urine Blood (Negative) Urine Mucus (None) /hpf Assessment and Plan (1) Sepsis Current Visit: Yes Status: Acute Code(s): A41.9 - SEPSIS, UNSPECIFIED ORGANISM SNOMED Code(s): 52016401 Plan: 1patient presented to hospital with sepsis in this patient who did have a fever elevated white count elevated lactic acid source is likely abdominal has the patient did have symptoms of nausea and vomiting some distention was noticed on rectal examination but no significant tenderness and no other obvious focus of infection patient currently denies any headache he is awake alert [place] x 3 and evidence of any neck rigidity 2-patient with elevated creatinine high risk of nephrotoxicity from surgical investigation and medication 3-we will obtain CT of abdominal pelvis with oral contrast only 4-will empirically treat with Rocephin and Flagyl while waiting for the workup to be completed We will follow on clinical condition and cultures to further adjust medication if needed Thank you for this consultation we will follow the patient along with you Dictation was produced using [employer] dictation software. please excuse any gra mmatical, word or spelling errors. Time with Patient: Greater than 30
[2025-06-01] MEDS: HYDROmorphone 0.5 MG/0.5 ML SYRINGE IVP PRN (11:06)
[2025-06-01 11:32] LABS: Glucose,Whole Blood 190 mg/dL (70-110)
--- NOTE | 2025-06-01 13:01 | P.PN ---
Subjective HISTORY OF PRESENT ILLNESS: Patient is a 75-year-old male with history of severe aortic stenosis status post SAVR with bioprosthetic valve, atrial fibrillation status post ablation on eliquis, bradycardia s/p permanent pacemaker, hypertension, hyperlipidemia, type 2 diabetes mellitus presented to the ER yesterday with concerns for generalized weakness and altered mental status. History was obtained collaterally from and patient. Patient went to bed two nights ago feeling cold and woke up yesterday morning with confusion, fever, chills well as nausea and vomiting and generalized weakness. He had multiple episodes of nonbloody emesis. The night before his symptoms started they went out for dinner. His states that he had a fall while trying to get to the washroom and could not get up which made her concerned about his situation and therefore was brought to the hospital by EMS for further evaluation. She states that he has been doing well until these events occurred. He is usually very active and independent in his ADLs. At the time of interview, patient is AAO x 2. He reports no episodes of chest pain, fluttering, palpitation, lightheadedness or dizziness. 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 Hendrickson. Patient had a permanent pacemaker placement in 2021 and claims that his battery needs to be changed. He is a former smoker, quit 35 years ago and occasionally drinks alcohol. Echocardiogram in 2022 shows LVEF of 50 to 55%. Labs and imaging at this admission: WBC 10.97, hemoglobin 11.9, sodium 138, potassium 4.1, BUN 24, creatinine 1.39, lactic acid 4.1, 2.4, 1.8 Troponin I 0.040, 0.078, 0.054 EKG shows paced rhythm with first-degree AV block and PVCs Chest x-ray shows no acute cardiopulmonary process Vital signs on arrival 102.5 F, pulse rate 72, respiratory 18, blood pressure 108/62, oxygen saturation 97% on 2 L via nasal cannula 06/01/2025 Patient examined this morning at the bedside. Patient currently denies chest pain or pressure. He denies shortness of breath. Vital signs are stable. Blood cultures are positive for strep series and Klebsiella oxytoca. PHYSICAL EXAM: VITAL SIGNS: Reviewed. GENERAL: Well-developed in no acute distress. NECK: Supple. No JVD or thyromegaly LUNGS: Respirations even and unlabored. Lungs essentially clear to auscultation bilaterally. HEART: Irregular rate and rhythm. S1 and S2 heard. EXTREMITIES: Normal range of motion. No clubbing or cyanosis. Peripheral pulses intact. No lower extremity edema ASSESSMENT: Febrile illness Bacteremia Elevated troponins, flat, type II OK secondary to oxygen supply/demand mismatch Metabolic encephalopathy History of dual-chamber pacemaker implantation for sick sinus syndrome History of aortic stenosis with previous bioprosthetic aortic valve replacement History of infective endocarditis Persistent atrial fibrillation Hypertension Hyperlipidemia PLAN: 2D echo has been ordered. Await results. Continue antibiotics per infectious disease Continue current cardiac medications including amlodipine, Eliquis, Lipitor, and propranolol Continue telemetry monitoring Further recommendations pending patient course Nurse practitioner note has been reviewed by physician. Signing provider agrees with the documented findings, assessment, and plan of care documented by UTILITY SERVICE WORKER as a scribe. Objective - Vital Signs Vital signs: Vital Signs Temp 98.1 F 06/01/25 11:03 Pulse 74 06/01/25 11:03 Resp 16 06/01/25 11:03 BP 132/83 06/01/25 11:03 Pulse Ox 98 06/01/25 11:03 FiO2 Intake & Output 05/31/25 06/01/25 06/01/25 18:59 06:59 18:59 Intake Total 390 2060 118 Balance 390 2060 118 Weight 103 kg 98.9 kg Intake: IV 390 1560 Lactated Ringers 1,000 ml 390 1560 @ 130 mls/hr IV .Q7H42M [facility] Rx#:[id number] Intake, IV Titration 500 Amount Vancomycin 1,500 mg In 500 Sodium Chloride 0.9% 500 ml 500 ml @ 167 mls/hr IVPB Q12H [facility] Rx#: [id number] Oral 118 - Labs CBC & Chem 7: 05/30/25 16:32 05/31/25 06:36 Labs: Abnormal Lab Results - Last 24 Hours (Table) 05/31/25 05/31/25 06/01/25 Range/Units 16:34 20:09 03:55 POC Glucose (mg/dL) 158 H 207 H (70-110) mg/dL C-Reactive Protein (<1.0) mg/dL Urine Protein Trace H (Negative) Urine Glucose (UA) 3+ H (Negative) Urine Ketones 2+ H (Negative) 06/01/25 06/01/25 06/01/25 Range/Units 06:16 07:57 11:30 POC Glucose (mg/dL) 169 H 190 H (70-110) mg/dL C-Reactive Protein 14.9 H (<1.0) mg/dL Urine Protein (Negative) Urine Glucose (UA) (Negative) Urine Ketones (Negative) Microbiology - Last 24 Hours (Table) 05/30/25 17:00 Blood Culture Gram Stain - Preliminary Blood Blood Culture - Preliminary Klebsiella oxy Raoultella orni Strep gallolyticus sp pasteuri Molecular ID
--- NOTE | 2025-06-01 15:05 | P.PN ---
Subjective Progress Note Date: 06/01/25 Principal diagnosis: Reason for follow-up is fever bacteremia, infected callus Patient is a 75-year-old male with a past medical history significant for Atrial Fibrillation, Diabetes Mellitus, GERD/Reflux, Hearing Disorder / Deafness, Hyperlipidemia, Hypertension, Memory Impairment, Seizure Disorder, Syncope, Vascular Disorder, presenting to the hospital for evaluation of mental status changes did have an episode of nausea and vomiting did have a fever prompting this consultation initial workup negative did have CT abdominal pelvis concerning for duodenitis. On today's evaluation that is 06/01/2025, patient did have resolution of her fever with a temperature of 98.1 F this morning and denies having any chills, patient is on room air and breathing comfortably no chest pain or cough, the patient did not have any nausea vomiting abdominal pain did have diarrhea. Patient UA has been negative sed rate is 28 CRP is 14.9 blood culture with Klebsiella Objective - Vital Signs Vital signs: Vital Signs Temp 98.1 F 06/01/25 11:03 Pulse 74 06/01/25 11:03 Resp 16 06/01/25 11:03 BP 132/83 06/01/25 11:03 Pulse Ox 98 06/01/25 11:03 FiO2 Intake & Output 05/31/25 06/01/25 06/01/25 18:59 06:59 18:59 Intake Total 390 2060 1128 Balance 390 2060 1128 Weight 103 kg 98.9 kg Intake: IV 390 1560 910 Lactated Ringers 1,000 ml 390 1560 910 @ 130 mls/hr IV .Q7H42M [facility] Rx#:[id number] Intake, IV Titration 500 100 Amount Vancomycin 1,500 mg In 500 Sodium Chloride 0.9% 500 ml 500 ml @ 167 mls/hr IVPB Q12H [facility] Rx#: [id number] cefTRIAXone 2 gm In 100 Sodium Chloride 0.9% 50 ml @ 100 mls/hr IVPB Q24HR [facility] Rx#:[id number] Oral 118 - Exam GENERAL DESCRIPTION: An elderly male lying in bed in no distress RESPIRATORY SYSTEM: Unlabored breathing , decreased breath sounds at bases HEART: S1 S2 regular rate and rhythm , ABDOMEN: Soft , no tenderness EXTREMITIES: Left big toe plantar aspect did have a infected callus with some purulent drainage which was cultured - Labs CBC & Chem 7: 06/02/25 05:58 06/02/25 05:58 Labs: Abnormal Lab Results - Last 24 Hours (Table) 05/31/25 05/31/25 06/01/25 Range/Units 16:34 20:09 03:55 POC Glucose (mg/dL) 158 H 207 H (70-110) mg/dL C-Reactive Protein (<1.0) mg/dL Urine Protein Trace H (Negative) Urine Glucose (UA) 3+ H (Negative) Urine Ketones 2+ H (Negative) 06/01/25 06/01/25 06/01/25 Range/Units 06:16 07:57 11:30 POC Glucose (mg/dL) 169 H 190 H (70-110) mg/dL C-Reactive Protein 14.9 H (<1.0) mg/dL Urine Protein (Negative) Urine Glucose (UA) (Negative) Urine Ketones (Negative) Microbiology - Last 24 Hours (Table) 05/30/25 17:00 Blood Culture Gram Stain - Preliminary Blood Blood Culture - Preliminary Klebsiella oxy Raoultella orni Strep gallolyticus sp pasteuri Molecular ID Assessment and Plan (1) Sepsis Current Visit: Yes Status: Acute Code(s): A41.9 - SEPSIS, UNSPECIFIED ORGANISM SNOMED Code(s): 28071423 (2) Bacteremia Current Visit: Yes Status: Acute Code(s): R78.81 - BACTEREMIA SNOMED Code(s): 6103995 (3) Infected ulcer of skin Current Visit: Yes Status: Acute Code(s): L98.499 - NON-PRESSURE CHRONIC ULCER OF SKIN OF SITES W UNSP SEVERITY; L08.9 - LOCAL INFECTION OF THE SKIN AND SUBCUTANEOUS TISSUE, UNSP SNOMED Code(s): 8251346 Plan: 1patient presented to hospital with sepsis in this patient who did have a fever elevated white count elevated lactic acid source is likely abdominal has the patient did have symptoms of nausea and vomiting some distention was noticed on rectal examination but no significant tenderness and no other obvious focus of infection patient currently denies any headache he is awake alert [place] x 3 and evidence of any neck rigidity 2-patient with elevated creatinine high risk of nephrotoxicity from surgical investigation and medication 3patient did have CT of abdominal pelvis with oral contrast only did shows evidence of duodenitis General Surgery has been consulted by admitting team 4positive blood culture Klebsiella source is likely infected callus of the left big toe 5-patient did have evidence of infected callus on the plantar aspect of the left big toe we will get vascular surgery evaluation for debridement and deep culture local culture has been obtained results will be followed. 6patient will empirically treated with Rocephin and Flagyl while waiting for the workup to be completed Family the bedside question answered Dictation was produced using [employer] dictation software. please excuse any grammatical, word or spelling errors. Time with Patient: Greater than 30
--- NOTE | 2025-06-01 16:38 | P.GSCN ---
History of Present Illness History of present illness: 75-year gentleman patient is known to me from the past. Patient had a left big toe partial impressions done in the past patient came with infected callus on the plantar aspect of the left big toe with some drainage there is infected callus on the plantar aspect of the left big toe patient is scheduled to have a left big toe amputation. Medical history history of A-fib on Eliquis stop the Eliquis today also patient has a pacemaker Patient also has a history of diabetes On examination neck is supple no bruit Chest is clear good air entry both lungs 1st and 2nd sound Abdomen is soft nontender vascular femorals are 2+ bilateral DP by the Doppler patient has a infected callus on the plantar aspect of the left foot big toe with some drainage Plan is amputation of the left big toe with deep culture patient is Past Medical History Past Medical History: Atrial Fibrillation, Diabetes Mellitus, GERD/Reflux, Hearing Disorder / Deafness, Hyperlipidemia, Hypertension, Memory Impairment, Seizure Disorder, Syncope, Vascular Disorder Additional Past Medical History / Comment(s): Epilepsy, last seizure 05/05/23. Hx cellulitis. Current wounds bilateral feet, wearing orthopedic shoes to protect wounds. Left thumb wound healing from injury, neuropathy, syncope X2 in past 6 months. Hard of hearing. History of Any Multi-Drug Resistant Organisms: None Reported Past Surgical History: Cardiac Valve Replacement, Cholecystectomy, Orthopedic Surgery, Pacemaker Additional Past Surgical History / Comment(s): Colonoscopy, partial amputated left foot great toe, wound center procedures, aortic valve replacement, [employer] pacemaker. Past Anesthesia/Blood Transfusion Reactions: Previous Problems w/ Anesthesia Additional Past Anesthesia/Blood Transfusion Reaction / Comm: States "coded on table" with cholecystectomy, was septic. Type of Cardiac Device: Permanent Pacemaker Device Placement Date:: 10/15/2022 Past Psychological History: Depression Smoking Status: Former smoker Past Alcohol Use History: Occasional Past Drug Use History: Marijuana - Past Family History Mother Family Medical History: Cancer Additional Family Medical History / Comment(s): Fractured hip, uterine cancer, open heart surgery. Father Family Medical History: No Reported History Medications and Allergies Home Medications Medication Instructions Recorded Confirmed Type Simvastatin [Zocor] 40 mg PO HS 04/22/21 05/30/25 History Donepezil [Aricept] 10 mg PO DAILY 04/18/22 05/30/25 History Furosemide [Lasix] 20 mg PO Q48H 04/18/22 05/30/25 History Apixaban [Eliquis] 5 mg PO BID 05/05/23 05/30/25 History metFORMIN HCL ER [Glucophage XR] 1,000 mg PO DAILY 05/05/23 05/30/25 History Gabapentin 600 mg PO HS 06/24/23 05/30/25 History Propranolol HCl [Propranolol HCl 80 mg PO DAILY 10/19/23 05/30/25 History ER] Alpha Lipoic Acid (Unknown Dose) 3 capsule PO DAILY 05/30/25 05/30/25 History Cholecalciferol (Vitamin D3) 50 mcg PO DAILY 05/30/25 05/30/25 History [Vitamin D3 (50 Mcg = 2000 Iu)] Lacosamide [Vimpat] 200 mg PO BID 05/30/25 05/30/25 History amLODIPine [Norvasc] 5 mg PO DAILY 05/30/25 05/30/25 History Allergies Allergy/AdvReac Type Severity Reaction Status Date / Time dronedarone [From [facility]] Allergy Swelling Verified 05/30/25 17:30 Surgical - Exam Vital Signs Temp Pulse Resp BP Pulse Ox 99.6 F 71 16 124/75 97 05/30/25 16:15 05/30/25 16:15 05/30/25 16:15 05/30/25 16:15 05/30/25 16:15 Results - Labs 05/30/25 16:32 05/31/25 06:36 Abnormal Lab Results - Last 24 Hours (Table) 05/31/25 05/31/25 06/01/25 Range/Units 16:34 20:09 03:55 ESR (0-20) mm/Hr POC Glucose (mg/dL) 158 H 207 H (70-110) mg/dL C-Reactive Protein (<1.0) mg/dL Urine Protein Trace H (Negative) Urine Glucose (UA) 3+ H (Negative) Urine Ketones 2+ H (Negative) 06/01/25 06/01/25 06/01/25 Range/Units 06:16 07:57 07:57 ESR 28 H (0-20) mm/Hr POC Glucose (mg/dL) 169 H (70-110) mg/dL C-Reactive Protein 14.9 H (<1.0) mg/dL Urine Protein (Negative) Urine Glucose (UA) (Negative) Urine Ketones (Negative) 06/01/25 Range/Units 11:30 ESR (0-20) mm/Hr POC Glucose (mg/dL) 190 H (70-110) mg/dL C-Reactive Protein (<1.0) mg/dL Urine Protein (Negative) Urine Glucose (UA) (Negative) Urine Ketones (Negative) Microbiology - Last 24 Hours (Table) 05/30/25 17:00 Blood Culture Gram Stain - Preliminary Blood Blood Culture - Preliminary Klebsiella oxy Raoultella orni Strep gallolyticus sp pasteuri Molecular ID
[2025-06-01 16:39] LABS: Glucose,Whole Blood 216 mg/dL (70-110)
[2025-06-01] MEDS ORDERED: DEXTROSE 50% SYRINGE 50 ML IVP PRN ×2 (18:37)
[2025-06-01 20:05] LABS: Glucose,Whole Blood 231 mg/dL (70-110)
[2025-06-01] MEDS: INSULIN LISPRO (HumaLOG) 100 UNIT/ML 10 mL VL SQ SCH (21:59)
[2025-06-02 06:26] LABS: Glucose,Whole Blood 134 mg/dL (70-110)
[2025-06-02 07:18] LABS: Basophils # (A) 0.03 10*3/uL (0.00-0.10); Basophils % (A) 0.4 %; Eosinophils # (A) 0.05 10*3/uL (0.04-0.35); Eosinophils % (A) 0.7 %; HCT 31.9 % (39.6-50.0); HGB 10.8 g/dL (13.0-17.0); Lymphocytes # (A) 1.04 10*3/uL (0.90-5.00); Lymphocytes % (A) 14.8 %; MCH 31.9 pg (27.0-32.0); MCHC 33.9 g/dL (32.0-37.0); MCV 94.1 fL (80.0-97.0); Monocytes # (A) 0.71 10*3/uL (0.20-1.00); Monocytes % (A) 10.1 %; Neutrophils # (A) 5.15 10*3/uL (1.80-7.70); Neutrophils % (A) 73.6 %; Platelet Count 115 10*3/uL (140-440); RBC 3.39 10*6/uL (4.40-5.60); RDW 12.8 % (11.5-14.5); WBC 7.01 10*3/uL (4.50-10.00)
[2025-06-02 07:44] LABS: African American GFR (CKD) >90 (>60 ml/min/1.73 sqM); Anion Gap 7 mmol/L; Blood Urea Nitrogen 16 mg/dL (9-20); Calcium 8.2 mg/dL (8.4-10.2); Carbon Dioxide 24 mmol/L (22-30); Chloride 108 mmol/L (98-107); Glucose 132 mg/dL (74-99); Non-African American GFR(CKD) 90 (>60 ml/min/1.73 sqM); Potassium 3.9 mmol/L (3.5-5.1); Sodium 139 mmol/L (137-145)
[2025-06-02] MEDS: LACTATED RINGERS 100 ML IV ONE (10:09)
[2025-06-02] MEDS: LIDOCAINE 1% INJ 10MG/ML (20 ML MDV) SQ ONE (10:15)
[2025-06-02] MEDS: LACTATED RINGERS 1,000 ML IV ONE (10:20)
--- NOTE | 2025-06-02 11:16 | P.PCN ---
Description of Procedure: Preop diagnosis is infected callus left foot plantar aspect of the left foot Postop the sa Procedure left foot big toe amputation at metatarsophalangeal joint of This patient had a partial toe amputation done in the past patient came with infected callus on the plantar aspect of the foot patient was brought to the operating room left foot was prepped and draped in Prestel manner. 1% lidocaine were infiltrated with IV sedation. Patient was made elliptical on the dorsal aspect of the foot deepened through skin fat and fascia and tendons were divided on the dorsum aspect incision was extended to the plantar aspect of foot where there was also some callus formation noted deepened through skin fat and fascia and tendons were divided until we reached the metatarsophalangeal joint digital vessels were suture-ligated and electrocoagulated ligaments were divided at the metatarsophalangeal joint there was a lot of tearing at the metatarsophalangeal joint area this patient had a previous surgery also the toe was removed and sent for deep culture Wound was copiously irrigated hydrogen peroxide and saline still well-controlled close in 2 layers using 2-0 Vicryl and 3-0 nylon with interrupted suture dressing applied patient tarted the procedure well blood loss was 50 cc. Patient was transferred to recovery perspective. Patient advised nonweightbearing continue with IV antibiotic care for infectious disease
[2025-06-02 12:17] LABS: Glucose,Whole Blood 134 mg/dL (70-110)
--- NOTE | 2025-06-02 14:29 | CA ---
Transthoracic Echo Report Name: Tano Lennon Age: 75 Gender: M : 1950 Exam Date: 06/01/2025 14:16 Exam Location: [place] [facility] Ht (in): 74 Wt (lb): 220 Ordering Physician: Bonifacio Suarez MD Attending/Referring Phys: [employer] Antonia Stanley RDCS Procedure CPT: Indications: elevated troponins; afib Cardiac Hx: Bioprosthetic AOV, Pacemaker Technical Quality: Fair Contrast 1: Total Dose (mL): Contrast 2: Total Dose (mL): MEASUREMENTS (Male / Female) Normal Values 2D ECHO LV Diastolic Diameter PLAX 4.5 cm 4.2 - 5.9 / 3.9 - 5.3 cm LV Systolic Diameter PLAX 3.0 cm IVS Diastolic Thickness 1.5 cm 0.6 - 1.0 / 0.6 - 0.9 cm LVPW Diastolic Thickness 1.5 cm 0.6 - 1.0 / 0.6 - 0.9 cm LV Relative Wall Thickness 0.7 RV Internal Dim ED PLAX 4.3 cm LVOT Diameter 2.4 cm LA Systolic Diameter LX 4.8 cm 3.0 - 4.0 / 2.7 - 3.8 cm LV Diastolic Volume MOD 4C 77.2 cm??? LV Systolic Volume MOD 4C 45.8 cm??? LV Ejection Fraction MOD 4C 40.6 % LV Cardiac Index MOD 4C 1036.1 cm???/min???m??? LV Diastolic Length 4C 7.9 cm LV Systolic Length 4C 7.2 cm LV Diastolic Volume MOD 2C 79.9 cm??? LV Systolic Volume MOD 2C 46.2 cm??? LV Ejection Fraction MOD 2C 42.2 % LV Cardiac Index MOD 2C 1114.3 cm???/min???m??? LV Diastolic Length 2C 8.5 cm LV Systolic Length 2C 8.2 cm LA Volume 109.1 cm??? 18 - 58 / 22 - 52 cm??? LA Volume Index 47.5 cm???/m??? 16 - 28 cm???/m??? M-MODE Aortic Root Diameter MM 3.8 cm DOPPLER AV Peak Velocity 166.9 cm/s AV Peak Gradient 11.1 mmHg AV Mean Velocity 112.5 cm/s AV Mean Gradient 5.8 mmHg AV Velocity Time Integral 33.3 cm AI Peak Velocity 263.6 cm/s AI Peak Gradient 27.8 mmHg AI Pressure Half Time 762.3 ms LVOT Peak Velocity 123.7 cm/s LVOT Peak Gradient 6.1 mmHg LVOT Velocity Time Integral 23.7 cm LVOT Stroke Volume 109.5 cm??? LVOT Stroke Volume Index 48.4 ml/m??? LVOT Cardiac Index 3618.8 cm???/min???m??? AV Area Cont Eq vti 3.3 cm??? AV Area Cont Eq pk 3.4 cm??? MR Peak Velocity 437.4 cm/s MR Peak Gradient 76.5 mmHg TR Peak Velocity 294.5 cm/s TR Peak Gradient 34.7 mmHg Right Ventricular Systolic Press 46.0 mmHg FINDINGS Left Ventricle Left ventricular ejection fraction is estimated at 40-45 %. Left ventricular cavity size normal. Left ventricular cavity size normal. Moderate concentric left ventricular hypertrophy. Right Ventricle Right ventricular dilatation. Mild to moderate pulmonary hypertension. Right Atrium Right atrial dilatation. No right atrial thrombus or mass seen. Left Atrium Moderately increased left atrial diameter. Severely increased left atrial volume. Moderately increased left atrial area. No left atrial thrombus or mass present. Mitral Valve Mitral valve thickened. Mild mitral annular calcification. Mild mitral regurgitation. Aortic Valve Bioprosthetic aortic valve without stenosis with a peak velocity of 1.7 m/s, peak gradient 11 mmHg, mean gradient 6 mmHg, estimated aortic valve area of 3.3 cm???. Tricuspid Valve Structurally normal tricuspid valve. [id number] tricuspid regurgitation. Pulmonic Valve Structurally normal pulmonic valve. Mild pulmonic regurgitation. Pericardium No pericardial effusion. Aorta Mild aortic dilatation at the level of the sinuses of valsalva 38 mm. Mildly dilated proximal ascending aorta 41 mm CONCLUSIONS LVEF 40 to 45% Moderate concentric LVH Mild RV dilatation. Moderate pulmonary hypertension Moderate biatrial dilatation PPM wire noticed in RA and RV Bioprosthetic aortic valve with mean gradient of 6 mmHg. No significant PVL or aortic regurgitation Mild mitral regurgitation, moderate tricuspid regurgitation Previewed by: Dr Wallace Still (Electronically Signed) Final Date: 02 June 2025 14:28
--- NOTE | 2025-06-02 15:09 | P.PN ---
Subjective Progress Note Date: 06/02/25 Principal diagnosis: Reason for follow-up is fever bacteremia, infected callus Patient is a 75-year-old male with a past medical history significant for Atrial Fibrillation, Diabetes Mellitus, GERD/Reflux, Hearing Disorder / Deafness, Hyperlipidemia, Hypertension, Memory Impairment, Seizure Disorder, Syncope, Vascular Disorder, presenting to the hospital for evaluation of mental status changes did have an episode of nausea and vomiting did have a fever prompting this consultation initial workup negative did have CT abdominal pelvis concerning for duodenitis.patient was noted to have some purulent drainage from his left big toe concerning for infected callus, vascular surgery was consulted, patient is status post vascular surgery evaluation amputation of the left big toe and metatarsophalangeal joint procedure completed on 06/02/2025. On today's evaluation that is 06/02/2025, Patient is afebrile patient is currently on room air and denies having any shortness of breath, the patient denies any chest pain or cough, the patient denies any nausea vomiting did not have any abdominal pain and no diarrhea denies pain to the left great amputation site. Patient white count normalized to 7.01 creatinine 0.77 blood culture with strep and Klebsiella sensitive to ceftriaxone, toe cultures are pending Objective - Vital Signs Vital signs: Vital Signs Temp 98.0 F 06/02/25 11:12 Pulse 78 06/02/25 15:01 Resp 16 06/02/25 15:01 BP 123/71 06/02/25 15:01 Pulse Ox 98 06/02/25 15:01 FiO2 Intake & Output 06/01/25 06/02/25 06/02/25 18:59 06:59 18:59 Intake Total 1128 1560 1360 Output Total 50 Balance 1128 1560 1310 Weight 100.4 kg Intake: IV 910 1560 1310 Lactated Ringers 1,000 ml 910 1560 910 @ 130 mls/hr IV .Q7H42M [facility] Rx#:[id number] Intake, IV Titration 100 50 Amount cefTRIAXone 2 gm In 100 50 Sodium Chloride 0.9% 50 ml @ 100 mls/hr IVPB Q24HR [facility] Rx#:[id number] Oral 118 Output: Estimated Blood Loss 50 - Exam GENERAL DESCRIPTION: An elderly male lying in bed in no distress RESPIRATORY SYSTEM: Unlabored breathing , decreased breath sounds at bases HEART: S1 S2 regular rate and rhythm , ABDOMEN: Soft , no tenderness EXTREMITIES: Left big toe amputation site wound is currently dressed - Labs CBC & Chem 7: 06/02/25 05:58 06/02/25 05:58 Labs: Abnormal Lab Results - Last 24 Hours (Table) 06/01/25 06/01/25 06/02/25 Range/Units 16:37 20:03 05:58 RBC (4.40-5.60) 10*6/uL Hgb (13.0-17.0) g/dL Hct (39.6-50.0) % Plt Count (140-440) 10*3/uL Chloride (98-107) mmol/L Glucose (74-99) mg/dL POC Glucose (mg/dL) 216 H 231 H (70-110) mg/dL Hemoglobin A1c 8.8 H (<=6.0) % Calcium (8.4-10.2) mg/dL 06/02/25 06/02/25 06/02/25 Range/Units 05:58 05:58 06:21 RBC 3.39 L (4.40-5.60) 10*6/uL Hgb 10.8 L (13.0-17.0) g/dL Hct 31.9 L (39.6-50.0) % Plt Count 115 L (140-440) 10*3/uL Chloride 108 H (98-107) mmol/L Glucose 132 H (74-99) mg/dL POC Glucose (mg/dL) 134 H (70-110) mg/dL Hemoglobin A1c (<=6.0) % Calcium 8.2 L (8.4-10.2) mg/dL 06/02/25 Range/Units 12:15 RBC (4.40-5.60) 10*6/uL Hgb (13.0-17.0) g/dL Hct (39.6-50.0) % Plt Count (140-440) 10*3/uL Chloride (98-107) mmol/L Glucose (74-99) mg/dL POC Glucose (mg/dL) 134 H (70-110) mg/dL Hemoglobin A1c (<=6.0) % Calcium (8.4-10.2) mg/dL Microbiology - Last 24 Hours (Table) 06/01/25 14:00 Gram Stain - Preliminary Toe - Left First 05/30/25 17:00 Blood Culture Gram Stain - Preliminary Blood Blood Culture - Preliminary Klebsiella oxy Raoultella orni Strep gallolyticus sp pasteuri Molecular ID Assessment and Plan (1) Sepsis Current Visit: Yes Status: Acute Code(s): A41.9 - SEPSIS, UNSPECIFIED ORGANISM SNOMED Code(s): 04991606 (2) Bacteremia Current Visit: Yes Status: Acute Code(s): R78.81 - BACTEREMIA SNOMED Code(s): 1065472 (3) Infected ulcer of skin Current Visit: Yes Status: Acute Code(s): L98.499 - NON-PRESSURE CHRONIC ULCER OF SKIN OF SITES W UNSP SEVERITY; L08.9 - LOCAL INFECTION OF THE SKIN AND SUBCUTANEOUS TISSUE, UNSP SNOMED Code(s): 1550038 Plan: 1patient presented to hospital with sepsis in this patient who did have a fever elevated white count elevated lactic acid source is likely abdominal has the patient did have symptoms of nausea and vomiting some distention was noticed on rectal examination but no significant tenderness and no other obvious focus of infection patient currently denies any headache he is awake alert [place] x 3 and evidence of any neck rigidity 2-patient with elevated creatinine high risk of nephrotoxicity from surgical investigation and medication 3patient did have CT of abdominal pelvis with oral contrast only did shows evidence of duodenitis General Surgery has been consulted by admitting team 4positive blood culture Klebsiella source is likely infected callus of the left big toe 5-patient did have evidence of infected callus on the plantar aspect of the left big toe, vascular surgery consulted status post amputation of the left big toe 6patient will be treated with Rocephin and Flagyl while waiting for the repeat blood and OR culture to finalize. at the bedside question answered Dictation was produced using [employer] software. please excuse any grammatical, word or spelling errors.
--- NOTE | 2025-06-02 15:21 | P.CON ---
Consult Note - . Consult date: 06/02/25 Assessment/Plan:: This is a 75-year-old male who presents to the emergency department because of altered mental status he is alert and oriented x 2 where he normally is alert and oriented x 4. Patient also was complaining of chest pain earlier though he does not complain of any chest pain now. According to EMS he also was vomiting. he does not complain of any nausea and does not member vomiting earlier. Patient denies any abdominal pain. According to EMS he fell patient has no complaints from the fall. Patient denies headache Patient denies neck pain patient has any extremity pain. Patient denies any back pain. Patient had a fever at the scene according to family. Patient did have a toe amputation with podiatry today. Subsequently, the patient developed abdominal pain. CT-AP showed some duodenitis. Patient states he is not taking PPI anymore. Review of Systems ROS Statement: Those systems with pertinent positive or pertinent negative responses have been documented in the HPI. ROS Other: All systems not noted in ROS Statement are negative. Past Medical History Past Medical History: Atrial Fibrillation, Diabetes Mellitus, GERD/Reflux, Hearing Disorder / Deafness, Hyperlipidemia, Hypertension, Memory Impairment, Seizure Disorder, Syncope, Vascular Disorder Additional Past Medical History / Comment(s): Epilepsy, last seizure 05/05/23. Hx cellulitis. Current wounds bilateral feet, wearing orthopedic shoes to protect wounds. Left thumb wound healing from injury, neuropathy, syncope X2 in past 6 months. Hard of hearing. History of Any Multi-Drug Resistant Organisms: None Reported Past Surgical History: Cardiac Valve Replacement, Cholecystectomy, Orthopedic Surgery, Pacemaker Additional Past Surgical History / Comment(s): Colonoscopy, partial amputated left foot great toe, wound center procedures, aortic valve replacement, [employer] pacemaker. Past Anesthesia/Blood Transfusion Reactions: Previous Problems w/ Anesthesia Additional Past Anesthesia/Blood Transfusion Reaction / Comment(s): States "coded on table" with cholecystectomy, was septic. Type of Cardiac Device: Permanent Pacemaker Device Placement Date:: 10/15/2022 Past Psychological History: Depression Smoking Status: Former smoker Past Alcohol Use History: Occasional Past Drug Use History: Marijuana - Past Family History Mother Family Medical History: Cancer Additional Family Medical History / Comment(s): Fractured hip, uterine cancer, open heart surgery. Father Family Medical History: No Reported History General Exam - General Exam Comments Initial Comments: GENERAL: Patient is well-developed and well-nourished. Patient is nontoxic and well- hydrated and is in mild distress. ENT: Neck is soft and supple. No significant lymphadenopathy is noted. Oropharynx is clear. Moist mucous membranes. Neck has full range of motion without eliciting any pain. EYES: The sclera were anicteric and conjunctiva were pink and moist. Extraocular movements were intact and pupils were equal round and reactive to light. Eyelids were unremarkable. PULMONARY: Unlabored respirations. Good breath sounds bilaterally. No audible rales rhonchi or wheezing was noted. CARDIOVASCULAR: There is a regular rate and rhythm without any murmurs gallops or rubs. ABDOMEN: Soft and nontender with normal bowel sounds. SKIN: Skin is clear with no lesions or rashes and otherwise unremarkable. NEUROLOGIC: Patient is alert and oriented x 2. Cranial nerves II through XII are grossly intact. Motor and sensory are also intact. Normal speech, volume and content. Symmetrical smile. MUSCULOSKELETAL: Normal extremities with adequate strength and full range of motion. LYMPHATICS: No significant lymphadenopathy is noted PSYCHIATRIC: Normal psychiatric evaluation. 75 year old male with abdominal pain and duodenitis on CT-AP -Will plan for EGD Tuesday. Will need to be NPO/midnight on Tuesday night. Recommend PPI. Elpidio Constantino DO [facility] [phone]
[2025-06-02 16:24] LABS: Glucose,Whole Blood 176 mg/dL (70-110)
--- NOTE | 2025-06-02 17:17 | P.PN ---
Subjective Progress Note Date: 06/02/25 HISTORY OF PRESENT ILLNESS: Patient is a 75-year-old male with history of severe aortic stenosis status post SAVR with bioprosthetic valve, atrial fibrillation status post ablation on eliquis, bradycardia s/p permanent pacemaker, hypertension, hyperlipidemia, type 2 diabetes mellitus presented to the ER yesterday with concerns for generalized weakness and altered mental status. History was obtained collaterally from and patient. Patient went to bed two nights ago feeling cold and woke up yest erday morning with confusion, fever, chills well as nausea and vomiting and generalized weakness. He had multiple episodes of nonbloody emesis. The night before his symptoms started they went out for dinner. His states that he had a fall while trying to get to the washroom and could not get up which made her concerned about his situation and therefore was brought to the hospital by EMS for further evaluation. She states that he has been doing well until these events occurred. He is usually very active and independent in his ADLs. At the time of interview, patient is AAO x 2. He reports no episodes of chest pain, fluttering, palpitation, lightheadedness or dizziness. Patient reports that his primary director of financial planning is Dr. Hendrickson. Patient had a permanent pacemaker placement in 2021 and claims that his battery needs to be changed. He is a former smoker, quit 35 years ago and occasionally drinks alcohol. Echocardiogram in 2022 shows LVEF of 50 to 55%. Labs and imaging at this admission: WBC 10.97, hemoglobin 11.9, sodium 138, potassium 4.1, BUN 24, creatinine 1.39, lactic acid 4.1, 2.4, 1.8 Troponin I 0.040, 0.078, 0.054 EKG shows paced rhythm with first-degree AV block and PVCs Chest x-ray shows no acute cardiopulmonary process Vital signs on arrival 102.5 F, pulse rate 72, respiratory 18, blood pressure 108/62, oxygen saturation 97% on 2 L via nasal cannula 06/01/2025 Patient examined this morning at the bedside. Patient currently denies chest pain or pressure. He denies shortness of breath. Vital signs are stable. Blood cultures are positive for strep series and Klebsiella oxytoca. 06/02/2025 Seen and examined bedside this a.m. Underwent left big toe amputation at metatarsophalangeal joint due to concern of infected callus. He is also anticipated to go for EGD on Tuesday Denies any chest pain chest pressure. BP 138/75, heart rate 63 PHYSICAL EXAM: VITAL SIGNS: Reviewed. GENERAL: Well-developed in no acute distress. NECK: Supple. No JVD or thyromegaly LUNGS: Respirations even and unlabored. Lungs essentially clear to auscultation bilaterally. HEART: Irregular rate and rhythm. S1 and S2 heard. EXTREMITIES: Normal range of motion. No clubbing or cyanosis. Peripheral pulses intact. No lower extremity edema ASSESSMENT: Febrile illness Bacteremia Elevated troponins, flat, type II VT secondary to oxygen supply/demand mismatch Metabolic encephalopathy History of dual-chamber pacemaker implantation for sick sinus syndrome History of aortic stenosis with previous bioprosthetic aortic valve replacement History of infective endocarditis Persistent atrial fibrillation Hypertension Hyperlipidemia PLAN: 2D echo has been ordered. Await results. Continue antibiotics per infectious disease Continue current cardiac medications including amlodipine, Lipitor, and propranolol His Eliquis is on hold for possible EGD on Tuesday.. If no planned procedure, consider resuming it. Continue telemetry monitoring Further recommendations pending patient course Objective - Vital Signs Vital signs: Vital Signs Temp 98.0 F 06/02/25 11:12 Pulse 78 06/02/25 15:01 Resp 16 06/02/25 15:01 BP 123/71 06/02/25 15:01 Pulse Ox 98 06/02/25 15:01 FiO2 Intake & Output 06/01/25 06/02/25 06/02/25 18:59 06:59 18:59 Intake Total 1128 1560 1360 Output Total 50 Balance 1128 1560 1310 Weight 100.4 kg Intake: IV 910 1560 1310 Lactated Ringers 1,000 ml 910 1560 910 @ 130 mls/hr IV .Q7H42M [facility] Rx#:[id number] Intake, IV Titration 100 50 Amount cefTRIAXone 2 gm In 100 50 Sodium Chloride 0.9% 50 ml @ 100 mls/hr IVPB Q24HR [facility] Rx#:[id number] Oral 118 Output: Estimated Blood Loss 50 - Labs CBC & Chem 7: 06/02/25 05:58 06/02/25 05:58 Labs: Abnormal Lab Results - Last 24 Hours (Table) 06/01/25 06/02/25 06/02/25 Range/Units 20:03 05:58 05:58 RBC 3.39 L (4.40-5.60) 10*6/uL Hgb 10.8 L (13.0-17.0) g/dL Hct 31.9 L (39.6-50.0) % Plt Count 115 L (140-440) 10*3/uL Chloride (98-107) mmol/L Glucose (74-99) mg/dL POC Glucose (mg/dL) 231 H (70-110) mg/dL Hemoglobin A1c 8.8 H (<=6.0) % Calcium (8.4-10.2) mg/dL 06/02/25 06/02/25 06/02/25 Range/Units 05:58 06:21 12:15 RBC (4.40-5.60) 10*6/uL Hgb (13.0-17.0) g/dL Hct (39.6-50.0) % Plt Count (140-440) 10*3/uL Chloride 108 H (98-107) mmol/L Glucose 132 H (74-99) mg/dL POC Glucose (mg/dL) 134 H 134 H (70-110) mg/dL Hemoglobin A1c (<=6.0) % Calcium 8.2 L (8.4-10.2) mg/dL 06/02/25 Range/Units 16:22 RBC (4.40-5.60) 10*6/uL Hgb (13.0-17.0) g/dL Hct (39.6-50.0) % Plt Count (140-440) 10*3/uL Chloride (98-107) mmol/L Glucose (74-99) mg/dL POC Glucose (mg/dL) 176 H (70-110) mg/dL Hemoglobin A1c (<=6.0) % Calcium (8.4-10.2) mg/dL Microbiology - Last 24 Hours (Table) 06/01/25 07:57 Blood Culture - Preliminary Blood 06/01/25 14:00 Gram Stain - Preliminary Toe - Left First 05/30/25 17:00 Blood Culture Gram Stain - Preliminary Blood Blood Culture - Preliminary Klebsiella oxy Raoultella orni Strep gallolyticus sp pasteuri Molecular ID
[2025-06-02] MEDS: PANTOPRAZOLE 40 MG/10 ML VIAL IVP SCH (18:21)
[2025-06-02] MEDS: CALCIUM CARBONATE 500 MG CHEWABLE PO PRN (18:21)
[2025-06-02 20:25] LABS: Glucose,Whole Blood 165 mg/dL (70-110)
--- NOTE | 2025-06-03 00:31 | P.PN ---
Subjective Progress Note Date: 06/01/25 The patient is a 75-year-old white male with known history of CAD atrial fibrillation and diabetes who comes in complaining of high fever for the last several days. Workup so far is negative. But he has not had slightly elevated troponin with runs of PVCs. He has been started on empiric antibiotic treatment pending cultures. He states he was with his grandchildren but they were not ill. The patient is a non-smoker. No constipation stated. 06/01/2025 Patient is currently resting in the bed. Awake alert and oriented. No complaints of chest pain or shortness of breath. Patient is complaining of abdominal pain mainly in the mid abdomen. Also nausea. No episodes of vomiting. No diarrhea. CT of the abdomen pelvis showed suggesting proximal duodenitis. Likely infectious or extremity etiology. Trace fluid within the pelvis and right paracolic gutter likely due to #1. Sigmoid diverticulosis without evidence for acute diverticulitis. 2D echocardiogram showed LVEF 40 to 45%. Moderate concentric LVH. Mild RV dilatation. Moderate pulmonary hypertension. Moderate bilaterally dilatation. PPM wire noticed in RV and RV. Bioprosthetic aortic valve with mean gradient of 6 mmHg. No significant PVL or aortic regurgitation. Mild MR. Moderate TR. Patient is on antibiotics with ceftriaxone and Flagyl due to Klebsiella bacteremia. Laboratory data reviewed. Objective - Vital Signs Vital signs: Vital Signs Temp 98.1 F 06/01/25 11:03 Pulse 74 06/01/25 11:03 Resp 16 06/01/25 11:03 BP 132/83 06/01/25 11:03 Pulse Ox 98 06/01/25 11:03 FiO2 Intake & Output 05/31/25 06/01/25 06/01/25 18:59 06:59 18:59 Intake Total 390 2059 118 Balance 390 0 118 Weight 103 kg 98.9 kg Intake: IV 390 1560 Lactated Ringers 1,000 ml 390 1560 @ 130 mls/hr IV .Q7H42M [facility] Rx#:[id number] Intake, IV Titration 500 Amount Vancomycin 1,500 mg In 500 Sodium Chloride 0.9% 500 ml 500 ml @ 167 mls/hr IVPB Q12H [facility] Rx#: [id number] Oral 118 - Exam - Constitutional General appearance: average body habitus, cooperative, no no acute distress - EENT Eyes: EOMI - Neck Neck: no lymphadenopathy - Respiratory Respiratory: bilateral: diminished - Cardiovascular Rhythm: irregularly irregular Heart sounds: normal: S1, S2 Abnormal Heart Sounds: no S3 Gallop - Gastrointestinal General gastrointestinal: soft, no tenderness - Neurologic Neurologic: CNII-XII intact Left great toe callus wound bandaged. - Labs CBC & Chem 7: 06/02/25 05:58 06/02/25 05:58 Labs: Abnormal Lab Results - Last 24 Hours (Table) 05/31/25 05/31/25 06/01/25 Range/Units 16:34 20:09 03:55 POC Glucose (mg/dL) 158 H 207 H (70-110) mg/dL C-Reactive Protein (<1.0) mg/dL Urine Protein Trace H (Negative) Urine Glucose (UA) 3+ H (Negative) Urine Ketones 2+ H (Negative) 06/01/25 06/01/25 06/01/25 Range/Units 06:16 07:57 11:30 POC Glucose (mg/dL) 169 H 190 H (70-110) mg/dL C-Reactive Protein 14.9 H (<1.0) mg/dL Urine Protein (Negative) Urine Glucose (UA) (Negative) Urine Ketones (Negative) Microbiology - Last 24 Hours (Table) 05/30/25 17:00 Blood Culture Gram Stain - Preliminary Blood Blood Culture - Preliminary Klebsiella oxy Raoultella orni Strep gallolyticus sp pasteuri Molecular ID Assessment and Plan Assessment: (1) Acute delirium Current Visit: No Status: Acute Code(s): R41.0 - DISORIENTATION, UNSPECIFIED SNOMED Code(s): 7112077 (2) Atrial fibrillation Current Visit: No Status: Acute Code(s): I48.91 - UNSPECIFIED ATRIAL FIBRILLATION SNOMED Code(s): 98805549 (3) Diabetes Current Visit: No Status: Acute Code(s): E11.9 - TYPE 2 DIABETES MELLITUS WITHOUT COMPLICATIONS SNOMED Code(s): 29096144 (4) Hyperlipemia Current Visit: No Status: Acute Code(s): E78.5 - HYPERLIPIDEMIA, UNSPECIFIED SNOMED Code(s): 26406162 (5) Hypertension Current Visit: No Status: Acute Code(s): I10 - ESSENTIAL (PRIMARY) HYPERTENSION SNOMED Code(s): 44468507 (6) Nonrheumatic aortic valve stenosis with insufficiency Current Visit: No Status: Acute Code(s): I35.2 - NONRHEUMATIC AORTIC (VALVE) STENOSIS WITH INSUFFICIENCY SNOMED Code(s): 987885683 (7) Seizure disorder Current Visit: No Status: Acute Code(s): G40.909 - EPILEPSY, UNSP, NOT INTRACTABLE, WITHOUT STATUS EPILEPTICUS SNOMED Code(s): 807334088 (8) Sick sinus syndrome Current Visit: No Status: Acute Code(s): I49.5 - SICK SINUS SYNDROME SNOMED Code(s): 05959289 Sepsis likely due to infected left great toe callus Klebsiella bacteremia likely infected callus of the left great toe. Acute metabolic encephalopathy secondary to sepsis/septicemia.. Improved now. Elevated troponins likely type II [place] due to demand mismatch. History of dual-chamber pacemaker placement for sick sinus syndrome Aortic stenosis with history of prior bioprosthetic aortic valve replacement History of IV Persistent atrial fibrillation Hypertension Hyperlipidemia Acute duodenitis as per CT abdomen pelvis. Plan: Patient will be continued on antibiotics in the form of ceftriaxone and Flagyl as per ID recommendations. Follow-up repeat culture report. Patient will be continued on Eliquis, statins and propranolol and amlodipine. Vascular surgery was consulted and is planning for amputation tomorrow. Contin ue to follow closely. Time with Patient: Greater than 30
--- NOTE | 2025-06-03 00:34 | P.PN ---
Subjective Progress Note Date: 06/02/25 The patient is a 75-year-old white male with known history of CAD atrial fibrillation and diabetes who comes in complaining of high fever for the last several days. Workup so far is negative. But he has not had slightly elevated troponin with runs of PVCs. He has been started on empiric antibiotic treatment pending cultures. He states he was with his grandchildren but they were not ill. The patient is a non-smoker. No constipation stated. 06/01/2025 Patient is currently resting in the bed. Awake alert and oriented. No complaints of chest pain or shortness of breath. Patient is complaining of abdominal pain mainly in the mid abdomen. Also nausea. No episodes of vomiting. No diarrhea. CT of the abdomen pelvis showed suggesting proximal duodenitis. Likely infectious or extremity etiology. Trace fluid within the pelvis and right paracolic gutter likely due to #1. Sigmoid diverticulosis without evidence for acute diverticulitis. 2D echocardiogram showed LVEF 40 to 45%. Moderate concentric LVH. Mild RV dilatation. Moderate pulmonary hypertension. Moderate bilaterally dilatation. PPM wire noticed in RV and RV. Bioprosthetic aortic valve with mean gradient of 6 mmHg. No significant PVL or aortic regurgitation. Mild MR. Moderate TR. Patient is on antibiotics with ceftriaxone and Flagyl due to Klebsiella bacteremia. Laboratory data reviewed. 06/02/2025 Patient is currently resting in the bed. Denies any chest pain or shortness of breath. No nausea or vomiting. Mentation is at baseline. Patient has been afebrile. Status post left great toe amputation at the metatarsal joint due to infected callus. General surgery is planning for EGD on Tuesday. Continued on a ntibiotics, ceftriaxone and Flagyl. Laboratory data showed WBC 7.0 hemoglobin 10.8 and platelets 115, sodium 139 potassium 3.9 chloride 108 bicarb is 24 BUN 16 creatinine 0.77 blood sugar 132 and A1c 8.8. Current medications reviewed. Objective - Vital Signs Vital signs: Vital Signs Temp 98.1 F 06/02/25 20:00 Pulse 69 06/02/25 20:00 Resp 17 06/02/25 20:00 BP 167/83 06/02/25 20:00 Pulse Ox 96 06/02/25 20:00 FiO2 Intake & Output 06/02/25 06/02/25 06/03/25 06:59 18:59 06:59 Intake Total 1560 1360 10 Output Total 50 200 Balance 1560 1310 -190 Weight 100.4 kg Intake: IV 1560 1310 10 Invasive Line 2 10 Lactated Ringers 1,000 ml 1560 910 @ 130 mls/hr IV .Q7H42M [facility] Rx#:[id number] Intake, IV Titration 50 Amount cefTRIAXone 2 gm In 50 Sodium Chloride 0.9% 50 ml @ 100 mls/hr IVPB Q24HR [facility] Rx#:[id number] Output: Urine 200 Estimated Blood Loss 50 Other: Voiding Method Urinal - Exam - Constitutional General appearance: average body habitus, cooperative, no no acute distress - EENT Eyes: EOMI - Neck Neck: no lymphadenopathy - Respiratory Respiratory: bilateral: diminished - Cardiovascular Rhythm: irregularly irregular Heart sounds: normal: S1, S2 Abnormal Heart Sounds: no S3 Gallop - Gastrointestinal General gastrointestinal: soft, no tenderness - Neurologic Neurologic: CNII-XII intact Left great toe callus amputation site is bandaged.. - Labs CBC & Chem 7: 06/02/25 05:58 06/02/25 05:58 Labs: Abnormal Lab Results - Last 24 Hours (Table) 06/02/25 06/02/25 06/02/25 Range/Units 05:58 05:58 05:58 RBC 3.39 L (4.40-5.60) 10*6/uL Hgb 10.8 L (13.0-17.0) g/dL Hct 31.9 L (39.6-50.0) % Plt Count 115 L (140-440) 10*3/uL Chloride 108 H (98-107) mmol/L Glucose 132 H (74-99) mg/dL POC Glucose (mg/dL) (70-110) mg/dL Hemoglobin A1c 8.8 H (<=6.0) % Calcium 8.2 L (8.4-10.2) mg/dL 06/02/25 06/02/25 06/02/25 Range/Units 06:21 12:15 16:22 RBC (4.40-5.60) 10*6/uL Hgb (13.0-17.0) g/dL Hct (39.6-50.0) % Plt Count (140-440) 10*3/uL Chloride (98-107) mmol/L Glucose (74-99) mg/dL POC Glucose (mg/dL) 134 H 134 H 176 H (70-110) mg/dL Hemoglobin A1c (<=6.0) % Calcium (8.4-10.2) mg/dL 06/02/25 Range/Units 20:23 RBC (4.40-5.60) 10*6/uL Hgb (13.0-17.0) g/dL Hct (39.6-50.0) % Plt Count (140-440) 10*3/uL Chloride (98-107) mmol/L Glucose (74-99) mg/dL POC Glucose (mg/dL) 165 H (70-110) mg/dL Hemoglobin A1c (<=6.0) % Calcium (8.4-10.2) mg/dL Microbiology - Last 24 Hours (Table) 06/01/25 14:00 Gram Stain - Preliminary Toe - Left First Wound Culture - Preliminary Klebsiella oxy Raoultella orni Enterococcus faecalis 05/30/25 17:00 Blood Culture Gram Stain - Preliminary Blood Blood Culture - Preliminary Klebsiella oxy Raoultella orni Strep gallolyticus sp pasteuri Molecular ID 06/01/25 07:57 Blood Culture - Preliminary Blood Assessment and Plan Assessment: (1) Acute delirium Current Visit: No Status: Acute Code(s): R41.0 - DISORIENTATION, UNSPECIFIED SNOMED Code(s): 3629854 (2) Atrial fibrillation Current Visit: No Status: Acute Code(s): I48.91 - UNSPECIFIED ATRIAL FIBRILLATION SNOMED Code(s): 61771026 (3) Diabetes Current Visit: No Status: Acute Code(s): E11.9 - TYPE 2 DIABETES MELLITUS WITHOUT COMPLICATIONS SNOMED Code(s): 05493827 (4) Hyperlipemia Current Visit: No Status: Acute Code(s): E78.5 - HYPERLIPIDEMIA, UNSPECIFIED SNOMED Code(s): 70622494 (5) Hypertension Current Visit: No Status: Acute Code(s): I10 - ESSENTIAL (PRIMARY) H YPERTENSION SNOMED Code(s): 20040387 (6) Nonrheumatic aortic valve stenosis with insufficiency Current Visit: No Status: Acute Code(s): I35.2 - NONRHEUMATIC AORTIC (VALVE) STENOSIS WITH INSUFFICIENCY SNOMED Code(s): 623295271 (7) Seizure disorder Current Visit: No Status: Acute Code(s): G40.909 - EPILEPSY, UNSP, NOT INTRACTABLE, WITHOUT STATUS EPILEPTICUS SNOMED Code(s): 458311897 (8) Sick sinus syndrome Current Visit: No Status: Acute Code(s): I49.5 - SICK SINUS SYNDROME SNOMED Code(s): 31371263 Sepsis likely due to infected left great toe callus. Status post left great toe amputation healthy metatarsals right on 06/02/2025. Klebsiella bacteremia likely infected callus of the left great toe. Acute metabolic encephalopathy secondary to sepsis/septicemia.. Improved now. Elevated troponins likely type II MA due to demand mismatch. History of dual-chamber pacemaker placement for sick sinus syndrome Aortic stenosis with history of prior bioprosthetic aortic valve replacement History of IV Persistent atrial fibrillation Hypertension Hyperlipidemia Diabetes type 2 uncontrolled with hyperglycemia A1c 8.8 Acute duodenitis as per CT abdomen pelvis. Plan: Patient will be continued on antibiotics in the form of ceftriaxone and Flagyl as per ID recommendations. Follow-up repeat culture report. Patient will be continued on Eliquis, statins and propranolol and amlodipine. Status post amputation by vascular surgery. General surgery is planning for EGD on Tuesday. Continue with pain management and follow-up closely. Time with Patient: Greater than 30
[2025-06-03 05:57] LABS: Glucose,Whole Blood 130 mg/dL (70-110)
[2025-06-03 08:10] LABS: Basophils # (A) 0.05 10*3/uL (0.00-0.10); Basophils % (A) 0.6 %; Eosinophils # (A) 0.10 10*3/uL (0.04-0.35); Eosinophils % (A) 1.3 %; HCT 31.4 % (39.6-50.0); HGB 10.7 g/dL (13.0-17.0); Lymphocytes # (A) 1.14 10*3/uL (0.90-5.00); Lymphocytes % (A) 14.6 %; MCH 32.0 pg (27.0-32.0); MCHC 34.1 g/dL (32.0-37.0); MCV 94.0 fL (80.0-97.0); Monocytes # (A) 0.90 10*3/uL (0.20-1.00); Monocytes % (A) 11.6 %; Neutrophils # (A) 5.56 10*3/uL (1.80-7.70); Neutrophils % (A) 71.4 %; Platelet Count 143 10*3/uL (140-440); RBC 3.34 10*6/uL (4.40-5.60); RDW 12.4 % (11.5-14.5); WBC 7.79 10*3/uL (4.50-10.00)
[2025-06-03 08:32] LABS: African American GFR (CKD) >90 (>60 ml/min/1.73 sqM); Anion Gap 9 mmol/L; Blood Urea Nitrogen 13 mg/dL (9-20); Calcium 8.2 mg/dL (8.4-10.2); Carbon Dioxide 23 mmol/L (22-30); Chloride 105 mmol/L (98-107); Glucose 117 mg/dL (74-99); Non-African American GFR(CKD) >90 (>60 ml/min/1.73 sqM); Potassium 3.5 mmol/L (3.5-5.1); Sodium 137 mmol/L (137-145)
--- NOTE | 2025-06-03 08:49 | P.PN ---
Subjective Progress Note Date: 06/03/25 This is a 75-year-old male he was originally admitted for evaluation of altered mental status. Patient was noted to have some purulent drainage from his left big toe concerning for infected callus, vascular surgery was consulted and decision was made to amputate left big toe and metatarsophalangeal joint. the procedure was completed on 06/02/2025. Patient also had been having some nausea and vomiting, CT of the abdomen and pelvis was concerning for duodenitis, patient seen and evaluated by general surgeon who is recommending an EGD tomorrow morning. Blood culture was positive for strep and Klebsiella. Patient seen this morning laying in bed resting comfortably. He reports his pain is well-controlled. Objective - Vital Signs Vital signs: Vital Signs Temp 98.3 F 06/03/25 04:00 Pulse 71 06/03/25 04:00 Resp 17 06/03/25 04:00 BP 155/74 06/03/25 04:00 Pulse Ox 97 06/03/25 04:00 FiO2 Intake & Output 06/02/25 06/03/25 06/03/25 18:59 06:59 18:59 Intake Total 1360 20 240 Output Total 50 350 Balance 1310 -330 240 Weight 101.4 kg Intake: IV 1310 20 Invasive Line 2 20 Lactated Ringers 1,000 ml 910 @ 130 mls/hr IV .Q7H42M [facility] Rx#:[id number] Intake, IV Titration 50 Amount cefTRIAXone 2 gm In 50 Sodium Chloride 0.9% 50 ml @ 100 mls/hr IVPB Q24HR [facility] Rx#:[id number] Oral 240 Output: Urine 350 Estimated Blood Loss 50 Other: Voiding Method Urinal - Constitutional General appearance: Present: cooperative, no acute distress - EENT Eyes: Present: PERRLA - Neck Neck: Present: normal ROM. Absent: lymphadenopathy, rigidity - Respiratory Respiratory: bilateral: CTA - Cardiovascular Heart sounds: normal: S1, S2 - Gastrointestinal General gastrointestinal: Present: soft. Absent: tenderness - Integumentary Integumentary Comment(s): Dressing to left foot dry clean and intact Integumentary: Present: normal, normal turgor - Musculoskeletal Musculoskeletal: Present: strength equal bilaterally - Psychiatric Psychiatric: Present: A&O x's 3, appropriate affect, intact judgment & insight - Labs CBC & Chem 7: 06/03/25 06:41 06/03/25 06:41 Labs: Abnormal Lab Results - Last 24 Hours (Table) 06/02/25 06/02/25 06/02/25 Range/Units 05:58 12:15 16:22 RBC (4.40-5.60) 10*6/uL Hgb (13.0-17.0) g/dL Hct (39.6-50.0) % Glucose (74-99) mg/dL POC Glucose (mg/dL) 134 H 176 H (70-110) mg/dL Hemoglobin A1c 8.8 H (<=6.0) % Calcium (8.4-10.2) mg/dL 06/02/25 06/03/25 06/03/25 Range/Units 20:23 05:55 06:41 RBC 3.34 L (4.40-5.60) 10*6/uL Hgb 10.7 L (13.0-17.0) g/dL Hct 31.4 L (39.6-50.0) % Glucose (74-99) mg/dL POC Glucose (mg/dL) 165 H 130 H (70-110) mg/dL Hemoglobin A1c (<=6.0) % Calcium (8.4-10.2) mg/dL 06/03/25 Range/Units 06:41 RBC (4.40-5.60) 10*6/uL Hgb (13.0-17.0) g/dL Hct (39.6-50.0) % Glucose 117 H (74-99) mg/dL POC Glucose (mg/dL) (70-110) mg/dL Hemoglobin A1c (<=6.0) % Calcium 8.2 L (8.4-10.2) mg/dL Microbiology - Last 24 Hours (Table) 06/02/25 10:25 Gram Stain - Preliminary Toe - Left First 06/01/25 14:00 Gram Stain - Preliminary Toe - Left First Wound Culture - Preliminary Klebsiella oxy Raoultella orni Enterococcus faecalis 05/30/25 17:00 Blood Culture Gram Stain - Preliminary Blood Blood Culture - Preliminary Klebsiella oxy Raoultella orni Strep gallolyticus sp pasteuri Molecular ID 06/01/25 07:57 Blood Culture - Preliminary Blood Assessment and Plan (1) Bacteremia Current Visit: Yes Status: Acute Code(s): R78.81 - BACTEREMIA SNOMED Code(s): 7604304 (2) Infected ulcer of skin Current Visit: Yes Status: Acute Code(s): L98.499 - NON-PRESSURE CHRONIC ULCER OF SKIN OF SITES W UNSP SEVERITY; L08.9 - LOCAL INFECTION OF THE SKIN AND SUBCUTANEOUS TISSUE, UNSP SNOMED Code(s): 7869264 (3) Atrial fibrillation Current Visit: No Status: Acute Code(s): I48.91 - UNSPECIFIED ATRIAL FIBRILLATION SNOMED Code(s): 50990482 (4) Diabetes Current Visit: No Status: Acute Code(s): E11.9 - TYPE 2 DIABETES MELLITUS WITHOUT COMPLICATIONS SNOMED Code(s): 20580361 (5) Hyperlipemia Current Visit: No Status: Acute Code(s): E78.5 - HYPERLIPIDEMIA, UNSPECIFIED SNOMED Code(s): 19367183 (6) Hypertension Current Visit: No Status: Acute Code(s): I10 - ESSENTIAL (PRIMARY) HYPERTENSION SNOMED Code(s): 40599017 (7) Abdominal pain Current Visit: Yes Status: Acute Code(s): R10.9 - UNSPECIFIED ABDOMINAL PAIN SNOMED Code(s): 42018480 Plan: Check CBC and CMP in the morning. Await results of EGD tomorrow. Appreciate multiple consultants. Patient seen and evaluated by nurse practitioner, physician in agreement with plan.
--- NOTE | 2025-06-03 09:51 | P.PN ---
Subjective Progress Note Date: 06/03/25 HISTORY OF PRESENT ILLNESS: Patient is a 75-year-old male with history of severe aortic stenosis status post SAVR with bioprosthetic valve, atrial fibrillation status post ablation on eliquis, bradycardia s/p permanent pacemaker, hypertension, hyperlipidemia, type 2 diabetes mellitus presented to the ER yesterday with concerns for generalized weakness and altered mental status. History was obtained collaterally from and patient. Patient went to bed two nights ago feeling cold and woke up yest erday morning with confusion, fever, chills well as nausea and vomiting and generalized weakness. He had multiple episodes of nonbloody emesis. The night before his symptoms started they went out for dinner. His states that he had a fall while trying to get to the washroom and could not get up which made her concerned about his situation and therefore was brought to the hospital by EMS for further evaluation. She states that he has been doing well until these events occurred. He is usually very active and independent in his ADLs. At the time of interview, patient is AAO x 2. He reports no episodes of chest pain, fluttering, palpitation, lightheadedness or dizziness. Patient reports that his primary senior accounts payable clerk is Dr. Hendrickson. Patient had a permanent pacemaker placement in 2021 and claims that his battery needs to be changed. He is a former smoker, quit 35 years ago and occasionally drinks alcohol. Echocardiogram in 2022 shows LVEF of 50 to 55%. Labs and imaging at this admission: WBC 10.97, hemoglobin 11.9, sodium 138, potassium 4.1, BUN 24, creatinine 1.39, lactic acid 4.1, 2.4, 1.8 Troponin I 0.040, 0.078, 0.054 EKG shows paced rhythm with first-degree AV block and PVCs Chest x-ray shows no acute cardiopulmonary process Vital signs on arrival 102.5 F, pulse rate 72, respiratory 18, blood pressure 108/62, oxygen saturation 97% on 2 L via nasal cannula 06/01/2025 Patient examined this morning at the bedside. Patient currently denies chest pain or pressure. He denies shortness of breath. Vital signs are stable. Blood cultures are positive for strep series and Klebsiella oxytoca. 06/02/2025 Seen and examined bedside this a.m. Underwent left big toe amputation at metatarsophalangeal joint due to concern of infected callus. He is also anticipated to go for EGD on Tuesday Denies any chest pain chest pressure. BP 138/75, heart rate 63 06/03/2025 Patient seen and examined. Patient denies any new complaints. No chest pain or chest pressure. No shortness of breath. He has been afebrile. Blood pressure 155/74, heart rate in the 60s and 70s, pulse ox 97% on room air. Echocardiogram is pending. Repeat blood work reveals hemoglobin 10.7, BUN 13 and creatinine 0.76, WBC 7.7. Patient is scheduled for EGD with biopsy on 06/04 and Eliquis remains on hold. PHYSICAL EXAM: VITAL SIGNS: Reviewed. GENERAL: Well-developed in no acute distress. NECK: Supple. No JVD or thyromegaly LUNGS: Respirations even and unlabored. Lungs essentially clear to auscultation bilaterally. HEART: Irregular rate and rhythm. S1 and S2 heard. EXTREMITIES: Normal range of motion. No clubbing or cyanosis. Peripheral pulses intact. No lower extremity edema ASSESSMENT: Febrile illness Bacteremia Elevated troponins, flat, type II DE secondary to oxygen supply/demand mismatch Metabolic encephalopathy History of dual-chamber pacemaker implantation for sick sinus syndrome History of aortic stenosis with previous bioprosthetic aortic valve replacement History of infective endocarditis Persistent atrial fibrillation Hypertension Hyperlipidemia PLAN: 2D echo has been ordered. Await results. Continue antibiotics per infectious disease Continue current cardiac medications including amlodipine, Lipitor, and propranolol His Eliquis is on hold for possible EGD on Tuesday. If no planned procedure, consider resuming it. Continue telemetry monitoring Further recommendations pending patient course Nurse practitioner note has been reviewed, I agree with documented findings and plan of care. Patient was seen and examined. Objective - Vital Signs Vital signs: Vital Signs Temp 98.3 F 06/03/25 04:00 Pulse 71 06/03/25 04:00 Resp 17 06/03/25 04:00 BP 155/74 06/03/25 04:00 Pulse Ox 97 06/03/25 04:00 FiO2 Intake & Output 06/02/25 06/03/25 06/03/25 18:59 06:59 18:59 Intake Total 1360 20 Output Total 50 350 Balance 1310 -330 Weight 101.4 kg Intake: IV 1310 20 Invasive Line 2 20 Lactated Ringers 1,000 ml 910 @ 130 mls/hr IV .Q7H42M [facility] Rx#:[id number] Intake, IV Titration 50 Amount cefTRIAXone 2 gm In 50 Sodium Chloride 0.9% 50 ml @ 100 mls/hr IVPB Q24HR [facility] Rx#:[id number] Output: Urine 350 Estimated Blood Loss 50 Other: Voiding Method Urinal - Labs CBC & Chem 7: 06/03/25 06:41 06/03/25 06:41 Labs: Abnormal Lab Results - Last 24 Hours (Table) 06/02/25 06/02/25 06/02/25 Range/Units 05:58 05:58 12:15 Chloride 108 H (98-107) mmol/L Glucose 132 H (74-99) mg/dL POC Glucose (mg/dL) 134 H (70-110) mg/dL Hemoglobin A1c 8.8 H (<=6.0) % Calcium 8.2 L (8.4-10.2) mg/dL 06/02/25 06/02/25 06/03/25 Range/Units 16:22 20:23 05:55 Chloride (98-107) mmol/L Glucose (74-99) mg/dL POC Glucose (mg/dL) 176 H 165 H 130 H (70-110) mg/dL Hemoglobin A1c (<=6.0) % Calcium (8.4-10.2) mg/dL Microbiology - Last 24 Hours (Table) 06/02/25 10:25 Gram Stain - Preliminary Toe - Left First 06/01/25 14:00 Gram Stain - Preliminary Toe - Left First Wound Culture - Preliminary Klebsiella oxy Raoultella orni Enterococcus faecalis 05/30/25 17:00 Blood Culture Gram Stain - Preliminary Blood Blood Culture - Preliminary Klebsiella oxy Raoultella orni Strep gallolyticus sp pasteuri Molecular ID 06/01/25 07:57 Blood Culture - Preliminary Blood
[2025-06-03 11:29] LABS: Glucose,Whole Blood 169 mg/dL (70-110)
--- NOTE | 2025-06-03 15:48 | P.PN ---
Subjective Progress Note Date: 06/03/25 SURGICAL PROGRESS NOTE CHIEF COMPLAINT: Chest pain HISTORY OF PRESENT ILLNESS: Abdominal pain improved. CT scan with duodenitis. PHYSICAL EXAM: VITAL SIGNS: Reviewed. GENERAL: Well-developed in no acute distress. ABDOMEN: Soft. Nondistended. Nontender. ASSESSMENT: 1. 75 year old male with abdominal pain and duodenitis on CT-AP PLAN: - Patient scheduled for EGD with biopsy tomorrow - Continue PPI - N.p.o. after midnight Physician Dry Finisher note has been reviewed by physician. Signing provider agrees with the documented findings, assessment, and plan of care. Attestation Patient seen and examined at bedside on 06/03/2025. States abdominal pain is improved. CT scan with duodenitis. Plan for upper endoscopy tomorrow. Continue PPI. Roz Cummins DO Objective - Vital Signs Vital signs: Vital Signs Temp 98.2 F 06/03/25 11:10 Pulse 64 06/03/25 11:10 Resp 18 06/03/25 11:10 BP 162/80 06/03/25 11:10 Pulse Ox 95 06/03/25 11:10 FiO2 Intake & Output 06/02/25 06/03/25 06/03/25 18:59 06:59 18:59 Intake Total 1360 20 250 Output Total 50 350 Balance 1310 -330 250 Weight 101.4 kg Intake: IV 1310 20 10 Invasive Line 2 20 10 Lactated Ringers 1,000 ml 910 @ 130 mls/hr IV .Q7H42M [facility] Rx#:[id number] Intake, IV Titration 50 Amount cefTRIAXone 2 gm In 50 Sodium Chloride 0.9% 50 ml @ 100 mls/hr IVPB Q24HR [facility] Rx#:[id number] Oral 240 Output: Urine 350 Estimated Blood Loss 50 Other: Voiding Method Urinal Urinal - Labs CBC & Chem 7: 06/03/25 06:41 06/03/25 06:41 Labs: Abnormal Lab Results - Last 24 Hours (Table) 06/02/25 06/02/25 06/03/25 Range/Units 16:22 20:23 05:55 RBC (4.40-5.60) 10*6/uL Hgb (13.0-17.0) g/dL Hct (39.6-50.0) % Glucose (74-99) mg/dL POC Glucose (mg/dL) 176 H 165 H 130 H (70-110) mg/dL Calcium (8.4-10.2) mg/dL 06/03/25 06/03/25 06/03/25 Range/Units 06:41 06:41 11:28 RBC 3.34 L (4.40-5.60) 10*6/uL Hgb 10.7 L (13.0-17.0) g/dL Hct 31.4 L (39.6-50.0) % Glucose 117 H (74-99) mg/dL POC Glucose (mg/dL) 169 H (70-110) mg/dL Calcium 8.2 L (8.4-10.2) mg/dL Microbiology - Last 24 Hours (Table) 05/30/25 17:00 Blood Culture Gram Stain - Final Blood Blood Culture - Final Strep gallolyticus sp pasteuri Klebsiella oxy Raoultella orni Molecular ID 06/01/25 17:00 Stool Culture - Preliminary Stool 06/02/25 10:25 Gram Stain - Preliminary Toe - Left First 06/01/25 14:00 Gram Stain - Preliminary Toe - Left First Wound Culture - Preliminary Klebsiella oxy Raoultella orni Enterococcus faecalis 06/01/25 07:57 Blood Culture - Preliminary Blood
--- NOTE | 2025-06-03 16:03 | P.PN ---
Progress Note - Text 75-year-old diabetic male patient had a left foot big toe amputation for infected callus plantar aspect of the left foot. Patient is on IV antibiotic under care of infectious disease. Today we have changed the dressing no redness no discharge noted incision is healing good advised nonweightbearing he can walk on his heel
[2025-06-03 16:12] LABS: Glucose,Whole Blood 171 mg/dL (70-110)
--- NOTE | 2025-06-03 19:15 | CDI ---
Documentation Clarification Form Date: 06/03/2025 06:46:38 PM From: Jackie Allison RN CDIS Phone: [phone] Admit Date: 05/30/2025 08:26:00 PM Patient Name: Tano Lennon Visit Number: [id number] Discharge Date: ATTENTION: The Clinical Documentation Specialists (CDI) and [facility] Coding Staff appreciate your assistance in clarifying documentation. Please respond to the clarification below the line at the bottom and electronically sign. The CDI & [facility] Coding staff will review the response and follow-up if needed. Please note: Queries are made part of the Legal Health Record. If you have any questions, please contact the author of this message via ITS. MORA Rajan Sepsis is documented 06/02, Medicine note, but is not noted in subsequent documentation. Clarification is requested. History/Risk Factors: 75 year old male presents to the ED with altered mental status, high fever over the last everal days, Started on empiric antibiotic treatment, pending cultures. Medical History: Atiral Fib, DM2, GERD, HLD, HTN and partial left big toe amputation. 05/30, ED note. Clinical Indicators: VSS, 05/30: B/P 108/62; HR 72; Temp 102.4 F Oral, RR 18, SpO2 97% 2L nc Medicine note, 06/02: Labs, 05/30: Wbc 10.97, Neutrophils 10.49, Lactic acid 2.4 Microbiology: 05/30 Blood culture Final: Strep gallolyticus sp pasteuri, Klebsiella oxy Raoultella orini Molecular ID: 05/30 Wound culture: Klebsiella oxy Raoultella orni Enterococcus faecalis ID Note, 06/01: patient presented to hospital with sepsis in this patient who did have a fever elevated white count elevated lactic acid source is likely abdominal has the patient did have symptoms of nausea and vomiting some distention was noticed on rectal examination but no significant tenderness and no other obvious focus of infection Treatment: 05/30 Rocephin IVP X 2; 05/30 Vancomycin IVPB x 1; 05/31 Vancomycin IVPB x 1; 05/31 Ceftriaxone IVPB x 1; 06/01 Ceftriaxone IVPB Q24h, Fluids: 05/30 Lactated Ringers IVPB x 2L; 05/30 Lactic Ringers 500cc IV x 1; Please clarify if the Sepsis is: [ ] Sepsis confirmed, remains under treatment [ X ] Sepsis confirmed, resolved [ ] Sepsis ruled out [ ] Other condition, please specify [ ] Unable to determine (Template Last Revised: January 2021) MTDD
[2025-06-03 20:03] LABS: Glucose,Whole Blood 183 mg/dL (70-110)
[2025-06-04 06:01] LABS: Glucose,Whole Blood 114 mg/dL (70-110)
--- NOTE | 2025-06-04 07:17 | P.PN ---
Subjective Progress Note Date: 06/04/25 HISTORY OF PRESENT ILLNESS: Patient is a 75-year-old male with history of severe aortic stenosis status post SAVR with bioprosthetic valve, atrial fibrillation status post ablation on eliquis, bradycardia s/p permanent pacemaker, hypertension, hyperlipidemia, type 2 diabetes mellitus presented to the ER yesterday with concerns for generalized weakness and altered mental status. History was obtained collaterally from and patient. Patient went to bed two nights ago feeling cold and woke up yest erday morning with confusion, fever, chills well as nausea and vomiting and generalized weakness. He had multiple episodes of nonbloody emesis. The night before his symptoms started they went out for dinner. His states that he had a fall while trying to get to the washroom and could not get up which made her concerned about his situation and therefore was brought to the hospital by EMS for further evaluation. She states that he has been doing well until these events occurred. He is usually very active and independent in his ADLs. At the time of interview, patient is AAO x 2. He reports no episodes of chest pain, fluttering, palpitation, lightheadedness or dizziness. Patient reports that his primary prop attendant is Dr. Hendrickson. Patient had a permanent pacemaker placement in 2021 and claims that his battery needs to be changed. He is a former smoker, quit 35 years ago and occasionally drinks alcohol. Echocardiogram in 2022 shows LVEF of 50 to 55%. Labs and imaging at this admission: WBC 10.97, hemoglobin 11.9, sodium 138, potassium 4.1, BUN 24, creatinine 1.39, lactic acid 4.1, 2.4, 1.8 Troponin I 0.040, 0.078, 0.054 EKG shows paced rhythm with first-degree AV block and PVCs Chest x-ray shows no acute cardiopulmonary process Vital signs on arrival 102.5 F, pulse rate 72, respiratory 18, blood pressure 108/62, oxygen saturation 97% on 2 L via nasal cannula 06/01/2025 Patient examined this morning at the bedside. Patient currently denies chest pain or pressure. He denies shortness of breath. Vital signs are stable. Blood cultures are positive for strep series and Klebsiella oxytoca. 06/02/2025 Seen and examined bedside this a.m. Underwent left big toe amputation at metatarsophalangeal joint due to concern of infected callus. He is also anticipated to go for EGD on Tuesday Denies any chest pain chest pressure. BP 138/75, heart rate 63 06/03/2025 Patient seen and examined. Patient denies any new complaints. No chest pain or chest pressure. No shortness of breath. He has been afebrile. Blood pressure 155/74, heart rate in the 60s and 70s, pulse ox 97% on room air. Echocardiogram is pending. Repeat blood work reveals hemoglobin 10.7, BUN 13 and creatinine 0.76, WBC 7.7. Patient is scheduled for EGD with biopsy on 06/04 and Eliquis remains on hold. 06/04/2025 Patient seen and examined. Blood pressure 157/80, heart rate 61, pulse ox 97% on room air. Echocardiogram reveals EF 40 to 45%, moderate concentric LVH, moderate pulmonary hypertension, moderate biatrial dilatation. Bioprosthetic aortic valve with mean gradient 6 mmHg. Mild mitral regurgitation, moderate tricuspid regurgitation. PHYSICAL EXAM: VITAL SIGNS: Reviewed. GENERAL: Well-developed in no acute distress. NECK: Supple. No JVD or thyromegaly LUNGS: Respirations even and unlabored. Lungs essentially clear to auscultation bilaterally. HEART: Irregular rate and rhythm. S1 and S2 heard. EXTREMITIES: Normal range of motion. No clubbing or cyanosis. Peripheral pulses intact. No lower extremity edema ASSESSMENT: Febrile illness Bacteremia Elevated troponins, flat, type II OK secondary to oxygen supply/demand mismatch Metabolic encephalopathy History of dual-chamber pacemaker implantation for sick sinus syndrome History of aortic stenosis with previous bioprosthetic aortic valve replacement History of infective endocarditis Persistent atrial fibrillation Hypertension Hyperlipidemia PLAN: Continue antibiotics per infectious disease Continue current cardiac medications including amlodipine, Lipitor, and propranolol His Eliquis is on hold for possible EGD on Tuesday. If no planned procedure, consider resuming it. Continue telemetry monitoring Further recommendations pending patient course Nurse practitioner note has been reviewed, I agree with documented findings and plan of care. Patient was seen and examined. Objective - Vital Signs Vital signs: Vital Signs Temp 98.2 F 06/04/25 04:00 Pulse 61 06/04/25 04:00 Resp 17 06/04/25 04:00 BP 157/80 06/04/25 04:00 Pulse Ox 97 06/04/25 04:00 FiO2 Intake & Output 06/03/25 06/04/25 06/04/25 18:59 06:59 18:59 Intake Total 490 490 Output Total 550 1580 Balance -60 -1090 Weight 99.2 kg Intake: IV 10 10 Invasive Line 2 10 10 Oral 480 480 Output: Urine 550 1580 Other: Voiding Method Urinal Urinal - Labs CBC & Chem 7: 06/03/25 06:41 06/03/25 06:41 Labs: Abnormal Lab Results - Last 24 Hours (Table) 06/03/25 06/03/25 06/03/25 Range/Units 06:41 06:41 11:28 RBC 3.34 L (4.40-5.60) 10*6/uL Hgb 10.7 L (13.0-17.0) g/dL Hct 31.4 L (39.6-50.0) % Glucose 117 H (74-99) mg/dL POC Glucose (mg/dL) 169 H (70-110) mg/dL Calcium 8.2 L (8.4-10.2) mg/dL 06/03/25 06/03/25 06/04/25 Range/Units 16:10 20:00 06:00 RBC (4.40-5.60) 10*6/uL Hgb (13.0-17.0) g/dL Hct (39.6-50.0) % Glucose (74-99) mg/dL POC Glucose (mg/dL) 171 H 183 H 114 H (70-110) mg/dL Calcium (8.4-10.2) mg/dL Microbiology - Last 24 Hours (Table) 06/01/25 14:00 Anaerobic Culture - Preliminary Toe - Left First 06/01/25 14:00 Gram Stain - Final Toe - Left First Wound Culture - Final Klebsiella oxy Raoultella orni Enterococcus faecalis 06/02/25 10:25 Gram Stain - Preliminary Toe - Left First Tissue Culture - Preliminary Staphylococcus caprae 06/01/25 07:57 Blood Culture - Preliminary Blood 05/30/25 17:00 Blood Culture Gram Stain - Final Blood Blood Culture - Final Strep gallolyticus sp pasteuri Klebsiella oxy Raoultella orni Molecular ID 06/01/25 17:00 Stool Culture - Preliminary Stool
[2025-06-04 07:51] LABS: HCT 33.4 % (39.6-50.0); HGB 10.8 g/dL (13.0-17.0); MCH 30.9 pg (27.0-32.0); MCHC 32.3 g/dL (32.0-37.0); MCV 95.4 fL (80.0-97.0); Platelet Count 157 10*3/uL (140-440); RBC 3.50 10*6/uL (4.40-5.60); RDW 12.7 % (11.5-14.5); WBC 7.25 10*3/uL (4.50-10.00)
[2025-06-04 08:15] LABS: ALT 42 U/L (4-49); AST 26 U/L (17-59); African American GFR (CKD) >90 (>60 ml/min/1.73 sqM); Albumin 2.8 g/dL (3.5-5.0); Alkaline Phosphatase 68 U/L (38-126); Anion Gap 7 mmol/L; Blood Urea Nitrogen 10 mg/dL (9-20); Calcium 8.2 mg/dL (8.4-10.2); Carbon Dioxide 23 mmol/L (22-30); Chloride 107 mmol/L (98-107); Glucose 111 mg/dL (74-99); Non-African American GFR(CKD) 88 (>60 ml/min/1.73 sqM); Potassium 3.7 mmol/L (3.5-5.1); Sodium 137 mmol/L (137-145); Total Protein 5.2 g/dL (6.3-8.2)
[2025-06-04] MEDS ORDERED: ALBUTEROL NEBULIZED 2.5 MG/3 ML INHALATION PRN (08:18)
--- NOTE | 2025-06-04 08:30 | P.PN ---
Subjective Progress Note Date: 06/04/25 This is a 75-year-old male he was originally admitted for evaluation of altered mental status. Patient was noted to have some purulent drainage from his left big toe concerning for infected callus, vascular surgery was consulted and decision was made to amputate left big toe and metatarsophalangeal joint. the procedure was completed on 06/02/2025. Patient also had been having some nausea and vomiting, CT of the abdomen and pelvis was concerning for duodenitis, patient seen and evaluated by general surgeon who is recommending an EGD tomorrow morning. Blood culture was positive for strep and Klebsiella. Patient seen this morning laying in bed resting comfortably. He reports his pain is well-controlled. 06/04/2025 Patient seen and evaluated sitting on side of bed this morning. Patient has been up walking around room and using the bathroom. Patient is scheduled for an EGD this morning. He reports continued abdominal pain and discomfort. Patient also reports a slight wheeze this morning. Objective - Vital Signs Vital signs: Vital Signs Temp 98.2 F 06/04/25 04:00 Pulse 61 06/04/25 04:00 Resp 17 06/04/25 04:00 BP 157/80 06/04/25 04:00 Pulse Ox 97 06/04/25 04:00 FiO2 Intake & Output 06/03/25 06/04/25 06/04/25 18:59 06:59 18:59 Intake Total 490 490 Output Total 550 1580 Balance -60 -1090 Weight 99.2 kg Intake: IV 10 10 Invasive Line 2 10 10 Oral 480 480 Output: Urine 550 1580 Other: Voiding Method Urinal Urinal - Constitutional General appearance: Present: cooperative, no acute distress - EENT Eyes: Present: PERRLA - Neck Neck: Present: normal ROM. Absent: lymphadenopathy, rigidity - Respiratory Details: Scattered expiratory wheezes - Cardiovascular Heart sounds: normal: S1, S2 - Gastrointestinal General gastrointestinal: Present: soft. Absent: tenderness - Integumentary Integumentary Comment(s): Dressing to left foot clean dry and intact - Psychiatric Psychiatric: Present: A&O x's 3, appropriate affect, intact judgment & insight - Labs CBC & Chem 7: 06/04/25 06:32 06/04/25 06:32 Labs: Abnormal Lab Results - Last 24 Hours (Table) 06/03/25 06/03/25 06/03/25 Range/Units 06:41 11:28 16:10 RBC (4.40-5.60) 10*6/uL Hgb (13.0-17.0) g/dL Hct (39.6-50.0) % Glucose 117 H (74-99) mg/dL POC Glucose (mg/dL) 169 H 171 H (70-110) mg/dL Calcium 8.2 L (8.4-10.2) mg/dL Total Protein (6.3-8.2) g/dL Albumin (3.5-5.0) g/dL 06/03/25 06/04/25 06/04/25 Range/Units 20:00 06:00 06:32 RBC 3.50 L (4.40-5.60) 10*6/uL Hgb 10.8 L (13.0-17.0) g/dL Hct 33.4 L (39.6-50.0) % Glucose (74-99) mg/dL POC Glucose (mg/dL) 183 H 114 H (70-110) mg/dL Calcium (8.4-10.2) mg/dL Total Protein (6.3-8.2) g/dL Albumin (3.5-5.0) g/dL 06/04/25 Range/Units 06:32 RBC (4.40-5.60) 10*6/uL Hgb (13.0-17.0) g/dL Hct (39.6-50.0) % Glucose 111 H (74-99) mg/dL POC Glucose (mg/dL) (70-110) mg/dL Calcium 8.2 L (8.4-10.2) mg/dL Total Protein 5.2 L (6.3-8.2) g/dL Albumin 2.8 L (3.5-5.0) g/dL Microbiology - Last 24 Hours (Table) 06/01/25 14:00 Anaerobic Culture - Preliminary Toe - Left First 06/01/25 14:00 Gram Stain - Final Toe - Left First Wound Culture - Final Klebsiella oxy Raoultella orni Enterococcus faecalis 06/02/25 10:25 Gram Stain - Preliminary Toe - Left First Tissue Culture - Preliminary Staphylococcus caprae 06/01/25 07:57 Blood Culture - Preliminary Blood 05/30/25 17:00 Blood Culture Gram Stain - Final Blood Blood Culture - Final Strep gallolyticus sp pasteuri Klebsiella oxy Raoultella orni Molecular ID 06/01/25 17:00 Stool Culture - Preliminary Stool Assessment and Plan (1) Bacteremia Current Visit: Yes Status: Acute Code(s): R78.81 - BACTEREMIA SNOMED Code(s): 6370863 (2) Infected ulcer of skin Current Visit: Yes Status: Acute Code(s): L98.499 - NON-PRESSURE CHRONIC ULCER OF SKIN OF SITES W UNSP SEVERITY; L08.9 - LOCAL INFECTION OF THE SKIN AND SUBCUTANEOUS TISSUE, UNSP SNOMED Code(s): 8506649 (3) Atrial fibrillation Current Visit: No Status: Acute Code(s): I48.91 - UNSPECIFIED ATRIAL FIBRILLATION SNOMED Code(s): 36012792 (4) Diabetes Current Visit: No Status: Acute Code(s): E11.9 - TYPE 2 DIABETES MELLITUS WITHOUT COMPLICATIONS SNOMED Code(s): 23837450 (5) Hyperlipemia Current Visit: No Status: Acute Code(s): E78.5 - HYPERLIPIDEMIA, UNSPECIFIED SNOMED Code(s): 71025472 (6) Hypertension Current Visit: No Status: Acute Code(s): I10 - ESSENTIAL (PRIMARY) HYPERTENSION SNOMED Code(s): 32072140 (7) Abdominal pain Current Visit: Yes Status: Acute Code(s): R10.9 - UNSPECIFIED ABDOMINAL PAIN SNOMED Code(s): 39892243 Plan: Check CBC and CMP in the morning. Await results of EGD. Decrease IV fluids to 75 mL/h. Add albuterol to use as needed for shortness of breath and wheezing. Appreciate multiple consultants. Patient seen and evaluated by nurse practitioner, physician in agreement with plan.
[2025-06-04] MEDS: amLODIPine 10 MG TAB PO SCH (08:59)
[2025-06-04] MEDS ORDERED: BENZOCAINE SPRAY 1 EACH MM PRN (10:13)
[2025-06-04] MEDS ORDERED: fentaNYL (PF) 50 MCG/ML 2 ML AMP IVP PRN (10:13)
[2025-06-04] MEDS ORDERED: MIDAZOLAM 2 MG/2 ML VIAL IV PRN (10:13)
[2025-06-04 11:15] LABS: Glucose,Whole Blood 123 mg/dL (70-110)
[2025-06-04] MEDS: IV FLUID CONTINUATION 1,000 ML IV ONE ×2 (11:39→17:03)
[2025-06-04] MEDS: BENZOCAINE SPRAY 1 EACH MM ONE (11:39)
[2025-06-04] MEDS: fentaNYL (PF) 50 MCG/1 ML VIAL IVP ONE (12:02)
[2025-06-04] MEDS: MIDAZOLAM 2 MG/2 ML VIAL IVP ONE (12:02)
--- NOTE | 2025-06-04 15:19 | P.PN ---
Subjective Progress Note Date: 06/03/25 Principal diagnosis: Reason for follow-up is fever bacteremia, infected callus Patient is a 75-year-old male with a past medical history significant for Atrial Fibrillation, Diabetes Mellitus, GERD/Reflux, Hearing Disorder / Deafness, Hyperlipidemia, Hypertension, Memory Impairment, Seizure Disorder, Syncope, Vascular Disorder, presenting to the hospital for evaluation of mental status changes did have an episode of nausea and vomiting did have a fever prompting this consultation initial workup negative did have CT abdominal pelvis concerning for duodenitis.patient was noted to have some purulent drainage from his left big toe concerning for infected callus, vascular surgery was consulted, patient is status post vascular surgery evaluation amputation of the left big toe and metatarsophalangeal joint procedure completed on 06/02/2025. On today's evaluation that is 06/03/2025, patient has been afebrile, patient is breathing comfortably and is currently on room air, patient denies having any chest pain and cough, patient denies nausea vomiting or diarrhea and no abdominal pain denies pain to the left big toe potation site. Patient white count 7.7, creatinine 0.76 Objective - Vital Signs Vital signs: Vital Signs Temp 98.2 F 06/03/25 11:10 Pulse 64 06/03/25 11:10 Resp 18 06/03/25 11:10 BP 162/80 06/03/25 11:10 Pulse Ox 95 06/03/25 11:10 FiO2 Intake & Output 06/02/25 06/03/25 06/03/25 18:59 06:59 18:59 Intake Total 1360 20 250 Output Total 50 350 Balance 1310 -330 250 Weight 101.4 kg Intake: IV 1310 20 10 Invasive Line 2 20 10 Lactated Ringers 1,000 ml 910 @ 130 mls/hr IV .Q7H42M [facility] Rx#:[id number] Intake, IV Titration 50 Amount cefTRIAXone 2 gm In 50 Sodium Chloride 0.9% 50 ml @ 100 mls/hr IVPB Q24HR [facility] Rx#:[id number] Oral 240 Output: Urine 350 Estimated Blood Loss 50 Other: Voiding Method Urinal Urinal - Exam GENERAL DESCRIPTION: An elderly male lying in bed in no distress RESPIRATORY SYSTEM: Unlabored breathing , decreased breath sounds at bases HEART: S1 S2 regular rate and rhythm , ABDOMEN: Soft , no tenderness EXTREMITIES: Left big toe amputation site wound is currently dressed - Labs CBC & Chem 7: 06/04/25 06:32 06/04/25 06:32 Labs: Abnormal Lab Results - Last 24 Hours (Table) 06/02/25 06/02/25 06/03/25 Range/Units 16:22 20:23 05:55 RBC (4.40-5.60) 10*6/uL Hgb (13.0-17.0) g/dL Hct (39.6-50.0) % Glucose (74-99) mg/dL POC Glucose (mg/dL) 176 H 165 H 130 H (70-110) mg/dL Calcium (8.4-10.2) mg/dL 06/03/25 06/03/25 06/03/25 Range/Units 06:41 06:41 11:28 RBC 3.34 L (4.40-5.60) 10*6/uL Hgb 10.7 L (13.0-17.0) g/dL Hct 31.4 L (39.6-50.0) % Glucose 117 H (74-99) mg/dL POC Glucose (mg/dL) 169 H (70-110) mg/dL Calcium 8.2 L (8.4-10.2) mg/dL Microbiology - Last 24 Hours (Table) 06/01/25 17:00 Stool Culture - Preliminary Stool 06/02/25 10:25 Gram Stain - Preliminary Toe - Left First 06/01/25 14:00 Gram Stain - Preliminary Toe - Left First Wound Culture - Preliminary Klebsiella oxy Raoultella orni Enterococcus faecalis 05/30/25 17:00 Blood Culture Gram Stain - Preliminary Blood Blood Culture - Preliminary Klebsiella oxy Raoultella orni Strep gallolyticus sp pasteuri Molecular ID 06/01/25 07:57 Blood Culture - Preliminary Blood Assessment and Plan (1) Sepsis Current Visit: Yes Status: Acute Code(s): A41.9 - SEPSIS, UNSPECIFIED ORGANISM SNOMED Code(s): 28377646 (2) Bacteremia Current Visit: Yes Status: Acute Code(s): R78.81 - BACTEREMIA SNOMED Code(s): 3634137 (3) Infected ulcer of skin Current Visit: Yes Status: Acute Code(s): L98.499 - NON-PRESSURE CHRONIC ULCER OF SKIN OF SITES W UNSP SEVERITY; L08.9 - LOCAL INFECTION OF THE SKIN AND SUBCUTANEOUS TISSUE, UNSP SNOMED Code(s): 4499567 Plan: 1patient presented to hospital with sepsis in this patient who did have a fever elevated white count elevated lactic acid source is likely abdominal has the patient did have symptoms of nausea and vomiting some distention was noticed on rectal examination but no significant tenderness and no other obvious focus of infection patient currently denies any headache he is awake alert Harrison x 3 and evidence of any neck rigidity 2-patient with elevated creatinine high risk of nephrotoxicity from surgical investigation and medication 3patient did have CT of abdominal pelvis with oral contrast only did shows evidence of duodenitis General Surgery has been consulted by admitting team 4positive blood culture Klebsiella source is likely infected callus of the left big toe 5-patient did have evidence of infected callus on the plantar aspect of the left big toe, vascular surgery consulted status post amputation of the left big toe 6patient currently being treated with Rocephin and Flagyl while waiting for the repeat blood and OR culture to finalize to determine discharge antibiotics. at the bedside question answered Dictation was produced using [employer] dictation software. please excuse any grammatical, word or spelling errors. Time with Patient: Less than 30
--- NOTE | 2025-06-04 15:19 | P.PN ---
Subjective Progress Note Date: 06/04/25 Principal diagnosis: Reason for follow-up is fever bacteremia, infected callus Patient is a 75-year-old male with a past medical history significant for Atrial Fibrillation, Diabetes Mellitus, GERD/Reflux, Hearing Disorder / Deafness, Hyperlipidemia, Hypertension, Memory Impairment, Seizure Disorder, Syncope, Vascular Disorder, presenting to the hospital for evaluation of mental status changes did have an episode of nausea and vomiting did have a fever prompting this consultation initial workup negative did have CT abdominal pelvis concerning for duodenitis.patient was noted to have some purulent drainage from his left big toe concerning for infected callus, vascular surgery was consulted, patient is status post vascular surgery evaluation amputation of the left big toe and metatarsophalangeal joint procedure completed on 06/02/2025. On today's evaluation that is 06/04/2025, Patient is afebrile this morning patient denies having any chest pain shortness of breath or cough, the patient is currently on room air, patient denies any abdominal pain no diarrhea no nausea no vomiting no feeling of urinary symptoms. Patient with count 7.25, creatinine 0.80 Objective - Vital Signs Vital signs: Vital Signs Temp 98.2 F 06/04/25 04:00 Pulse 61 06/04/25 04:00 Resp 17 06/04/25 04:00 BP 157/80 06/04/25 04:00 Pulse Ox 97 06/04/25 04:00 FiO2 Intake & Output 06/03/25 06/04/25 06/04/25 18:59 06:59 18:59 Intake Total 490 490 Output Total 550 1580 Balance -60 -1090 Weight 99.2 kg Intake: IV 10 10 Invasive Line 2 10 10 Oral 480 480 Output: Urine 550 1580 Other: Voiding Method Urinal Urinal - Exam GENERAL DESCRIPTION: An elderly male lying in bed in no distress RESPIRATORY SYSTEM: Unlabored breathing , decreased breath sounds at bases HEART: S1 S2 regular rate and rhythm , ABDOMEN: Soft , no tenderness EXTREMITIES: Left big toe amputation site wound is currently dressed minimal drainage on the dressing - Labs CBC & Chem 7: 06/04/25 06:32 06/04/25 06:32 Labs: Abnormal Lab Results - Last 24 Hours (Table) 06/03/25 06/03/25 06/03/25 Range/Units 06:41 06:41 11:28 RBC 3.34 L (4.40-5.60) 10*6/uL Hgb 10.7 L (13.0-17.0) g/dL Hct 31.4 L (39.6-50.0) % Glucose 117 H (74-99) mg/dL POC Glucose (mg/dL) 169 H (70-110) mg/dL Calcium 8.2 L (8.4-10.2) mg/dL 06/03/25 06/03/25 06/04/25 Range/Units 16:10 20:00 06:00 RBC (4.40-5.60) 10*6/uL Hgb (13.0-17.0) g/dL Hct (39.6-50.0) % Glucose (74-99) mg/dL POC Glucose (mg/dL) 171 H 183 H 114 H (70-110) mg/dL Calcium (8.4-10.2) mg/dL 06/04/25 Range/Units 06:32 RBC 3.50 L (4.40-5.60) 10*6/uL Hgb 10.8 L (13.0-17.0) g/dL Hct 33.4 L (39.6-50.0) % Glucose (74-99) mg/dL POC Glucose (mg/dL) (70-110) mg/dL Calcium (8.4-10.2) mg/dL Microbiology - Last 24 Hours (Table) 06/01/25 14:00 Anaerobic Culture - Preliminary Toe - Left First 06/01/25 14:00 Gram Stain - Final Toe - Left First Wound Culture - Final Klebsiella oxy Raoultella orni Enterococcus faecalis 06/02/25 10:25 Gram Stain - Preliminary Toe - Left First Tissue Culture - Preliminary Staphylococcus caprae 06/01/25 07:57 Blood Culture - Preliminary Blood 05/30/25 17:00 Blood Culture Gram Stain - Final Blood Blood Culture - Final Strep gallolyticus sp pasteuri Klebsiella oxy Raoultella orni Molecular ID 06/01/25 17:00 Stool Culture - Preliminary Stool Assessment and Plan (1) Sepsis Current Visit: Yes Status: Acute Code(s): A41.9 - SEPSIS, UNSPECIFIED ORGANISM SNOMED Code(s): 74589829 (2) Bacteremia Current Visit: Yes Status: Acute Code(s): R78.81 - BACTEREMIA SNOMED Code(s): 0074160 (3) Infected ulcer of skin Current Visit: Yes Status: Acute Code(s): L98.499 - NON-PRESSURE CHRONIC ULCER OF SKIN OF SITES W UNSP SEVERITY; L08.9 - LOCAL INFECTION OF THE SKIN AND SUBCUTANEOUS TISSUE, UNSP SNOMED Code(s): 5893748 Plan: 1patient presented to hospital with sepsis in this patient who did have a fever elevated white count elevated lactic acid source is likely abdominal has the patient did have symptoms of nausea and vomiting some distention was noticed on rectal examination but no significant tenderness and no other obvious focus of infection patient currently denies any headache he is awake alert [place] x 3 and evidence of any neck rigidity 2-patient with elevated creatinine high risk of nephrotoxicity from surgical investigation and medication 3patient did have CT of abdominal pelvis with oral contrast only did shows evidence of duodenitis General Surgery has been consulted by admitting team 4positive blood culture Klebsiella source is likely infected callus of the left big toe 5-patient did have evidence of infected callus on the plantar aspect of the left big toe, vascular surgery consulted status post amputation of the left big toe 6patient local culture also now growing Enterococcus in addition to Klebsiella we will switch antibiotic therapy to Unasyn and hopefully finishing therapy with oral antibiotics Dictation was produced using [employer] dictation software. please excuse any grammatical, word or spelling errors. Time with Patient: Less than 30
--- NOTE | 2025-06-04 16:15 | P.PN ---
Progress Note - Text 79-year-old gentleman history of diabetes hypertension A-fib patient had a infected left big toe had a amputation with primary closure and is on IV antibiotic under care of infectious disease also has a history of duodenitis to have a EGD today Dressing dry no drainage noted continue with IV antibiotic we will change dressing tomorrow
[2025-06-04 16:24] LABS: Glucose,Whole Blood 127 mg/dL (70-110)
--- NOTE | 2025-06-04 17:34 | P.OP ---
Date of Procedure: 06/04/25 Preoperative Diagnosis: Duodenitis Postoperative Diagnosis: Duodenitis Procedure(s) Performed: EGD with biopsy of the duodenum Anesthesia: MASON Surgeon: Zaki Palomino Pathology: other (Duodenum) Condition: stable Disposition: floor Indications for Procedure: Abdominal pain Operative Findings: Inflammation of the duodenum Description of Procedure: Patient brought to the endoscopy suite where a timeout was performed and everyone agreed with the information and decided Adult side scope was used to traverse the mouth esophagus stomach into the duodenum where I encountered inflammation. Multiple biopsies were taken the scope was then retracted hemostasis was achieved the scope was then retroflexed and no hiatal hernia was seen the scope was then retracted out of the normal- appearing stomach and esophagus intact the patient tolerated procedure well and was then transported to PACU in stable condition
[2025-06-04] MEDS: AMPICILLIN-SULBACTAM 3 GM in SODIUM CHLORIDE 0.9% 100 ML IVPB SCH (17:35)
[2025-06-04 19:15] LABS: Glucose,Whole Blood 133 mg/dL (70-110)
[2025-06-05 05:26] LABS: Glucose,Whole Blood 136 mg/dL (70-110)
[2025-06-05 07:17] LABS: HCT 32.5 % (39.6-50.0); HGB 11.0 g/dL (13.0-17.0); MCH 31.4 pg (27.0-32.0); MCHC 33.8 g/dL (32.0-37.0); MCV 92.9 fL (80.0-97.0); Platelet Count 186 10*3/uL (140-440); RBC 3.50 10*6/uL (4.40-5.60); RDW 12.6 % (11.5-14.5); WBC 6.65 10*3/uL (4.50-10.00)
[2025-06-05 07:37] LABS: ALT 33 U/L (4-49); AST 20 U/L (17-59); African American GFR (CKD) >90 (>60 ml/min/1.73 sqM); Albumin 2.9 g/dL (3.5-5.0); Alkaline Phosphatase 70 U/L (38-126); Anion Gap 9 mmol/L; Blood Urea Nitrogen 9 mg/dL (9-20); Calcium 8.4 mg/dL (8.4-10.2); Carbon Dioxide 25 mmol/L (22-30); Chloride 105 mmol/L (98-107); Glucose 120 mg/dL (74-99); Non-African American GFR(CKD) 90 (>60 ml/min/1.73 sqM); Potassium 3.6 mmol/L (3.5-5.1); Sodium 139 mmol/L (137-145); Total Protein 5.4 g/dL (6.3-8.2)
--- NOTE | 2025-06-05 08:52 | P.PN ---
Subjective Progress Note Date: 06/05/25 Principal diagnosis: The patient is status post amputation of the left toe secondary to infected foot with history of epigastric pain. EGD did not show significant issue as far as peptic ulcer disease duodenitis is noted. Otherwise he is tolerating antibiotic treatment. No chest pain or shortness of breath no fever or chills stated. No voiding difficulties noted. The patient is tolerating antibiotic therapy. Objective - Vital Signs Vital signs: Vital Signs Temp 98.4 F 06/05/25 08:34 Pulse 85 06/05/25 08:34 Resp 16 06/05/25 08:34 BP 153/85 06/05/25 08:34 Pulse Ox 96 06/05/25 08:34 FiO2 Intake & Output 06/04/25 06/05/25 06/05/25 18:59 06:59 18:59 Intake Total 460 20 0 Output Total 1000 1600 800 Balance -959 -0484 -102 Weight 99.3 kg Intake: IV 100 20 Invasive Line 4 20 Oral 360 0 Output: Urine 1000 1600 800 Other: Voiding Method Urinal Urinal # Voids 1 - Constitutional General appearance: Present: cooperative, no acute distress - EENT Eyes: Absent: abnormal pupil - Respiratory Respiratory: bilateral: CTA - Cardiovascular Rhythm: irregularly irregular Heart sounds: normal: S1, S2 Abnormal Heart Sounds: Absent: S3 Gallop - Gastrointestinal General gastrointestinal: Present: soft. Absent: tenderness - Integumentary Integumentary Comment(s): Primary closure of left toe. - Labs CBC & Chem 7: 06/05/25 05:33 06/05/25 05:33 Labs: Abnormal Lab Results - Last 24 Hours (Table) 06/04/25 06/04/25 06/04/25 Range/Units 11:13 16:22 19:14 RBC (4.40-5.60) 10*6/uL Hgb (13.0-17.0) g/dL Hct (39.6-50.0) % Glucose (74-99) mg/dL POC Glucose (mg/dL) 123 H 127 H 133 H (70-110) mg/dL Total Protein (6.3-8.2) g/dL Albumin (3.5-5.0) g/dL 06/05/25 06/05/25 06/05/25 Range/Units 05:23 05:33 05:33 RBC 3.50 L (4.40-5.60) 10*6/uL Hgb 11.0 L (13.0-17.0) g/dL Hct 32.5 L (39.6-50.0) % Glucose 120 H (74-99) mg/dL POC Glucose (mg/dL) 136 H (70-110) mg/dL Total Protein 5.4 L (6.3-8.2) g/dL Albumin 2.9 L (3.5-5.0) g/dL Microbiology - Last 24 Hours (Table) 06/01/25 17:00 Stool Culture - Final Stool 06/01/25 14:00 Anaerobic Culture - Final Toe - Left First Anaerobic Gm Positive Bacill 06/02/25 10:25 Anaerobic Culture - Preliminary Toe - Left First 06/01/25 07:57 Blood Culture - Preliminary Blood Assessment and Plan (1) Acute delirium Current Visit: No Status: Acute Code(s): R41.0 - DISORIENTATION, UNSPECIFIED SNOMED Code(s): 5286713 (2) Atrial fibrillation Current Visit: No Status: Acute Code(s): I48.91 - UNSPECIFIED ATRIAL FIBRILLATION SNOMED Code(s): 91910034 (3) Diabetes Current Visit: No Status: Acute Code(s): E11.9 - TYPE 2 DIABETES MELLITUS WITHOUT COMPLICATIONS SNOMED Code(s): 20104826 (4) Hyperlipemia Current Visit: No Status: Acute Code(s): E78.5 - HYPERLIPIDEMIA, UNSPECIFIED SNOMED Code(s): 96454712 (5) Hypertension Current Visit: No Status: Acute Code(s): I10 - ESSENTIAL (PRIMARY) HYPERTENSION SNOMED Code(s): 94840932 (6) Nonrheumatic aortic valve stenosis with insufficiency Current Visit: No Status: Acute Code(s): I35.2 - NONRHEUMATIC AORTIC (VALVE) STENOSIS WITH INSUFFICIENCY SNOMED Code(s): 467010815 (7) Seizure disorder Current Visit: No Status: Acute Code(s): G40.909 - EPILEPSY, UNSP, NOT INTRA CTABLE, WITHOUT STATUS EPILEPTICUS SNOMED Code(s): 963113741 (8) Sick sinus syndrome Current Visit: No Status: Acute Code(s): I49.5 - SICK SINUS SYNDROME SNOMED Code(s): 74810608 Plan: Reconcile home medications. Consult cardiology. Consult infectious disease. Noted anaerobic gram-positive cocci in initial wound culture. Appreciate multiple consultants input. Once cleared by infectious disease and vascular surgery, anticipate discharge. See orders otherwise
[2025-06-05 11:10] LABS: Glucose,Whole Blood 200 mg/dL (70-110)
--- NOTE | 2025-06-05 12:25 | P.TEE ---
Date of Procedure: 06/04/25 Description of Procedure(s): Procedure performed: 1. Transesophageal Echocardiogram with color flow doppler, pulsed wave doppler and continuous wave doppler, (CPT 39638, +23911, +85019) 2. Moderate conscious sedation. Sedation time 10 mins. (CPT 75217) Indications: Infective endocarditis, bacteremia, TAVR valve, PPM Consent: I have discussed the risks, benefits and alternative therapies for the above-mentioned procedure. The patient has indicated understanding and acceptance of the risks of the procedure. Signed consent was obtained and was placed in the paper chart. Procedural Steps: Timeout was performed in usual fashion. Patient's heart rate, blood pressure, oxygen saturation and ECG were monitored. Benzocaine was sprayed liberally in the back of the throat. Bite block was placed between the jaw. 2 mg of Versed and 50 mcg of Fentanyl were administered intravenously. After achieving appropriate moderate conscious sedation, SHANE probe was advanced without difficulty and without any immediate complications to the esophagus. SHANE study was performed with color flow doppler, pulsed wave doppler and continuous wave doppler. The probe was then removed. Patient tolerated the procedure well. Patient was transferred to the post procedure area in stable and satisfactory condition. Throughout the procedure patient's heart rate, blood pressure, oxygen saturation and ECG were monitored. Total sedation time 10 mins. Complications: none FINDINGS Left Atrium: Mild LA dilatation. S/D was less than 1 and pulmonic vein suggestive of vascular dysfunction Left Atrial Appendage: No evidence of thrombus or mass seen in ISELA Inter atrial septum: Intact inter-atrial septum no evidence of ASD or PFO by color Doppler Left Ventricle: Normal global LV size and systolic function Right Atrium: Normal overall RA size. PPM wire noticed with no evidence of vegetation. Right Ventricle: Normal global RV size and systolic function. PPM wire noted with no evidence of vegetation. Aortic Valve: TAVR valve, normal functioning. Mild central regurgitation. No PVL. No evidence of stenosis by color Doppler. Mitral Valve: Structurally normal, no evidence of vegetation or endocarditis. Mild mitral regurgitation. Tricuspid Valve: Mild to moderate tricuspid regurgitation, no evidence of vegetation or endocarditis. Ascending aorta, Aortic root and Aortic arch: Normal size ascending aorta and aortic root with mild intimal thickening. Descending aorta: Mild intimal thickening. No pericardial effusion, small pleural effusion CONCLUSION: Normal LV size and systolic function No evidence of infective endocarditis or vegetation on valves or PPM wires Mild mitral regurgitation, mild to moderate tricuspid regurgitation TAVR valve in place, mild central regurgitation, no PVL. No significant stenosis. Wallace Still MD, RPVI, FACC Thank you for allowing [facility] to participate in this patient's care. Feel free to reach out in case of any followup questions.
[2025-06-05] MEDS: SUCRALFATE 1 GM TAB PO SCH (12:40)
[2025-06-05] MEDS: SIMETHICONE 40 MG/0.6 ML DROPS 2,000 MG/30 ML BOTTLE PO SCH (12:41)
--- NOTE | 2025-06-05 14:09 | P.PN ---
Subjective Progress Note Date: 06/05/25 Patient tolerated EGD well overall. Mentions he is eating some. Denies any pain or nausea/vomiting. Does mention 2 BM this morning, one solid and one liquid. Objective - Vital Signs Vital signs: Vital Signs Temp 97.8 F 06/05/25 12:49 Pulse 70 06/05/25 12:49 Resp 18 06/05/25 12:49 BP 164/74 06/05/25 12:49 Pulse Ox 98 06/05/25 12:49 FiO2 Intake & Output 06/04/25 06/05/25 06/05/25 18:59 06:59 18:59 Intake Total 460 20 10 Output Total 1000 1600 1200 Balance -540 -5220 -1190 Weight 99.3 kg Intake: IV 100 20 10 Invasive Line 4 20 10 Oral 360 0 Output: Urine 1000 1600 1200 Other: Voiding Method Urinal Urinal Urinal # Voids 1 - Exam Constitutional: No acute distress. Lying back in bed comfortably. Abdominal: Mild RLQ TTP (mentions this is not new for him). - Labs CBC & Chem 7: 06/05/25 05:33 06/05/25 05:33 Labs: Abnormal Lab Results - Last 24 Hours (Table) 06/04/25 06/04/25 06/05/25 Range/Units 16:22 19:14 05:23 RBC (4.40-5.60) 10*6/uL Hgb (13.0-17.0) g/dL Hct (39.6-50.0) % Glucose (74-99) mg/dL POC Glucose (mg/dL) 127 H 133 H 136 H (70-110) mg/dL Total Protein (6.3-8.2) g/dL Albumin (3.5-5.0) g/dL 06/05/25 06/05/25 06/05/25 Range/Units 05:33 05:33 11:08 RBC 3.50 L (4.40-5.60) 10*6/uL Hgb 11.0 L (13.0-17.0) g/dL Hct 32.5 L (39.6-50.0) % Glucose 120 H (74-99) mg/dL POC Glucose (mg/dL) 200 H (70-110) mg/dL Total Protein 5.4 L (6.3-8.2) g/dL Albumin 2.9 L (3.5-5.0) g/dL Microbiology - Last 24 Hours (Table) 06/01/25 17:00 Stool Culture - Final Stool 06/01/25 14:00 Anaerobic Culture - Final Toe - Left First Anaerobic Gm Positive Bacill 06/02/25 10:25 Anaerobic Culture - Preliminary Toe - Left First 06/01/25 07:57 Blood Culture - Preliminary Blood Assessment and Plan Plan: ASSESSMENT: 1. 75 year old male with abdominal pain and duodenitis on CT-AP PLAN: - Advance diet as tolerated - Added carafate 1gm PO TID and mylicon drops 80 mg PO HS - Continue PPI while admitted - Pending biopsy results Attestation Patient seen and examined at bedside. Status post EGD secondary to abdominal pain with duodenitis. Patient okay to advance diet as tolerated. Continue Carafate and PPI. Surgically stable for discharge. Roz Cummins,
--- NOTE | 2025-06-05 15:30 | P.PN ---
Subjective Progress Note Date: 06/05/25 Principal diagnosis: Reason for follow-up is fever bacteremia, infected callus Patient is a 75-year-old male with a past medical history significant for Atrial Fibrillation, Diabetes Mellitus, GERD/Reflux, Hearing Disorder / Deafness, Hyperlipidemia, Hypertension, Memory Impairment, Seizure Disorder, Syncope, Vascular Disorder, presenting to the hospital for evaluation of mental status changes did have an episode of nausea and vomiting did have a fever prompting this consultation initial workup negative did have CT abdominal pelvis concerning for duodenitis.patient was noted to have some purulent drainage from his left big toe concerning for infected callus, vascular surgery was consulted, patient is status post vascular surgery evaluation amputation of the left big toe and metatarsophalangeal joint procedure completed on 06/02/2025. On today's evaluation that is 06/05/2025,the patient denies any fever or any chills, patient is breathing comfortably on room air, the patient denies chest pain complaining of some wheezing today but no significant cough, patient denies abdominal pain, no nausea vomiting or diarrhea. Patient white count 6.65, creatinine 0.77 Objective - Vital Signs Vital signs: Vital Signs Temp 98.4 F 06/05/25 08:34 Pulse 85 06/05/25 08:34 Resp 16 06/05/25 08:34 BP 153/85 06/05/25 08:34 Pulse Ox 96 06/05/25 08:34 FiO2 Intake & Output 06/04/25 06/05/25 06/05/25 18:59 06:59 18:59 Intake Total 460 20 10 Output Total 1000 1600 800 Balance -540 -1580 -790 Weight 99.3 kg Intake: IV 100 20 10 Invasive Line 4 20 10 Oral 360 0 Output: Urine 1000 1600 800 Other: Voiding Method Urinal Urinal Urinal # Voids 1 - Exam GENERAL DESCRIPTION: An elderly male lying in bed in no distress RESPIRATORY SYSTEM: Unlabored breathing , decreased breath sounds at bases HEART: S1 S2 regular rate and rhythm , ABDOMEN: Soft , no tenderness EXTREMITIES: Left big toe amputation site wound is currently dressed minimal drainage on the dressing - Labs CBC & Chem 7: 06/05/25 05:33 06/05/25 05:33 Labs: Abnormal Lab Results - Last 24 Hours (Table) 06/04/25 06/04/25 06/04/25 Range/Units 11:13 16:22 19:14 RBC (4.40-5.60) 10*6/uL Hgb (13.0-17.0) g/dL Hct (39.6-50.0) % Glucose (74-99) mg/dL POC Glucose (mg/dL) 123 H 127 H 133 H (70-110) mg/dL Total Protein (6.3-8.2) g/dL Albumin (3.5-5.0) g/dL 06/05/25 06/05/25 06/05/25 Range/Units 05:23 05:33 05:33 RBC 3.50 L (4.40-5.60) 10*6/uL Hgb 11.0 L (13.0-17.0) g/dL Hct 32.5 L (39.6-50.0) % Glucose 120 H (74-99) mg/dL POC Glucose (mg/dL) 136 H (70-110) mg/dL Total Protein 5.4 L (6.3-8.2) g/dL Albumin 2.9 L (3.5-5.0) g/dL Microbiology - Last 24 Hours (Table) 06/01/25 17:00 Stool Culture - Final Stool 06/01/25 14:00 Anaerobic Culture - Final Toe - Left First Anaerobic Gm Positive Bacill 06/02/25 10:25 Anaerobic Culture - Preliminary Toe - Left First 06/01/25 07:57 Blood Culture - Preliminary Blood Assessment and Plan (1) Sepsis Current Visit: Yes Status: Acute Code(s): A41.9 - SEPSIS, UNSPECIFIED ORGANISM SNOMED Code(s): 64360030 (2) Bacteremia Current Visit: Yes Status: Acute Code(s): R78.81 - BACTEREMIA SNOMED Code(s): 3212621 (3) Infected ulcer of skin Current Visit: Yes Status: Acute Code(s): L98.499 - NON-PRESSURE CHRONIC ULCER OF SKIN OF SITES W UNSP SEVERITY; L08.9 - LOCAL INFECTION OF THE SKIN AND SUBCUTANEOUS TISSUE, UNSP SNOMED Code(s): 6572040 Plan: 1patient presented to hospital with sepsis in this patient who did have a fever elevated white count elevated lactic acid source is likely abdominal has the patient did have symptoms of nausea and vomiting some distention was noticed on rectal examination but no significant tenderness and no other obvious focus of infection patient currently denies any headache he is awake alert [place] x 3 and evidence of any neck rigidity 2-patient with elevated creatinine high risk of nephrotoxicity from surgical investigation and medication 3patient did have CT of abdominal pelvis with oral contrast only did shows evidence of duodenitis General Surgery has been consulted by admitting team 4positive blood culture Klebsiella source is likely infected callus of the left big toe 5-patient did have evidence of infected callus on the plantar aspect of the left big toe, vascular surgery consulted status post amputation of the left big toe 6patient local culture also now growing Enterococcus in addition to Klebsiella, patient is currently covered with Unasyn finish therapy with oral Augmentin Dictation was produced using [employer] dictation software. please excuse any grammatical, word or spelling errors. Time with Patient: Less than 30
[2025-06-05 16:29] LABS: Glucose,Whole Blood 184 mg/dL (70-110)
--- NOTE | 2025-06-05 16:35 | P.PN ---
Progress Note - Text 75-year-old diabetic male patient had infected callus left foot big toe patient had a ray amputation with primary closure patient is on antibiotic under care of infectious disease. Today change dressing there was mild dehiscence noted surgical site we have changed the dressing with silver alginate's foot prescription for offloading shoe of the left foot we will change the dressing every other day silver alginate
[2025-06-05] MEDS ORDERED: Potassium Replacement Protocol 1 EACH MISC MISCELLANE PRN (17:22)
[2025-06-05 17:27] VITALS: RESP 16
[2025-06-05] MEDS: POTASSIUM CHLORIDE ER 20 MEQ TAB.ER PO SCH (17:33)
[2025-06-05 19:52] LABS: Glucose,Whole Blood 161 mg/dL (70-110)
[2025-06-05] MEDS: ARTIFICIAL TEARS-HYPROMELLOSE DROPS 15 ML BTL LEFT EYE PRN (20:10)
[2025-06-06 03:20] VITALS: PULSE 67
[2025-06-06 06:06] LABS: Glucose,Whole Blood 132 mg/dL (70-110)
[2025-06-06 08:31] VITALS: BP 171/74; TEMP 97.7
--- NOTE | 2025-06-06 08:32 | P.DS ---
Providers Date of admission: 05/30/25 20:26 Attending physician: Javier Delaney Consults: 05/30/25 20:26 Consult Physician Routine Consulting Provider: Lillian Carbajal Consult Reason/Comments: Fever of unknown origin Do you want consulting provider notified?: Yes 05/31/25 07:59 Consult Physician Routine Consulting Provider: Paul Del Real Consult Reason/Comments: elevated troponin Do you want consulting provider notified?: Yes 06/01/25 10:49 Consult Physician Routine Consulting Provider: Zaki Palomino Consult Reason/Comments: CT abd/pelvis reults Do you want consulting provider notified?: Yes 06/01/25 14:28 Consult Physician Routine Consulting Provider: Ok Ashley Consult Reason/Comments: left great toe wound Do you want consulting provider notified?: Yes Primary care physician: Javier Delaney - Discharge Diagnosis(es) (1) Bacteremia Current Visit: Yes Status: Acute (2) Infected ulcer of skin Current Visit: Yes Status: Acute (3) Atrial fibrillation Current Visit: No Status: Acute (4) Diabetes Current Visit: No Status: Acute (5) Hyperlipemia Current Visit: No Status: Acute (6) Hypertension Current Visit: No Status: Acute (7) Abdominal pain Current Visit: Yes Status: Acute Hospital Course: This is a 75-year-old male who was originally admitted for altered mental status. Patient was noted to have purulent drainage from his left big toe concerning for infected callus, and decision was made with vascular surgery to amputate left big toe and metatarsophalangeal joint. That procedure was completed on 06/02/2025. Patient tolerated well, a boot has been ordered for him to wear on his left foot while walking. Patient had positive blood cultures during this admission for strep and Klebsiella. He will be discharged on a week of Augmentin. Patient also had an EGD during this admission which showed duodenitis. Patient reports he is feeling much better and is eager to get home. He will follow-up in our office within 1 week. Patient seen and evaluated by nurse practitioner, physician in agreement with plan. Patient Condition at Discharge: Stable Plan - Discharge Summary New Discharge Prescriptions: New Amoxic-Pot Clav 875-125Mg [Augmentin 875-125] 1 tab PO Q12HR 7 Days #14 tab Continue Donepezil [Aricept] 10 mg PO DAILY metFORMIN HCL ER [Glucophage XR] 1,000 mg PO DAILY Gabapentin 600 mg PO HS Propranolol HCl [Propranolol HCl ER] 80 mg PO DAILY Lacosamide [Vimpat] 200 mg PO BID Cholecalciferol (Vitamin D3) [Vitamin D3 (50 Mcg = 2000 Iu)] 50 mcg PO DAILY Simvastatin [Zocor] 40 mg PO HS Furosemide [Lasix] 20 mg PO Q48H Apixaban [Eliquis] 5 mg PO BID Alpha Lipoic Acid (Unknown Dose) 3 capsule PO DAILY amLODIPine [Norvasc] 5 mg PO DAILY Discharge Medication List Simvastatin [Zocor] 40 mg PO HS 04/22/21 [History] Donepezil [Aricept] 10 mg PO DAILY 04/18/22 [History] Furosemide [Lasix] 20 mg PO Q48H 04/18/22 [History] Apixaban [Eliquis] 5 mg PO BID 05/05/23 [History] metFORMIN HCL ER [Glucophage XR] 1,000 mg PO DAILY 05/05/23 [History] Gabapentin 600 mg PO HS 06/24/23 [History] Propranolol HCl [Propranolol HCl ER] 80 mg PO DAILY 10/19/23 [History] Alpha Lipoic Acid (Unknown Dose) 3 capsule PO DAILY 05/30/25 [History] Cholecalciferol (Vitamin D3) [Vitamin D3 (50 Mcg = 2000 Iu)] 50 mcg PO DAILY 05/30/25 [History] Lacosamide [Vimpat] 200 mg PO BID 05/30/25 [History] amLODIPine [Norvasc] 5 mg PO DAILY 05/30/25 [History] Amoxic-Pot Clav 875-125Mg [Augmentin 875-125] 1 tab PO Q12HR 7 Days #14 tab 06/06/25 [Rx] Follow up Appointment(s)/Referral(s): Javier Delaney MD [Primary Care Provider] - 1 Week Discharge Disposition: HOME SELF-CARE
--- NOTE | 2025-06-06 09:37 | P.PN ---
Subjective Progress Note Date: 06/05/25 HISTORY OF PRESENT ILLNESS: Patient is a 75-year-old male with history of severe aortic stenosis status post SAVR with bioprosthetic valve, atrial fibrillation status post ablation on eliquis, bradycardia s/p permanent pacemaker, hypertension, hyperlipidemia, type 2 diabetes mellitus presented to the ER yesterday with concerns for generalized weakness and altered mental status. History was obtained collaterally from and patient. Patient went to bed two nights ago feeling cold and woke up yest erday morning with confusion, fever, chills well as nausea and vomiting and generalized weakness. He had multiple episodes of nonbloody emesis. The night before his symptoms started they went out for dinner. His states that he had a fall while trying to get to the washroom and could not get up which made her concerned about his situation and therefore was brought to the hospital by EMS for further evaluation. She states that he has been doing well until these events occurred. He is usually very active and independent in his ADLs. At the time of interview, patient is AAO x 2. He reports no episodes of chest pain, fluttering, palpitation, lightheadedness or dizziness. Patient reports that his primary credit card specialist is Dr. Hendrickson. Patient had a permanent pacemaker placement in 2021 and claims that his battery needs to be changed. He is a former smoker, quit 35 years ago and occasionally drinks alcohol. Echocardiogram in 2022 shows LVEF of 50 to 55%. Labs and imaging at this admission: WBC 10.97, hemoglobin 11.9, sodium 138, potassium 4.1, BUN 24, creatinine 1.39, lactic acid 4.1, 2.4, 1.8 Troponin I 0.040, 0.078, 0.054 EKG shows paced rhythm with first-degree AV block and PVCs Chest x-ray shows no acute cardiopulmonary process Vital signs on arrival 102.5 F, pulse rate 72, respiratory 18, blood pressure 108/62, oxygen saturation 97% on 2 L via nasal cannula 06/01/2025 Patient examined this morning at the bedside. Patient currently denies chest pain or pressure. He denies shortness of breath. Vital signs are stable. Blood cultures are positive for strep series and Klebsiella oxytoca. 06/02/2025 Seen and examined bedside this a.m. Underwent left big toe amputation at metatarsophalangeal joint due to concern of infected callus. He is also anticipated to go for EGD on Tuesday Denies any chest pain chest pressure. BP 138/75, heart rate 63 06/03/2025 Patient seen and examined. Patient denies any new complaints. No chest pain or chest pressure. No shortness of breath. He has been afebrile. Blood pressure 155/74, heart rate in the 60s and 70s, pulse ox 97% on room air. Echocardiogram is pending. Repeat blood work reveals hemoglobin 10.7, BUN 13 and creatinine 0.76, WBC 7.7. Patient is scheduled for EGD with biopsy on 06/04 and Eliquis remains on hold. 06/04/2025 Patient seen and examined. Blood pressure 157/80, heart rate 61, pulse ox 97% on room air. Echocardiogram reveals EF 40 to 45%, moderate concentric LVH, moderate pulmonary hypertension, moderate biatrial dilatation. Bioprosthetic aortic valve with mean gradient 6 mmHg. Mild mitral regurgitation, moderate tricuspid regurgitation. 06/05/2025 Patient seen and examined. Patient has undergone EGD this morning which revealed duodenitis. Patient denies any concerns today, no chest pain or chest pressure. No lightheadedness or dizziness. Patient also underwent SHANE with Dr. Still which revealed normal LV size and systolic function. No evidence of infective endocarditis or vegetation on the valves or PPM wires. Mild mitral regurgitation, mild to moderate tricuspid regurgitation. TAVR valve in place, mild central regurgitation, no PVL. No significant stenosis. Blood pressure 153/85, heart rate in the 80s, pulse ox 96% on room air. PHYSICAL EXAM: VITAL SIGNS: Reviewed. GENERAL: Well-developed in no acute distress. NECK: Supple. No JVD or thyromegaly LUNGS: Respirations even and unlabored. Lungs essentially clear to auscultation bilaterally. HEART: Irregular rate and rhythm. S1 and S2 heard. EXTREMITIES: Normal range of motion. No clubbing or cyanosis. Peripheral pulses intact. No lower extremity edema ASSESSMENT: Febrile illness Bacteremia Elevated troponins, flat, type II ND secondary to oxygen supply/demand mismatch Metabolic encephalopathy History of dual-chamber pacemaker implantation for sick sinus syndrome History of aortic stenosis with previous bioprosthetic aortic valve replacement History of infective endocarditis Persistent atrial fibrillation Hypertension Hyperlipidemia PLAN: Continue antibiotics per infectious disease Continue current cardiac medications including amlodipine, Lipitor, and propranolol His Eliquis may be resumed if okay with GI. Patient is cleared for discharge from a cardiology perspective. Patient will follow-up in the office with Dr. Hendrickson in 1 week. Nurse practitioner note has been reviewed, I agree with documented findings and plan of care. Patient was seen and examined. Objective - Vital Signs Vital signs: Vital Signs Temp 98.4 F 06/05/25 08:34 Pulse 85 06/05/25 08:34 Resp 16 06/05/25 08:34 BP 153/85 06/05/25 08:34 Pulse Ox 96 06/05/25 08:34 FiO2 Intake & Output 06/04/25 06/05/25 06/05/25 18:59 06:59 18:59 Intake Total 460 20 10 Output Total 1000 1600 800 Balance -540 -1580 -790 Weight 99.3 kg Intake: IV 100 20 10 Invasive Line 4 20 10 Oral 360 0 Output: Urine 1000 1600 800 Other: Voiding Method Urinal Urinal Urinal # Voids 1 - Labs CBC & Chem 7: 06/05/25 05:33 06/05/25 05:33 Labs: Abnormal Lab Results - Last 24 Hours (Table) 06/04/25 06/04/25 06/04/25 Range/Units 11:13 16:22 19:14 RBC (4.40-5.60) 10*6/uL Hgb (13.0-17.0) g/dL Hct (39.6-50.0) % Glucose (74-99) mg/dL POC Glucose (mg/dL) 123 H 127 H 133 H (70-110) mg/dL Total Protein (6.3-8.2) g/dL Albumin (3.5-5.0) g/dL 06/05/25 06/05/25 06/05/25 Range/Units 05:23 05:33 05:33 RBC 3.50 L (4.40-5.60) 10*6/uL Hgb 11.0 L (13.0-17.0) g/dL Hct 32.5 L (39.6-50.0) % Glucose 120 H (74-99) mg/dL POC Glucose (mg/dL) 136 H (70-110) mg/dL Total Protein 5.4 L (6.3-8.2) g/dL Albumin 2.9 L (3.5-5.0) g/dL Microbiology - Last 24 Hours (Table) 06/01/25 17:00 Stool Culture - Final Stool 06/01/25 14:00 Anaerobic Culture - Final Toe - Left First Anaerobic Gm Positive Bacill 06/02/25 10:25 Anaerobic Culture - Preliminary Toe - Left First 06/01/25 07:57 Blood Culture - Preliminary Blood
--- NOTE | 2025-06-06 09:38 | P.PN ---
Subjective Progress Note Date: 06/06/25 HISTORY OF PRESENT ILLNESS: Patient is a 75-year-old male with history of severe aortic stenosis status post SAVR with bioprosthetic valve, atrial fibrillation status post ablation on eliquis, bradycardia s/p permanent pacemaker, hypertension, hyperlipidemia, type 2 diabetes mellitus presented to the ER yesterday with concerns for generalized weakness and altered mental status. History was obtained collaterally from and patient. Patient went to bed two nights ago feeling cold and woke up yest erday morning with confusion, fever, chills well as nausea and vomiting and generalized weakness. He had multiple episodes of nonbloody emesis. The night before his symptoms started they went out for dinner. His states that he had a fall while trying to get to the washroom and could not get up which made her concerned about his situation and therefore was brought to the hospital by EMS for further evaluation. She states that he has been doing well until these events occurred. He is usually very active and independent in his ADLs. At the time of interview, patient is AAO x 2. He reports no episodes of chest pain, fluttering, palpitation, lightheadedness or dizziness. Patient reports that his primary adobe flex developer is Dr. Hendrickson. Patient had a permanent pacemaker placement in 2021 and claims that his battery needs to be changed. He is a former smoker, quit 35 years ago and occasionally drinks alcohol. Echocardiogram in 2022 shows LVEF of 50 to 55%. Labs and imaging at this admission: WBC 10.97, hemoglobin 11.9, sodium 138, potassium 4.1, BUN 24, creatinine 1.39, lactic acid 4.1, 2.4, 1.8 Troponin I 0.040, 0.078, 0.054 EKG shows paced rhythm with first-degree AV block and PVCs Chest x-ray shows no acute cardiopulmonary process Vital signs on arrival 102.5 F, pulse rate 72, respiratory 18, blood pressure 108/62, oxygen saturation 97% on 2 L via nasal cannula 06/01/2025 Patient examined this morning at the bedside. Patient currently denies chest pain or pressure. He denies shortness of breath. Vital signs are stable. Blood cultures are positive for strep series and Klebsiella oxytoca. 06/02/2025 Seen and examined bedside this a.m. Underwent left big toe amputation at metatarsophalangeal joint due to concern of infected callus. He is also anticipated to go for EGD on Tuesday Denies any chest pain chest pressure. BP 138/75, heart rate 63 06/03/2025 Patient seen and examined. Patient denies any new complaints. No chest pain or chest pressure. No shortness of breath. He has been afebrile. Blood pressure 155/74, heart rate in the 60s and 70s, pulse ox 97% on room air. Echocardiogram is pending. Repeat blood work reveals hemoglobin 10.7, BUN 13 and creatinine 0.76, WBC 7.7. Patient is scheduled for EGD with biopsy on 06/04 and Eliquis remains on hold. 06/04/2025 Patient seen and examined. Blood pressure 157/80, heart rate 61, pulse ox 97% on room air. Echocardiogram reveals EF 40 to 45%, moderate concentric LVH, moderate pulmonary hypertension, moderate biatrial dilatation. Bioprosthetic aortic valve with mean gradient 6 mmHg. Mild mitral regurgitation, moderate tricuspid regurgitation. 06/05/2025 Patient seen and examined. Patient has undergone EGD this morning which revealed duodenitis. Patient denies any concerns today, no chest pain or chest pressure. No lightheadedness or dizziness. Patient also underwent SHANE with Dr. Still which revealed normal LV size and systolic function. No evidence of infective endocarditis or vegetation on the valves or PPM wires. Mild mitral regurgitation, mild to moderate tricuspid regurgitation. TAVR valve in place, mild central regurgitation, no PVL. No significant stenosis. Blood pressure 153/85, heart rate in the 80s, pulse ox 96% on room air. 06/06/2025 Patient seen and examined. Patient states that he is being discharged home today. He denies chest pain or chest pressure. He has been afebrile. Blood pressure 169/76, heart rate in the 60s. PHYSICAL EXAM: VITAL SIGNS: Reviewed. GENERAL: Well-developed in no acute distress. NECK: Supple. No JVD or thyromegaly LUNGS: Respirations even and unlabored. Lungs essentially clear to auscultation bilaterally. HEART: Irregular rate and rhythm. S1 and S2 heard. EXTREMITIES: Normal range of motion. No clubbing or cyanosis. Peripheral pulses intact. No lower extremity edema ASSESSMENT: Febrile illness Bacteremia Elevated troponins, flat, type II VT secondary to oxygen supply/demand mismatch Metabolic encephalopathy History of dual-chamber pacemaker implantation for sick sinus syndrome History of aortic stenosis with previous bioprosthetic aortic valve replacement History of infective endocarditis Persistent atrial fibrillation Hypertension Hyperlipidemia PLAN: Continue antibiotics per infectious disease Continue current cardiac medications including amlodipine, Lipitor, and propranolol His Eliquis may be resumed if okay with GI. Patient is cleared for discharge from a cardiology perspective. Patient will follow-up in the office with Dr. Hendrickson in 1 week. Nurse practitioner note has been reviewed, I agree with documented findings and plan of care. Patient was seen and examined. Objective - Vital Signs Vital signs: Vital Signs Temp 97.7 F 06/06/25 08:00 Pulse 67 06/06/25 08:00 Resp 16 06/06/25 08:00 BP 171/74 06/06/25 08:00 Pulse Ox 99 06/06/25 08:00 FiO2 Intake & Output 06/05/25 06/06/25 06/06/25 18:59 06:59 18:59 Intake Total 10 Output Total 2024 1399 Balance -2014 Weight 97 kg Intake: IV 10 Invasive Line 4 10 Oral 0 Output: Urine 2024 1399 Other: Voiding Method Urinal Urinal - Labs CBC & Chem 7: 06/05/25 05:33 06/05/25 05:33 Labs: Abnormal Lab Results - Last 24 Hours (Table) 06/05/25 06/05/25 06/05/25 Range/Units 11:08 16:26 19:49 POC Glucose (mg/dL) 200 H 184 H 161 H (70-110) mg/dL 06/06/25 Range/Units 06:01 POC Glucose (mg/dL) 132 H (70-110) mg/dL Microbiology - Last 24 Hours (Table) 06/02/25 10:25 Gram Stain - Final Toe - Left First Tissue Culture - Final Staphylococcus caprae 06/01/25 17:00 Stool Culture - Final Stool
--- NOTE | 2025-06-06 11:26 | P.PN ---
Subjective Progress Note Date: 06/06/25 Patient feels well enough to be sent home. Denies any pain. Is ambulating, tolerating diet, and using restroom. Objective - Vital Signs Vital signs: Vital Signs Temp 97.7 F 06/06/25 08:00 Pulse 67 06/06/25 08:00 Resp 16 06/06/25 08:00 BP 171/74 06/06/25 08:00 Pulse Ox 99 06/06/25 08:00 FiO2 Intake & Output 06/05/25 06/06/25 06/06/25 18:59 06:59 18:59 Intake Total 10 180 Output Total 2024 1400 400 Balance -2014 Weight 97 kg Intake: IV 10 Invasive Line 4 10 Oral 0 180 Output: Urine 2024 1400 400 Other: Voiding Method Urinal Urinal Urinal - Exam Constitutional: No acute distress. Lying back in bed comfortably. Abdominal: Mild suprapubic tenderness to deep palpation. - Labs CBC & Chem 7: 06/05/25 05:33 06/05/25 05:33 Labs: Abnormal Lab Results - Last 24 Hours (Table) 06/05/25 06/05/25 06/06/25 Range/Units 16:26 19:49 06:01 POC Glucose (mg/dL) 184 H 161 H 132 H (70-110) mg/dL Microbiology - Last 24 Hours (Table) 06/02/25 10:25 Gram Stain - Final Toe - Left First Tissue Culture - Final Staphylococcus caprae 06/01/25 17:00 Stool Culture - Final Stool Assessment and Plan Assessment: ASSESSMENT: 1. 75 year old male with abdominal pain and duodenitis on CT-AP PLAN: - Patient status post EGD with biopsy - Biopsy results pending - Patient ok for discharge from surgical standpoint
== END 2025-06-06 12:00 | disposition home or self-care (01) | DRG 853 ==
LOC: EC 16:13 → 3SCARD 20:26
PROVIDERS: ADMIT Family Medicine; ATTEND Family Medicine
PROC: B246ZZ4 Ultrasonography of Right and Left Heart, Transesophageal (ICD-10-PCS; 2025-05-30)
PROC: 4B02XTZ Measurement of Cardiac Defibrillator, External Approach (ICD-10-PCS; 2025-05-31)
PROC: 0Y6Q0Z0 Detachment at Left 1st Toe, Complete, Open Approach (ICD-10-PCS; principal; 2025-06-02 09:30)
PROC: 0DB98ZX Excision of Duodenum, Via Natural or Artificial Opening Endoscopic, Diagnostic (ICD-10-PCS; 2025-06-04)
DX: A41.59 Other Gram-negative sepsis (principal); G92.8 Other toxic encephalopathy; I21.A1 Myocardial infarction type 2; F05 Delirium due to known physiological condition; Z11.52 Encounter for screening for COVID-19; I27.20 Pulmonary hypertension, unspecified; K29.80 Duodenitis without bleeding; I48.19 Other persistent atrial fibrillation; I49.5 Sick sinus syndrome; G40.909 Epilepsy, unspecified, not intractable, without status epilepticus; E11.65 Type 2 diabetes mellitus with hyperglycemia; I08.3 Combined rheumatic disorders of mitral, aortic and tricuspid valves; I10 Essential (primary) hypertension; F32.A Depression, unspecified; R65.20 Severe sepsis without septic shock; E11.42 Type 2 diabetes mellitus with diabetic polyneuropathy; I25.10 Atherosclerotic heart disease of native coronary artery without angina pectoris; I49.3 Ventricular premature depolarization; B95.2 Enterococcus as the cause of diseases classified elsewhere; B96.1 Klebsiella pneumoniae [K. pneumoniae] as the cause of diseases classified elsewhere; K57.30 Diverticulosis of large intestine without perforation or abscess without bleeding; Z95.3 Presence of xenogenic heart valve; E78.5 Hyperlipidemia, unspecified; L84 Corns and callosities; Z95.0 Presence of cardiac pacemaker; I35.2 Nonrheumatic aortic (valve) stenosis with insufficiency; H91.90 Unspecified hearing loss, unspecified ear; I44.0 Atrioventricular block, first degree; Z79.01 Long term (current) use of anticoagulants; Z79.84 Long term (current) use of oral hypoglycemic drugs; Z79.899 Other long term (current) drug therapy; Z87.891 Personal history of nicotine dependence; Z89.412 Acquired absence of left great toe
CPT/HCPCS: 36415; 43239; 71046; 74176; 80048; 80053; 81001; 81003; 82565; 83036; 83605; 84484; 85025; 85027; 85610; 85652; 85730; 86140; 87040; 87045; 87046; 87070; 87075; 87077; 87186; 87205; 87493; 87636; 88305; 93005; 93306; 93312; 93320; 93325; 96361; 96365; 96366; 96367; 96375; 99285